=== PATIENT | female | born 1960 | race Caucasian/White ===

== ENCOUNTER 2020-11-01 11:28 | Outpatient (REF) | payer MEDICARE, SELFPAY | END 2020-11-01 11:29 | disposition home or self-care (01) | LOC: HO.LAB 11:28 | PROVIDERS: Visit Provider Internal Medicine | DX: Z20.828 Contact with and (suspected) exposure to other viral communicable diseases (principal) | CPT/HCPCS: C9803; U0003 ==

== ENCOUNTER 2021-01-25 11:06 | Outpatient (REF) | payer MEDICARE, SELFPAY ==
--- NOTE | ~2021-01-25 | MM_ITS ---
EXAMINATION: MM SCREENING DIGITAL BREAST TOMOSYNTHESIS, BILATERAL CLINICAL INFORMATION: Screening. Asymptomatic. The lifetime risk of breast cancer based on the Tyrer-Cuzick Model is 3%. COMPARISON: Mammography: 12/22/2019, 05/09/2018, 05/08/2017 TECHNIQUE: Digital breast tomosynthesis is performed in both the craniocaudal and mediolateral oblique views along with computer-aided detection (CAD). Synthesized 2D images are generated from the tomosynthesis. FINDINGS: The breasts are almost entirely fatty (ACR BI-RADS breast composition Category a). There are no significant masses, abnormal calcifications, or other abnormalities. The axilla and skin contours are unremarkable. MM/MM tomosynthesis screening BI IMPRESSION: No mammographic evidence of malignancy. ASSESSMENT: BI-RADS 1: Negative RECOMMENDATION: Routine annual mammography screening. This patient's information was entered into a reminder system with a target due date for their next mammogram.
== END 2021-01-25 11:07 | disposition home or self-care (01) ==
LOC: HO.MAMMO 11:06
PROVIDERS: Visit Provider Family Medicine
DX: Z12.31 Encounter for screening mammogram for malignant neoplasm of breast (principal)
CPT/HCPCS: 77063; 77067

== ENCOUNTER 2022-11-06 11:02 | Outpatient (REF) | payer MEDICARE, SELFPAY ==
--- NOTE | ~2022-11-06 | MM_ITS ---
EXAMINATION: MM SCREENING DIGITAL BREAST TOMOSYNTHESIS, BILATERAL CLINICAL INFORMATION: Screening. Asymptomatic. The lifetime risk of breast cancer based on the Tyrer-Cuzick Model is 3%. COMPARISON: Mammography: 01/25/2021, 12/22/2019, 05/09/2018 TECHNIQUE: Digital breast tomosynthesis is performed in both the craniocaudal and mediolateral oblique views along with computer-aided detection (CAD). Synthesized 2D images are generated from the tomosynthesis. FINDINGS: The breasts are almost entirely fatty (ACR BI-RADS breast composition Category a). Background stromal markings are stable. There is no developing density or interval mass or architectural abnormality. No abnormal calcifications. The axilla and skin contours are unremarkable. MM/MM tomosynthesis screening BI IMPRESSION: No mammographic evidence of malignancy. ASSESSMENT: BI-RADS 1: Negative RECOMMENDATION: Routine annual mammography screening. This patient's information was entered into a reminder system with a target due date for their next mammogram.
== END 2022-11-06 11:03 | disposition home or self-care (01) ==
LOC: HO.MAMMO 11:02
PROVIDERS: PCP Family Medicine; Visit Provider Family Medicine
DX: Z12.31 Encounter for screening mammogram for malignant neoplasm of breast (principal)
CPT/HCPCS: 77063; 77067

== ENCOUNTER 2023-10-10 10:02 | Outpatient (REF) | payer MEDICARE, SELFPAY ==
--- NOTE | ~2023-10-10 | US_ITS ---
EXAMINATION: US ABDOMEN COMPLETE CLINICAL INFORMATION: Fatty liver. COMPARISON: CT chest 08/16/2020. Ultrasound abdomen complete 05/09/2018 and 08/07/2017. TECHNIQUE: Real-time imaging of the abdominal viscera. FINDINGS: PANCREAS: The pancreas appears unremarkable, without masses or ductal dilatation, with the exception of the tail which is obscured by bowel gas. ABDOMINAL AORTA: The proximal, mid, and distal segments are normal in caliber. INFERIOR VENA CAVA: Visualized portions are normal. LIVER: The liver is enlarged at 19.5 cm in cephalocaudad dimension and demonstrates significantly increased echogenicity consistent with hepatic steatosis. The liver contour is normal. No focal hepatic lesion. There is no intrahepatic biliary duct dilatation seen. GALLBLADDER: The gallbladder is physiologically distended without evidence of stones, sludge, polyps, wall thickening or pericholecystic fluid. COMMON BILE DUCT: Normal in caliber measuring 0.5 cm in diameter. RIGHT KIDNEY: No hydronephrosis. No renal calculi or focal parenchymal lesions. The kidney measures 11.7 cm in maximum dimension. LEFT KIDNEY: There is some minimal fullness in the renal pelvis but no hydronephrosis. No renal calculi or focal parenchymal lesions. The kidney measures 13.8 cm in maximum dimension. SPLEEN: Normal. The spleen measures 9.7 cm in maximum dimension. FREE FLUID: None. US/US abdomen complete IMPRESSION: Enlarged fatty liver.
--- NOTE | ~2023-10-10 | US_ITS ---
EXAMINATION: US EXTRACRANIAL CAROTID DUPLEX, BILATERAL CLINICAL INFORMATION: Dizziness. COMPARISON: None available. TECHNIQUE: Real-time ultrasound and Doppler techniques (integrating B-mode 2-D vascular images, Doppler spectral analysis and color-flow Doppler imaging) were utilized to interrogate the extracranial carotid arteries, the vertebral arteries and proximal subclavian arteries bilaterally. The degree of stenosis is determined by criteria similar to NASCET. FINDINGS: Right Side: 1. There is mild atherosclerotic plaque seen in the bifurcation/proximal ICA region. 2. The common carotid artery PSV proximally is 80 cm/s and distally 88 cm/s. 3. The proximal internal carotid artery velocities are 66 cm/s systolic and 24 cm/s diastolic. 4. The proximal external carotid artery PSV is 83 cm/s. 5. The vertebral artery shows antegrade flow. 6. The subclavian artery waveforms are normal. Left Side: 1. There is no atherosclerotic plaque seen in the bifurcation/proximal ICA region. 2. The common carotid artery PSV proximally is 81 cm/s and distally 86 cm/s. 3. The proximal internal carotid artery velocities are 50 cm/s systolic and 21 cm/s diastolic. 4. The proximal external carotid artery PSV is 70 cm/s. 5. The vertebral artery shows antegrade flow. 6. The subclavian artery waveforms are normal. US/US carotid duplex BI IMPRESSION: RIGHT: Minimal, non-hemodynamically significant stenosis of the proximal right internal carotid artery corresponding to a 0-49% stenosis by velocity criteria. LEFT: Normal left internal carotid artery without atherosclerotic plaque or hemodynamically significant stenosis.
== END 2023-10-10 10:03 | disposition home or self-care (01) ==
LOC: HO.US 10:02
PROVIDERS: PCP Family Medicine; Visit Provider Family Medicine
DX: K76.0 Fatty (change of) liver, not elsewhere classified (principal); R42 Dizziness and giddiness
CPT/HCPCS: 76700; 93880

== ENCOUNTER 2023-12-12 11:41 | Outpatient (REF) | payer OTHER, SELFPAY | END 2023-12-12 11:42 | disposition home or self-care (01) | LOC: HO.MAMMO 11:41 | PROVIDERS: Visit Provider Family Medicine | DX: Z12.31 Encounter for screening mammogram for malignant neoplasm of breast (principal) | CPT/HCPCS: 77063; 77067 ==

== ENCOUNTER → 2023-12-12 12:00 | Outpatient (BNV) | payer OTHER, SELFPAY | PROVIDERS: Visit Provider Radiology Diagnostic Radiology | DX: Z12.31 Encounter for screening mammogram for malignant neoplasm of breast (principal) | CPT/HCPCS: 77063; 77067 ==

== ENCOUNTER 2024-02-26 13:40 | Outpatient (AMB) | payer OTHER, SELFPAY ==
--- NOTE | 2024-02-26 13:45 | MHC.OFFVIS ---
Intake Vital Signs 02/26/24 13:48 Height 5 ft 1 in Weight 167 lb 8.821 oz BMI 31.7 BP 184/83 H Blood Pressure Location Lt brachial Position Sitting Pulse 77 Intake Visit Reasons: dysphagia Intake Note: Wendy presents in the office as a new patient for Dysphagia. CC: She has issues with her bowels. She gets pains in the back right side. Between hips and ribs. She states that she is not having issues swallowing but she gets stuff stuck in her chest. She states that she has to drink liquids to have them go down. 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 Allergies apple [APPLE] Allergy (Mild, Unverified 02/26/24 13:49) ITCHY THROAT kiwi [KIWI] Allergy (Mild, Unverified 02/26/24 13:49) ITCHY THROAT peach [PEACH] Allergy (Mild, Unverified 02/26/24 13:49) ITCHY THROAT strawberry [STRAWBERRY] Allergy (Mild, Unverified 02/26/24 13:49) ITCHY THROAT pineapple [PINEAPPLE] Allergy (Unknown, Unverified 02/26/24 13:49) ITCHY THROAT apples,strawberries, pineapple Allergy (Unknown, Uncoded 02/26/24 13:49) itching shellfish Allergy (Uncoded 02/26/24 13:49) Itching HPI dysphagia HPI Details 63-year-old female with past medical history of thrombocytopenia, neck surgery, dysphagia, insomnia, hypertension, neuropathy, hypercholesteremia is here today for initial consultation. Patient was sent to us by her PCP for evaluation of her dysphagia. Patient also is suffering from constipation. Patient had surgery in 2018 to her C-spine and since then patient reports that she has been having trouble swallowing. Patient denies food ever getting stuck in her esophagus. Last year patient went to [facility] for barium swallow that showed mild esophageal dysmotility without laryngeal penetration or subglottic aspiration. Last month patient was seen at [facility] in the ER for severe abdominal pain. Patient reports that her pain is on the right side radiating to her back. Patient was told that she was full of stool. Confirmed by CT scan. Patient is taking Colace 2 capsules daily and reports no results at all. Patient never had upper endoscopy done. Patient had colonoscopy in August of 2022, hyperplastic polyp found in sigmoid colon. Patient denies any melena, hematochezia, unintentional weight loss or ribbon like stools. Patient reports occasional dyspepsia and acid reflux. Currently patient is on omeprazole 20 mg daily. [facility] Medical History Headache Fatty liver Pulmonary nodule Asthma FH: total knee replacement Scoliosis Arthritis Hyperlipemia Depression Anxiety Hypertension Diabetes Surgical History History of esophagogastroduodenoscopy (EGD) Hx of colonoscopy S/P cervical disc replacement (Unknown) History of tubal ligation H/O: hysterectomy Family History Maternal Grandmother Uterine cancer Social History Household Members: None Housing: Apartment Alcohol intake: former Patient Tobacco Use Status: Former Tobacco user Quit Date: 2017 Tobacco use type: Cigarette service: No Current occupational status: retired Review of Systems Const Denies weight gain and Denies weight loss ENT Reports no additional complaints, Reports dysphagia and Denies odynophagia Card Reports no additional complaints Resp Reports no additional complaints GI Denies abdominal pain, Denies belching, Denies melena, Denies bloating, Denies change in bowel habits, Reports constipation, Reports dysphagia, Denies excessive flatus, Denies dyspepsia, Denies heartburn, Denies diarrhea, Denies loose stools, Denies nausea, Denies odynophagia and Denies vomiting Reports no additional complaints Musc Reports no additional complaints Neuro Reports no additional complaints Psych Reports no additional complaints Endo Reports no additional complaints Physical Exam Vital Signs: Last Vital Signs Pulse 77 02/26/24 13:48 BP 184/83 H 02/26/24 13:48 BMI result Body Mass Index 31.7 Const General: healthy appearing and no acute distress Nutritional Appearance: obese Orientation/consciousness: patient oriented x3 Resp Effort & Inspection: normal respiratory effort, able to speak in complete sentences, no tracheal deviation and symmetric chest movement Auscultation: clear to auscultation bilaterally Cardio Rate: regular rate GI Inspection: Yes normal to inspection, No distended and Yes obesity Palpation (GI): Soft to palpation, not firm, nontender and No hepatosplenomegaly present Auscultation: normal bowel sounds General: Yes no CVA tenderness Back/Spine/Pelvis Back: no CVA tenderness Skin General skin exam: elasticity normal, turgor normal and dry skin Neuro General: patient oriented x3 Psych Appearance: grossly normal Mental Status: mental status grossly normal Assessment & Plan Assessment & Plan (1) Dysphagia: Code(s): R13.10 - Dysphagia, unspecified Qualifiers: Dysphagia type: esophageal phase Qualified Code(s): R13.19 - Other dysphagia (2) Abdominal pain, LUQ (left upper quadrant): Code(s): R10.12 - Left upper quadrant pain (3) Postprandial abdominal bloating: Code(s): R14.0 - Abdominal distension (gaseous) (4) Constipation: Code(s): K59.00 - Constipation, unspecified Qualifiers: Constipation type: slow transit constipation Qualified Code(s): K59.01 - Slow transit constipation (5) GERD (gastroesophageal reflux disease): Code(s): K21.9 - Gastro-esophageal reflux disease without esophagitis Qualifiers: Esophagitis presence: esophagitis presence not specified Qualified Code(s): K21.9 - Gastro-esophageal reflux disease without esophagitis Plan Patient will be sent for upper endoscopy to rule out Burgos, Schatzki ring, achalasia for possible dilation. Will change PPI to pantoprazole daily. Patient was encouraged to avoid dietary triggers and late night snacking. Staying upright for minimal 3 hours after meals discussed patient. Patient will eat small bites and chewing slowly. Making sure that she drinks fluids with solid food. Patient will start taking Dulcolax every evening. Increase fluid intake and activity to promote better bowel motility. Patient will return to the office in 5-6 weeks, sooner on as needed basis. Patient is agreeable to this plan and verbalizes understanding of instructions. She was given the opportunity to ask questions and all questions answered. Thank you for allowing me to participate in her care Medications: New bisacodyl (Dulcolax (bisacodyl)) 10 mg (2 x 5 mg) PO BEDTIME 180 tabs 4RF pantoprazole take one tablet half an hour before breakfast 40 mg PO DAILY 30 tabs 2RF K21.9 - Gastro-esophageal reflux disease without esophagitis Coding Level of Care Code New Pt Level 4 (38118) Diagnoses Esophageal dysphagia R13.19 Dysphagia type: esophageal phase Abdominal pain, LUQ (left upper quadrant) R10.12 Postprandial abdominal bloating R14.0 Slow transit constipation K59.01 Constipation type: slow transit constipation Gastroesophageal reflux disease, unspecified whether esophagitis present K21.9 Esophagitis presence: esophagitis presence not specified Time Spent (min) 45 Comment 30 minutes spent with patient and additional 15 minutes spent reviewing her records
[2024-02-26 13:48] VITALS: BP 184/83; PULSE 77; BMI 31.7
== END 2024-02-26 14:21 | disposition home or self-care (01) ==
PROVIDERS: PCP Family Medicine; Referring Provider Family Medicine; Visit Provider Nurse Practitioner Family
DX: R13.19 Other dysphagia (principal); R10.12 Left upper quadrant pain; R14.0 Abdominal distension (gaseous); K59.01 Slow transit constipation; K21.9 Gastro-esophageal reflux disease without esophagitis
CPT/HCPCS: 99204

== ENCOUNTER → 2024-02-26 13:40 | Outpatient (BNVA) | payer OTHER, SELFPAY | PROVIDERS: PCP Family Medicine; Referring Provider Family Medicine; Visit Provider Nurse Practitioner Family | DX: R13.19 Other dysphagia (principal); R10.12 Left upper quadrant pain; R14.0 Abdominal distension (gaseous); K59.01 Slow transit constipation; K21.9 Gastro-esophageal reflux disease without esophagitis | CPT/HCPCS: 99202 ==

== ENCOUNTER 2024-04-01 11:26 | Outpatient (AMB) | payer OTHER, SELFPAY ==
--- NOTE | 2024-04-01 11:32 | A.OFFVIS_ITS ---
Vital Signs 04/01/24 11:35 Height 5 ft 1 in Weight 170 lb BMI 32.1 BP 109/65 Blood Pressure Location Lt brachial Position Sitting Pulse 78 Intake Visit Reasons: med discussion per bradley Intake Note: Patient follow up for discussion Patient cc: Nauseas, LLQ pain, and swallowing problems on and off. 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[facility] [place] Accompanied by: Self / Same As Patient Allergies apple [APPLE] Allergy (Mild, Unverified 02/26/24 13:49) ITCHY THROAT kiwi [KIWI] Allergy (Mild, Unverified 02/26/24 13:49) ITCHY THROAT peach [PEACH] Allergy (Mild, Unverified 02/26/24 13:49) ITCHY THROAT strawberry [STRAWBERRY] Allergy (Mild, Unverified 02/26/24 13:49) ITCHY THROAT pineapple [PINEAPPLE] Allergy (Unknown, Unverified 02/26/24 13:49) ITCHY THROAT apples,strawberries, pineapple Allergy (Unknown, Uncoded 02/26/24 13:49) itching shellfish Allergy (Uncoded 02/26/24 13:49) Itching HPI HPI med discussion per bradley: Details: LAST VISIT Dysphagia Abdominal pain, LUQ (left upper quadrant) Postprandial abdominal bloating Constipation GERD (gastroesophageal reflux disease) Plan Patient will be sent for upper endoscopy to rule out Burgos, Schatzki ring, achalasia for possible dilation. Will change PPI to pantoprazole daily. Patient was encouraged to avoid dietary triggers and late night snacking. Staying upright for minimal 3 hours after meals discussed patient. Patient will eat small bites and chewing slowly. Making sure that she drinks fluids with solid food. Patient will start taking Dulcolax every evening. Increase fluid intake and activity to promote better bowel motility. Patient will return to the office in 5-6 weeks, sooner on as needed basis. Patient is agreeable to this plan and verbalizes understanding of instructions. She was given the opportunity to ask questions and all questions answered. ? Thank you for allowing me to participate in her care Medications New bisacodyl (Dulcolax (bisacodyl)) 10 mg (2 x 5 mg) PO BEDTIME 180 tabs 4RF pantoprazole take one tablet half an hour before breakfast 40 mg PO DAILY 30 tabs 2RF K21.9 TODAY'S VISIT Patient is here today for follow-up. Patient reports that she started taking Dulcolax and she is able to moving her bowels well. However patient states that pantoprazole was causing her epigastric pain after taking it. Patient states that she stopped. Occasional postprandial epigastric discomfort and dyspepsia. Occasional dysphagia depending on what she eats. Patient denies melena, hematochezia, unintentional weight loss or ribbon like stools. Has upper endoscopy and post endoscopy appointment scheduled. Patient denies any issues with anesthesia. Denies any history of sleep apnea. Patient is on low-dose aspirin. Patient denies any other GI concerning symptoms. [facility] Medical History Headache Fatty liver Pulmonary nodule Asthma FH: total knee replacement Scoliosis Arthritis Hyperlipemia Depression Anxiety Hypertension Diabetes Surgical History History of esophagogastroduodenoscopy (EGD) Hx of colonoscopy S/P cervical disc replacement (Unknown) History of tubal ligation H/O: hysterectomy Family History Maternal Grandmother Uterine cancer Social History Household Members: None Housing: Apartment Alcohol intake: former Patient Tobacco Use Status: Former Tobacco user Quit Date: 2017 Tobacco use type: Cigarette service: No Current occupational status: retired Review of Systems Const Denies weight gain and Denies weight loss ENT Reports no additional complaints, Reports dysphagia (improved) and Denies odynophagia Card Reports no additional complaints Resp Reports no additional complaints GI Reports abdominal pain (LUQ), Denies belching, Denies melena, Reports bloating, Denies change in bowel habits, Reports constipation (better), Reports dysphagia (improved), Denies excessive flatus, Denies dyspepsia, Denies heartburn, Denies diarrhea, Denies loose stools, Denies nausea, Denies odynophagia and Denies vomiting Reports no additional complaints Musc Reports no additional complaints Neuro Reports no additional complaints Psych Reports no additional complaints Endo Reports no additional complaints Physical Exam Vital Signs: Last Vital Signs Pulse 78 04/01/24 11:35 BP 109/65 04/01/24 11:35 BMI result Body Mass Index 32.1 Const Other: Patient ambulating using cane General: healthy appearing and no acute distress Nutritional Appearance: obese Orientation/consciousness: patient oriented x3 Resp Effort & Inspection: normal respiratory effort, able to speak in complete sentences, no tracheal deviation and symmetric chest movement Auscultation: clear to auscultation bilaterally Cardio Rate: regular rate GI Inspection: Yes normal to inspection, No distended and Yes obesity Palpation (GI): Soft to palpation, not firm, nontender and No hepatosplenomegaly present Auscultation: normal bowel sounds General: Yes no CVA tenderness Back/Spine/Pelvis Back: no CVA tenderness Skin General skin exam: elasticity normal, turgor normal and dry skin Neuro General: patient oriented x3 Psych Appearance: grossly normal Mental Status: mental status grossly normal Results Reviewed Results Reviewed: ABDOMINAL ULTRASOUND 2022 FINDINGS: PANCREAS: The pancreas appears unremarkable, without masses or ductal dilatation, with the exception of the tail which is obscured by bowel gas. ABDOMINAL AORTA: The proximal, mid, and distal segments are normal in caliber. INFERIOR VENA CAVA: Visualized portions are normal. LIVER: The liver is enlarged at 19.5 cm in cephalocaudad dimension and demonstrates significantly increased echogenicity consistent with hepatic steatosis. The liver contour is normal. No focal hepatic lesion. There is no intrahepatic biliary duct dilatation seen. GALLBLADDER: The gallbladder is physiologically distended without evidence of stones, sludge, polyps, wall thickening or pericholecystic fluid. COMMON BILE DUCT: Normal in caliber measuring 0.5 cm in diameter. RIGHT KIDNEY: No hydronephrosis. No renal calculi or focal parenchymal lesions. The kidney measures 11.7 cm in maximum dimension. LEFT KIDNEY: There is some minimal fullness in the renal pelvis but no hydronephrosis. No renal calculi or focal parenchymal lesions. The kidney measures 13.8 cm in maximum dimension. SPLEEN: Normal. The spleen measures 9.7 cm in maximum dimension. FREE FLUID: None. US/US abdomen complete IMPRESSION: Enlarged fatty liver. Assessment & Plan Assessment & Plan (1) Dysphagia: Code(s): R13.10 - Dysphagia, unspecified Qualifiers: Dysphagia type: esophageal phase Qualified Code(s): R13.19 - Other dysphagia (2) Abdominal pain, LUQ (left upper quadrant): Code(s): R10.12 - Left upper quadrant pain (3) Postprandial abdominal bloating: Code(s): R14.0 - Abdominal distension (gaseous) (4) Constipation: Code(s): K59.00 - Constipation, unspecified Qualifiers: Constipation type: slow transit constipation Qualified Code(s): K59.01 - Slow transit constipation (5) GERD (gastroesophageal reflux disease): Code(s): K21.9 - Gastro-esophageal reflux disease without esophagitis Qualifiers: Esophagitis presence: esophagitis presence not specified Qualified Code(s): K21.9 - Gastro-esophageal reflux disease without esophagitis (6) Hepatic steatosis: Code(s): K76.0 - Fatty (change of) liver, not elsewhere classified Plan Patient can start taking famotidine in the morning. Avoid dietary triggers and late night snacking. Continue taking Dulcolax. Simethicone on as-needed basis. Upper endoscopy scheduled. Patient was encouraged to eat small amount and slowly. She is agreeable to this plan and verbalizes understanding of instructions. She was given the opportunity to ask questions and all questions answered. I will see her after the procedure, sooner on as needed basis. Patient is agreeable to this plan and verbalizes understanding of instructions. She was given the opportunity to ask questions and all questions answered. Thank you for allowing me to participate in her care Medications: New famotidine (Pepcid) 20 mg PO DAILY 30 tabs 3RF K29.70 - Gastritis, unspecified, without bleeding simethicone 125 mg PO BID-QID PRN 120 caps 3RF abdominal distention K21.9 - Gastro-esophageal reflux disease without esophagitis Discontinued pantoprazole take one tablet half an hour before breakfast Discontinued Reason: Duplicate 40 mg PO DAILY 30 tabs 2RF K21.9 - Gastro- esophageal reflux disease without esophagitis Coding Level of Care Code Est Pt Level 3 (15836) Diagnoses Esophageal dysphagia R13.19 Dysphagia type: esophageal phase Abdominal pain, LUQ (left upper quadrant) R10.12 Postprandial abdominal bloating R14.0 Slow transit constipation K59.01 Constipation type: slow transit constipation Gastroesophageal reflux disease, unspecified whether esophagitis present K21.9 Esophagitis presence: esophagitis presence not specified Hepatic steatosis K76.0 Time Spent (min) 25 Comment 15 minutes spent with patient and additional 10 minutes spent reviewing her records
[2024-04-01 11:35] VITALS: BP 109/65; PULSE 78; BMI 32.1
== END 2024-04-01 12:32 | disposition home or self-care (01) ==
PROVIDERS: PCP Family Medicine; Visit Provider Nurse Practitioner Family
DX: R13.19 Other dysphagia (principal); R10.12 Left upper quadrant pain; R14.0 Abdominal distension (gaseous); K59.01 Slow transit constipation; K21.9 Gastro-esophageal reflux disease without esophagitis; K76.0 Fatty (change of) liver, not elsewhere classified
CPT/HCPCS: 99213

== ENCOUNTER → 2024-04-01 11:26 | Outpatient (BNVA) | payer OTHER, SELFPAY | PROVIDERS: PCP Family Medicine; Visit Provider Nurse Practitioner Family | DX: R13.19 Other dysphagia (principal); R10.12 Left upper quadrant pain; R14.0 Abdominal distension (gaseous); K59.01 Slow transit constipation; K21.9 Gastro-esophageal reflux disease without esophagitis; K76.0 Fatty (change of) liver, not elsewhere classified | CPT/HCPCS: 99212 ==

== ENCOUNTER 2024-05-09 14:22 | Outpatient (REF) | payer OTHER, SELFPAY ==
--- NOTE | ~2024-05-09 | CT_ITS ---
EXAMINATION: CT CHEST WITHOUT CONTRAST CLINICAL INFORMATION: Follow-up asymmetric aortic dilatation and pulmonary nodules. COMPARISON: 08/16/2020 CT chest. TECHNIQUE: Multidetector volumetric CT imaging of the chest was done. Axial MIP volume rendering provided. Sagittal and coronal reformatted images were obtained. This CT examination was performed using dose optimization techniques as appropriate, variously including the following: *Automated exposure control *Adjustment of mA and/or kV according to patient size (this includes techniques or standardized protocols for targeted exams where dose is matched to indication/reason for exam; i.e. extremities or head) *Use of iterative reconstruction technique DLP: 143 mGy-cm FINDINGS: PET ADOPTION COUNSELOR: No findings of significance. Cervical fusion hardware. Mild dextroconvex thoracic scoliosis and exaggerated kyphosis. LUNGS: -Lungs demonstrate no evidence of consolidation or abnormal groundglass opacities. -Trachea and major bronchi appear normal. There is no bronchiectasis or bronchial wall thickening. -There is no significant emphysema or interstitial lung disease identified. -Previously mentioned posterior right upper lobe 4 mm nodule has the appearance of a focus of pleural scarring rather than an actual nodule. It is unchanged. -2 mm calcified granuloma superior segment right lower lobe is stable (series 5, image 182). -3 mm pulmonary nodule lateral superior segment right lower lobe is unchanged (series 5, image 236). -There are no significant left-sided pulmonary nodules. -There are no new pulmonary nodules. MEDIASTINUM: -The 8 ascending aorta measures up to 3.9 cm, ectatic without meeting strict criteria for aneurysmal dilatation. This is unchanged in caliber allowing for a non-gated study. There is trace aortic calcification and mild tortuosity. No additional aortic abnormality. Great vessels branch normally with a two-vessel branching pattern. -Pulmonary artery is normal in size. -No esophageal abnormalities. -Heart is normal in size. No pericardial effusion. Small amount of mitral annular calcification. -No abnormal lymphadenopathy. -The thyroid gland images normally. CORONARY ARTERY CALCIFICATION: Trace LAD calcification proximally. PLEURA: There is no pleural effusion. No pleural mass or thickening. AXILLA/CHEST WALL: No lymphadenopathy. UPPER ABDOMEN: There is fatty infiltration of liver. There are 3 calcifications in segment 8 of the liver, most likely granulomatous changes. Stomach is decompressed. OSSEOUS STRUCTURES: Partially imaged lower cervical anterior fusion with hardware. Subtle dextroconvex thoracic scoliosis with mild to moderate degenerative spondylosis. No suspicious lytic or blastic bone lesions. Mildly exaggerated thoracic kyphosis. CT/CT chest wo IV con IMPRESSION: 1. No active lung disease. The lungs are clear. 2. There are stable lung nodules, benign, with no new nodules present. 3. Stable ectasia of the ascending aorta 3.9 cm. No change. 4. Remainder of ancillary findings as described above. Fleischner guidelines were followed.
== END 2024-05-09 14:23 | disposition home or self-care (01) ==
LOC: HO.CT 14:22
PROVIDERS: Visit Provider Family Medicine
DX: I77.810 Thoracic aortic ectasia (principal); R91.8 Other nonspecific abnormal finding of lung field
CPT/HCPCS: 71250

== ENCOUNTER → 2024-05-09 14:25 | Outpatient (BNV) | payer OTHER, SELFPAY | PROVIDERS: Visit Provider Radiology Diagnostic Radiology | DX: I77.810 Thoracic aortic ectasia (principal); R91.8 Other nonspecific abnormal finding of lung field | CPT/HCPCS: 71250 ==

== ENCOUNTER 2024-05-16 13:29 | Outpatient (REF) | payer OTHER, SELFPAY ==
--- NOTE | ~2024-05-16 | XR_ITS ---
EXAMINATION: XR RIBS, BILATERAL CLINICAL INFORMATION: Right-sided rib pain. COMPARISON: CT chest 10/05/2022 and 05/09/2024. TECHNIQUE: 3 views of the bilateral ribs were obtained. FINDINGS: Normal appearance of the cardiomediastinal silhouette. No focal airspace opacities, pleural effusion or pneumothorax. No displaced rib fractures. No acute osseous findings. Partially seen cervical spinal fusion hardware. Visualized upper abdomen is within normal limits. XR/XR ribs BI min 4V w CXR1V IMPRESSION: 1. No acute cardiopulmonary findings. 2. No displaced rib fractures.
== END 2024-05-16 13:30 | disposition home or self-care (01) ==
LOC: HO.HHCX 13:29
PROVIDERS: Visit Provider Family Medicine
DX: R07.81 Pleurodynia (principal)
CPT/HCPCS: 71111; 83013

== ENCOUNTER 2024-05-28 18:02 | Outpatient (REF) | payer OTHER, SELFPAY ==
[2024-05-29 12:06] LABS: H Pylori Breath Test Negative (Negative)
== END 2024-05-28 18:03 | disposition home or self-care (01) ==
LOC: HO.LNP 18:02
PROVIDERS: Visit Provider Family Medicine
DX: K21.9 Gastro-esophageal reflux disease without esophagitis (principal)
CPT/HCPCS: 83013

== ENCOUNTER 2024-06-24 06:07 | Day surgery (SDC) | payer OTHER, SELFPAY ==
[2024-06-24 07:12] VITALS: BP 145/78; PULSE 67; RESP 16; TEMP 36.7; O2SAT 99; BMI 29.9
[2024-06-24] MEDS: Lactated Ringers 1,000 ML 100 ML IVCONT (07:28)
[2024-06-24 07:33] LABS: Glucose, Whole Blood 96 mg/dL (60-115)
--- NOTE | 2024-06-24 07:55 | P.CONAN_ITS ---
Documented by User: Kaitlin Adamson NP 06/23/24 09:09 HPI - Anesthesia Eval Consult details Narrative: 63yo F for Upper Endoscopy PMFSH Active Problems Active Problems: All Active Problems Thrombocytopenia (Chronic) Past Medical History Medical History Headache Fatty liver Pulmonary nodule Asthma FH: total knee replacement Scoliosis Arthritis Hyperlipemia Depression Anxiety Hypertension Diabetes Family History Family History Maternal Grandmother Uterine cancer Surgical History Surgical History History of esophagogastroduodenoscopy (EGD) Hx of colonoscopy S/P cervical disc replacement (Unknown) History of tubal ligation H/O: hysterectomy Social History Social History Household Members: None Housing: Apartment Alcohol intake: former Patient Tobacco Use Status: Former Tobacco user Tobacco use type: Cigarette Use of substances other than those prescribed or required for medical reasons: No Are you DNR?: No Advance Directives: No Advance Directives Information Provided: Yes service: No Current occupational status: retired Meds Allergies Allergy/AdvReac Type Severity Reaction Status Date / Time apple [APPLE] Allergy Mild ITCHY Unverified 02/26/24 13:49 THROAT kiwi [KIWI] Allergy Mild ITCHY Unverified 02/26/24 13:49 THROAT peach [PEACH] Allergy Mild ITCHY Unverified 02/26/24 13:49 THROAT strawberry [STRAWBERRY] Allergy Mild ITCHY Unverified 02/26/24 13:49 THROAT pineapple [PINEAPPLE] Allergy Unknown ITCHY Unverified 02/26/24 13:49 THROAT apples,strawberries, Allergy Unknown itching Uncoded 02/26/24 13:49 pineapple shellfish Allergy Itching Uncoded 02/26/24 13:49 Home Medications ?Medication ?Instructions ?Recorded ?Confirmed ?Last Taken ?Type albuterol sulfate 2.5 mg/3 mL 1 amp inhalation Q4H PRN wheezing 11/01/2008/17 Unknown History (0.083 %) solution for nebulization albuterol sulfate 90 mcg/actuation 2 puff inhalation Q4H PRN wheezing 11/01/20 11/03/22 Unknown History aerosol inhaler aspirin 81 mg tablet,delayed 1 tab PO QAM 11/01/20 11/03/22 Unknown History release atorvastatin 40 mg tablet 1 tab PO DAILY 11/01/20 11/03/22 Unknown History cholecalciferol (vitamin D3) 50 1 tab PO BEDTIME 11/01/20 11/03/22 Unknown History mcg (2,000 unit) tablet clonazepam 0.5 mg tablet 1 tab PO BEDTIME 11/01/20 11/03/22 Unknown History cyanocobalamin (vitamin B-12) 1 tab PO DAILY 11/01/20 11/03/22 Unknown History 1,000 mcg tablet docusate sodium 100 mg capsule 1 cap PO DAILY 11/01/20 11/03/22 Unknown History fenofibrate 54 mg tablet 1 tab PO DAILY 11/01/20 11/03/22 Unknown History fluticasone propionate 50 2 spray intranasal DAILY 11/01/20 11/03/22 Unknown History mcg/actuation nasal spray,suspension gabapentin 300 mg capsule 1 cap PO TID 11/01/20 11/03/22 Unknown History hydrochlorothiazide 12.5 mg tablet 1 tab PO QAM 11/01/20 11/03/22 Unknown History lisinopril 40 mg tablet 1 tab PO DAILY 11/01/20 11/03/22 Unknown History lorazepam 1 mg tablet 1 tab PO BEDTIME PRN Anxiety 11/01/20 11/03/22 Unknown History metformin 500 mg tablet 1 tab PO BID 11/01/20 11/03/22 Unknown History oxcarbazepine 300 mg tablet 1 tab PO BID 11/01/20 11/03/22 Unknown History oxybutynin chloride 10 mg 1 tab PO QAM 11/01/20 11/03/22 Unknown History tablet,extended release 24 hr quetiapine 50 mg tablet 1 - 2 tab PO BEDTIME PRN Insomnia 11/01/20 11/03/22 Unknown History blood sugar diagnostic (FreeStyle #10 ea 02/26/24 Unknown History Lite Strips) cetirizine 10 mg capsule (Zyrtec) 10 mg PO DAILY PRN 02/26/24 Unknown History meclizine 25 mg tablet 25 mg PO DAILY PRN 02/26/24 Unknown History meloxicam 15 mg tablet 15 mg PO DAILY 02/26/24 Unknown History oxycodone-acetaminophen 5 mg-325 1 tab PO BID PRN 02/26/24 Unknown History mg tablet Assessment and Plan Assessment Anesthesia Assessment: Chart Reviewed Documented by User: Fartun Kevin DO 06/24/24 07:59 [facility] Past Medical History Medical History Headache Fatty liver Pulmonary nodule Asthma FH: total knee replacement Scoliosis Arthritis Hyperlipemia Depression Anxiety Hypertension Diabetes Family History Family History Maternal Grandmother Uterine cancer Family history of problems with anesthesia: No Surgical History Surgical History History of esophagogastroduodenoscopy (EGD) Hx of colonoscopy S/P cervical disc replacement (Unknown) History of tubal ligation H/O: hysterectomy History of Problems with Anesthesia: No Social History Social History Household Members: None Housing: Apartment Alcohol intake: former Patient Tobacco Use Status: Former Tobacco user Tobacco use type: Cigarette Use of substances other than those prescribed or required for medical reasons: No Are you DNR?: No Advance Directives: No Advance Directives Information Provided: Yes service: No Current occupational status: retired Meds Allergies Allergy/AdvReac Type Severity Reaction Status Date / Time apple [APPLE] Allergy Mild ITCHY Unverified 02/26/24 13:49 THROAT kiwi [KIWI] Allergy Mild ITCHY Unverified 02/26/24 13:49 THROAT peach [PEACH] Allergy Mild ITCHY Unverified 02/26/24 13:49 THROAT strawberry [STRAWBERRY] Allergy Mild ITCHY Unverified 02/26/24 13:49 THROAT pineapple [PINEAPPLE] Allergy Unknown ITCHY Unverified 02/26/24 13:49 THROAT apples,strawberries, Allergy Unknown itching Uncoded 02/26/24 13:49 pineapple shellfish Allergy Itching Uncoded 02/26/24 13:49 Home Medications ?Medication ?Instructions ?Recorded ?Confirmed ?Last Taken ?Type albuterol sulfate 2.5 mg/3 mL 1 amp inhalation Q4H PRN wheezing 11/01/20 11/03/22 Unknown History (0.083 %) solution for nebulization albuterol sulfate 90 mcg/actuation 2 puff inhalation Q4H PRN wheezing 11/01/20 11/03/22 Unknown History aerosol inhaler aspirin 81 mg tablet,delayed 1 tab PO QAM 11/01/20 11/03/22 Unknown History release atorvastatin 40 mg tablet 1 tab PO DAILY 11/01/20 11/03/22 Unknown History cholecalciferol (vitamin D3) 50 1 tab PO BEDTIME 11/01/20 11/03/22 Unknown History mcg (2,000 unit) tablet clonazepam 0.5 mg tablet 1 tab PO BEDTIME 11/01/20 11/03/22 Unknown History cyanocobalamin (vitamin B-12) 1 tab PO DAILY 11/01/20 11/03/22 Unknown History 1,000 mcg tablet docusate sodium 100 mg capsule 1 cap PO DAILY 11/01/20 11/03/22 Unknown History fenofibrate 54 mg tablet 1 tab PO DAILY 11/01/20 11/03/22 Unknown History fluticasone propionate 50 2 spray intranasal DAILY 11/01/20 11/03/22 Unknown History mcg/actuation nasal spray,suspension gabapentin 300 mg capsule 1 cap PO TID 11/01/20 11/03/22 Unknown History hydrochlorothiazide 12.5 mg tablet 1 tab PO QAM 11/01/20 11/03/22 Unknown History lisinopril 40 mg tablet 1 tab PO DAILY 11/01/20 11/03/22 Unknown History lorazepam 1 mg tablet 1 tab PO BEDTIME PRN Anxiety 11/01/20 11/03/22 Unknown History metformin 500 mg tablet 1 tab PO BID 11/01/20 11/03/22 Unknown History oxcarbazepine 300 mg tablet 1 tab PO BID 11/01/20 11/03/22 Unknown History oxybutynin chloride 10 mg 1 tab PO QAM 11/01/20 11/03/22 Unknown History tablet,extended release 24 hr quetiapine 50 mg tablet 1 - 2 tab PO BEDTIME PRN Insomnia 11/01/20 11/03/22 Unknown History blood sugar diagnostic (FreeStyle #10 ea 02/26/24 Unknown History Lite Strips) cetirizine 10 mg capsule (Zyrtec) 10 mg PO DAILY PRN 02/26/24 Unknown History meclizine 25 mg tablet 25 mg PO DAILY PRN 02/26/24 Unknown History meloxicam 15 mg tablet 15 mg PO DAILY 02/26/24 Unknown History oxycodone-acetaminophen 5 mg-325 1 tab PO BID PRN 02/26/24 Unknown History mg tablet Exam Exam Date and Time: June 24, 2024 0756 Height,Weight and Vital Signs: Height 5 ft 1 in Weight 71.668 kg Vital Signs Temperature 98.0 F 06/24/24 07:12 Pulse Rate 67 06/24/24 07:12 Respiratory Rate 16 06/24/24 07:12 Blood Pressure 145/78 H 06/24/24 07:12 Pulse Oximetry 99 06/24/24 07:12 Oxygen Delivery Method Room Air 06/24/24 07:12 Temperature 98.0 F 06/24/24 07:12 Pulse Rate 67 06/24/24 07:12 Respiratory Rate 16 06/24/24 07:12 Blood Pressure 145/78 H 06/24/24 07:12 Pulse Oximetry 99 06/24/24 07:12 Oxygen Delivery Method Room Air 06/24/24 07:12 Airway Mallampati Class: II TM Dist: >3cm Neck ROM: Limited Loose/Missing/Broken Teeth: Yes (missing molar left bottom jaw) Heart: S1S2 Lungs: CTAB Assessment and Plan Assessment Anesthesia Assessment: Anesthesia Plan Discussed and Chart Reviewed Final Anesthetic Review Family History of Problems with Anesthesia: No History of Problems with Anesthesia: No NPO: Yes ASA Class: II Final Preanesthetic Review: No Changes in Pt Med Stat, Meds/Allgs Chart Reviewed, Consent Obtained/Reviewed and Anes Risks/Benef Reviewed Patient Risk: Low Procedure Risk: Low Anesthetic Plan Anesthetic Plan: MAC: and Agree w/ Assess. and Plan Disposition: Standard PACU
--- NOTE | 2024-06-24 08:06 | MHC.SHP ---
Pre-Procedural Eval Section A - 24 Hr Update-Section A only Date of Service: 06/24/24 Section B - Complete if H&P > 30 days Chief Complaint: gerd, Relevant Family History (Specify if Yes): No Relevant Social History: None Present Medications: see Short Stay Collaborative assessment Medical History: Significant History (Headache Fatty liver Pulmonary nodule Asthma FH: total knee replacement Scoliosis Arthritis Hyperlipemia Depression Anxiety Hypertension Diabetes) History of Previous Operations: Relevant previous surgery/procedure and date(s) (History of esophagogastroduodenoscopy (EGD) Hx of colonoscopy S/P cervical disc replacement (Unknown) History of tubal ligation H/O: hysterectomy) Allergies: Allergies Allergy/AdvReac Type Severity Reaction Status Date / Time apple [APPLE] Allergy Mild ITCHY Unverified 02/26/24 13:49 THROAT kiwi [KIWI] Allergy Mild ITCHY Unverified 02/26/24 13:49 THROAT peach [PEACH] Allergy Mild ITCHY Unverified 02/26/24 13:49 THROAT strawberry [STRAWBERRY] Allergy Mild ITCHY Unverified 02/26/24 13:49 THROAT pineapple [PINEAPPLE] Allergy Unknown ITCHY Unverified 02/26/24 13:49 THROAT apples,strawberries, Allergy Unknown itching Uncoded 02/26/24 13:49 pineapple shellfish Allergy Itching Uncoded 02/26/24 13:49 Review of Systems Sugical H&P ROS: Negative: Constitution, Cardiovascular, Respiratory, Neurological, Psychiatric, Hem-Onc, Allergic/Immunologic, Gastrointestinal, Genitourinary, Musculoskeletal, Integumentary, Endocrine and Eyes/Ears/Nose/Throat Exam Surgical H&P Exam: Normal: HEENT, Normal: Heart, Normal: Lungs, Normal: Extremities, Normal: Abdomen, Normal: Skin and Normal: Neurological Plan Diagnosis/Plan: Unchanged I have reviewed the history and physical and performed a pertinent physical examination on my patient. No changes have occurred unless specified. Time Spent With Patient Time: Total time managing care of this patient today ____ minutes.
--- NOTE | 2024-06-24 08:07 | W.PM.OPN ---
Operative Note Operative Note Date of Service: 06/24/24 Narrative: Procedure Description: EGD Indication: dysphagia, GERD Anesthesia: MAC FLEXIBLE TRANSORAL UPPER GASTROINTESTINAL ENDOSCOPY UPPER ENDOSCOPY Consent: Indications for the procedure and potential complications of bleeding, perforation, reaction to medications and missed diagnosis were discussed with the patient and informed consent was obtained. Instrument: Olympus GIF H 190 J mid size upper endoscope Monitoring: Vital signs and clinical assessment, continuous EKG monitoring, Pulse oximetry, Carbon Dioxide monitoring and blood pressure monitoring were done throughout the procedure. Procedure: The patient was placed in the left lateral decubitis position and pre-procedure medications were administered and a bite block was placed. The endoscope was inserted into the mouth and advanced under direct vision to the third part of duodenum. A careful inspection was made as the upper endoscope was withdrawn including a retroflexed examination of the proximal stomach; Findings and interventions are described below. Findings: Larynx:normal Esophagus: GE junction at 32 cm, diaphragm hiatus at 32 cm, mild esophagitis and bogginess at GEJ, balloon dilation doen to 20 mm at LES and UES, no tears seen, bx taken from GEJ, distal and proximal esophagus-schatzki ring noted Stomach: normal, few fundic gland polyps seen . Biopsies were obtained. Grade 3 flap valve on retroflexed examination of the cardia. Duodenum: Normal bulb and descending duodenum, Intervention: Biopsies as noted above, balloon dilation Impression/Findings: lax LES schatzki ring esophagitis fundic gland polyps PLAN: can consider changing to PPi if ongoing sx GERD precautions
[2024-06-24 08:46] VITALS: BP 149/77; PULSE 85; RESP 16; TEMP 36.2; O2SAT 97
[2024-06-24 09:01] VITALS: BP 144/77; PULSE 74; RESP 15; O2SAT 98
[2024-06-24 09:14] VITALS: BP 137/77; PULSE 66; RESP 17; TEMP 36.4; O2SAT 98
== END 2024-06-24 09:42 | disposition home or self-care (01) ==
PROVIDERS: PCP Family Medicine; Visit Provider Internal Medicine Gastroenterology
PROC: 0DJ08ZZ Inspection of Upper Intestinal Tract, Via Natural or Artificial Opening Endoscopic (ICD-10-PCS; CPT 43235; principal; 2024-06-24 08:20)
DX: K21.9 Gastro-esophageal reflux disease without esophagitis (principal); K22.4 Dyskinesia of esophagus; K22.2 Esophageal obstruction; K20.80 Other esophagitis without bleeding; K44.9 Diaphragmatic hernia without obstruction or gangrene; K31.7 Polyp of stomach and duodenum; K76.0 Fatty (change of) liver, not elsewhere classified; E78.5 Hyperlipidemia, unspecified; R51.9 Headache, unspecified; J45.909 Unspecified asthma, uncomplicated; I10 Essential (primary) hypertension; E11.9 Type 2 diabetes mellitus without complications; K59.01 Slow transit constipation; Z79.82 Long term (current) use of aspirin; Z79.899 Other long term (current) drug therapy; Z87.891 Personal history of nicotine dependence
CPT/HCPCS: 43249; 43239; 82947; 88305; 88313; C1726; J1596; J2704

== ENCOUNTER → 2024-06-24 06:07 | Outpatient (BNV) | payer OTHER, SELFPAY | PROVIDERS: PCP Family Medicine; Visit Provider Internal Medicine Gastroenterology | DX: K21.00 Gastro-esophageal reflux disease with esophagitis, without bleeding (principal); K22.2 Esophageal obstruction; K31.7 Polyp of stomach and duodenum | CPT/HCPCS: 43239; 43249 ==

== ENCOUNTER 2024-07-08 10:40 | Outpatient (AMB) | payer OTHER, SELFPAY ==
--- NOTE | 2024-07-08 11:05 | MHC.OFFVIS ---
Vital Signs 07/08/24 11:08 Height 5 ft 1 in Weight 159 lb 2.78 oz BMI 30.1 BP 142/74 H Blood Pressure Location Lt brachial Position Sitting Pulse 68 Pulse Source Pulse Oximeter Pulse Oximetry (%) 98 Oxygen Delivery Method Room Air Intake Visit Reasons: s/p egd Intake Note: Wendy presents in office today for a scheduled post op FUV. CC; Pt reports that they are doing OK, however; they are still managing their chronic sx. Pt states that their sx have decreased since their last visit, but have not dissipated. Pt is looking to discuss the results of their egd as well as to discuss their care plan going forward. Mechanical Facilities Technician Required: No Accompanied by: Spouse Allergies apple [APPLE] Allergy (Mild, Verified 07/08/24 11:06) ITCHY THROAT kiwi [KIWI] Allergy (Mild, Verified 07/08/24 11:06) ITCHY THROAT peach [PEACH] Allergy (Mild, Verified 07/08/24 11:06) ITCHY THROAT strawberry [STRAWBERRY] Allergy (Mild, Verified 07/08/24 11:06) ITCHY THROAT pineapple [PINEAPPLE] Allergy (Unknown, Verified 07/08/24 11:06) ITCHY THROAT apples,strawberries, pineapple Allergy (Unknown, Uncoded 02/26/24 13:49) itching shellfish Allergy (Uncoded 02/26/24 13:49) Itching HPI HPI s/p egd: Details: LAST VISIT Dysphagia Abdominal pain, LUQ (left upper quadrant) Postprandial abdominal bloating Constipation GERD (gastroesophageal reflux disease) Hepatic steatosis Plan Patient can start taking famotidine in the morning. Avoid dietary triggers and late night snacking. Continue taking Dulcolax. Simethicone on as-needed basis. Upper endoscopy scheduled. Patient was encouraged to eat small amount and slowly. She is agreeable to this plan and verbalizes understanding of instructions. She was given the opportunity to ask questions and all questions answered. I will see her after the procedure, sooner on as needed basis. Patient is agreeable to this plan and verbalizes understanding of instructions. She was given the opportunity to ask questions and all questions answered. ? Thank you for allowing me to participate in her care Medications New famotidine (Pepcid) 20 mg PO DAILY 30 tabs 3RF K29.70 simethicone 125 mg PO BID-QID PRN 120 caps 3RF abdominal distention K21.9 Discontinued pantoprazole take one tablet half an hour before breakfast Discontinued Reason: Duplicate 40 mg PO DAILY 30 tabs 2RF K21.9 UPPER ENDOSCOPY Findings: Larynx:normal Esophagus: GE junction at 32 cm, diaphragm hiatus at 32 cm, mild esophagitis and bogginess at GEJ, balloon dilation doen to 20 mm at LES and UES, no tears seen, bx taken from GEJ, distal and proximal esophagus-schatzki ring noted Stomach: normal, few fundic gland polyps seen . Biopsies were obtained. Grade 3 flap valve on retroflexed examination of the cardia. Duodenum: Normal bulb and descending duodenum, Intervention: Biopsies as noted above, balloon dilation Impression/Findings: lax LES schatzki ring esophagitis fundic gland polyps PLAN: can consider changing to PPi if ongoing sx GERD precautions PATHOLOGY Diagnosis A. GE junction, biopsy: - Cardiofundic-type mucosa with moderate chronic inactive inflammation; no fully-developed intestinal metaplasia seen. - Squamous mucosa within normal limits. B. Esophagus, distal, biopsy: Squamous epithelium within normal limits; no inflammation seen. C. Esophagus, proximal, biopsy: Squamous mucosa within normal limits; no inflammation seen TODAY'S VISIT Patient is here today for follow-up and to discuss upper endoscopy results. Patient reports that her symptoms are better. She no longer has dyspepsia or dysphagia, however she reports that occasionally she will still have acid reflux. Patient states that feels like burning sensation in her epigastric region. Currently patient is taking omeprazole and famotidine. Patient denies any nausea or vomiting. Denies any issues with anesthesia or procedure itself. Patient reports however that she is moving her bowels better now. Patient also changed some of her diet. Patient denies melena, hematochezia, unintentional weight loss or ribbon like stools. [facility] Medical History (Updated 07/08/24 @ 20:08 by Alanna Rolon, [facility]) Schatzki's ring Headache Fatty liver Pulmonary nodule Asthma FH: total knee replacement Scoliosis Arthritis Hyperlipemia Depression Anxiety Hypertension Diabetes Surgical History History of esophagogastroduodenoscopy (EGD) Hx of colonoscopy S/P cervical disc replacement (Unknown) History of tubal ligation H/O: hysterectomy Family History Maternal Grandmother Uterine cancer Social History Household Members: None Housing: Apartment Alcohol intake: former Patient Tobacco Use Status: Former Tobacco user Tobacco use type: Cigarette service: No Current occupational status: retired Review of Systems Const Denies weight gain and Denies weight loss ENT Reports no additional complaints, Denies dysphagia and Denies odynophagia Card Reports no additional complaints Resp Reports no additional complaints GI Denies abdominal pain, Denies belching, Denies melena, Denies bloating, Denies change in bowel habits, Denies dysphagia, Denies excessive flatus, Denies dyspepsia, Reports heartburn (Occasional), Denies diarrhea, Denies loose stools, Denies nausea, Denies odynophagia and Denies vomiting Musc Reports no additional complaints Neuro Reports no additional complaints Psych Reports no additional complaints Endo Reports no additional complaints Physical Exam Vital Signs: Last Vital Signs Pulse 68 07/08/24 11:08 BP 142/74 H 07/08/24 11:08 Pulse Ox 98 07/08/24 11:08 Oxygen Delivery Method Room Air 07/08/24 11:08 BMI result Body Mass Index 30.1 Const Other: Patient ambulating using cane General: healthy appearing and no acute distress Nutritional Appearance: obese Orientation/consciousness: patient oriented x3 Resp Effort & Inspection: normal respiratory effort, able to speak in complete sentences, no tracheal deviation and symmetric chest movement Auscultation: clear to auscultation bilaterally Cardio Rate: regular rate GI Inspection: Yes normal to inspection, No distended and Yes obesity Palpation (GI): Soft to palpation, not firm, nontender and No hepatosplenomegaly present Auscultation: normal bowel sounds General: Yes no CVA tenderness Back/Spine/Pelvis Back: no CVA tenderness Skin General skin exam: elasticity normal, turgor normal and dry skin Neuro General: patient oriented x3 Psych Appearance: grossly normal Mental Status: mental status grossly normal Assessment & Plan Assessment & Plan (1) Schatzki's ring: Code(s): K22.2 - Esophageal obstruction Category: Medical (2) Dysphagia: Code(s): R13.10 - Dysphagia, unspecified Qualifiers: Dysphagia type: esophageal phase Qualified Code(s): R13.19 - Other dysphagia (3) Abdominal pain, LUQ (left upper quadrant): Code(s): R10.12 - Left upper quadrant pain (4) Postprandial abdominal bloating: Code(s): R14.0 - Abdominal distension (gaseous) (5) Constipation: Code(s): K59.00 - Constipation, unspecified Qualifiers: Constipation type: slow transit constipation Qualified Code(s): K59.01 - Slow transit constipation (6) GERD (gastroesophageal reflux disease): Code(s): K21.9 - Gastro-esophageal reflux disease without esophagitis Qualifiers: Esophagitis presence: with esophagitis Esophagitis bleeding: without hemorrhage Qualified Code(s): K21.00 - Gastro-esophageal reflux disease with esophagitis, without bleeding (7) Hepatic steatosis: Code(s): K76.0 - Fatty (change of) liver, not elsewhere classified Plan Patient will stop taking omeprazole and will start taking Nexium. Patient will also take sucralfate at bedtime and stopped taking famotidine. Patient will continue avoiding dietary triggers and late night snacking. Staying upright for minimum 3 hours after meals discussed patient. Increase fluid intake and activity to promote better bowel motility. May use fiber supplement or MiraLax to help her move her bowels better. Patient will return in the office in 3 months, sooner on as needed basis. She is agreeable to this plan and verbalizes understanding of instructions. She was given the opportunity to ask questions and all questions answered. Thank you for allowing me to participate in her care Medications: New esomeprazole magnesium (Nexium) 40 mg PO DAILY 30 caps 2RF K21.9 - Gastro-esophageal reflux disease without esophagitis sucralfate 1 g PO BEDTIME 30 tabs 4RF R19.7 - Diarrhea, unspecified Discontinued famotidine (Pepcid) Discontinued Reason: Doctor's Order 20 mg PO DAILY 30 tabs 3RF K29.70 - Gastritis, unspecified, without bleeding Patient Instructions: Stop famotidine 20 mg and stop omeprazole 20 mg.? Continue taking Dulcolax 5 mg at night time to help you move your bowels.? You will start a new medication: Nexium (esomeprazole) 40 mg, take this in the morning half an hour before breakfast.? At bedtime you will be taking sucralfate 1 g.? This is a large pill.? You can place it in the medicine cup add small amount of water to dissolve it. Coding Level of Care Code Est Pt Level 4 (45571) Diagnoses Schatzki's ring K22.2 Esophageal dysphagia R13.19 Dysphagia type: esophageal phase Abdominal pain, LUQ (left upper quadrant) R10.12 Postprandial abdominal bloating R14.0 Slow transit constipation K59.01 Constipation type: slow transit constipation Gastroesophageal reflux disease with esophagitis without hemorrhage K21.00 Esophagitis presence: with esophagitis Esophagitis bleeding: without hemorrhage Hepatic steatosis K76.0 Time Spent (min) 35 Comment 20 minutes spent with patient and additional 15 minutes spent reviewing her records
[2024-07-08 11:08] VITALS: BP 142/74; PULSE 68; O2SAT 98; BMI 30.1
== END 2024-07-08 12:33 | disposition home or self-care (01) ==
PROVIDERS: PCP Family Medicine; Visit Provider Nurse Practitioner Family
DX: K22.2 Esophageal obstruction (principal); R13.19 Other dysphagia; R10.12 Left upper quadrant pain; R14.0 Abdominal distension (gaseous); K59.01 Slow transit constipation; K21.00 Gastro-esophageal reflux disease with esophagitis, without bleeding; K76.0 Fatty (change of) liver, not elsewhere classified
CPT/HCPCS: 99214

== ENCOUNTER → 2024-07-08 10:40 | Outpatient (BNVA) | payer OTHER, SELFPAY | PROVIDERS: PCP Family Medicine; Visit Provider Nurse Practitioner Family | DX: K21.00 Gastro-esophageal reflux disease with esophagitis, without bleeding (principal); K22.2 Esophageal obstruction; K59.01 Slow transit constipation; K76.0 Fatty (change of) liver, not elsewhere classified; R10.12 Left upper quadrant pain; R14.0 Abdominal distension (gaseous) | CPT/HCPCS: 99212 ==

== ENCOUNTER 2024-08-15 12:26 | Outpatient (REF) | payer OTHER, SELFPAY ==
[2024-08-15 16:38] LABS: Mean Corpuscular Hemoglobin 28.1 pg (27.0-33.0); SCAN SMEAR FLAG 1
[2024-08-15 16:40] LABS: Basophils Percent Auto 0.6 % (0-2); Eosinophils Absolute Auto 0.2 X10*3/uL (0.0-0.4); Eosinophils Percent Auto 3.1 % (0-4); Hematocrit 36.6 % (37.0-47.0); Hemoglobin 11.7 g/dl (12.0-16.0); Imm Gran Abs Auto 0.02 X10*3/uL (0.00-0.03); Imm Gran Pct Auto 0.4 % (0.0-0.4); Lymphocytes Absolute Auto 1.6 X10*3/uL (1.2-4.9); Lymphocytes Percent Auto 30.3 % (20-40); MANUAL DIFF FLAG SCAN; Mean Platelet Volume 14.2 fL (9.4-12.3); Monocytes Absolute Auto 0.5 X10*3/uL (0.1-1.2); Neutrophils Percent Auto 56.6 % (45-73); PLT CLUMP 1; Red Blood Count 4.16 X10*6/uL (4.20-5.50); Red Cell Distribution Width 14.2 % (11.0-16.0)
[2024-08-15 16:51] LABS: Estimated Average Glucose 126 mg/dL
[2024-08-15 16:58] LABS: PLT ABN DIST 1
[2024-08-15 16:59] LABS: Platelet Count 171 X10*3/uL (160-400); White Blood Count 5.2 X10*3/uL (4.8-10.8)
[2024-08-15 17:07] LABS: SLIDE REVIEW VERIFIED
[2024-08-15 17:09] LABS: Creatinine Urine 115.59 mg/dL
[2024-08-15 17:11] LABS: Rheumatoid Factor < 13.0 IU/mL (<15.0)
[2024-08-15 17:15] LABS: Erythrocyte Sedimentation Rate 13 MM/HR (0-20)
[2024-08-15 17:19] LABS: Alanine Aminotransferase 27 U/L (0-31); Albumin Level 4.2 g/dL (3.5-5.0); Alkaline Phosphatase 65 U/L (39-117); Anion Gap 12 (12-20); Aspartate Amino Transferase 36 U/L (5-31); Bilirubin Direct 0.1 mg/dL (0.0-0.5); Bilirubin Total 0.3 mg/dL (0.0-1.0); Blood Urea Nitrogen 11 mg/dL (9-16); C Reactive Protein 0.33 mg/dL (< or = 0.50); Calcium 10.6 mg/dL (8.4-10.2); Carbon Dioxide 34 mmol/L (22-29); Chloride 101 mmol/L (96-108); Cholesterol 136 mg/dL (<200); Estimated Glomerular Filt Rate > 60; Glucose Random 68 mg/dL (60-115); HDL Cholesterol 42 mg/dL (>40); LDL Cholesterol Calculated 66 mg/dL (<100); Potassium 3.4 mmol/L (3.3-5.1); Sodium 144 mmol/L (135-145); Total Protein 7.5 g/dL (6.5-8.0); Triglycerides 142 mg/dL (<150)
[2024-08-15 17:37] LABS: Free T4 (Free Thyroxine) 0.94 ng/dL (0.71-1.85); Thyroid Stimulating Hormone 1.31 uIU/mL (0.32-4.0); Vitamin D 25-OH Total 56.9 ng/mL (>30)
[2024-08-15 18:13] LABS: HBS Num1 183.98 mIU/mL (0-7.99); HIV AB/AG Nonreactive (Nonreactive); HIV Num 1 0.05 S/CO (0.00-0.99); Hepatitis B Surface Antigen Negative (Negative); ~Hepatitis B Surface Antibody REACTIVE (Nonreactive)
[2024-08-16 03:03] LABS: CT PCR NOT DETECTED (Not Detect.); NG PCR NOT DETECTED (Not Detect.)
[2024-08-16 12:58] LABS: HCV RNA PCR Qn <1.18 NOT DETECTED Log IU/mL (NOT DETECTED); HCV RNA PCR Qn <15 NOT DETECTED IU/mL (NOT DETECTED)
[2024-08-18 11:48] LABS: RPR Rapid Plasma Reagin NON-REACTIVE (NON-REACTIVE)
[2024-08-18 13:08] LABS: Alpha Fetoprotein 1.2 ng/mL
[2024-08-18 19:23] LABS: Lyme Abs Screen <0.90 index
[2024-08-20 07:29] LABS: Anti Nuclear Antibody Pattern Nuclear, Homogeneous; Anti Nuclear Antibody Screen POSITIVE (NEGATIVE)
== END 2024-08-15 12:27 | disposition home or self-care (01) ==
LOC: HO.HHCL 12:26
PROVIDERS: Visit Provider Family Medicine
DX: K76.0 Fatty (change of) liver, not elsewhere classified (principal); E11.9 Type 2 diabetes mellitus without complications; M25.50 Pain in unspecified joint
CPT/HCPCS: 80048; 80061; 80076; 82043; 82105; 82306; 82570; 83036; 84439; 84443; 85025; 85652; 86038; 86039; 86140; 86431; 86592; 86617; 86618; 86706; 87340; 87389; 87491; 87522; 87591

== ENCOUNTER 2024-08-21 14:01 | Outpatient (AMB) | payer OTHER, SELFPAY ==
--- NOTE | 2024-08-21 14:10 | A.OFFVIS_ITS ---
Vital Signs 08/21/24 14:20 Height 5 ft 1 in Weight 158 lb 11.725 oz BMI 30.0 BP 136/69 Blood Pressure Location Lt brachial Position Sitting Pulse 68 Pulse Source Pulse Oximeter Pulse Oximetry (%) 98 Oxygen Delivery Method Room Air Intake Visit Reasons: Arthralgia Intake Note: New patient externally referred by [facility], PCP. Presents today for Arthralgia. Accompanied by: Significant Other Allergies apple [APPLE] Allergy (Mild, Verified 08/21/24 14:11) ITCHY THROAT kiwi [KIWI] Allergy (Mild, Verified 08/21/24 14:11) ITCHY THROAT peach [PEACH] Allergy (Mild, Verified 08/21/24 14:11) ITCHY THROAT strawberry [STRAWBERRY] Allergy (Mild, Verified 08/21/24 14:11) ITCHY THROAT pineapple [PINEAPPLE] Allergy (Unknown, Verified 08/21/24 14:11) ITCHY THROAT apples,strawberries, pineapple Allergy (Unknown, Uncoded 08/21/24 14:11) itching shellfish Allergy (Uncoded 08/21/24 14:11) Itching Medication List - Last Reconciled 08/21/24 by Mamie Parekh MD albuterol sulfate 1 amp inhalation Q4H PRN albuterol sulfate 90 mcg/actuation 2 puffs inhalation Q4H PRN aspirin 1 tab PO QAM atorvastatin 1 tab PO DAILY baclofen 10 mg PO TID bisacodyl (Dulcolax (bisacodyl)) 10 mg (2 x 5 mg) PO BEDTIME blood sugar diagnostic (FreeStyle Lite Strips) As directed calcium polycarbophil (Fiber-Lax) mg PO cetirizine (Zyrtec) 10 mg PO DAILY PRN cholecalciferol (vitamin D3) 1 tab PO BEDTIME clonazepam 1 tab PO BEDTIME cyanocobalamin (vitamin B-12) 1 tab PO DAILY docusate sodium 1 cap PO DAILY duloxetine 20 mg PO BID esomeprazole magnesium (Nexium) 40 mg PO DAILY fenofibrate 1 tab PO DAILY fluticasone propionate 50 mcg/actuation 2 sprays intranasal DAILY gabapentin 1 cap PO TID hydrochlorothiazide 1 tab PO QAM lancets (TRUEplus Lancets) As directed lisinopril 1 tab PO DAILY lorazepam 1 tab PO BEDTIME PRN meclizine 25 mg PO DAILY PRN meloxicam 15 mg PO DAILY metformin 1 tab PO BID oxcarbazepine 1 tab PO BID oxybutynin chloride ER 1 tab PO QAM oxycodone-acetaminophen 5-325 mg 1 tab PO BID PRN quetiapine 1 - 2 tabs PO BEDTIME PRN simethicone 125 mg PO BID-QID PRN sucralfate 1 g PO BEDTIME HPI Comments Details: Patient is a 63-year-old female with schizophrenia, anxiety, panic disorder, severe recurrent major depressive disorder with psychotic features and other chronic medical illnesses including diabetes and hypertension who presents for evaluation of polyarthralgia in the setting of a positive SYDNI 1:80 Patient reports a longstanding history of pain to multiple joints including her bilateral knees her bilateral shoulders and her hands. She does note that she had a right knee replacement in 2011 but now the left knee has been painful for the past several months. She also notes pain in her hands and wrists especially at end of the day also notes pain in her bilateral shoulders. She is currently on disability (she is disabled because of her pain and her schizophrenia diagnosis). With respect to her positive SYDNI she denies photosensitivity, rash, oral/nasal ulcers, recurrent 2nd trimester loss (she has 4 children, that were brought to term) No family history of lupus or rheumatoid arthritis [facility] Medical History (Updated 08/21/24 @ 15:24 by Mamie Parekh MD) Osteoarthritis Schatzki's ring Headache Fatty liver Pulmonary nodule Asthma FH: total knee replacement Scoliosis Arthritis Hyperlipemia Depression Anxiety Hypertension Diabetes Surgical History History of esophagogastroduodenoscopy (EGD) Hx of colonoscopy S/P cervical disc replacement (Unknown) History of tubal ligation H/O: hysterectomy Family History Maternal Grandmother Uterine cancer Social History Household Members: None Housing: Apartment Alcohol intake: former Patient Tobacco Use Status: Former Tobacco user Tobacco use type: Cigarette service: No Current occupational status: retired Review of Systems Const All systems reviewed & are unremarkable except as noted in HPI and below Reports difficulty sleeping, Reports fatigue, Denies fever(s), Reports headache(s) and Reports lethargy ENT Reports headache(s) Card Denies chest pain and Denies dyspnea Resp Denies no additional complaints and Denies dyspnea Musc Reports arthralgias Neuro Reports headache(s) Endo Reports fatigue Physical Exam Vital Signs: Last Vital Signs Pulse 68 08/21/24 14:20 BP 136/69 08/21/24 14:20 Pulse Ox 98 08/21/24 14:20 Oxygen Delivery Method Room Air 08/21/24 14:20 BMI result Body Mass Index 30.0 Const Other: Middle-aged female in no acute distress Unable to get up from a seated position without assistance. This is secondary to pain in her bilateral knees General: cooperative and no acute distress Resp Other: Air entry equal bilaterally. No Creps no rhonchi Effort & Inspection: normal respiratory effort Cardio Rate: regular rate Rhythm: regular rhythm Heart sounds: S1 normal heart sound present and S2 normal heart sound present Extrem Other: Right hand: No evidence of soft tissue swelling on inspection, able to make a fist. No evidence of active synovitis or deformities Left hand: No evidence of soft tissue swelling on inspection, able to make a fist. No evidence of active synovitis or deformities Right wrist: [Full range of motion]. [No evidence of swelling or tenderness to palpation] Left wrist: [Full range of motion]. [No evidence of swelling or tenderness to palpation] Right elbow: [Full range of motion]. [No evidence of swelling or tenderness to palpation] Left elbow: [Full range of motion]. [No evidence of swelling or tenderness to palpation] Right shoulder: [Full range of motion]. [No evidence of impingement]. [No tenderness to palpation of the glenohumeral joints or AC joints] Left shoulder : [Full range of motion]. [No evidence of impingement]. [No tenderness to palpation of the glenohumeral joints or AC joints] Right hip: [Full range of motion] Left hip: [Full range of motion] Right knee: Decreased range of motion with mild effusion. Longitudinal scar indicative of previous total knee replacement Left knee: [Full range of motion]. [No evidence of warmth, tenderness to palpation, swelling] Left ankle : [Full range of motion]. [No evidence of warmth, tenderness to palpation, swelling] Right ankle: [Full range of motion]. [No evidence of warmth, tenderness to palpation, swelling] Right foot: [Negative squeeze test] Left foot: [Negative squeeze test] Results Reviewed Results Reviewed: Results and imaging reviewed by me Laboratory Tests 08/15/24 12:40 WBC 5.2 RBC 4.16 L Hgb 11.7 L Hct 36.6 L Plt Count 171 Sodium 144 Potassium 3.4 Chloride 101 Carbon Dioxide 34 H BUN 11 Creatinine 0.82 Calcium 10.6 H D Total Bilirubin 0.3 Direct Bilirubin 0.1 AST 36 H ALT 27 Alkaline Phosphatase 65 C-Reactive Protein 0.33 Total Protein 7.5 Albumin 4.2 Rheumatoid Factor < 13.0 SYDNI Screen POSITIVE A SYDNI Titer 1:80 H SYDNI Pattern Nuclear, Homogeneous A Assessment & Plan Assessment & Plan (1) Osteoarthritis: Code(s): M19.90 - Unspecified osteoarthritis, unspecified site Category: Medical Plan: Patient is a 63-year-old female who presents for evaluation of polyarthralgias. At this time my low suspicion for an autoimmune condition such as rheumatoid arthritis or lupus. Her pain is likely secondary to osteoarthritis. There was no positive fibromyalgia tender points on exam however given her risk factors and multiple comorbidities fibromyalgia could not be excluded. Recommended getting imaging as well as topical diclofenac which she can use up to 4 times a day. (2) SYDNI positive: Code(s): R76.8 - Other specified abnormal immunological findings in serum Plan: Patient with a low titer positive SYDNI. Up to 20% of the normal population can have a positive SYDNI. And having a positive SYDNI does not indicate an autoimmune condition. On clinical exam and history patient does not have any signs or symptoms consistent with an autoimmune disease such as lupus, scleroderma, myositis or any other autoimmune conditions. No further workup at this time Plan I spent 40 minutes reviewing the record and labs, seeing the patient and documented in the medical record Orders: Orders XR knee LT 2V Today M19.90 - Unspecified osteoarthritis, unspecified site XR hand wrist LT Today M19.90 - Unspecified osteoarthritis, unspecified site XR shoulder RT min 2V Today M19.90 - Unspecified osteoarthritis, unspecified site XR shoulder LT min 2V Today M19.90 - Unspecified osteoarthritis, unspecified site XR knee RT 2V Today M19.90 - Unspecified osteoarthritis, unspecified site XR hand wrist RT Today M19.90 - Unspecified osteoarthritis, unspecified site PT Evaluation and Treatment Today M19.90 - Unspecified osteoarthritis, uns pecified site Medications: New diclofenac sodium 1% apply to knees and hands up to 4 times a day 4 grams topical QID 100 grams 4RF knee pain and hand pain M19.90 - Unspecified osteoarthritis, unspecified site Coding Level of Care Code New Pt Level 3 (03201) Diagnoses Osteoarthritis M19.90 SYDNI positive R76.8
[2024-08-21 14:20] VITALS: BP 136/69; PULSE 68; O2SAT 98
== END 2024-08-21 15:36 | disposition home or self-care (01) ==
PROVIDERS: PCP Family Medicine; Visit Provider Student in an Organized Health Care Education/Training Program
DX: M19.90 Unspecified osteoarthritis, unspecified site (principal); R76.8 Other specified abnormal immunological findings in serum
CPT/HCPCS: 99204

== ENCOUNTER → 2024-08-21 14:01 | Outpatient (BNVA) | payer OTHER, SELFPAY | PROVIDERS: PCP Family Medicine; Visit Provider Student in an Organized Health Care Education/Training Program | DX: M19.90 Unspecified osteoarthritis, unspecified site (principal); R76.8 Other specified abnormal immunological findings in serum | CPT/HCPCS: 99202 ==

== ENCOUNTER 2024-09-30 12:29 | Outpatient (REF) | payer OTHER, SELFPAY | END 2024-09-30 12:30 | disposition home or self-care (01) | LOC: HO.XRAY 12:29 | PROVIDERS: PCP Family Medicine; Visit Provider Student in an Organized Health Care Education/Training Program | DX: M19.90 Unspecified osteoarthritis, unspecified site (principal); M15.0 Primary generalized (osteo)arthritis; R76.0 Raised antibody titer | CPT/HCPCS: 73030; 73110; 73130; 73560; 99212 ==

== ENCOUNTER 2024-09-30 12:29 | Outpatient (AMB) | payer OTHER, SELFPAY ==
--- NOTE | 2024-09-30 12:33 | MHC.OFFVIS ---
Vital Signs 09/30/24 12:36 Height 5 ft 1 in Weight 163 lb BMI 30.8 BP 130/72 Blood Pressure Location Lt brachial Position Sitting Pulse 74 Pulse Source Pulse Oximeter Pulse Oximetry (%) 98 Oxygen Delivery Method Room Air Intake Visit Reasons: review XRs and eval for steroid injection/cm Intake Note: Patient is here for x-ray review, but patient did not get them done, she forgot to get them done, and evaluation for steroid injection. Clutch Inspector Name: [id number] Allergies apple [APPLE] Allergy (Mild, Verified 09/30/24 12:40) ITCHY THROAT kiwi [KIWI] Allergy (Mild, Verified 09/30/24 12:40) ITCHY THROAT peach [PEACH] Allergy (Mild, Verified 09/30/24 12:40) ITCHY THROAT strawberry [STRAWBERRY] Allergy (Mild, Verified 09/30/24 12:40) ITCHY THROAT pineapple [PINEAPPLE] Allergy (Unknown, Verified 09/30/24 12:40) ITCHY THROAT apples,strawberries, pineapple Allergy (Unknown, Uncoded 09/30/24 12:40) itching shellfish Allergy (Uncoded 09/30/24 12:40) Itching HPI Comments Details: Patient is a 63-year-old female with schizophrenia, anxiety, panic disorder, severe recurrent major depressive disorder with psychotic features and other chronic medical illnesses including diabetes and hypertension. She is here today for follow-up for polyarticular osteoarthritis Interval History: Patient last seen 08/21/2024 with me. At that time she was being evaluated for positive SYDNI and arthralgias. Exam and history was consistent with polyarticular osteoarthritis. She was given x-rays to be done and sent to physical therapy. Today she returns for evaluation. She had not done the x-rays. She says she forgot. Otherwise continues to complain of joint pain. Went to physical therapy Rheumatologic History: Patient presented 07/2024 for evaluation of polyarthralgias in the setting of a positive SYDNI 1:80. Evaluation including examination, history and review of labs indicated that her diagnosis was osteoarthritis involving multiple joints including her hands, knees and spine. Current Rheumatology Medication(s): [facility] Medical History (Updated 09/30/24 @ 13:30 by Mamie Parekh MD) Osteoarthritis Schatzki's ring Headache Fatty liver Pulmonary nodule Asthma FH: total knee replacement Scoliosis Arthritis Hyperlipemia Depression Anxiety Hypertension Diabetes Surgical History History of esophagogastroduodenoscopy (EGD) Hx of colonoscopy S/P cervical disc replacement (Unknown) History of tubal ligation H/O: hysterectomy Family History Maternal Grandmother Uterine cancer Social History Household Members: None Housing: Apartment Alcohol intake: former Patient Tobacco Use Status: Former Tobacco user Tobacco use type: Cigarette service: No Current occupational status: retired Physical Exam Vital Signs: Last Vital Signs Pulse 74 09/30/24 12:36 BP 130/72 09/30/24 12:36 Pulse Ox 98 09/30/24 12:36 Oxygen Delivery Method Room Air 09/30/24 12:36 BMI result Body Mass Index 30.8 Physical Examination CONSTITUITIONAL Patient alert and cooperative. Well appearing and in no apparent painful distress HEENT Conjunctiva and sclera clear. ?Pupils equal round and reactive to light. ?No lymphadenopathy. ?Normal dentition. No oral or nasal ulcers noted. No evidence of discoid rash to the harvinder of ears CHEST/RESPIRATORY SYSTEM Normal respiratory effort and able to speak in complete sentences. ?Clear to auscultation bilaterally. ?No crackles, rales, rhonchi, wheezes heard. CARDIAC SYSTEM Regular rate and rhythm. ?S1 and S2 heard no murmurs. ?Radial pulses intact bilaterally MSK Hands: ?Good insulation board calender operator strength bilaterally - 5/5. ?Heberden's nodes noted. ?No synovitis noted to the MCPs, PIPs or DIPs. ? Wrists: ?Full range of motion at the wrists without pain. ?No tenderness to palpation or synovitis noted to the wrists. Elbows: Full range of motion without pain. No tenderness, weakness, swelling, increased warmth or erythema. Shoulders: Full range of motion without pain. No tenderness, weakness, swelling, increased warmth or erythema. Knees: ?Right knee surgical scar indicating previous total knee replacement. Left knee tenderness to palpation of the medial aspect of the knee muscle. The joint proper without pain to palpation full range of motion. Ankles: Full range of motion. ?No tenderness, swelling, increased warmth or erythema.? Feet: ?Negative squeeze test. ?No tenderness to palpation or swelling of the MTPs. Tender points:??No tenderness to palpation of the neck, shoulders, chest, elbows, hips, buttocks or knees. SKIN Skin intact without rashes. Results Reviewed Results Reviewed: X-rays not done Assessment & Plan Assessment & Plan (1) Osteoarthritis: Code(s): M19.90 - Unspecified osteoarthritis, unspecified site Category: Medical Qualifiers: Osteoarthritis location: multiple joints Osteoarthritis type: primary Qualified Code(s): M15.0 - Primary generalized (osteo)arthritis Plan: #OA Patient with polyarticular OA involving her hands, knees and likely shoulders. Continue physical therapy. Recommended capsaicin patches. Patient to get x-rays prior to next visit Plan I spent 20 minutes reviewing the record and labs, seeing the patient, discussing the treatment plan and documenting in the medical record ? Coding Level of Care Code Est Pt Level 3 (41945) Diagnoses Primary osteoarthritis involving multiple joints M15.0 Osteoarthritis location: multiple joints Osteoarthritis type: primary
[2024-09-30 12:36] VITALS: BP 130/72; PULSE 74; O2SAT 98; BMI 30.8
== END 2024-09-30 12:59 | disposition home or self-care (01) ==
LOC: HO.RHE 12:30
PROVIDERS: PCP Family Medicine; Visit Provider Student in an Organized Health Care Education/Training Program
DX: M15.0 Primary generalized (osteo)arthritis (principal)
CPT/HCPCS: 99213

== ENCOUNTER → 2024-09-30 13:22 | Outpatient (BNV) | payer OTHER, SELFPAY | PROVIDERS: PCP Family Medicine; Visit Provider Radiology Diagnostic Radiology | DX: M19.042 Primary osteoarthritis, left hand (principal) | CPT/HCPCS: 73130 ==

== ENCOUNTER 2024-10-20 16:42 | Outpatient (REF) | payer OTHER, SELFPAY | END 2024-10-20 16:43 | disposition home or self-care (01) | LOC: HO.CT 16:42 | PROVIDERS: PCP Family Medicine; Visit Provider Family Medicine | DX: H53.9 Unspecified visual disturbance (principal) | CPT/HCPCS: 70450 ==

== ENCOUNTER → 2024-10-20 16:42 | Outpatient (BNV) | payer OTHER, SELFPAY | PROVIDERS: PCP Family Medicine; Visit Provider Radiology Diagnostic Radiology | DX: H53.9 Unspecified visual disturbance (principal); R42 Dizziness and giddiness | CPT/HCPCS: 70450 ==

== ENCOUNTER 2024-10-27 10:30 | Outpatient (RCR) | payer OTHER, SELFPAY | END 2024-10-27 13:08 | disposition home or self-care (01) | LOC: HO.PT 10:30 | PROVIDERS: PCP Family Medicine; Visit Provider Nurse Practitioner Family | DX: M19.90 Unspecified osteoarthritis, unspecified site (principal); M25.561 Pain in right knee; M25.562 Pain in left knee | CPT/HCPCS: 97110; 97116; 97162; 97530 ==

== ENCOUNTER 2024-12-17 11:27 | Outpatient (REF) | payer OTHER, SELFPAY | END 2024-12-17 11:28 | disposition home or self-care (01) | LOC: HO.MAMMO 11:27 | PROVIDERS: PCP Family Medicine; Visit Provider Family Medicine | DX: Z12.31 Encounter for screening mammogram for malignant neoplasm of breast (principal) | CPT/HCPCS: 77063; 77067 ==

== ENCOUNTER → 2024-12-17 12:00 | Outpatient (BNV) | payer OTHER, SELFPAY | PROVIDERS: PCP Family Medicine; Visit Provider Internal Medicine | DX: Z12.31 Encounter for screening mammogram for malignant neoplasm of breast (principal) | CPT/HCPCS: 77063; 77067 ==

== ENCOUNTER 2025-01-13 10:07 | Outpatient (AMB) | payer OTHER, SELFPAY ==
--- NOTE | 2025-01-13 10:19 | A.OFFVIS_ITS ---
Vital Signs 01/13/25 10:33 Height 5 ft 1 in Weight 164 lb 7.437 oz BMI 31.1 BP 115/62 Blood Pressure Location Lt brachial Position Sitting Respiration 16 Pulse 76 Pulse Source Pulse Oximeter Pulse Oximetry (%) 98 Oxygen Delivery Method Room Air Intake Visit Reasons: knee injection Intake Note: Patient presents for knee injection. I am feeling a lot of RT knee pain Development Architect Required: Yes Development Architect Language: Double End Tenoner Operator Services: Development Architect Present Development Architect Name: [id number] Information Interpreted: non-clinical & clinical Allergies apple [APPLE] Allergy (Mild, Verified 01/13/25 10:31) ITCHY THROAT kiwi [KIWI] Allergy (Mild, Verified 01/13/25 10:31) ITCHY THROAT peach [PEACH] Allergy (Mild, Verified 01/13/25 10:31) ITCHY THROAT strawberry [STRAWBERRY] Allergy (Mild, Verified 01/13/25 10:31) ITCHY THROAT pineapple [PINEAPPLE] Allergy (Unknown, Verified 01/13/25 10:31) ITCHY THROAT apples,strawberries, pineapple Allergy (Unknown, Uncoded 09/30/24 12:40) itching shellfish Allergy (Uncoded 09/30/24 12:40) Itching Medication List - Last Reconciled 01/13/25 by Mamie Parekh MD albuterol sulfate 1 amp inhalation Q4H PRN albuterol sulfate 90 mcg/actuation 2 puffs inhalation Q4H PRN aspirin 1 tab PO QAM atorvastatin 1 tab PO DAILY baclofen 10 mg PO TID bisacodyl (Dulcolax (bisacodyl)) 10 mg (2 x 5 mg) PO BEDTIME blood sugar diagnostic (FreeStyle Lite Strips) As directed calcium polycarbophil (Fiber-Lax) mg PO cetirizine (Zyrtec) 10 mg PO DAILY PRN cholecalciferol (vitamin D3) 1 tab PO BEDTIME clonazepam 1 tab PO BEDTIME cyanocobalamin (vitamin B-12) 1 tab PO DAILY diclofenac sodium 1% 4 grams topical QID docusate sodium 1 cap PO DAILY duloxetine 20 mg PO BID esomeprazole magnesium 40 mg PO QAM fenofibrate 1 tab PO DAILY fluticasone propionate 50 mcg/actuation 2 sprays intranasal DAILY gabapentin 1 cap PO TID hydrochlorothiazide 1 tab PO QAM lancets (TRUEplus Lancets) As directed lisinopril 1 tab PO DAILY lorazepam 1 tab PO BEDTIME PRN meclizine 25 mg PO DAILY PRN meloxicam 15 mg PO DAILY metformin 1 tab PO BID oxcarbazepine 1 tab PO BID oxybutynin chloride ER 1 tab PO QAM oxycodone-acetaminophen 5-325 mg 1 tab PO BID PRN quetiapine 1 - 2 tabs PO BEDTIME PRN simethicone 125 mg PO BID-QID PRN sucralfate 1 g PO BEDTIME HPI Comments Details: Patient is a 63-year-old female with schizophrenia, anxiety, panic disorder, severe recurrent major depressive disorder with psychotic features and other chronic medical illnesses including diabetes and hypertension. She is here today for follow-up for polyarticular osteoarthritis Interval History: Patient last seen 09/30/24 with me. At that time she was being evaluated for positive SYDNI and arthralgias. Exam and history was consistent with polyarticular osteoarthritis. She was given x-rays to be done and sent to physical therapy. Today she is complaining of right knee pain, previous history of total right knee replacement Rheumatologic History: Patient presented 07/2024 for evaluation of polyarthralgias in the setting of a positive SYDNI 1:80. Evaluation including examination, history and review of labs indicated that her diagnosis was osteoarthritis involving multiple joints including her hands, knees and spine. Current Rheumatology Medication(s): [facility] Medical History (Updated 09/30/24 @ 13:30 by Mamie Parekh MD) Osteoarthritis Schatzki's ring Headache Fatty liver Pulmonary nodule Asthma FH: total knee replacement Scoliosis Arthritis Hyperlipemia Depression Anxiety Hypertension Diabetes Surgical History History of esophagogastroduodenoscopy (EGD) Hx of colonoscopy S/P cervical disc replacement (Unknown) History of tubal ligation H/O: hysterectomy Family History Maternal Grandmother Uterine cancer Social History Household Members: None Housing: Apartment Alcohol intake: former Patient Tobacco Use Status: Former Tobacco user Tobacco use type: Cigarette service: No Current occupational status: retired Review of Systems Const Details: Review of Systems Constitutional: Denies fever, chills, weight loss ENT: Denies vision changes, eye pain or eye redness, dental caries, dry mouth GI: Denies nausea, vomiting, diarrhea, abdominal pain, change in BM Pulm: Denies SOB, ORTIZ, hemoptysis, wheezing Cards: Denies chest pain, palpitations Skin: Denies Raynaud's, rash, nail changes, photosensitivity, [employer] OFF[employer] [place] J[employer]: Denies headaches, weakness, paresthesias, recurrent falls MSK: as per HPI All other systems reviewed and are unremarkable except noted above Physical Exam Vital Signs: Last Vital Signs Pulse 76 01/13/25 10:33 Resp 16 01/13/25 10:33 BP 115/62 01/13/25 10:33 Pulse Ox 98 01/13/25 10:33 Oxygen Delivery Method Room Air 01/13/25 10:33 BMI result Body Mass Index 31.1 Vital signs reviewed Physical Examination CONSTITUITIONAL Patient alert and cooperative. Well appearing HEENT Conjunctiva and sclera clear. ?Pupils equal round and reactive to light. ?No lymphadenopathy. ? CHEST/RESPIRATORY SYSTEM Normal respiratory effort and able to speak in complete sentences. ?Clear to auscultation bilaterally. ?No crackles, rales, rhonchi, wheezes heard. CARDIAC SYSTEM Regular rate and rhythm. ?S1 and S2 heard no murmurs. ?Radial pulses intact bilaterally MSK Hands: ?Good newspaper vendor strength bilaterally. No deformities noted. ?No synovitis noted to the MCPs, PIPs or DIPs. ?No tenderness to palpation of these joints. Herbedens nodes noted Wrists: ?Full range of motion at the wrists without pain. ?No tenderness to palpation or synovitis noted to the wrists. Elbows: Full range of motion without pain. No tenderness, weakness, swelling, increased warmth or erythema. Knees: ?Right knee with surgical scar anteriorly. There is mlqu-by-hwaozxch effusion with tenderness to palpation of the joint line. Pes anserine bursa is not tender to palpation. Mild warmth noted. Left knee without any abnormalities Ankles: Full range of motion. ?No tenderness, swelling, increased warmth or erythema.? Feet: ?Negative squeeze test. ?No tenderness to palpation or swelling of the MTPs. SKIN Skin intact without rashes. Results Reviewed Results Reviewed: Results and imaging reviewed by me Laboratory Tests 08/15/24 12:40 WBC 5.2 RBC 4.16 L Hgb 11.7 L Hct 36.6 L Plt Count 171 Sodium 144 Potassium 3.4 Chloride 101 Carbon Dioxide 34 H BUN 11 Creatinine 0.82 Calcium 10.6 H D Total Bilirubin 0.3 Direct Bilirubin 0.1 AST 36 H ALT 27 Alkaline Phosphatase 65 C-Reactive Protein 0.33 Total Protein 7.5 Albumin 4.2 Rheumatoid Factor < 13.0 SYDNI Screen POSITIVE A SYDNI Titer 1:80 H SYDNI Pattern Nuclear, Homogeneous A XR Bilateral Knees, Shoulders, Hands/Wrists 09/2024 FINDINGS: RIGHT KNEE: Redemonstration of right total knee arthroplasty. Hardware appears intact. Trace joint effusion. Focal lucency/demineralization distal to the tip of the tibial component. LEFT KNEE: Diffuse demineralization. Trace joint effusion. Moderate tricompartmental degenerative changes with tricompartmental osteophytes. Moderate narrowing of the medial and patellofemoral compartments. Faint chondrocalcinosis in the lateral compartment. RIGHT HAND: Moderately severe degenerative changes in the first carpometacarpal joint with joint space narrowing and hypertrophic change. Moderate degenerative changes in the interphalangeal joint of the right hand, most notable in the third digit distal interphalangeal joint. LEFT HAND: Moderately severe degenerative changes in the first carpometacarpal joint with joint space narrowing and hypertrophic change. Moderate degenerative changes in the interphalangeal joint of the left hand, most notable in the fourth digit distal interphalangeal joint. RIGHT SHOULDER: Moderate degenerative changes in the acromioclavicular joint with joint space narrowing and hypertrophic change. Tiny soft tissue calcification along the superolateral aspect of the humeral head. Mild degenerative changes in the glenohumeral joint with inferior hypertrophic change/amorphous calcification. Fixation hardware partially imaged in the lower cervical spine. LEFT SHOULDER: Moderate degenerative changes in the acromioclavicular joint with joint space narrowing and hypertrophic change. Mild degenerative changes in the glenohumeral joint. Small amorphous soft tissue calcifications adjacent to the shoulder joint with examples along the superolateral aspect of the humeral head, and inferior aspect of the glenoid. Assessment & Plan Assessment & Plan (1) Osteoarthritis: Code(s): M19.90 - Unspecified osteoarthritis, unspecified site Category: Medical Qualifiers: Osteoarthritis location: multiple joints Osteoarthritis type: primary Qualified Code(s): M15.0 - Primary generalized (osteo)arthritis Plan: #OA Patient with polyarticular OA involving her hands, knees and shoulders. Continue physical therapy. Plan - PT - RTC 6 months or sooner (2) Pain due to total right knee replacement: Code(s): T84.84XA - Pain due to internal orthopedic prosthetic devices, implants and grafts, initial encounter; Z96.651 - Presence of right artificial knee joint Qualifiers: Encounter type: initial encounter Qualified Code(s): T84.84XA - Pain due to internal orthopedic prosthetic devices, implants and grafts, initial encounter; Z96.651 - Presence of right artificial knee joint Plan: #Pain in right knee with hx of TKR We will discuss with patient that she needs to follow up with her orthopedic surgeon with respect to her pain and swelling of the right knee given that it is post replacement. Unfortunately I am unable to administer a steroid injection as this could compromise the hardware. Plan I spent 20 minutes reviewing the record and labs, seeing the patient, discussing the treatment plan and documenting in the medical record ? Orders: Referrals 2 Orthopedics Referral T84.84XA - Pain due to internal orthopedic prosthetic devices, implants and grafts, initial encounter, Z96.651 - Presence of right artificial knee joint Coding Level of Care Code Est Pt Level 3 (74350) Diagnoses Primary osteoarthritis involving multiple joints M15.0 Osteoarthritis location: multiple joints Osteoarthritis type: primary Pain due to total right knee replacement, initial encounter T84.84XA; Z96.651 Encounter type: initial encounter
[2025-01-13 10:33] VITALS: BP 115/62; PULSE 76; RESP 16; O2SAT 98; BMI 31.1
--- OUTSIDE RECORDS SUMMARY | 2025-01-13 11:05 | XMS_ITS | Encounter Summary ---
Author Organization [employer] Address [address] [facility] [address] [place] [address] Care Team Providers Care Auctioneer Tobacco Name Role Phone Analy Agee DO Primary Care Provider [phone] Encounter Details Date Type Department Care Team (Late st Contact Info) Description 12/22/2022 Orders Only [facility] [address] [place] [address] Analy Van LPN Social History Tobacco Use Types Packs/Day Years Used Date Smoking Tobacco: Never Assessed Comments Unknown Sex and Gender Information Value Date Recorded Sex Assigned at Female 09/25/2022 10:15 AM EDT Legal Sex Female 10:15 AM EDT Gender Identity Female 09/25/2022 10:15 AM EDT Sexual Orientation Straight 09/25/2022 10 :15 AM EDT documented as of this encounter Plan of Treatment Upcoming Encounters Date Type Department Care Team (Late st Contact Info) Description 02/03/2025 11:15 AM EDT Office Visit [facility] MED[facility] [address] [place] [address] Analy Agee DO [address] [place] [address] documented as of this encounter Visit Diagnoses Not on filedocumented in this encounter Care Teams Auctioneer Tobacco Relationship Specialty Start Date End Date Analy Agee DO [address] [place] [address] PCP - General Family Medicine 11/08/11 documented as of this encounter
--- OUTSIDE RECORDS SUMMARY | 2025-01-13 11:05 | XMS_ITS | Clinical Summary ---
Author Organization [employer] [facility] Address [address] [place] [address] Care Team Providers Care Certified Alcohol Drug Counselor Name Role Phone Wesleycelia Analy Lynn CUMMINGS Primary Care Provider [phone] Surgical History Surgery Date Site/Laterality Comments OTHER SURGICAL HISTORY 11/03/2019 PROCEDURE: RI ARTHRD ANT INTERBODY MIN DSC CRV BELOW C2; COMMENT: C5-6, C6-7 anterior cervical discectomy and fusion with plating, Dr. Torres HYSTERECTOMY PROCEDURE: HISTORICAL HYSTERECTOMY TOTAL KNEE ARTHROPLASTY Right PROCEDURE: RI ARTHRP KNE CONDYLE&PLATU MEDIAL&LAT COMPARTMENTS Medical History Medical History Date Comments Type 2 diabetes mellitus wit hout complications (CMS/HCC) DX:Type 2 diabetes mellitus without complications (HCC) Essential (primary) hypertension DX:Essential (primary) hypertension Cervical myelopathy (CMS/HCC) DX :Cervical myelopathy (HCC) Social History Tobacco Use Types Packs/Day Years Used Date Smoking Tobacco: Never Smokeless Tobacco: Never Comments Unknown Sex and Gender Information Value Date Recorded Sex Assigned at Not on file Legal Sex Female 4:49 AM EST Gender Identity Not on file Sexual Orientation Not on file Obstetrics History Plan of Treatment Health Maintenance Due Date Last Done Comments Breast Cancer Screening 1962 Diabetes: Annual GFR (Glomerular Filtration Rate) 1962 Diabetes: Annual Foot Exam 1972 Diabetes: Annual Retina Eye Exam 1972 Cervical Cancer Screening: Pap Smear 1983 Pneumococcal Vaccine: 50+ Years (2 of 2 - PCV) 2012 08/11/2010 Zoster Vaccines (1 of 2) 2012 Cholesterol Screening (Lipid Panel) 11/05/2022 Colorectal Cancer Screening: Colonoscopy 11/05/2022 Depression Screening 11/05/2022 Diabetes: Annual Urine Albumin-Creatinine Ratio (uACR) 11/05/2022 Diabetes: Blood Sugar Control Test (HGBA1C) 11/05/2022 HIV Screening 11/05/2022 Hepatitis C Screening 11/05/2022 Hypertension/CHF/CAD Annual BMP Blood Test 11/05/2022 Social Influencers of Health Screening 11/05/2022 DTaP,Tdap,and Td Vaccines (3 - Td or Tdap) 12/06/2022 12/06/2012, 11/01/2009 COVID-19 Vaccine (4 - 2023- season) 2024 10/13/2021, 03/26/2021, 02/26/2021 Influenza Vaccine (#1) 2024 , 08/15/2019, 08/22/2018, Additional history exists RSV Immunization Patients 60+ Years Old (1 - 1-dose 75+ series) 2037 Pneumococcal Vaccine: Pediatrics (0 to 5 Years) and At-Risk Patients (6 to 64 Years) Aged Out 08/11/2010 No longer eligible based on patient's age to complete this topic Hepatitis A Vaccines Aged Out 04/08/2015, 10/01/20 14 No longer eligible based on patient's age to complete this topic Hepatitis B Vaccines Completed 02/16/2016, 11/02/2014, 10/01/2014 HIB Vaccines Aged Out No longer eligi ble based on patient's age to complete this topic HPV Vaccines Aged Out No longer eligi ble based on patient's age to complete this topic IPV Vaccines Aged Out No longer eligi ble based on patient's age to complete this topic MMR Vaccines Aged Out No longer eligi ble based on patient's age to complete this topic Meningococcal ACWY Vaccine Aged Out N o longer eligible based on patient's age to complete this topic Meningococcal B Vacine Aged Out No lo nger eligible based on patient's age to complete this topic RSV Immunization Patients Under 20 months Aged Out No longer eligible based on patient's age to complete this topic Varicella Vaccines Aged Out No longer eligible based on patient's age to complete this topic Advance Directives Documents on File Type Date Recorded Patient Spreading Machine Operator Expl anation Health Care Decision (hx) 11/03/2019 AD SIMON DIRECTIVE Health Care Decision (hx) 11/03/2019 AD SIMON DIRECTIVE Health Care Decision (hx) 11/03/2019 AD SIMON DIRECTIVE Health Care Decision (hx) 11/03/2019 AD SIMON DIRECTIVE Health Care Decision (hx) 11/03/2019 AD SIMON DIRECTIVE Health Care Decision (hx) 11/03/2019 AD SIMON DIRECTIVE Health Care Decision (hx) 11/03/2019 AD SIMON DIRECTIVE Health Care Decision (hx) 11/03/2019 AD SIMON DIRECTIVE Health Care Decision (hx) 11/03/2019 AD SIMON DIRECTIVE Care Teams Certified Alcohol Drug Counselor Relationship Specialty Start Date End Date Analy Agee DO [address] [place] [address] PCP - General Internal Medicine 01/15/14
--- OUTSIDE RECORDS SUMMARY | 2025-01-13 11:05 | XMS_ITS | Encounter Summary ---
Author Organization [employer] Address [address] [facility] [address] [place] [address] Care Team Providers Care Do All Operator Name Role Phone Analy Agee DO Primary Care Provider + [phone] Reason for Visit * Reason Comments Med Refill Encounter Details Date Type Department Care Team (Late Contact Info) Description 03/12/2023 Refill [facility] MED[facility] [address] [place] [phone] Ana Maria Ervin MD [address] [place] [address] Social History Tobacco Use Types Packs/Day Years Used Date Smoking Tobacco: Former Cigarettes Passive Smoke Exposure: Past Smokeless Tobacco: Never Alcohol Use Standard Drinks/Week Comments Never 0 (1 standard drink = 0.6 oz pur e alcohol) Depression Answer Date Recorded Patient Health Questionnaire-9 Score 16 03/06/2023 Depression Answer Date Recorded Patient Health Questionnaire-2 Score 5 03/06/2023 Comments Unknown Sex and Gender Information Value Date Recorded Sex Assigned at Female 09/25/2022 10:15 AM EDT Legal Sex Female 10:15 AM EDT Gender Identity Female 09/25/2022 10:15 AM EDT Sexual Orientation Straight 09/25/2022 10 :15 AM EDT COVID-19 Exposure Response Date Recorded In the last 10 days, have yo u been in contact with someone who was confirmed or suspected to have Coronavirus/COVID-19? No / Unsure 03/15/2023 1:24 PM EDT documented as of this encounter Plan of Treatment Upcoming Encounters Date Type Department Care Team (Late Contact Info) Description 02/03/2025 11:15 AM EDT Office Visit [facility] [address] [place] [address] Analy Agee DO [address] [place] [address] documented as of this encounter Visit Diagnoses Not on filedocumented in this encounter Additional Health Concerns Assessment Noted Time PHQ-9 Depression Total Score: 16 023 11:33 AM EDT documented as of this encounter Care Teams Do All Operator Relationship Specialty Start Date End Date Analy Agee DO [address] [place] [address] PCP - General Family Medicine 11/08/11 documented as of this encounter
--- OUTSIDE RECORDS SUMMARY | 2025-01-13 11:05 | XMS_ITS | Encounter Summary ---
Author Organization [employer] Address [address] [facility] [address] [place] [address] Care Team Providers Care Hospital Corpsman Name Role Phone Analy Agee DO Primary Care Provider + [phone] Reason for Visit * Reason Comments Med Refill Encounter Details Date Type Department Care Team ([facility] st Contact Info) Description 01/06/2025 Refill [facility] [address] [place], [place] [phone] Analy Agee DO [address] [place], [place] [phone] Type 2 diabetes mellitus with other specified complication, unspecified whether longterm insulin use ([facility]) Social History Tobacco Use Types Packs/Day Years Used Date Smoking Tobacco: Former Cigarettes Passive Smoke Exposure: Past Smokeless Tobacco: Never Alcohol Use Standard Drinks/Week Comments Never 0 (1 standard drink = 0.6 oz pur e alcohol) Depression Answer Date Recorded Patient Health Questionnaire-9 Score 21 02/22/2024 Patient Health Questionnaire-9 Score 21 02/22/2024 Last PHQ-9: Questionnaire Data Not on file 0 02/22/2024 Housing Stability Answer Date Recorded What is your housing situation today? I have branden rivera 10/03/[address] you li ve. Do you have problems with any of the following? None of the above 10/03/2024 Food Insecurity Answer Date Recorded Within the past 12 months, y ou worried that your food would run out before you got money to buy more: Sometimes True 2023 Within the past 12 months,th e food you bought just didn't last and you didn't have enough money to get more: Sometimes True 10/03/2024 Transportation Answer Date Recorded In the past 12 months, has l ack of transportation kept you from medical appts, meetings, work or from getting things needed for daily living? No 10/03/2024 Utilities Answer Date Recorded In the past 12 months, has t he electric, gas, oil or water company threatened to shut off services in your home? No 10/03/2024 Depression Answer Date Recorded Patient Health Questionnaire-2 Score 5 02/22/2024 Internet Access Answer Date Recorded Internet Access Q1 Yes 10/03/2024 Internet Access Q2 Not on file 10/03/2024 Comments Unknown Sex and Gender Information Value [...] Description 02/03/2025 11:15 AM EDT Office Visit [facility] [address] [place] [address] Analy Agee DO [address] [place] [address] documented as of this encounter Visit Diagnoses Diagnosis Type 2 diabetes mellitus with other specified complication, unspecified whether terminal makeup operator insulin use ([facility]) documented in this encounter Additional Health Concerns Assessment Noted Time PHQ-9 Depression Total Score: 21 024 1:37 PM EDT documented as of this encounter Care Teams Hospital Corpsman Relationship Specialty Start Date End Date Analy Agee DO [address] [place] [address] PCP - General Family Medicine 11/08/11 documented as of this encounter
--- OUTSIDE RECORDS SUMMARY | 2025-01-13 11:05 | XMS_ITS | Encounter Summary ---
Author Organization [employer] Address [address] [facility] [address] [place] [address] Care Team Providers Care Assembler Utility Buildings Name Role Phone WesleyAnaly yang Primary Care Provider + [phone] Encounter Details Date Type Department Care Team (Late st Contact Info) Description 03/06/2024 Orders Only [facility] MED[facility] [address] [place] [address] Provider, MD Gloria Social History Tobacco Use Types Packs/Day Years [...] housing situation today? I have branden rivera 09/12/[address] you li ve. Do you have problems with any of the following? None of the above 09/12/2023 Food Insecurity Answer Date Recorded Within the past 12 months, y ou worried that your food would run out before you got money to buy more: Never True 09/12/2023 Within the past 12 months,th e food you bought just didn't last and you didn't have enough money to get more: Never True Transportation Answer Date Recorded In the past 12 months, has l ack of transportation kept you from medical appts, meetings, work or from getting things needed for daily living? No 09/12/2023 Utilities Answer Date Recorded In the past 12 months, has t he electric, gas, oil or water company threatened to shut off services in your home? No 09/12/2023 Depression Answer Date Recorded Patient Health Questionnaire-2 Score 5 02/22/2024 Comments Unknown Sex and Gender Information Value [...] Description 02/03/2025 11:15 AM EDT Office Visit [facility] [address] [place] [address] Analy Agee DO [address] [place] [address] documented as of this encounter Procedures Procedure Name Priority Date/Time Associated Diagnosis Comments HM COLONOSCOPY Routine 09/22/2022 9:26 AM EDT documented in this encounter Results * Hm Colonoscopy (09/22/2022 9:26 AM EDT) us Historical Provider HEALTH MAINTENANCE Final Result documented in this encounter Visit Diagnoses Not on filedocumented in this encounter Additional Health Concerns Assessment Noted Time PHQ-9 Depression Total Score: 21 024 1:37 PM EDT documented as of this encounter Care Teams Assembler Utility Buildings Relationship Specialty Start Date End Date Analy Agee DO [address] [place] [address] PCP - General Family Medicine 11/08/11 documented as of this encounter
--- OUTSIDE RECORDS SUMMARY | 2025-01-13 11:05 | XMS_ITS | Encounter Summary ---
Author Organization [employer] Address [address] [facility] [address] [place] [address] Care Team Providers Care Chief Business Development Officer Name Role Phone Analy Agee Primary Care Provider + [phone] Reason for Visit * Reason Onset Date Comments Appointment Request 12/18/2024 Encounter Details Date Type Department Care Team (Late st Contact Info) Description 12/18/2024 Telephone [facility] [address] [place] [address] Kassie Trujillo [place] Appointment Request Social History Tobacco Use Types Packs/Day Years [...] AM EDT documented as of this encounter Miscellaneous Notes * Telephone Encounter - Kassie Trujillo MA - 12/18/2024 3:46 PM EST 12/18/24-Spoke with patient schedule follow up 02/03/25 at 11:15am. Mailed appt. Letter. documented in this encounter Plan of Treatment Upcoming Encounters Date Type Department Care Team (Late st Contact Info) Description 02/03/2025 11:15 AM EDT Office Visit [facility] [address] [place] [address] Analy Agee DO [address] [place] [address] documented as of this encounter Visit Diagnoses Not on filedocumented in this encounter Additional Health Concerns Assessment Noted Time PHQ-9 Depression Total Score: 21 024 1:37 PM EDT documented as of this encounter Care Teams Chief Business Development Officer Relationship Specialty Start Date End Date Analy Agee DO [address] [place] [address] PCP - General Family Medicine 11/08/11 documented as of this encounter
--- OUTSIDE RECORDS SUMMARY | 2025-01-13 11:05 | XMS_ITS | Encounter Summary ---
Author Organization [employer] Address [address] [facility] 7[address] [place] [address] Care Team Providers Care Wrister Name Role Phone Analy gAee DO Primary Care Provider [phone] Encounter Details Date Type Department Care Team ([facility] st Contact Info) Description 12/17/[address] [facility] [address] [place], [place] [phone] Analy Agee DO [address] [place], [place] [id number] Social History Tobacco Use Types Packs/Day Years [...] Description 02/03/2025 11:15 AM EDT Office Visit [facility] [address] [place] [address] Analy Agee, [address] [place] [address] documented as of this encounter Procedures Procedure Name Priority Date/Time Associated Diagnosis Comments BI MAMMOGRAM SCREENING TOMOSYNTHESIS BILATERAL Routine 12/17/2024 12:00 PM EST documented in this encounter Results * BI Mammogram Screening Tomosynthesis Bilateral (12/17/2024 12:00 PM EST) Anatomical Region Laterality Modality Breast Bilateral Mammography 12/17/2024 12:0 0 PM EST Narrative 12/26/2024 10:23 AM EST ? [facility] ? [address] ?[place] [address] ? Mammography Report ? Signed ? Patient: Wendy Garibay ?MR#: [id number] ? : 1960 ?Acct:[id number] ? Age/Sex: 64 / F ?ADM Date: 01/22/25 ? Loc: HO.MAMMO ? Attending Dr: Analy Agee DO ? Ordering Physician: Analy Agee DO ?Results: 1N ?? egative ? Date of Service: 12/17/24 ?Follow Up: 1 Year From Orig ?? inal Mammogram ? Procedure(s): MM tomosynthesis screening BI ?? Accession Number(s): [id number] ? cc: Analy Agee DO ? EXAMINATION: ?? MM SCREENING DIGITAL BREAST TOMOSYNTHESIS, BILATERAL ? CLINICAL INFORMATION: ? Screening. Asymptomatic. ? COMPARISON: ?? Mammography: Comparison is made with available priors ? TECHNIQUE: ?? Digital breast mammography with tomosynthesis is performed in both the ?? craniocaudal and mediolateral oblique views along with computer-aided ?? detection (CAD). ? FINDINGS: ?? There are scattered areas of fibroglandular density (ACR BI-RADS breast ?? composition Category b). ? There are no significant masses, abnormal calcifications, or other ?? abnormalities. ? MM/MM tomosynthesis screening BI ?? IMPRESSION: ?? No mammographic evidence of malignancy. ? ASSESSMENT: ? BI-RADS BI-RADS 1 - Negative ? RECOMMENDATION: ?? Routine annual mammography screening. ? 1 year F/U ? This examination should not preclude the clinical evaluation of a ?? suspicious palpable abnormality. ? This patient's information was entered into a reminder system with a ?? target due date for their next mammogram. ? Electronically signed by: ??Sienna Watson DO ??12/26/2024 10:18 AM EST ?? RP ? Dictated By: ?Sienna Watson DO ? Signed By: ?<Electronically signed by Sienna Watson, DO in OV> ? 12/26/24 1018 ? DD/ 1200 ? TD/TT: 12/17/24 1217 ? Tank Furnace Operator: ? Procedure Note Donotuseinterpreter, Image - 12/26/2024 [facility] [address] [place], [place] [address] Mammography Report Signed Patient: Wendy Garibay MR#: [id number] : 1960Acct:[id number] Age/Sex: 64 / FADM Date: 12/17/24 Loc: HO.MAMMO Attending Dr: Analy Agee DO Ordering Physician: Analy Ageeults: 1N egative Date of Service: 12/17/24Follow Up: 1 Year From Orig inal Mammogram Procedure(s): MM tomosynthesis screening BI Accession Number(s): [id number] cc: Analy Agee DO EXAMINATION: MM SCREENING DIGITAL BREAST TOMOSYNTHESIS, BILATERAL CLINICAL INFORMATION: Screening. Asymptomatic. COMPARISON: Mammography: Comparison is made with available priors TECHNIQUE: Digital breast mammography with tomosynthesis is performed in both the craniocaudal and mediolateral oblique views along with computer-aided detection (CAD). FINDINGS: There are scattered areas of fibroglandular density (ACR BI-RADS breast composition Category b). There are no significant masses, abnormal calcifications, or other abnormalities. MM/MM tomosynthesis screening BI IMPRESSION: No mammographic evidence of malignancy. ASSESSMENT: BI-RADS BI-RADS 1 - Negative RECOMMENDATION: Routine annual mammography screening. 1 year F/U This examination should not preclude the clinical evaluation of a suspicious palpable abnormality. This patient's information was entered into a reminder system with a target due date for their next mammogram. Electronically signed by: Sienna Watson DO 12/26/2024 10:18 AM [facility] Dictated By: Sienna Watson DO Signed By: <Electronically signed by Sienna Watson DO in OV> 12/26/24 1018 DD/ 1200 TD/TT: 12/17/24 1217 Tank Furnace Operator: Analy Agee DO IMG BI PROCEDURES Final Resu lt documented in this encounter Visit Diagnoses Not on filedocumented in this encounter Additional Health Concerns Assessment Noted Time PHQ-9 Depression Total Score: 21 024 1:37 PM EDT documented as of this encounter Care Teams Wrister Relationship Specialty Start Date End Date Analy Agee DO [address] [place] [address] PCP - General Family Medicine 11/08/11 documented as of this encounter
--- OUTSIDE RECORDS SUMMARY | 2025-01-13 11:05 | XMS_ITS | Encounter Summary ---
Author Organization [employer] Address [address] [facility] [address] [place] [address] Care Team Providers Care Victorian Literature Professor Name Role Phone Analy Agee DO Primary Care Provider + [phone] Encounter Details Date Type Department Care Team (Latest Contact Info) Description 12/18/2024 Travel Social History Tobacco Use Types Packs/Day Years [...] Description 02/03/2025 11:15 AM EDT Office Visit [facility] [address] [place] [address] Analy Agee DO [address] [place] [address] documented as of this encounter Visit Diagnoses Not on filedocumented in this encounter Additional Health Concerns Assessment Noted Time PHQ-9 Depression Total Score: 21 024 1:37 PM EDT documented as of this encounter Care Teams Victorian Literature Professor Relationship Specialty Start Date End Date Analy Agee DO [address] [place] [address] PCP - General Family Medicine 11/08/11 documented as of this encounter
--- OUTSIDE RECORDS SUMMARY | 2025-01-13 11:05 | XMS_ITS | Encounter Summary ---
Author Organization [employer] Address [address] [facility] [address] [place] [address] Care Team Providers Care Ruffler Name Role Phone Analy Agee Primary Care Provider + [phone] Encounter Details Date Type Department Care Team (Late st Contact Info) Description 01/15/2024 Orders Only [facility] [address] [place] [address] Provider, MD Gloria Social History Tobacco Use Types Packs/Day Years Used Date Smoking Tobacco: Former Cigarettes Passive Smoke Exposure: Past Smokeless Tobacco: Never Alcohol Use Standard Drinks/Week Comments Never 0 (1 standard drink = 0.6 oz pur e alcohol) Depression Answer Date Recorded Patient Health Questionnaire-9 Score 16 03/06/2023 Housing Stability Answer Date Recorded What is [...] 02/03/2025 11:15 AM EDT Office Visit [facility] [address] [place] [address] Analy Agee DO [address] [place] [address] documented as of this encounter Procedures Procedure Name Priority Date/Time Associated Diagnosis Comments SURGICAL PATHOLOGY Routine 05/04/2023 11:39 AM EDT SURGICAL PATHOLOGY Routine 09/22/2022 11:40 AM EDT documented in this encounter Results * Surgical Pathology (05/04/2023 11:39 AM EDT) Historical Provider MD LAB PATHOLOGY ORDERABLES Final Result * Surgical Pathology (09/22/2022 11:40 AM EDT) us Historical Provider MD LAB PATHOLOGY ORDERABLES Final Result documented in this encounter Visit Diagnoses Not on filedocumented in this encounter Additional Health Concerns Assessment Noted Time PHQ-9 Depression Total Score: 16 023 11:33 AM EDT documented as of this encounter Care Teams Ruffler Relationship Specialty Start Date End Date Analy Agee DO [address] [place] [address] PCP - General Family Medicine 11/08/11 documented as of this encounter
--- OUTSIDE RECORDS SUMMARY | 2025-01-13 11:05 | XMS_ITS | Clinical Summary ---
Author Organization [employer] Address [address] [place] [address] Care Team Providers Care Paving Supervisor Name Role Phone Analy Agee DO Primary Care Provider [phone] Allergies Active Allergy Reactions Criticality Noted Date Comments [place] Oil 03/06/2023 Other reaction(s): itching throat ears Apple Juice 02/10/2014 Other reaction(s): itching throat ears Ascorbate 03/06/2023 Other reaction(s): itching throat ears Black [place] Flavoring Agent (Non-Screening) 01/22/2018 Black [place] Pollen Allergy Skin Test 01/22/2018 Corylus 01/22/2018 [place] Pollens Itching 03/06/2023 Other reaction(s): itching throat ears body sneezing Grass Pollen(K-O-R-T-Swt Howie) 01/22/2018 Kiwi Extract 01/22/2018 Other reaction(s): itching throat ears Pear 01/22/2018 Pineapple Itching 03/06/2023 Other reaction(s): itching throat ears Pineapple Extract 11/04/2015 [place] Extract 02/10/2014 Medications Elastic Bandages & Supports (Wrist Splint/Left Medium) misc 1 (one) time. 07/29/20 20 Active OXcarbazepine (Trileptal) 300 MG tablet Take 1 tablet by mouth in the morning and at bedtime. Active LORazepam (Ativan) 1 MG tablet Take 1 mg by mouth at bedtime. 04/13/20 23 Active QUEtiapine (SEROquel) 50 MG tablet Take 50 mg by mouth at bedtime. 04/25/20 23 Active naloxone (Narcan) 4 mg/0.1 mL nasal sprayIndications :Chronic low back pain, unspecified back pain laterality, unspecified whether sciatica present Administer 1 spray (4 mg) into affected nostril(s) if needed for opioid reversal. 2 each 2 11/06/20 23 Active metFORMIN (Glucophage) 500 MG tabletIndication s:Type 2 diabetes mellitus without complication, with long-term current use of insulin (CMS/HCC) TAKE 1 TABLET BY MOUTH TWICE DAILY IN THE MORNING AND IN THE EVENING WITH MEALS 180 tablet 3 02/20/20 24 Active lisinopril 40 MG tabletIndication s:Essential hypertension TAKE 1 TABLET BY MOUTH EVERY MORNING 90 tablet 3 02/20/20 24 Active Bisacodyl EC 5 MG EC tablet TAKE 2 TABLETS BY MOUTH EVERY DAY AT BEDTIME 02/26/20 24 Active DULoxetine (Cymbalta) [address] capsule 03/06/20 24 Active atorvastatin (Lipitor) 40 MG tablet TAKE 1 TABLET BY MOUTH AT BEDTIME 90 tablet 3 03/18/20 24 Active hydroCHLOROthiaz merritt (HYDRODiuril) 12.5 MG tablet TAKE 1 TABLET BY MOUTH EVERY MORNING 90 tablet 3 03/18/20 24 Active fenofibrate (Tricor) 54 MG tablet TAKE 1 TABLET BY MOUTH EVERY EVENING 90 tablet 3 03/18/20 24 Active cetirizine (ZyrTEC) 10 MG tabletIndication s:Seasonal allergic rhinitis, unspecified trigger TAKE 1 TABLET BY MOUTH EVERY MORNING 90 tablet 3 05/13/20 24 Active GAS RELIEF 125 MG capsule 05/15/20 24 Active baclofen (Lioresal) 10 MG tablet Take 1 tablet (10 mg) by mouth if needed in the morning, at noon, and at bedtime for muscle spasms. 60 tablet 3 05/16/20 24 025 Active polycarbophil (FiberCon) 625 MG tablet Take 1 tablet (625 mg) by mouth 2 times daily. 60 tablet 11 05/16/20 24 025 Active docusate sodium (Colace) 100 MG capsule TAKE 1 CAPSULE BY MOUTH TWICE DAILY IN THE MORNING AND AT BEDTIME 60 capsule 5 08/13/20 24 Active cyanocobalamin (Vitamin B-12) 1000 MCG tablet TAKE 1 TABLET BY MOUTH EVERY MORNING 30 tablet 5 09/09/20 24 Active gabapentin (Neurontin) 300 MG capsuleIndicatio ns:Chronic bilateral low back pain, unspecified whether sciatica present TAKE 1 CAPSULE BY MOUTH THREE TIMES DAILY IN THE MORNING, EVENING, AND BEDTIME 90 capsule 3 09/09/20 24 Active TRUEplus Lancets 33G miscIndications: Type 2 diabetes mellitus with other specified complication, unspecified whether penitentiary insulin use ([facility]) TEST BLOOD SUGAR TWICE DAILY 100 each 11 09/24/20 24 Active fluticasone (Flonase) 50 MCG/ACT nasal spray USE 2 SPRAYS IN EACH NOSTRIL IN THE MORNING 16 g 11 09/24/20 24 Active sucralfate (Carafate) 1 g tablet Take 1 g by mouth at bedtime. Active esomeprazole (NexIUM) [address] capsule Take 40 mg by mouth before breakfast. Do not open capsule. Active Diclofenac Sodium 1 % gel Apply 2 g topically 4 times daily. Active oxybutynin XL (Ditropan-XL) 10 MG 24 hr tablet TAKE 1 TABLET BY MOUTH EVERY MORNING 90 tablet 3 10/08/20 24 Active cholecalciferol VITAMIN D (Vitamin D-3) 50 MCG (1999 UT) tabletIndication s:Vitamin D deficiency TAKE 1 TABLET BY MOUTH AT BEDTIME 90 tablet 1 11/07/20 24 Active FREESTYLE LITE test stripIndications :Type 2 diabetes mellitus without complication, unspecified whether superintendent container terminal insulin use ([facility]) TEST BLOOD SUGAR THREE TIMES DAILY 100 strip 11 12/25/19 25 Active Alcohol Swabs (Alcohol Prep) 70 % padsIndications: Type 2 diabetes mellitus with other specified complication, unspecified whether superintendent container terminal insulin use ([facility]) USE TO TEST BLOOD SUGAR TWICE DAILY 100 each 5 01/07/20 25 Active Aspirin Low Dose 81 MG EC tabletIndication s:Type 2 diabetes mellitus with other specified complication, without long-term current use of insulin ([facility]) TAKE 1 TABLET BY MOUTH EVERY MORNING 90 tablet 3 01/08/20 25 Active FREESTYLE LITE test stripIndications :Type 2 diabetes mellitus without complication, unspecified whether penitentiary insulin use ([facility]) TEST BLOOD SUGAR 3 TIMES A DAY 100 strip 11 11/28/19 24 025 Discontinued Aspirin Low Dose 81 MG EC tabletIndication s:Type 2 diabetes mellitus with other specified complication, without long-term current use of insulin ([facility]) TAKE 1 TABLET BY MOUTH EVERY MORNING 90 tablet 3 01/22/20 24 025 Discontinued Alcohol Swabs (Alcohol Prep) 70 % padsIndications: Type 2 diabetes mellitus with other specified complication, unspecified whether superintendent container terminal insulin use ([facility]) USE TWICE DAILY DIRECTED 100 each 5 01/22/20 24 025 Discontinued oxyCODONE-acetam inophen (Percocet) 5-325 MG tabletIndication s:Chronic pain of both knees Take 1 tablet by mouth every 12 (twelve) hours if needed for severe pain for up to 28 days. 56 tablet 11/24/20 24 025 Active Problems Problem Noted Date Diagnosed Date Long-term current use of opiate analgesic 2023 Overview (10/07/2024): Medication: Percocet 5-325mg Q12H Indication: chronic neck pain s/p fusion cervical spine, chronic knee pain Last [employer] Agreement: 11/06/23 Additional considerations/risk factors: BZO prescription (outside provider) Assessment & Plan (10/07/2024 4:43 PM EST): -Good engagement and participation with Group Medical Visit model -Encouraged multifactorial approach to pain control including pharm and non- pharm modalities -UTOX and Pill count as expected Timeline: 10/07/24: Group visit WNL Assessment & Plan (09/02/2024 5:35 PM EDT): -Good engagement and participation with Group Medical Visit model -Encouraged multifactorial approach to pain control including pharm and non- pharm modalities -UTOX and Pill count as expected Chronic gastroesophageal reflux disease 03/26/20 History of fusion of cervical spine 03/26/2024 Chronic neck pain 09/06/2023 Assessment & Plan (10/07/2024 4:42 PM EST): -Chronic neck pain s/p ACDF C5-6 and C6-7 Assessment & Plan (09/02/2024 5:33 PM EDT): -Chronic neck pain s/p ACDF C5-6 and C6-7 Assessment & Plan (02/05/2024 1:43 PM EDT): Pill count and Utox as expected - followup with group at next visit - topic: telling our story Chronic pain of both knees 09/06/2023 Chronic constipation 03/06/2023 Ascending aorta dilatation 03/06/2023 History of COVID-19 10/10/2022 Obstructive sleep apnea 10/10/2022 Anxiety 08/27/2015 Chronic low back pain 08/27/2015 Essential hypertension 08/27/2015 History of total knee arthroplasty 08/27/2015 Hyperlipidemia 08/27/2015 Pulmonary nodules 08/27/2015 Osteoarthritis 08/27/2015 Panic disorder 08/27/2015 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 08/27/2015 Fatty liver 08/27/2015 Type 2 diabetes mellitus 08/27/2015 Resolved Problems Problem Noted Date Diagnosed Date Resolved Date Ulcer of finger, limited to breakdown of skin 12/17/19 24 02/22/2024 Assessment & Plan (12/17/2023 3:08 PM EST): Keep area clean and dry, dressing with topical ab ointment bid or use an abs covered Band-Aid Take Duricef x 10d Avoid using right hand as much as she can Tdap is up to date Left sided numbness 03/06/2023 03/06/20 23 Bug bite 10/10/2022 03/06/2023 Itching 10/10/2022 03/06/2023 Epigastric pain 04/25/2018 03/06/2023 Encounters Date Type Department Care Team Description 01/08/2025 Refill [facility] [address] [place] [address] Analy Agee, Type 2 diabetes mellitus with other specified complication, without long-term current use of insulin ([facility]) 01/06/2025 Refill [facility] [address] [place], [place] [phone] Analy Agee, Type 2 diabetes mellitus with other specified complication, unspecified whether superintendent container terminal insulin use (CMS/[facility]) 12/24/2024 Refill [facility] [address] [place], [place] [phone] Analy Agee, Type 2 diabetes mellitus without complication, unspecified whether penitentiary insulin use (CMS/HCC) 12/18/2024 Telephone [facility] [address] [place] [address] Kassie Trujillo [place] Appointment Request 12/18/2024 Travel 12/17/2024 Orders Only [facility] [address] [place] [address] Analy Agee DO 12/03/2024 Telephone [facility] [address] [place] [address] Analy Agee DO Appointment Request 11/24/2024 Refill [facility] [address] [place], [place] [phone] Analy Agee DO Chronic pain of both knees (Primary Dx) 11/06/2024 Refill [facility] [address] [place], [place] [phone] Analy Agee DO Vitamin D deficiency 10/13/2024 9:15 AM EST Office Visit [facility] [address] [place] [phone] Analy Agee DO Type 2 diabetes mellitus without complication, without long-term current use of insulin (CMS/HCC) (Primary Dx); Essential hypertension; Other hyperlipidemia; Fatty liver; 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); Chronic gastroesophageal reflux disease; Chronic constipation; Ascending aorta dilatation (CMS/HCC); Pulmonary nodules; Chronic neck pain; Chronic pain of both knees; Memory loss; Healthcare maintenance 10/13/2024 Travel from Last 3 Months Immunizations Name Administration Dates Next Due Hep A, Adult 04/08/2015,10/01/2014 Hep B, adult 02/16/2016,11/02/2014,10/01/2014 Influenza injectable quadriv alent IIV4 with preservative 08/22/2018,09/15/2016 Influenza injectable quadriv alent preservative free 09/06/2023,09/20/2022,10/13/2021,08/17,08/15/2019,08/27/2017,08/27/2015 Influenza, IIV3, injectable 08/15/2024,1 ,11/08/2011,08/11,11/01/2009 Influenza, Split (incl. joaquim fied surface antigen) 09/12/2013,12/06/2012 Moderna Covid-19 Vaccine 12+ 03/26/2021,02/27/20 21 Pfizer Covid-19 Vaccine 12+ 08/15/2024,,10/13/2021 Pfizer Covid-19 Vaccine 12+ Bivalent 02/05/2023 Pneumococcal Conjugate PCV 20 03/06/2023 Pneumococcal Polysaccharide PPSV23 08/11/2010 RSV Bivalent 10/13/2024 TD (adult), 2 Lf tetanus tox oid, preservative free, adsorbed 11/01/2009 Td (adult), 5 Lf tetanus tox oid, preservative free, adsorbed 03/06/2023 Tdap 12/06/2012 Zoster, Recombinant 06/19/2022,04/10/2022 Social History Tobacco Use Types Packs/Day Years Used Date Smoking Tobacco: Former Cigarettes Passive Smoke Exposure: Past Smokeless Tobacco: Never Tobacco Cessation:Counseling Given: Not Answered Alcohol Use Standard Drinks/Week Comments Never 0 [...] Orientation Straight 09/25/2022 10 :15 AM EDT Last Filed Vital Signs Vital Sign Reading Time Taken Comments Blood Pressure 126/72 10/13/2024 10:34 AM EST Pulse 72 10/13/2024 9:17 AM EST Temperature 36.3 ??C (97.3 ??F) 10/13/2024 9:17 AM ES T Respiratory Rate 17 10/13/2024 9:17 AM EST Oxygen Saturation 100% 09/13/2024 9:01 AM EDT Inhaled Oxygen Concentration - - Weight 75.3 kg (166 lb) 10/13/2024 9:17 AM EST Height 154.9 cm (5' 1 ) 10/13/2024 9:17 AM EST Body Mass Index 31.37 10/13/2024 9:17 AM EST Plan of Treatment Upcoming Encounters Date Type Department Care Team (Late st Contact Info) Description 02/03/2025 11:15 AM EDT Office Visit [facility] [address] [place] [address] Analy Agee DO [address] [place] [address] Health Maintenance Due Date Last Done Comments CT Colonography 1962 FIT DNA/Cologuard 1962 FIT 1962 FOBT 1962 Sigmoidoscopy 1962 Diabetes: Foot Exam 1972 Eye Exam 1972 Alcohol/Substance Use Screening 1974 Pap Smear 09/15/2019 09/15/2016 Cervical Cancer Screening 09/15/2021 HPV/Cotest 09/15/2021 09/15/2016 Depression Monitoring (PHQ-9) 08/24/2024 02/22/2024, 02/22/2024 COVID-19 Vaccine ( season) 2024 08/15/2024, 09/06/2023, 02/05/2023, Additional history exists Diabetes: Hemoglobin A1C 11/14/2024 024, 08/15/2024, 05/16/2024, Additional history exists Depression Screening 02/21/2025 02/22/2024, 02/22/20 24 Diabetes: Urine Protein Screening 08/15/2025 08/15/2024, 09/08/2022, 10/13/2021, Additional history exists Lipid Panel 08/15/2025 08/15/2024, 09/26, 07/23/2020 SDOH Screening 10/03/2025 10/03/2024 Tobacco Screening 10/13/2025 10/13/2024 Mammogram 12/17/2025 12/17/2024, 11/26, 11/07/2022, Additional history exists Colonoscopy 09/22/2032 09/22/2022 Colorectal Cancer Screening 09/22/2032 DTaP/Tdap/Td Vaccines (3 - Td or Tdap) 03/06/2033 03/06/2023, 12/06/2012, 11/01/2009 Hepatitis A Vaccines Completed 04/08/2015, 10/01/20 14 Hepatitis B Vaccines Completed 02/16/2016, 11/02/2014, 10/01/2014 Hepatitis C Screening Completed 10/13/2021, 020 Zoster Vaccines Completed 06/19/2022, 04/10/2022 Pneumococcal Vaccine: 50+ Years Completed 03/06/2023, 08/11/2010 HIV Screening Completed 08/15/2024, 09/26, 07/23/2020 Influenza Vaccine Completed 08/15/2024, , 09/20/2022, Additional history exists RSV Patients and Patients Aged 60 years or older Completed 10/13/2024 HIB Vaccines Aged Out No longer eligi ble based on patient's age to complete this topic HPV Vaccines Aged Out No longer eligi ble based on patient's age to complete this topic IPV Vaccines Aged Out No longer eligi ble based on patient's age to complete this topic Meningococcal Vaccine Aged Out No lauren jennifer eligible based on patient's age to complete this topic RSV under 20 months Aged Out No longe r eligible based on patient's age to complete this topic Rotavirus Vaccines Aged Out No longer eligible based on patient's age to complete this topic Procedures Procedure Name Priority Date/Time Associated Diagnosis Comments BI MAMMOGRAM SCREENING TOMOSYNTHESIS BILATERAL Routine 12/17/2024 12:[address] HEAD WO CONTRAST Routine 10/20/2024 4 :51 PM EST Changes in vision ALBUMIN, RANDOM URINE W/CREATININE Routine 08/15/2024 12:47 PM EDT HIV 1/2 ANTIGEN/ANTIBODY, FOURTH GENERATION W/RFL Routine 08/15/2024 12:40 PM EDT LIPID PANEL, STANDARD Routine 08/15/2024 12:40 PM EDT POCT GLYCATED HEMOGLOBIN, TOTAL Routine 08/15/2024 12:19 PM EDT Type 2 diabetes mellitus without complication, without long-term current use of insulin (CMS/HCC) HM COLONOSCOPY Routine 09/22/2022 9:26 AM EDT ZZZ HISTORICAL HEPATITIS C AB W/REFL TO HCV RNA, QN, PCR Routine 10/13/2021 2:59 PM EST ZZZ HISTORICAL HPV E6/E7 RFLX BERNARDO 16 18/45 Routine 09/15/2016 11:45 AM EDT PAP SMEAR Routine 09/15/2016 12:00 AM EDT from Last 3 Months or Most Recently Relevant to Health Maintenance Results * BI Mammogram Screening Tomosynthesis Bilateral (12/17/2024 12:00 PM EST) Anatomical Region Laterality Modality Breast Bilateral Mammography 12/17/2024 12:0 0 PM EST Narrative 12/26/2024 10:23 AM EST ? [facility] ? [address] ?[place] [address] ? Mammography Report ? Signed ? Patient: Wendy Garibay ?MR#: [id number] ? : 1960 ?Acct:[id number] ? Age/Sex: 64 / F ?ADM Date: 12/17/24 ? Loc: HO.MAMMO ? Attending Dr: Analy Agee DO ? Ordering Physician: Analy Agee DO ?Results: 1N ?? egative ? Date of Service: 12/17/24 ?Follow Up: 1 Year From Orig ?? inal Mammogram ? Procedure(s): MM tomosynthesis screening BI ?? Accession Number(s): [id number] ? cc: Analy Agee DO ? EXAMINATION: [...] DD/ 1200 ? TD/TT: 12/17/24 1217 ? Web Ui Developer: ? Procedure Note Donchristelleter, Image - 12/26/2024 [facility] [address] [place] [address] Mammography Report Signed Patient: Wendy Garibay MR#: [id number] : 1960Acct:[id number] Age/Sex: 64 / FADM Date: 12/17/24 Loc: HO.MAMMO Attending Dr: Analy Agee DO Ordering Physician: Analy Ageeults: 1N egative Date of Service: 12/17/24Follow Up: 1 Year From Orig inal Mammogram Procedure(s): MM tomosynthesis screening BI Accession Number(s): [id number] cc: Analy Agee DO EXAMINATION: MM SCREENING [...] by: Sienna Watson DO 12/26/2024 10:18 AM EST RP Dictated By: Sienna Watson DO Signed By: <Electronically signed by Sienna Watosn DO in OV> 12/26/24 1018 DD/ 1200 TD/TT: 12/17/24 1217 Web Ui Developer: us Analy Agee DO IMG BI PROCEDURES Final Resu lt * CT Head w/o Contrast (10/20/2024 4:51 PM EST) Anatomical Region Laterality Modality Head, Neck Computed Tomogra phy 10/20/2024 4:51 PM EST Narrative 11/16/2024 3:05 PM EST ? [facility] ?[address] ?[place] [address] ? CT Scan Report ? Signed ? Patient: Wendy Garibay ?MR#: [id number] ? : 1960 ?Acct:[id number] ? Age/Sex: 63 / F ?ADM Date: 10/20/24 ? Loc: HO.CT ? Attending Dr: Analy Agee DO ? Ordering Physician: Analy Agee DO ?? Date of Service: 10/20/24 ?? Procedure(s): CT head/brain wo IV con ?? Accession Number(s): [id number] ? cc: Analy Agee DO ? EXAMINATION: ?? CT HEAD WITHOUT CONTRAST ? CLINICAL INFORMATION: ?? Right eye blurring and dizziness. ? COMPARISON: ?? CT brain 07/10/2010 ? TECHNIQUE: ?? Contiguous axial imaging was performed from the skull base to vertex ?? without intravenous administration of contrast. ? This CT examination was performed using dose optimization techniques as ?? appropriate, variously including the following: ?? *Automated exposure control ?? *Adjustment of mA and/or kV according to patient size (this includes ?? techniques or standardized protocols for targeted exams where dose is ?? matched to indication/reason for exam; i.e. extremities or head) ?? *Use of iterative reconstruction technique ? DLP: ?? 628 mGy-cm ? FINDINGS: ?? There is no acute intra-axial, extra-axial bleed, masses or midline ?? shift. There is no acute infarction evolution. There is no edema. The ?? tovar to white matter differentiation is maintained normal. The lateral ?? ventricles are symmetrical in size and configuration without bone ?? windows reveal no calvarial abnormality. Bilateral paranasal sinuses ?? and mastoid air cells are well-aerated. There is no scalp soft tissue ?? abnormality seen. ? CT/CT head/brain wo IV con ?? IMPRESSION: ? No acute intracranial process seen. ? Electronically signed by: ??Francisco Guerrero MD ??11/16/2024 03:02 PM EST RP ? Dictated By: ?Francisco Guerrero MD ? Signed By: ?<Electronically signed by Francisco Guerrero MD in OV> ?11/16/24 1502 ? DD/ 1651 ? TD/TT: 10/20/24 1656 ? Web Ui Developer: MSM ? Procedure Note Princess, Image - 11/16/[address] [place] [address] [address] Scan Report Signed Patient: Wendy Garibay MR#: [id number] : 1960Acct:[id number] Age/Sex: 63 / FADM Date: 10/20/24 Loc: HO.CT Attending Dr: Analy Agee DO Ordering Physician: Analy Agee DO Date of Service: 10/20/24 Procedure(s): CT head/brain wo IV con Accession Number(s): [id number] cc: Analy Agee DO EXAMINATION: CT HEAD WITHOUT CONTRAST CLINICAL INFORMATION: Right eye blurring and dizziness. COMPARISON: CT brain 07/10/2010 TECHNIQUE: Contiguous axial imaging was performed from the skull base to vertex without intravenous administration of contrast. This CT examination was performed using dose optimization techniques as appropriate, variously including the following: *Automated exposure control *Adjustment of mA and/or kV according to patient size (this includes techniques or standardized protocols for targeted exams where dose is matched to indication/reason for exam; i.e. extremities or head) *Use of iterative reconstruction technique DLP: 628 mGy-cm FINDINGS: There is no acute intra-axial, extra-axial bleed, masses or midline shift. There is no acute infarction evolution. There is no edema. The tovar to white matter differentiation is maintained normal. The lateral ventricles are symmetrical in size and configuration without bone windows reveal no calvarial abnormality. Bilateral paranasal sinuses and mastoid air cells are well-aerated. There is no scalp soft tissue abnormality seen. CT/CT head/brain wo IV con IMPRESSION: No acute intracranial process seen. Electronically signed by: Francisco Guerrero MD 11/16/2024 03:02 PM [facility] [place]ict[place] By: Francisco Guerrero MD Signed By: <Electronically signed by Francisco Guerrero MD in OV> 11/16/24 1502 DD/ 1651 TD/TT: 10/20/24 1656 Web Ui Developer: CHARISMA Analy Agee DO IMG CT PROCEDURES Edited Res ult - Final * Albumin, Random Urine W/Creatinine (08/15/2024 12:47 PM EDT) Creatinine, Urine 115.59 mg/dL [facility] Microalbumin Urine 7.0 mg/L [facility] Microalbum Creatinine Ratio Ur 6.0 <30 ug/mg cr [facility] Comment:Albumin/Creatinine R atio Reference Ranges: Normal: < 30 ug/mg creatinine Microalbuminuria: 30 - 300 ug/mg creatinineClinical Albuminuria: > 300 ug/mg creatinine 08/15/2024 12:4 7 PM EDT 08/15/2024 4:05 PM EDT us Analy Jurcsak DO LAB URINE ORDERABLES Final R esult Performing Organization Address City/[facility] Co de Phone Number [facility] [address] [place] [address] [phone] * HIV-1/2 Antigen and Antibodies, Fourth Generation, with Reflexes (08/15/2024 12:40 PM EDT) HIV AB/AG Nonreactive Nonreactive [facility] Comment:HIV-1 p24 Ag and/or HIV-1/HIV-2 Ab not detected.A test result that is nonreactive does not exclude thepossibility of exposure to or infection with HIV-1 and/orHIV-2. Nonreactive results in this assay for individualswith prior exposure to HIV-1 and/or HIV-2 may be due toantigen and antibody levels that are below the limit ofdetection of this assay.The [employer] HIV Ag/Ab Combo assay result andsupplemental assay results should be interpreted inconjunction with the patient's clinical presentation,history and other laboratory results. If the results areinconsistent with clinical evidence, additional testing issuggested to confirm the result. 08/15/2024 12:4 0 PM EDT 08/15/2024 4:17 PM EDT Analy Agee DO LAB BLOOD ORDERABLES Final R esult Performing Organization Address [facility] Co de Phone Number [facility] [address] [place] [address] [phone] * Lipid Panel, Standard (08/15/2024 12:40 PM EDT) Triglycerides 142 <150 mg/dL [facility] Comment:Desirable Triglyceri de: less than 150 mg/dLBorderline High Triglyceride 150-199 mg/dLHigh Triglyceride: 200-499 mg/dLVery High Triglyceride: greater than or equal to 5OO mg/dL Cholesterol 136 <200 mg/dL [facility] Comment:Desirable Cholestero l: less than 200 mg/dLBorderline High Cholesterol: 200-239 mg/dLHigh Cholesterol: greater than 239 mg/dL LDL Cholesterol Calculated 66 <100 mg/dL [facility] Comment:Desirable LDL: less than 100 mg/dLNear Optimal/Above Optimal LDL: 110- 129 mg/dLBorderline High LDL: 130-159 mg/dLHigh LDL: 160-189 mg/dLVery High LDL: greater than or equal to 190 mg/dL HDL Cholesterol 42 >40 mg/dL [facility] Comment:Desirable HDL: great er than 40 mg/dL Note: This HDL assay may give artificially low results in patients with liver disease. 08/15/2024 12:4 0 PM EDT 08/15/2024 4:17 PM EDT Analy Agee DO LAB BLOOD ORDERABLES Final R esult [facility] LABS [address] [place] [phone] * (ABNORMAL) POCT HGB A1C (08/15/2024 12:19 PM EDT) Hemoglobin A1C 6.3(A) 4.0 - 6.0 % QC Media Lot # [id number] Lot# Expiration Date Swab 08/15/2024 12:1 9 PM EDT Analy Agee DO POINT OF CARE TEST ENTER/ERIN T ORDERABLES Final Result * Colonoscopy (09/22/2022 9:26 AM EDT) Historical Provider HEALTH MAINTENANCE Final Result * HEPATITIS C AB W/REFL TO HCV RNA, QN, PCR (10/13/2021 2:59 PM EST) HEPATITIS C ANTIBODY NON-REACT DESI NON-REACT DESI [facility] INDEX 0.01 <1.00 [facility] Comment: ?? HCV antibody was non-reactive. There is no laboratory ?? evidence of HCV infection. ?? In most cases, no further action is required. However, if recent HCV exposure is suspected, a test for HCV RNA (test code 21423) is suggested. ?? For additional information please refer to http://Zero Locus.RECCY/faq/DJE37v3 (This link is being provided for informational/ educational purposes only.) ?? 10/13/2021 2:59 PM EST Analy Cyndie DO HISTORICAL/NON ORDERABLE LAB S Final Result Performing Organization Address [facility] de Phone Number [facility] [address] * HPV E6/E7 RFLX BERNARDO 16 18/45 (09/15/2016 11:45 AM EDT) ADDITIONAL TESTING Not indicated () [facility] Comment: Test Performed by [employer] [facility], [address] [place] [address] Rojas Meneses M.D., Ph.D., Director of Laboratories , [facility] [id number] HPV 16 RNA Test not performed [facility] HPV 18/45 RNA Test not performed [facility] HPV mRNA E6/E7 Not Detected NOT DETECTED [facility] Comment: This assay detects E6/E7 viral messenger RNA (mRNA) from 14 high-risk HPV types (16,18,31,33,35,39,45,51, 52,56,58,59,66,68). This test was performed using the APTIMA(R) TMA HPV Assay ([employer] For additional information, please refer to http://Zero Locus.RECCY/faq/BJZ551s9 Please note: ??Effective 08/07/2016, HPV testing will be performed using [employer]'s APTIMA test which targets mRNA. Detecting mRNA instead of DNA, as in older methods, offers significant improvements in specificity. 09/15/2016 11:4 5 AM EDT Analy Agee DO HISTORICAL/NON ORDERABLE LAB S Final Result Performing Organization Address [facility] Co de Phone Number [facility] [address] [place] [address], * Pap Smear (09/15/2016 12:00 AM EDT) Swab Analy Agee DO LAB CYTOLOGY ORDERABLES [place] [facility] Result [facility] [address] [place] [address] from Last 3 Months or Most Recently Relevant to Health Maintenance Insurance [facility] Care Teams Paving Supervisor Relationship Specialty Start Date End Date Analy Agee DO [address] [place] [phone] PCP - General Family Medicine 11/08/11
--- OUTSIDE RECORDS SUMMARY | 2025-01-13 11:05 | XMS_ITS | Encounter Summary ---
Author Organization [employer] Address [address] [facility] 7t [place] [address] Care Team Providers Care Manager Managing Name Role Phone Analy Agee DO Primary Care Provider + [phone] Reason for Visit * Reason Comments Med Refill Encounter Details Date Type Department Care Team ([facility] st Contact Info) Description 12/24/2024 Refill [facility] MED & PEDS [address] [place], [place] [phone] Analy Agee DO [address] [place], [place] [phone] Type 2 diabetes mellitus without complication, unspecified whether terminal make up operator insulin use ([facility]) Social History Tobacco Use Types Packs/Day Years [...] Description 02/03/2025 11:15 AM EDT Office Visit [facility] MEDICINE [address] [place] [address] Analy Agee DO [address] [place] [address] documented as of this encounter Visit Diagnoses Diagnosis Type 2 diabetes mellitus without complication, unspecified whether mcc insulin use ([facility]) documented in this encounter Additional Health Concerns Assessment Noted Time PHQ-9 Depression Total Score: 21 024 1:37 PM EDT documented as of this encounter Care Teams Manager Managing Relationship Specialty Start Date End Date Analy Agee DO [address] [place] [address] PCP - General Family Medicine 11/08/11 documented as of this encounter
--- OUTSIDE RECORDS SUMMARY | 2025-01-13 11:05 | XMS_ITS | Encounter Summary ---
Author Organization [employer] [facility] Address [address] [place] [address] [address] [place] [address] Care Team Providers Care Secretary Administrative Assistant Name Role Phone Analy Agee DO Primary Care Provider [phone]- [phone] Encounter Details Date Type Department Care Team (Late st Contact Info) Description 10/18/2022 Abstract [facility] MEDICINE [address] [place] [phone] Provider, MD Gloria Social History Tobacco Use [...] Description 02/03/2025 11:15 AM EDT Office Visit [facility] [address] [place] [phone] Analy Agee DO [address] [place] [address] documented as of this encounter Visit Diagnoses Not on filedocumented in this encounter Care Teams Secretary Administrative Assistant Relationship Specialty Start Date End Date Analy Agee DO [address] [place] [phone] PCP - General Family Medicine 11/08/11 documented as of this encounter
--- OUTSIDE RECORDS SUMMARY | 2025-01-13 11:05 | XMS_ITS | Encounter Summary ---
Author Organization [employer] Address [address] [facility] 7t [place] [address] Care Team Providers Care Process Worker Name Role Phone Analy Agee DO Primary Care Provider + [phone] Reason for Visit * Reason Comments Med Refill Encounter Details Date Type Department Care Team ([facility] st Contact Info) Description 01/16/2024 Refill [facility] CHC MED & PEDS [address] [place], [place] [phone] Analy Agee DO [address] [place], [place] [phone] Chronic bilateral low back pain, unspecified whether sciatica present Social History Tobacco Use Types Packs/Day Years [...] 11:15 AM EDT Office Visit [facility] MEDICINE [address] [place] [address] Analy Agee DO [address] [place] [address] documented as of this encounter Visit Diagnoses Diagnosis Chronic bilateral low back pain, unspecified whether sciatica present documented in this encounter Additional Health Concerns Assessment Noted Time PHQ-9 Depression Total Score: 16 023 11:33 AM EDT documented as of this encounter Care Teams Process Worker Relationship Specialty Start Date End Date Analy Agee DO [address] [place] [address] PCP - General Family Medicine 11/08/11 documented as of this encounter
--- OUTSIDE RECORDS SUMMARY | 2025-01-13 11:05 | XMS_ITS | Encounter Summary ---
Author Organization [employer] [facility] Address [address] [facility] [address] [place] [address] Care Team Providers Care Aircraft Hydraulic Equipment Mechanic Name Role Phone Analy Agee DO Primary Care Provider [phone]- [phone] Encounter Details Date Type Department Care Team (Late st Contact Info) Description 10/18/[address] [address] Provider, Historical, Social History Tobacco Use Types Packs/Day Years [...] Description 02/03/2025 11:15 AM EDT Office Visit [address] [address] Analy Agee DO [address] [place] [address] documented as of this encounter Procedures Procedure Name Priority Date/Time Associated Diagnosis Comments MAMMOGRAPHY Routine 01/25/2021 documented in this encounter Results * Mammography (01/25/2021) Mammogram Performed Anatomical Region Laterality Modality Other us Historical Provider HEALTH MAINTENANCE Final Result documented in this encounter Visit Diagnoses Not on filedocumented in this encounter Care Teams Aircraft Hydraulic Equipment Mechanic Relationship Specialty Start Date End Date Analy Agee DO [address] [place] [address] PCP - General Family Medicine 11/08/11 documented as of this encounter
--- OUTSIDE RECORDS SUMMARY | 2025-01-13 11:05 | XMS_ITS | Encounter Summary ---
Author Organization [employer] Address 75 [facility] 7t [place] [address] Care Team Providers Care Environmental Studies Faculty Member Name Role Phone Analy Agee DO Primary Care Provider [phone] Reason for Visit * Reason Onset Date Comments Appointment Request 12/03/2024 Encounter Details Date Type Department Care Team (Late st Contact Info) Description 12/03/2024 Telephone [facility] MEDICINE [address] [place], [place] [phone] Analy Agee DO [address] [place], [place] [phone] Appointment Request Social History Tobacco Use Types [...] Encounter - Kassie Trujillo MA - 12/18/2024 3:48 PM EST Spoke with patient schedule follow up appt. 12/18/24 at 11:15am with PCP. Mailed appt. Letter. * Telephone Encounter - Tiffany Owen - 12/03/2024 9:31 AM EST Tc from pt stating wouldn't be able to make it to appointment today as she requests a new appointment. [phone] documented in this encounter Plan of Treatment Upcoming Encounters Date Type Department Care Team (Late st Contact Info) Description 02/03/2025 11:15 AM EDT Office Visit [facility] MEDICINE [address] [place] [address] Analy Agee DO [address] [place] [address] documented as of this encounter Visit Diagnoses Not on filedocumented in this encounter Additional Health Concerns Assessment Noted Time PHQ-9 Depression Total Score: 21 024 1:37 PM EDT documented as of this encounter Care Teams Environmental Studies Faculty Member Relationship Specialty Start Date End Date Analy Agee DO [address] [place] [address] PCP - General Family Medicine 11/08/11 documented as of this encounter
--- OUTSIDE RECORDS SUMMARY | 2025-01-13 11:05 | XMS_ITS | Encounter Summary ---
Author Organization [employer] Address 75 [facility] 7t [place] [address] Care Team Providers Care Shower Doors And Panels Fabricator Name Role Phone Analy Agee DO Primary Care Provider [phone] Reason for Visit * Reason Comments Med Refill Encounter Details Date Type Department Care Team ([facility] st Contact Info) Description 01/08/2025 Refill [facility] MEDICINE [address] [place], [place] [phone] Analy Agee DO [address] [place], [place] [phone] Type 2 diabetes mellitus with other specified complication, without long-term current use of insulin ([facility]) Social History Tobacco Use Types [...] Description 02/03/2025 11:15 AM EDT Office Visit [facility] MEDICINE [address] [place] [address] Analy Agee DO [address] [place] [address] documented as of this encounter Visit Diagnoses Diagnosis Type 2 diabetes mellitus with other specified complication, without long-term current use of insulin ([facility]) documented in this encounter Additional Health Concerns Assessment Noted Time PHQ-9 Depression Total Score: 21 024 1:37 PM EDT documented as of this encounter Care Teams Shower Doors And Panels Fabricator Relationship Specialty Start Date End Date Analy Agee DO [address] [place] [address] PCP - General Family Medicine 11/08/11 documented as of this encounter
== END 2025-01-13 11:07 | disposition home or self-care (01) ==
PROVIDERS: PCP Family Medicine; Visit Provider Student in an Organized Health Care Education/Training Program
DX: M15.0 Primary generalized (osteo)arthritis (principal); T84.84XA Pain due to internal orthopedic prosthetic devices, implants and grafts, initial encounter; Z96.651 Presence of right artificial knee joint
CPT/HCPCS: 99213

== ENCOUNTER → 2025-01-13 10:07 | Outpatient (BNVA) | payer OTHER, SELFPAY | PROVIDERS: PCP Family Medicine; Visit Provider Student in an Organized Health Care Education/Training Program | DX: M15.0 Primary generalized (osteo)arthritis (principal); T84.84XA Pain due to internal orthopedic prosthetic devices, implants and grafts, initial encounter; X58.XXXA Exposure to other specified factors, initial encounter; Y93.9 Activity, unspecified; Y92.9 Unspecified place or not applicable; Y99.9 Unspecified external cause status; Z96.651 Presence of right artificial knee joint | CPT/HCPCS: 99212 ==

== ENCOUNTER 2025-02-03 12:46 | Outpatient (REF) | payer OTHER, SELFPAY ==
[2025-02-03 13:45] LABS: Hematocrit 35.1 % (37.0-47.0); Hemoglobin 11.1 g/dl (12.0-16.0); Mean Corpuscular HGB Conc 31.6 g/dl (31.0-35.0); Mean Corpuscular Hemoglobin 26.6 pg (27.0-33.0); Mean Platelet Volume 13.8 fL (9.4-12.3); Platelet Count 171 X10*3/uL (160-400); Red Blood Count 4.18 X10*6/uL (4.20-5.50); Red Cell Distribution Width 14.2 % (11.0-16.0); White Blood Count 5.4 X10*3/uL (4.8-10.8)
[2025-02-03 14:29] LABS: Iron 42 mcg/dL (30-160); Percent Iron Saturation 13 % (15-50); Total Iron Binding Capacity 332 mcg/dL (228-428); Unsaturated Iron Binding 290 ug/dL
[2025-02-03 14:44] LABS: Ferritin 13 ng/mL (10-250)
[2025-02-03 14:56] LABS: Folate 6.2 ng/mL (> or = 4.0); Vitamin B12 1299 pg/mL (200-900)
--- OUTSIDE RECORDS SUMMARY | 2025-02-03 15:18 | XMS_ITS | Encounter Summary ---
Author Organization [employer] Address 75 [facility] 7t [place] [address] Care Team Providers Care Library Services Dean Name Role Phone WesleyAnaly yang Primary Care Provider + [phone] Encounter Details Date Type Department Care Team (Late st Contact Info) Description 03/06/2024 Orders Only [facility] MEDICINE [address] [place] [address] Provider, MD Gloria Social History Tobacco Use [...] as of this encounter Plan of Treatment Not on file documented as of this encounter Procedures Procedure Name Priority Date/Time Associated Diagnosis Comments HM COLONOSCOPY Routine 09/22/2022 9:26 AM EDT documented in this encounter Results * Hm Colonoscopy (09/22/2022 9:26 AM EDT) Historical Provider HEALTH MAINTENANCE Final Result documented in this encounter Visit Diagnoses Not on filedocumented in this encounter Additional Health Concerns Assessment Noted Time PHQ-9 Depression Total Score: 21 024 1:37 PM EDT documented as of this encounter Care Teams Library Services Dean Relationship Specialty Start Date End Date Analy Agee DO [address] [place] [address] PCP - General Family Medicine 11/08/11 documented as of this encounter
--- OUTSIDE RECORDS SUMMARY | 2025-02-03 15:18 | XMS_ITS | Encounter Summary ---
Author Organization [employer] Address 75 [facility] 7t [place] [address] Care Team Providers Care Job Change Crew Member Name Role Phone Analy Agee DO Primary Care Provider + [phone] Reason for Visit * Reason Comments Med Refill Encounter Details Date Type Department Care Team ([facility] st Contact Info) Description 01/16/2024 Refill [facility] CHC MED & PEDS [address] [place], [place] [phone] Analy Agee DO [address] [place], [place] [phone] Chronic bilateral low back pain, unspecified whether [...] on file documented as of this encounter Visit Diagnoses Diagnosis Chronic bilateral low back pain, unspecified whether sciatica present documented in this encounter Additional Health Concerns Assessment Noted Time PHQ-9 Depression Total Score: 16 023 11:33 AM EDT documented as of this encounter Care Teams Job Change Crew Member Relationship Specialty Start Date End Date Analy Agee DO [address] [place] [address] PCP - General Family Medicine 11/08/11 documented as of this encounter
--- OUTSIDE RECORDS SUMMARY | 2025-02-03 15:19 | XMS_ITS | Encounter Summary ---
Author Organization [employer] Address [address] [facility] 7t [place] [address] Care Team Providers Care Franchise Field Consultant Name Role Phone Analy Agee DO Primary Care Provider +[phone] Encounter Details Date Type Department Care Team ([facility] st Contact Info) Description 02/03/2025 11:15 AM EDT Office Visit [facility] MEDICINE [address] [place], [place] [phone] Analy Agee DO [address] [place], [place] [phone] Anemia, unspecified type (Primary Dx); Type 2 diabetes mellitus without complication, without long-term current use of insulin ([facility]) Social History Tobacco Use Types Packs/Day [...] AM EDT documented as of this encounter Last Filed Vital Signs Vital Sign Reading Time Taken Comments Blood Pressure 119/77 02/03/2025 12:09 PM EDT Pulse 70 02/03/2025 12:09 PM EDT Temperature 36.1 ??C (96.9 ??F) 02/03/2025 12:09 PM E DT Respiratory Rate 21 02/03/2025 12:09 PM EDT Oxygen Saturation 99% 02/03/2025 12:09 PM EDT Inhaled Oxygen Concentration - - Weight 75.4 kg (166 lb 2 oz) 02/03/2025 12:09 PM EDT Height 152.4 cm (5') 02/03/2025 12:09 PM EDT Body Mass Index 32.44 02/03/2025 12:09 PM EDT documented in this encounter Plan of Treatment Not on file documented as of this encounter Procedures Procedure Name Priority Date/Time Associated Diagnosis Comments VITAMIN B12/FOLATE, SERUM PANEL Routine 02/03/2025 12:48 PM EDT Anemia, unspecified type IRON AND TOTAL IRON BINDING CAPACITY Routine 02/03/2025 12:48 PM EDT Anemia, unspecified type CBC Routine 02/03/2025 12:48 PM EDT Anemia, unspecified type FERRITIN Routine 02/03/2025 12:48 PM EDT Anemia, unspecified type POCT GLYCATED HEMOGLOBIN, TOTAL Routine 02/03/2025 12:12 PM EDT Type 2 diabetes mellitus without complication, without long-term current use of insulin ([facility]) POCT GLUCOSE Routine 02/03/2025 12:11 PM EDT Type 2 diabetes mellitus without complication, without long-term current use of insulin ([facility]) documented in this encounter Results * (ABNORMAL) CBC (02/03/2025 12:48 PM EDT) White Blood Count 5.4 4.8 - 10.8 X10*3/uL [facility] Red Blood Count 4.18(L) 4.20 - 5.50 X10*6/uL [facility] Hemoglobin 11.1(L) 12.0 - 16.0 g/dl [facility] Hematocrit 35.1(L) 37.0 - 47.0 % [facility] Mean Corpuscular Volume 84.0 80.0 - 98.0 fL [facility] Mean Corpuscular Hemoglobin 26.6(L) 27.0 - 33.0 pg [facility] Mean Corpuscular HGB Conc 31.6 31.0 - 35.0 g/dl [facility] Red Cell Distribution Width 14.2 11.0 - 16.0 % [facility] Platelet Count 171 160 - 400 X10*3/uL [facility] Mean Platelet Volume 13.8(H) 9.4 - 12.3 fL [facility] NRBC Pct Auto 0.0 0.0 - 0.2 /100WBC [facility] NRBC Abs Auto 0.000 0.0 - 0.012 X10*3/uL [facility] Blood Venous blood specimen / Unknown 02/03/2025 12:48 PM EDT 02/03/2025 1:09 PM EDT us Analy Olsoncsak DO LAB BLOOD ORDERABLES Final R esult Performing Organization Address [facility]/ZIP Co de Phone Number [facility] [address] [place] [phone] * (ABNORMAL) Iron And Total Iron Binding Capacity (02/03/2025 12:48 PM EDT) Pathologist [facility] Iron 42 30 - 160 mcg/dL [facility] Total Iron Binding Capacity 332 228 - 428 mcg/dL [facility] Percent Iron Saturation 13(L) 15 - 50 % [facility] Unsaturated Iron Binding 290 ug/dL [facility] Blood Venous blood specimen / Unknown 02/03/2025 12:48 PM EDT 02/03/2025 1:09 PM EDT us Analy Cyndie DO LAB BLOOD ORDERABLES Final R esult Performing Organization Address [facility]/ZIP Co de Phone Number [facility] [address] [place] [phone] * Ferritin (02/03/2025 12:48 PM EDT) [facility] Ferritin 13 10 - 250 ng/mL [facility] Blood Venous blood specimen / Unknown 02/03/2025 12:48 PM EDT 02/03/2025 1:09 PM EDT Analy Cyndie DO LAB BLOOD ORDERABLES Final R esult Performing Organization Address [facility]/ZIP Co de Phone Number [facility] [address] [place] [phone] * (ABNORMAL) Vitamin B12 (Cobalamin) and Folate Panel, Serum (02/03/2025 12:48 PM EDT) Pathologist [facility] Vitamin B12 1,299(H) 200 - 900 pg/mL [facility] Comment:NORMAL 200-900 PG/ML INDETERMINATE 160-199 PG/ML DEFICIENT < 160 PG/ML Folate 6.2 > or = 4.0 ng/mL [facility] Comment:Reference Values:> o r = 4.0 ng/mL< 4.0 ng/mL suggests folate deficiency Methotrexate, aminopterin and folinic acid(leucovorin) are chemotherapeutic agents whose molecularstructures are similar to folate; therefore, the Architectfolate assay cannot be used for patients using these drugs. Blood 02/03/2025 12:4 8 PM EDT 02/03/2025 1:09 PM EDT Analy Agee DO LAB BLOOD ORDERABLES Final R esult [facility] [address] [place] [phone] * (ABNORMAL) POCT HGB A1C (02/03/2025 12:12 PM EDT) Hemoglobin A1C 6.5(A) 4.0 - 6.0 % QC Media Lot # [id number] Lot# Expiration Date ,402 Blood 02/03/2025 12:1 2 PM EDT Analy Agee DO POINT OF CARE TEST ENTER/ERIN T ORDERABLES Final Result * POCT Glucose (02/03/2025 12:11 PM EDT) Glucose Blood, POC 174 60 - 200 mg/dL QC Media Lot # [id number] Lot# Expiration Date [id number] Blood Capillary blood specimen / Unknown 02/03/2025 12:11 PM EDT Analy Agee DO POINT OF CARE TEST ENTER/ERIN T ORDERABLES Final Result documented in this encounter Visit Diagnoses Diagnosis Anemia, unspecified type- Primary Type 2 diabetes mellitus without complication, without long-term current use of insulin ([facility]) documented in this encounter Additional Health Concerns Assessment Noted Time PHQ-9 Depression Total Score: 21 024 1:37 PM EDT documented as of this encounter Care Teams Franchise Field Consultant Relationship Specialty Start Date End Date Analy Agee DO [address] [place] [address] PCP - General Family Medicine 11/08/11 documented as of this encounter
--- OUTSIDE RECORDS SUMMARY | 2025-02-03 15:19 | XMS_ITS | Encounter Summary ---
Author Organization [employer] Address 75 [facility] 7t [place] [address] Care Team Providers Care Blood Donor Recruiter Name Role Phone Analy Agee DO Primary Care Provider +[phone] Reason for Visit * Reason Comments Med Refill Encounter Details Date Type Department Care Team ([facility] st Contact Info) Description 01/08/2025 Refill [facility] MEDICINE [address] [place], [place] [phone] Analy Agee DO [address] [place], [place] [phone] Type 2 diabetes mellitus with other specified complication, without long-term current use of insulin ([facility]) Social History Tobacco Use Types Packs/Day Years [...] complication, without long-term current use of insulin ([facility]) documented in this encounter Additional Health Concerns Assessment Noted Time PHQ-9 Depression Total Score: 21 024 1:37 PM EDT documented as of this encounter Care Teams Blood Donor Recruiter Relationship Specialty Start Date End Date Analy Agee DO [address] [place] [address] PCP - General Family Medicine 11/08/11 documented as of this encounter
--- OUTSIDE RECORDS SUMMARY | 2025-02-03 15:19 | XMS_ITS | Encounter Summary ---
Author Organization [employer] Address [address] [facility] 7t [place] [address] Care Team Providers Care Router Tender Name Role Phone Analy Agee DO Primary Care Provider + [phone] Reason for Visit * Reason Comments Med Refill Encounter Details Date Type Department Care Team ([facility] st Contact Info) Description 01/16/2025 Refill [facility] MEDICINE [address] [place], [place] [phone] Analy Agee DO 230 [place], [place] [phone] Chronic bilateral low back pain, unspecified whether [...] documented as of this encounter Care Teams Router Tender Relationship Specialty Start Date End Date Analy Agee DO [address] [place] [address] PCP - General Family Medicine 11/08/11 documented as of this encounter
--- OUTSIDE RECORDS SUMMARY | 2025-02-03 15:19 | XMS_ITS | Clinical Summary ---
Author Organization [employer] Address [address] [facility] 7[address] [place] [address] Care Team Providers Care Brick Offbearer Name Role Phone Analy Agee DO Primary Care Provider Allergies Active Allergy Reactions Criticality Noted Date Comments [place] Oil 03/06/2023 Other reaction(s): itching throat ears Apple Juice 02/10/2014 Other reaction(s): itching throat ears Ascorbate 03/06/2023 Other reaction(s): itching throat ears Black Pratt Flavoring Agent (Non-Screening) 01/22/2018 Black Pratt Pollen Allergy Skin Test 01/22/2018 Corylus 01/22/2018 Gramineae Pollens Itching 03/06/2023 Other reaction(s): itching throat ears body sneezing Grass Pollen(K-O-R-T-Swt Howie) 01/22/2018 Kiwi Extract 01/22/2018 Other reaction(s): itching throat ears Pear 01/22/2018 Pineapple Itching 03/06/2023 Other reaction(s): itching throat ears Pineapple Extract 11/04/2015 Hawkins Extract 02/10/2014 Medications Elastic Bandages & Supports [...] MORNING 30 tablet 5 09/09/20 24 Active TRUEplus Lancets 33G miscIndications: Type 2 diabetes mellitus with other specified complication, unspecified whether fci insulin use ([facility]) TEST BLOOD SUGAR TWICE DAILY 100 each [...] cholecalciferol VITAMIN D (Vitamin D-3) 50 MCG (1999) tabletIndication s:Vitamin D deficiency TAKE 1 TABLET BY MOUTH AT BEDTIME 90 tablet 1 11/07/20 24 Active FREESTYLE LITE test stripIndications :Type 2 diabetes mellitus without complication, unspecified whether fci insulin use ([facility]) TEST BLOOD SUGAR THREE TIMES DAILY 100 strip 11 12/25/19 25 Active Alcohol Swabs (Alcohol Prep) 70 % padsIndications: Type 2 diabetes mellitus with other specified complication, unspecified whether watcher automat long goods insulin use ([facility]) USE TO TEST BLOOD SUGAR TWICE DAILY 100 each 5 01/07/20 25 Active Aspirin Low Dose 81 MG EC tabletIndication s:Type 2 diabetes mellitus with other specified complication, without long-term current use of insulin ([facility]) TAKE 1 TABLET BY MOUTH EVERY MORNING 90 tablet 3 01/08/20 25 Active oxyCODONE-acetam inophen (Percocet) 5-325 MG tabletIndication s:Chronic pain of both knees TAKE 1 TABLET BY MOUTH EVERY TWELVE HOURS NEEDED FOR SEVERE PAIN 56 tablet 01/23/20 25 Active gabapentin (Neurontin) 300 MG capsuleIndicatio ns:Chronic bilateral low back pain, unspecified whether sciatica present TAKE 1 CAPSULE BY MOUTH THREE TIMES DAILY IN THE MORNING, EVENING, AND BEDTIME 90 capsule 3 01/28/20 25 Active Aspirin Low Dose 81 MG EC tabletIndication s:Type 2 diabetes mellitus with other specified complication, without long-term current use of insulin ([facility]) TAKE 1 TABLET BY MOUTH EVERY MORNING 90 tablet 3 01/22/20 24 025 Discontinued Alcohol Swabs (Alcohol Prep) 70 % padsIndications: Type 2 diabetes mellitus with other specified complication, unspecified whether fci insulin use ([facility]) USE TWICE DAILY DIRECTED 100 each 5 01/22/20 24 025 Discontinued gabapentin (Neurontin) 300 MG capsuleIndicatio ns:Chronic bilateral low back pain, unspecified whether sciatica present TAKE 1 CAPSULE BY MOUTH THREE TIMES DAILY IN THE MORNING, EVENING, AND BEDTIME 90 capsule 3 09/09/20 24 025 Discontinued oxyCODONE-acetam inophen (Percocet) 5-325 MG tabletIndication s:Chronic pain of both knees Take 1 tablet by mouth every 12 (twelve) hours if needed for severe pain for up to 28 days. 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) 02/03/2025 Travel 01/27/2025 Refill [facility] MEDICINE [address] [place] [address] Analy Agee DO Chronic bilateral low back pain, unspecified whether sciatica present 01/23/2025 Refill [facility] CHC MED & PEDS [address] [place] [address] Crystal Roberson MD Chronic pain of both knees 01/16/2025 Refill [facility] MEDICINE [address] [place] [address] Analy Agee DO Chronic bilateral low back pain, unspecified whether sciatica present 01/08/2025 Refill [facility] MEDICINE [address] [place] [address] Analy Agee DO Type 2 diabetes mellitus with other specified complication, without long-term current use of insulin ([facility]) 01/06/2025 Refill [facility] MEDICINE [address] [place] [address] Analy Agee DO Type 2 diabetes mellitus with other specified complication, unspecified whether fci insulin use ([facility]) 12/24/2024 Refill [facility] MED & PEDS [address] [place] [address] Analy Agee DO Type 2 diabetes mellitus without complication, unspecified whether fci insulin use ([facility]) 12/18/2024 Telephone [facility] MEDICINE [address] [place] [phone] Kassie Trujillo [place] Appointment Request 12/18/2024 Travel 12/17/2024 Orders Only [facility] MEDICINE [address] [place] [phone] Analy Agee, 12/03/2024 Telephone [facility] MEDICINE [address] [place] [phone] Analy Agee DO Appointment Request 11/24/2024 Refill [facility] CH[facility] MED & PEDS [address] [place] [address] Analy Agee DO Chronic pain of both knees (Primary Dx) 11/06/2024 Refill [facility] CH[facility] MED & PEDS [address] [place] [address] Analy Agee DO Vitamin D deficiency from Last 3 Months Immunizations Name Administration [...] Mass Index 32.44 02/03/2025 12:09 PM EDT Plan of Treatment Health Maintenance Due Date Last Done Comments CT Colonography 1960 FIT DNA/Cologuard 1960 FIT 1960 FOBT 1960 Sigmoidoscopy 1960 Diabetes: Foot Exam 1972 Eye Exam 1972 Pap Smear 09/15/2019 09/15/2016 Cervical Cancer Screening 09/15/2021 HPV/Cotest 09/15/2021 09/15/2016 Depression Monitoring (PHQ-9) 08/24/2024 02/22/2024, 02/22/2024 COVID-19 Vaccine ( season) 2024 08/15/2024, 09/06/2023, 02/05/2023, Additional history exists Depression Screening 02/21/2025 02/22/2024, 02/22/20 Diabetes: Hemoglobin A1C 08/06/2025 025, 08/15/2024, 08/15/2024, Additional history exists Diabetes: Urine Protein Screening 08/15/2025 08/15/2024, 09/08/2022, 10/13/2021, Additional history exists Lipid Panel 08/15/2025 08/15/2024, 09/26, 07/23/2020 SDOH Screening 10/03/2025 10/03/2024 Mammogram 12/17/2025 12/17/2024, 11/26, 11/07/2022, Additional history exists Alcohol/Substance Use Screening 02/03/2026 02/03/2025 Tobacco Screening 02/03/2026 02/03/2025 Colonoscopy 09/22/2032 09/22/2022 Colorectal Cancer Screening 09/22/2032 [...] Procedure Name Priority Date/Time Associated Diagnosis Comments CBC Routine 02/03/2025 12:48 PM EDT Anemia, unspecified type IRON AND TOTAL IRON BINDING CAPACITY Routine 02/03/2025 12:48 PM EDT Anemia, unspecified type FERRITIN Routine 02/03/2025 12:48 PM EDT Anemia, unspecified type VITAMIN B12/FOLATE, SERUM PANEL Routine 02/03/2025 12:48 PM EDT Anemia, unspecified type POCT GLYCATED HEMOGLOBIN, TOTAL Routine 02/03/2025 12:12 PM EDT Type 2 diabetes mellitus without complication, without long-term current use of insulin ([facility]) POCT GLUCOSE Routine 02/03/2025 12:11 PM EDT Type 2 diabetes mellitus without complication, without long-term current use of insulin ([facility]) BI MAMMOGRAM SCREENING TOMOSYNTHESIS BILATERAL Routine 12/17/2024 12:00 PM EST ALBUMIN, RANDOM URINE W/CREATININE Routine 08/15/2024 12:47 PM EDT HIV 1/2 ANTIGEN/ANTIBODY, FOURTH GENERATION W/RFL Routine 08/15/2024 12:40 PM EDT LIPID PANEL, STANDARD Routine 08/15/2024 12:40 PM EDT HM COLONOSCOPY Routine 09/22/2022 9:26 AM EDT ZZZ HISTORICAL HEPATITIS C AB W/REFL TO HCV RNA, QN, PCR Routine 10/13/2021 2:59 PM EST ZZZ HISTORICAL HPV E6/E7 RFLX BERNARDO 16 18/45 Routine 09/15/2016 11:45 AM EDT PAP SMEAR Routine 09/15/2016 12:00 AM EDT from Last 3 Months or Most Recently Relevant to Health Maintenance Results * (ABNORMAL) Vitamin B12 (Cobalamin) and Folate Panel, Serum (02/03/2025 12:48 PM EDT) Vitamin B12 1,299(H) 200 - 900 pg/mL [facility] Comment:NORMAL 200-900 PG/ML INDETERMINATE 160-199 PG/ML DEFICIENT < 160 PG/ML Folate 6.2 > or = 4.0 ng/mL [facility] Comment:Reference Values:> o r = 4.0 ng/mL< 4.0 ng/mL suggests folate deficiency Methotrexate, aminopterin and folinic acid(leucovorin) are chemotherapeutic agents whose molecularstructures are similar to folate; therefore, the Architectfolate assay cannot be used for patients using these drugs. Blood 02/03/2025 12:4 8 PM EDT 02/03/2025 1:09 PM EDT us Analy Agee DO LAB BLOOD ORDERABLES Final R esult [facility] [address] [place] [phone] [phone] * (ABNORMAL) Iron And Total Iron Binding Capacity (02/03/2025 12:48 PM EDT) Iron 42 30 - 160 mcg/dL [facility] Total Iron Binding Capacity 332 228 - 428 mcg/dL [facility] Percent Iron Saturation 13(L) 15 - 50 % [facility] Unsaturated Iron Binding 290 ug/dL [facility] Blood Venous blood specimen / Unknown 02/03/2025 12:48 PM EDT 02/03/2025 1:09 PM EDT us Analy Agee DO LAB BLOOD ORDERABLES Final R esult [facility] [address] [place] [phone] * (ABNORMAL) CBC (02/03/2025 12:48 PM EDT) White Blood Count 5.4 4.8 - 10.8 X10*3/uL [facility] Red Blood Count 4.18(L) 4.20 - 5.50 X10*6/uL [facility] Hemoglobin 11.1(L) 12.0 - 16.0 g/dl [facility] Hematocrit 35.1(L) 37.0 - 47.0 % [facility] Mean Corpuscular Volume 84.0 80.0 - 98.0 fL [facility] Mean Corpuscular Hemoglobin 26.6(L) 27.0 - 33.0 pg [facility] Mean Corpuscular HGB Conc 31.6 31.0 - 35.0 g/dl [facility] Red Cell Distribution Width 14.2 11.0 - 16.0 % [facility] Platelet Count 171 160 - 400 X10*3/uL [facility] Mean Platelet Volume 13.8(H) 9.4 - 12.3 fL [facility] NRBC Pct Auto 0.0 0.0 - 0.2 /100WBC [facility] NRBC Abs Auto 0.000 0.0 - 0.012 X10*3/uL [facility] Blood Venous blood specimen / Unknown 02/03/2025 12:48 PM EDT 02/03/2025 1:09 PM EDT us Analy Agee LAB BLOOD ORDERABLES Final R esult [facility] [address] [place] [phone] * Ferritin (02/03/2025 12:48 PM EDT) Pathologist [facility] Ferritin 13 10 - 250 ng/mL [facility] Blood Venous blood specimen / Unknown 02/03/2025 12:48 PM EDT 02/03/2025 1:09 PM EDT Analy Agee DO LAB BLOOD ORDERABLES Final R esult Performing Organization Address City/[facility]/ZIP Co de Phone Number [facility] [address] [place] [phone] * (ABNORMAL) POCT HGB A1C (02/03/2025 12:12 PM EDT) [facility] Hemoglobin A1C 6.5(A) 4.0 - 6.0 % QC Media Lot # [id number] Lot# Expiration Date ,253 Blood 02/03/2025 12:1 2 PM EDT Analy Agee POINT OF CARE TEST ENTER/ERIN T ORDERABLES Final Result * POCT Glucose (02/03/2025 12:11 PM EDT) [facility] Glucose Blood, POC 174 60 - 200 mg/dL QC Media Lot # [id number] Lot# Expiration Date [id number] Blood Capillary blood specimen / Unknown 02/03/2025 12:11 PM EDT Analy Agee DO POINT OF CARE TEST ENTER/ERIN T ORDERABLES Final Result * BI Mammogram Screening Tomosynthesis Bilateral (12/17/2024 12:00 PM EST) Anatomical Region Laterality Modality Breast Bilateral Mammography 12/17/2024 12:0 0 PM EST Narrative 12/26/2024 10:23 AM EST ? [facility] ? [address] ?[place] [address] ? Mammography Report ? Signed ? Patient: Wendy Garibay ?MR#: [id number] ? : 1960 ?Acct:[id number] ? Age/Sex: 64 / F ?ADM Date: 12/17/24 ? Loc: HO.MAMMO ? Attending Dr: Analy Agee DO ? Ordering Physician: Analy Agee DO ?Results: 1N ?? egative ? Date of Service: 12/17/24 ?Follow Up: 1 Year From Orig ?? inal Mammogram ? Procedure(s): MM tomosynthesis screening BI ?? Accession Number(s): [id number] ? cc: Analy Agee DO ? EXAMINATION: [...] ??Sienna Watson DO ??12/26/2024 10:18 AM EST ? Dictated By: ?Sienna Watson DO ? Signed By: ?<Electronically signed by Sienna Watson, DO in OV> ? 12/26/24 1018 ? DD/ 1200 ? TD/TT: 12/17/24 1217 ? Dietetics Director: ? Procedure Note Princess, Image - 12/26/2024 [facility] [address] [place] [address] Mammography Report Signed Patient: Wendy Garibay MR#: [id number] : 1960Acct:[id number] Age/Sex: 64 / FADM Date: 12/17/24 Loc: HO.MAMMO Attending Dr: Analy Agee DO Ordering Physician: Analy Ageeults: 1N egative Date of Service: 12/17/24Follow Up: 1 Year From Orig inal Mammogram Procedure(s): MM tomosynthesis screening BI Accession Number(s): [id number] cc: Analy Agee DO EXAMINATION: MM SCREENING [...] Sienna Watson DO 12/26/2024 10:18 AM EST Dictated By: Sienna Watson DO Signed By: <Electronically signed by Sienna Watson DO in OV> 12/26/24 1018 DD/ 1200 TD/TT: 12/17/24 1217 Dietetics Director: Analy Agee DO IMG BI PROCEDURES Final Resu lt * Albumin, Random Urine W/Creatinine (08/15/2024 12:47 PM EDT) Creatinine, Urine 115.59 mg/dL [facility] Microalbumin Urine 7.0 mg/L [facility] Microalbum Creatinine Ratio Ur 6.0 <30 ug/mg cr [facility] Comment:Albumin/Creatinine R atio Reference Ranges: Normal: < 30 ug/mg creatinine Microalbuminuria: 30 - 300 ug/mg creatinineClinical Albuminuria: > 300 ug/mg creatinine 08/15/2024 12:4 7 PM EDT 08/15/2024 4:05 PM EDT us Analy Agee DO LAB URINE ORDERABLES Final R esult [facility] [address] [place] [phone] * HIV-1/2 Antigen and Antibodies, Fourth Generation, with Reflexes (08/15/2024 12:40 PM EDT) HIV AB/AG Nonreactive Nonreactive [facility] Comment:HIV-1 p24 Ag and/or HIV-1/HIV-2 Ab not detected.A test result that is nonreactive does not exclude thepossibility of exposure to or infection with HIV-1 and/orHIV-2. Nonreactive results in this assay for individualswith prior exposure to HIV-1 and/or HIV-2 may be due toantigen and antibody levels that are below the limit ofdetection of this assay.The [employer] HIV Ag/Ab Combo assay result andsupplemental assay results should be interpreted inconjunction with the patient's clinical presentation,history and other laboratory results. If the results areinconsistent with clinical evidence, additional testing issuggested to confirm the result. 08/15/2024 12:4 0 PM EDT 08/15/2024 4:17 PM EDT us Analy Agee DO LAB BLOOD ORDERABLES Final R esult [facility] [address] [place] [phone] * Lipid Panel, Standard (08/15/2024 12:40 PM EDT) Triglycerides 142 <150 mg/dL [facility] Comment:Desirable Triglyceri de: less than 150 mg/dLBorderline High Triglyceride 150-199 mg/dLHigh Triglyceride: 200-499 mg/dLVery High Triglyceride: greater than or equal to 5OO mg/dL Cholesterol 136 <200 mg/dL [facility] Comment:Desirable Cholestero l: less than 200 mg/dLBorderline High Cholesterol: 200-239 mg/dLHigh Cholesterol: greater than 239 mg/dL LDL Cholesterol Calculated 66 <100 mg/dL [facility] Comment:Desirable LDL: less than 100 mg/dLNear Optimal/Above Optimal LDL: 110- 129 mg/dLBorderline High LDL: 130-159 mg/dLHigh LDL: 160-189 mg/dLVery High LDL: greater than or equal to 190 mg/dL HDL Cholesterol 42 >40 mg/dL [facility] Comment:Desirable HDL: great er than 40 mg/dL Note: This HDL assay may give artificially low results in patients with liver disease. 08/15/2024 12:4 0 PM EDT 08/15/2024 4:17 PM EDT Analy Agee DO LAB BLOOD ORDERABLES Final R esult Performing Organization Address City/[facility]/ZIP Co de Phone Number [facility] [address] [place] [phone] * Hm Colonoscopy (09/22/2022 9:26 AM EDT) Historical Provider HEALTH MAINTENANCE Final Result * HEPATITIS C AB W/REFL TO HCV RNA, QN, PCR (10/13/2021 2:59 PM EST) HEPATITIS C ANTIBODY NON-REACT DESI NON-REACT [facility]I [facility] INDEX 0.01 <1.00 [facility] Comment: ?? HCV antibody was non-reactive. There is no laboratory ?? evidence of HCV infection. ?? In most cases, no further action is required. However, if recent HCV exposure is suspected, a test for HCV RNA (test code 66241) is suggested. ?? For additional information please refer to http://education.[employer]/faq/BDD04c0 (This link is being provided for informational/ educational purposes only.) ?? 10/13/2021 2:59 PM EST Analy Agee DO HISTORICAL/NON ORDERABLE LAB S Final Result [facility] [address] * HPV E6/E7 RFLX BERNARDO 16 18/45 (09/15/2016 11:45 AM EDT) ADDITIONAL TESTING Not indicated () [facility] Comment: Test Performed by [facility], [employer] [facility], [address] [place] [address] Rojas Meneses M.D., Ph.D., Director of Laboratories , [facility] [id number] HPV 16 RNA Test not performed [facility] HPV 18/45 RNA Test not performed [facility] HPV mRNA E6/E7 Not Detected NOT DETECTED [facility] Comment: This assay detects E6/E7 viral messenger RNA (mRNA) from 14 high-risk HPV types (16,18,31,33,35,39,45,51, 52,56,58,59,66,68). This test was performed using the APTIMA(R) TMA HPV Assay ([employer] For additional information, please refer to http://[address].[employer]/faq/ACF833x8 Please note: ??Effective 08/07/2016, HPV testing will be performed using [employer] APTIMA test which targets mRNA. Detecting mRNA instead of DNA, as in older methods, offers significant improvements in specificity. 09/15/2016 11:4 5 AM EDT us Analy Agee DO HISTORICAL/NON ORDERABLE LAB S Final Result [facility] [address] * Pap Smear (09/15/2016 12:00 AM EDT) Swab Analy Agee DO LAB CYTOLOGY ORDERABLES Paradise l Result [facility] [address] [place] [address] from Last 3 Months or Most Recently Relevant to Health Maintenance Insurance [place] [address] - [employer] Care Teams Brick Offbearer Relationship Specialty Start Date End Date Analy Agee DO [address] [place] [phone] PCP - General Family Medicine 11/08/11
--- OUTSIDE RECORDS SUMMARY | 2025-02-03 15:19 | XMS_ITS | Encounter Summary ---
Author Organization [employer] Address [address] [facility] 7t [place] [address] Care Team Providers Care Incident Response Analyst Name Role Phone Analy Agee DO Primary Care Provider + [phone] Reason for Visit * Reason Comments Med Refill Encounter Details Date Type Department Care Team (Late st Contact Info) Description 01/23/2025 Refill [facility] MED & PEDS [address] [place], [place] [phone] Crystal Roberson MD [address] [place] [address] Chronic pain of both knees Social History Tobacco Use Types Packs/Day Years [...] of this encounter Visit Diagnoses Diagnosis Chronic pain of both knees documented in this encounter Additional Health Concerns Assessment Noted Time PHQ-9 Depression Total Score: 21 024 1:37 PM EDT documented as of this encounter Care Teams Incident Response Analyst Relationship Specialty Start Date End Date Analy Agee DO [address] [place] [address] PCP - General Family Medicine 11/08/11 documented as of this encounter
--- OUTSIDE RECORDS SUMMARY | 2025-02-03 15:19 | XMS_ITS | Encounter Summary ---
Author Organization [employer] [facility] Address [address] [facility] [address] [place] [address] Care Team Providers Care Tare Worker Name Role Phone Analy Agee DO Primary Care Provider [phone] Encounter Details Date Type Department Care Team (Late st Contact Info) Description 10/18/2022 Abstract [facility] MEDICINE [address] [place] [address] Provider, Gloria, Social History Tobacco Use Types Packs/Day Years [...] on filedocumented in this encounter Care Teams Tare Worker Relationship Specialty Start Date End Date Analy Agee DO [address] [place] [address] PCP - General Family Medicine 11/08/11 documented as of this encounter
--- OUTSIDE RECORDS SUMMARY | 2025-02-03 15:19 | XMS_ITS | Encounter Summary ---
Author Organization [employer] Address [address] [facility] 7t [place] [address] Care Team Providers Care Cell Attendant Helper Name Role Phone Analy Agee DO Primary Care Provider + [phone] Reason for Visit * Reason Comments Med Refill Encounter Details Date Type Department Care Team ([facility] st Contact Info) Description 03/12/[address] [facility] [address] [place], [place] [phone] Ana Maria Ervin MD [address] [place] [address] Social History Tobacco Use Types Packs/Day Years [...] documented as of this encounter Care Teams Cell Attendant Helper Relationship Specialty Start Date End Date Analy Agee DO [address] [place] [address] PCP - General Family Medicine 11/08/11 documented as of this encounter
--- OUTSIDE RECORDS SUMMARY | 2025-02-03 15:19 | XMS_ITS | Clinical Summary ---
Author Organization [facility] Address [address] [place] [address] Care Team Providers Care Inspector Scales Name Role Phone Wesleycelia Analy Lynn CUMMINGS Primary Care Provider [phone] Surgical History Surgery Date Site/Laterality Comments OTHER SURGICAL HISTORY 11/03/2019 PROCEDURE: [place] ARTHRD ANT INTERBODY MIN DSC CRV BELOW C2; COMMENT: C5-6, C6-7 anterior cervical discectomy and fusion with plating, Dr. Torres HYSTERECTOMY PROCEDURE: HISTORICAL HYSTERECTOMY TOTAL KNEE ARTHROPLASTY Right PROCEDURE: [place] ARTHRP KNE CONDYLE&PLATU MEDIAL&LAT COMPARTMENTS Medical History [...] Documents on File Type Date Recorded Patient Wire Weaver Expl anation Health Care Decision (hx) 11/03/2019 [...] (hx) 11/03/2019 AD SIMON DIRECTIVE Care Teams Inspector Scales Relationship Specialty Start Date End Date Analy Agee DO [address] [place] [address] PCP - General Internal Medicine 01/15/14
--- OUTSIDE RECORDS SUMMARY | 2025-02-03 15:19 | XMS_ITS | Encounter Summary ---
Author Organization [employer] Address 75 [facility] 7t [place] [address] Care Team Providers Care Wool Fleece Sorter Name Role Phone Analy Agee DO Primary Care Provider +1- [phone] Encounter Details Date Type Department Care Team (Late st Contact Info) Description 12/22/2022 Orders Only [facility] [address] [place], [place] [phone] Analy Van LPN Social History Tobacco Use [...] on filedocumented in this encounter Care Teams Wool Fleece Sorter Relationship Specialty Start Date End Date Analy Agee DO [address] [place] [address] PCP - General Family Medicine 11/08/11 documented as of this encounter
--- OUTSIDE RECORDS SUMMARY | 2025-02-03 15:19 | XMS_ITS | Encounter Summary ---
Author Organization [employer] Address 75 [facility] 7t [place] [address] Care Team Providers Care General Administrator Name Role Phone Analy Agee DO Primary Care Provider + [phone] Reason for Visit * Reason Comments Med Refill Encounter Details Date Type Department Care Team ([facility] st Contact Info) Description 01/27/2025 Refill [facility] MEDICINE 230 [place], [place] [phone] Analy Agee DO 230 [place], [place] [phone] Chronic bilateral low back pain, unspecified whether [...] documented as of this encounter Care Teams General Administrator Relationship Specialty Start Date End Date Analy Agee DO 230 [place] [address] PCP - General Family Medicine 11/08/11 documented as of this encounter
--- OUTSIDE RECORDS SUMMARY | 2025-02-03 15:19 | XMS_ITS | Encounter Summary ---
Author Organization [employer] Address 75 [facility] 7t [place] [address] Care Team Providers Care Sausage Linker Name Role Phone Analy Agee DO Primary Care Provider +1- [phone] Encounter Details Date Type Department Care Team (Late st Contact Info) Description 10/18/2022 Abstract [facility] MED[facility]INE 230 [place] [address] Provider, MD Gloria Social History Tobacco Use [...] on filedocumented in this encounter Care Teams Sausage Linker Relationship Specialty Start Date End Date Analy Agee DO 230 [place] [address] PCP - General Family Medicine 11/08/11 documented as of this encounter
--- OUTSIDE RECORDS SUMMARY | 2025-02-03 15:19 | XMS_ITS | Encounter Summary ---
Author Organization [employer] Address 75 [facility] 7t [place] [address] Care Team Providers Care Sole Conditioner Name Role Phone Analy Agee Primary Care Provider + [phone] Encounter Details Date Type Department Care Team (Late st Contact Info) Description 01/15/2024 Orders Only [facility] 230 [place] [address] Provider, MD Gloria Social History Tobacco Use [...] documented as of this encounter Care Teams Sole Conditioner Relationship Specialty Start Date End Date Analy Agee DO [address] [place] [address] PCP - General Family Medicine 11/08/11 documented as of this encounter
--- OUTSIDE RECORDS SUMMARY | 2025-02-03 15:19 | XMS_ITS | Encounter Summary ---
Author Organization [employer] Address 75 [facility] 7t [place] [address] Care Team Providers Care Engineering Technical Writer Name Role Phone Analy Agee DO Primary Care Provider + [phone] Reason for Visit * Reason Comments Med Refill Encounter Details Date Type Department Care Team ([facility] st Contact Info) Description 01/06/2025 Refill [facility] MEDICINE 230 [place], [place] [phone] Analy Agee DO 230 [place], [place] [phone] Type 2 diabetes mellitus with other specified complication, unspecified whether intermediate designer insulin use ([facility]) Social History Tobacco Use Types Packs/Day [...] mellitus with other specified complication, unspecified whether alf insulin use ([facility]) documented in this encounter Additional Health Concerns Assessment Noted Time PHQ-9 Depression Total Score: 21 024 1:37 PM EDT documented as of this encounter Care Teams Engineering Technical Writer Relationship Specialty Start Date End Date Analy Agee DO 230 [place] [address] PCP - General Family Medicine 11/08/11 documented as of this encounter
--- OUTSIDE RECORDS SUMMARY | 2025-02-03 15:19 | XMS_ITS | Encounter Summary ---
Author Organization [employer] Address 75 [facility] 7t [place] [address] Care Team Providers Care Entertainment Manager Name Role Phone Analy Agee DO Primary Care Provider + [phone] Encounter Details Date Type Department Care Team (Latest Contact Info) Description 02/03/2025 Travel Social History Tobacco Use Types Packs/Day [...] documented as of this encounter Care Teams Entertainment Manager Relationship Specialty Start Date End Date Analy Agee DO [address] [place] [address] PCP - General Family Medicine 11/08/11 documented as of this encounter
== END 2025-02-03 12:47 | disposition home or self-care (01) ==
LOC: HO.HHCL 12:46
PROVIDERS: Visit Provider Family Medicine
DX: D64.9 Anemia, unspecified (principal)
CPT/HCPCS: 36415; 82607; 82728; 82746; 83540; 85027

== ENCOUNTER 2025-04-01 12:04 | Outpatient (REF) | payer OTHER, SELFPAY ==
--- NOTE | ~2025-04-01 | XR_ITS ---
EXAMINATION: XR HAND, RIGHT CLINICAL INFORMATION: M15.0 - Primary generalized (osteo)arthritis COMPARISON: 09/30/2024. TECHNIQUE: PA, lateral, and oblique views of the right hand. FINDINGS: No fracture, dislocation, or suspicious bone lesion. There is normal alignment. Moderate to severe changes of osteoarthritis at the first CMC joint with marginal productive osteophytes. Mild osteoarthritic changes present in the first through third MCP joints, and minimally involving the DIP joints, and interphalangeal joint of the thumb. There is sparing of the DIP joints of the digits. The carpal bones are intact and normally aligned. There is a subchondral cyst in the proximal scaphoid. Normal-appearing soft tissues. XR/XR hand RT min 3V IMPRESSION: 1. No acute bony abnormalities. 2. Moderate to severe osteoarthrosis first CMC joint. 3. Mild osteoarthrosis first through third MCP joints, and involving the DIP joints of the digits. 4. Overall no significant interval change. Electronically signed by: Jean Guy MD 04/01/2025 01:10 PM EDT
--- NOTE | ~2025-04-01 | XR_ITS ---
EXAMINATION: XR WRIST, RIGHT CLINICAL INFORMATION: M15.0 - Primary generalized (osteo)arthritis COMPARISON: 09/30/2024. TECHNIQUE: PA, lateral, and oblique views of the right wrist. FINDINGS: No fracture, dislocation, or suspicious bone lesion. There is normal carpal alignment. There is normal bone mineralization. There is redemonstration of a subchondral cyst in the proximal scaphoid. Moderate to severe changes of osteoarthrosis are present in the first CMC joint, with moderate changes in the STT joints. These findings appear stable. Mild osteoarthritis present in the first MCP joint. XR/XR wrist RT min 3V IMPRESSION: Stable examination. No acute bony abnormalities. Moderate to severe osteoarthrosis at the first CMC joint. Moderate changes at the STT joints. Electronically signed by: Jean Guy MD 04/01/2025 01:05 PM EDT
--- OUTSIDE RECORDS SUMMARY | 2025-04-01 13:22 | XMS_ITS | Encounter Summary ---
Author Organization [employer] Address 75 [facility] 7t [place] [address] Care Team Providers Care Technical Director Name Role Phone Analy Agee DO Primary Care Provider + [phone] Encounter Details Date Type Department Care Team (Late st Contact Info) Description 01/15/2024 Orders Only [facility] 230 [place] [address] Provider, MD Gloria Social History Tobacco Use [...] documented as of this encounter Care Teams Technical Director Relationship Specialty Start Date End Date Analy Agee DO [address] [place] [address] PCP - General Family Medicine 11/08/11 documented as of this encounter
--- OUTSIDE RECORDS SUMMARY | 2025-04-01 13:22 | XMS_ITS | Encounter Summary ---
Author Organization [employer] Address 75 [facility] 7t [place] [address] Care Team Providers Care Shade Classifier Name Role Phone Analy Agee DO Primary Care Provider + [phone] Reason for Visit * Reason Comments Med Refill Encounter Details Date Type Department Care Team ([facility] st Contact Info) Description 01/16/2025 Refill [facility] MEDICINE 230 [place], [place] [phone] Analy Agee DO 230 [place] [address] Chronic bilateral low back pain, unspecified whether [...] documented as of this encounter Care Teams Shade Classifier Relationship Specialty Start Date End Date Analy Agee DO [address] [place] [address] PCP - General Family Medicine 11/08/11 documented as of this encounter
--- OUTSIDE RECORDS SUMMARY | 2025-04-01 13:22 | XMS_ITS | Encounter Summary ---
Author Organization [employer] Address 75 [facility] 7t [place] [address] Care Team Providers Care Blade Balancer Name Role Phone Analy Agee DO Primary Care Provider + [phone] Reason for Visit * Reason Comments Med Refill Encounter Details Date Type Department Care Team ([facility] st Contact Info) Description 01/16/2024 Refill [facility] [address] [place], [place] [phone] Analy Agee DO [address] [facility] [place] [address] Chronic bilateral low back pain, unspecified whether [...] documented as of this encounter Care Teams Blade Balancer Relationship Specialty Start Date End Date Analy Agee DO [address] [place] [address] PCP - General Family Medicine 11/08/11 documented as of this encounter
--- OUTSIDE RECORDS SUMMARY | 2025-04-01 13:22 | XMS_ITS | Encounter Summary ---
Author Organization [email or web address] Address 75 [facility] 7t [place] [address] Care Team Providers Care Cut Out Marker Name Role Phone Analy Agee DO Primary Care Provider [phone] Encounter Details Date Type Department Care Team (Late st Contact Info) Description 10/18/2022 Abstract [facility] MEDICINE 230 [place] [address] Provider, MD Gloria Social History Tobacco Use [...] on filedocumented in this encounter Care Teams Cut Out Marker Relationship Specialty Start Date End Date Analy Agee DO 230 [place] [address] PCP - General Family Medicine 11/08/11 documented as of this encounter
--- OUTSIDE RECORDS SUMMARY | 2025-04-01 13:22 | XMS_ITS | Encounter Summary ---
Author Organization [employer] Address 75 [facility] 7t [place] [address] Care Team Providers Care Manager Green Name Role Phone Analy Agee DO Primary Care Provider + [phone] Encounter Details Date Type Department Care Team (Late st Contact Info) Description 03/06/2024 Orders Only [facility] MEDICINE 230 [place] [address] Provider, MD Gloria Social History Tobacco Use [...] as of this encounter Care Teams Manager Green Relationship Specialty Start Date End Date Analy Agee DO 230 [place] [address] PCP - General Family Medicine 11/08/11 documented as of this encounter
--- OUTSIDE RECORDS SUMMARY | 2025-04-01 13:23 | XMS_ITS | Encounter Summary ---
Author Organization [email or web address] [facility] Address 75 [facility] 7t [place] [address] Care Team Providers Care Chemical Preparer Name Role Phone Analy Agee DO Primary Care Provider [phone] Encounter Details Date Type Department Care Team (Late st Contact Info) Description 10/18/2022 Abstract [facility] MEDICINE 230 [place] [address] Provider, Historical, Social History Tobacco Use Types [...] on filedocumented in this encounter Care Teams Chemical Preparer Relationship Specialty Start Date End Date Analy Agee DO 230 [place] [address] PCP - General Family Medicine 11/08/11 documented as of this encounter
--- OUTSIDE RECORDS SUMMARY | 2025-04-01 13:23 | XMS_ITS | Encounter Summary ---
Author Organization [employer] Address 75 [facility] 7t [place] [address] Care Team Providers Care Room Clerk Name Role Phone Analy Agee DO Primary Care Provider + [phone] Encounter Details Date Type Department Care Team (Late st Contact Info) Description 04/01/2025 Orders Only [facility] External Provider, [facility] Social History Tobacco Use Types Packs/Day Years [...] Procedure Name Priority Date/Time Associated Diagnosis Comments XR WRIST 3+ VIEWS RIGHT Routine 04/01/2025 12:18 PM EDT XR HAND 3+ VIEWS RIGHT Routine 04/01/2025 12:08 PM EDT documented in this encounter Results * XR Wrist 3+ Views Right (04/01/2025 12:18 PM EDT) Anatomical Region Laterality Modality Upper Extremities, Wrist Right Radiogr aphic Imaging 04/01/2025 12:1 8 PM EDT Narrative 04/01/2025 1:08 PM EDT ? [facility] ?[address] ?[place] [address] ?XRay Report ? Signed ? Patient: Wendy Garibay ?MR#: [id number] ? : 1960 ?Acct:[id number] ? Age/Sex: 64 / F ?ADM Date: 04/01/25 ? Loc: HO.XRAY ? Attending Tramaine Agee DO ? Ordering Physician: Mamie Parekh MD ?? Date of Service: 04/01/25 ?? Procedure(s): XR wrist RT min 3V ?? Accession Number(s): [id number] ? cc: Mamie Parekh MD; Analy Agee DO ? EXAMINATION: ?? XR WRIST, RIGHT ? CLINICAL INFORMATION: ?? M15.0 - Primary generalized (osteo)arthritis ? COMPARISON: ?? 09/30/2024. ? TECHNIQUE: ?? PA, lateral, and oblique views of the right wrist. ? FINDINGS: ?? No fracture, dislocation, or suspicious bone lesion. There is normal ?? carpal alignment. There is normal bone mineralization. There is ?? redemonstration of a subchondral cyst in the proximal scaphoid. ?? Moderate to severe changes of osteoarthrosis are present in the first ?? CMC joint, with moderate changes in the STT joints. These findings ?? appear stable. ?? Mild osteoarthritis present in the first MCP joint. ? XR/XR wrist RT min 3V ?? IMPRESSION: ?? Stable examination. No acute bony abnormalities. ?? Moderate to severe osteoarthrosis at the first CMC joint. Moderate ?? changes at the STT joints. ? Electronically signed by: ??Jean Guy MD ??04/01/2025 01:05 PM EDT RP ? Dictated By: ?Jean Guy MD ? Signed By: ?<Electronically signed by Jean Guy MD in OV> ?04/01/25 1305 ? DD/ 1218 ? TD/TT: 04/01/25 1223 ? Electro Optical Engineer: ? Procedure Note Timkumarisaacsherter, Image - 04/01/2025 [place] [address] XRay Report Signed Patient: Wendy Garibay MR#: [id number] : 1960Acct:[id number] Age/Sex: 64 / FADM Date: 04/01/25 Loc: [facility] Attending Dr: Analy Agee DO Ordering Physician: Mamie Parekh MD Date of Service: 04/01/25 Procedure(s): XR wrist RT min 3V Accession Number(s): [id number] cc: Mamie Parekh MD; Analy Agee DO EXAMINATION: XR WRIST, RIGHT CLINICAL INFORMATION: M15.0 - Primary generalized (osteo)arthritis COMPARISON: 09/30/2024. TECHNIQUE: PA, lateral, and oblique views of the right wrist. FINDINGS: No fracture, dislocation, or suspicious bone lesion. There is normal carpal alignment. There is normal bone mineralization. There is redemonstration of a subchondral cyst in the proximal scaphoid. Moderate to severe changes of osteoarthrosis are present in the first CMC joint, with moderate changes in the STT joints. These findings appear stable. Mild osteoarthritis present in the first MCP joint. XR/XR wrist RT min 3V IMPRESSION: Stable examination. No acute bony abnormalities. Moderate to severe osteoarthrosis at the first CMC joint. Moderate changes at the STT joints. Electronically signed by: Jean Guy MD 04/01/2025 01:05 PM EDT RP Dictated By: Jean Guy MD Signed By: <Electronically signed by Jean Guy MD in OV> 04/01/25 1305 DD/ 1218 TD/TT: 04/01/25 1223 Electro Optical Engineer: [facility] External Provider IMG XR PROCEDURES Final Result * XR Hand 3+ Views Right (04/01/2025 12:08 PM EDT) Anatomical Region Laterality Modality Upper Extremities, Hand Right Radiogra phic Imaging 04/01/2025 12:0 8 PM EDT Narrative 04/01/2025 1:13 PM EDT ? [facility] ?[address] ?[place] [address] ?XRay Report ? Signed ? Patient: Wendy Garibay ?MR#: [id number] ? : 1960 ?Acct:[id number] ? Age/Sex: 64 / F ?ADM Date: 04/01/25 ? Loc: HO.XRAY ? Attending Dr: Analy Agee DO ? Ordering Physician: Mamie Parekh MD ?? Date of Service: 04/01/25 ?? Procedure(s): XR hand RT min 3V ?? Accession Number(s): [id number] ? cc: Mamie Parekh MD; Analy Agee DO ? EXAMINATION: ?? XR HAND, RIGHT ? CLINICAL INFORMATION: ?? M15.0 - Primary generalized (osteo)arthritis ? COMPARISON: ?? 09/30/2024. ? TECHNIQUE: ?? PA, lateral, and oblique views of the right hand. ? FINDINGS: ?? No fracture, dislocation, or suspicious bone lesion. There is normal ?? alignment. ?? Moderate to severe changes of osteoarthritis at the first CMC joint ?? with marginal productive osteophytes. ?? Mild osteoarthritic changes present in the first through third MCP ?? joints, and minimally involving the DIP joints, and interphalangeal ?? joint of the thumb. ?? There is sparing of the DIP joints of the digits. ? The carpal bones are intact and normally aligned. There is a ?? subchondral cyst in the proximal scaphoid. ? Normal-appearing soft tissues. ? XR/XR hand RT min 3V ?? IMPRESSION: ?? 1. No acute bony abnormalities. ?? 2. Moderate to severe osteoarthrosis first CMC joint. ?? 3. Mild osteoarthrosis first through third MCP joints, and involving ?? the DIP joints of the digits. ?? 4. Overall no significant interval change. ? Electronically signed by: ??Jean Guy MD ??04/01/2025 01:10 PM EDT RP ? Dictated By: ?Jean Guy MD ? Signed By: ?<Electronically signed by Jean Guy MD in OV> ?05/07/25 1310 ? DD/ 1208 ? TD/TT: 04/01/25 1223 ? Electro Optical Engineer: ? Procedure Note Princess, Image - 04/01/2025 [place] [address] XRay Report Signed Patient: Wendy Garibay MR#: [id number] : 1960Acct:[id number] Age/Sex: 64 / FADM Date: 04/01/25 Loc: [facility]DA Attending Dr: Analy Agee DO Ordering Physician: Mamie Parekh MD Date of Service: 04/01/25 Procedure(s): XR hand RT min 3V Accession Number(s): [id number] cc: Mamie Parekh MD; Analy Agee DO EXAMINATION: XR HAND, RIGHT CLINICAL INFORMATION: M15.0 - Primary generalized (osteo)arthritis COMPARISON: 09/30/2024. TECHNIQUE: PA, lateral, and oblique views of the right hand. FINDINGS: No fracture, dislocation, or suspicious bone lesion. There is normal alignment. Moderate to severe changes of osteoarthritis at the first CMC joint with marginal productive osteophytes. Mild osteoarthritic changes present in the first through third MCP joints, and minimally involving the DIP joints, and interphalangeal joint of the thumb. There is sparing of the DIP joints of the digits. The carpal bones are intact and normally aligned. There is a subchondral cyst in the proximal scaphoid. Normal-appearing soft tissues. XR/XR hand RT min 3V IMPRESSION: 1. No acute bony abnormalities. 2. Moderate to severe osteoarthrosis first CMC joint. 3. Mild osteoarthrosis first through third MCP joints, and involving the DIP joints of the digits. 4. Overall no significant interval change. Electronically signed by: Jean Guy MD 04/01/2025 01:10 PM EDT Dictated By: Jean Guy MD Signed By: <Electronically signed by Jean Guy MD in OV> 04/01/25 1310 DD/ 1208 TD/TT: 04/01/25 1223 Electro Optical Engineer: [facility] External Provider IMG XR PROCEDURES Final Result documented in this encounter Visit Diagnoses Not on filedocumented in this encounter Additional Health Concerns Assessment Noted Time PHQ-9 Depression Total Score: 21 02/21/ 024 1:37 PM EDT documented as of this encounter Care Teams Room Clerk Relationship Specialty Start Date End Date Analy Agee DO [address] [place] [address] PCP - General Family Medicine 11/08/11 documented as of this encounter
--- OUTSIDE RECORDS SUMMARY | 2025-04-01 13:23 | XMS_ITS | Clinical Summary ---
Author Organization [employer] [facility] Address [address] [place] [address] Care Team Providers Care Resistance Machine Welder Setter Name Role Phone WesleyAnaly yang Lynn CUMMINGS Primary Care Provider +[phone]- [phone] Surgical History Surgery Date Site/Laterality Comments OTHER SURGICAL HISTORY 11/03/2019 PROCEDURE: MO ARTHRD ANT INTERBODY MIN DSC CRV BELOW C2; COMMENT: C5-6, C6-7 anterior cervical discectomy and fusion with plating, Dr. Torres HYSTERECTOMY PROCEDURE: HISTORICAL HYSTERECTOMY TOTAL KNEE ARTHROPLASTY Right PROCEDURE: MO ARTHRP KNE CONDYLE&PLATU MEDIAL&LAT COMPARTMENTS Medical History Medical History Date Comments Type 2 diabetes mellitus wit hout complications (CMS/HCC V24, CMS/[facility] V28) DX:Type 2 evgeny betes mellitus without complications (HCC) Essential (primary) hypertension DX:Essential (primary) hypertension Cervical myelopathy (CMS/HCC V24, CMS/HCC V28) DX:Cervical myelopathy (HCC) Social History Tobacco Use Types [...] or Tdap) 12/06/2022 12/06/2012, 11/01/2009 COVID-19 Vaccine ( - season) 2024 10/13/2021, 03/26/2021, 02/26/2021 Influenza Vaccine (Season Ended) 2025 10/13/2021, 08/15/2019, 08/22/2018, Additional history exists RSV Immunization Adult Patients (1 - 1-dose 75+ series) 2037 Pneumococcal [...] age to complete this topic Meningococcal B Vaccine Aged Out No l onger eligible based on patient's age to complete this topic RSV Immunization Patients Under 20 months Aged Out No longer eligible based on patient's age to complete this topic Varicella Vaccines Aged Out No longer eligible based on patient's age to complete this topic Advance Directives Documents on File Type Date Recorded Patient Natural Resources Instructor Expl anation Health Care Decision (hx) 11/03/2019 [...] (hx) 11/03/2019 AD SIMON DIRECTIVE Care Teams Resistance Machine Welder Setter Relationship Specialty Start Date End Date Analy Agee DO [address] [place] [address] PCP - General Internal Medicine 01/15/14
--- OUTSIDE RECORDS SUMMARY | 2025-04-01 13:23 | XMS_ITS | Encounter Summary ---
Author Organization [employer] Address 75 [facility] 7t [place] [address] Care Team Providers Care Border Machine Operator Name Role Phone Analy Agee DO Primary Care Provider + [phone] Reason for Visit * Reason Comments Med Refill Encounter Details Date Type Department Care Team ([facility] st Contact Info) Description 03/12/2023 Refill [facility] MEDICINE [address] [place], [place] [phone] Ana Maria Ervin MD 230 [place] [address] Social History Tobacco Use Types Packs/Day Years [...] documented as of this encounter Care Teams Border Machine Operator Relationship Specialty Start Date End Date Analy Agee DO [address] [place] [address] PCP - General Family Medicine 11/08/11 documented as of this encounter
--- OUTSIDE RECORDS SUMMARY | 2025-04-01 13:23 | XMS_ITS | Encounter Summary ---
Author Organization [employer] Address 75 [facility] 7t [place] [address] Care Team Providers Care Buttonhole Maker Hand Name Role Phone Analy Agee DO Primary Care Provider +1- [phone] Encounter Details Date Type Department Care Team (Late st Contact Info) Description 12/22/2022 Orders Only [facility] [address] [place] [address] Analy Van LPN Social History Tobacco Use [...] on filedocumented in this encounter Care Teams Buttonhole Maker Hand Relationship Specialty Start Date End Date Analy Agee DO [address] [place] [address] PCP - General Family Medicine 11/08/11 documented as of this encounter
--- OUTSIDE RECORDS SUMMARY | 2025-04-01 13:23 | XMS_ITS | Clinical Summary ---
Author Organization [employer] Address [address] [facility] [address] [place] [address] Care Team Providers Care Medication Manager Name Role Phone Analy Agee DO Primary Care Provider Allergies Active Allergy Reactions Criticality Noted Date Comments [place] Oil 03/06/2023 Other reaction(s): itching throat ears Apple Juice 02/10/2014 Other reaction(s): itching throat ears Ascorbate 03/06/2023 Other reaction(s): itching throat ears Black [place] Flavoring Agent (Non-Screening) 01/22/2018 Black [place] Pollen Allergy Skin Test 01/22/2018 Corylus 01/22/2018 Gramineae Pollens Itching 03/06/2023 Other reaction(s): itching throat ears body sneezing Grass Pollen(K-O-R-T-Swt Howie) 01/22/2018 Kiwi Extract 01/22/2018 Other reaction(s): itching throat ears Pear 01/22/2018 Pineapple Itching 03/06/2023 Other reaction(s): itching throat ears Pineapple Extract 11/04/2015 Ullin Extract 02/10/2014 Medications Elastic Bandages & Supports [...] reversal. 2 each 2 11/06/20 23 Active Bisacodyl EC 5 MG EC tablet TAKE 2 TABLETS BY MOUTH EVERY DAY AT BEDTIME 02/26/20 24 Active DULoxetine (Cymbalta) [address] capsule 03/06/20 24 Active cetirizine (ZyrTEC) 10 MG tabletIndication [...] 60 tablet 11 05/16/20 24 025 Active TRUEplus Lancets 33G miscIndications: Type 2 diabetes mellitus with other specified complication, unspecified whether terminal make up operator insulin use ([facility]) TEST BLOOD SUGAR TWICE DAILY 100 [...] whether terminal make up operator insulin use ([facility]) TEST BLOOD SUGAR THREE TIMES DAILY 100 strip 11 12/25/19 25 Active Alcohol Swabs (Alcohol Prep) 70 % padsIndications: Type 2 diabetes mellitus with other specified complication, unspecified whether terminal make up operator insulin use ([facility]) USE TO TEST BLOOD SUGAR TWICE DAILY 100 each 5 01/07/20 25 Active Aspirin Low Dose 81 MG EC tabletIndication s:Type 2 diabetes mellitus with other specified complication, without long-term current use of insulin ([facility]) TAKE 1 TABLET BY MOUTH EVERY MORNING 90 tablet 01/08/20 25 Active gabapentin (Neurontin) 300 MG capsuleIndicatio ns:Chronic bilateral low back pain, unspecified whether sciatica present TAKE 1 CAPSULE BY MOUTH THREE TIMES DAILY IN THE MORNING, EVENING, AND BEDTIME 90 capsule 3 01/28/20 25 Active cyanocobalamin (Vitamin B-12) 1000 MCG tablet Take 1 tablet (1,000 mcg) by mouth every other day. 30 tablet 5 02/05/20 25 Active lisinopril 40 MG tabletIndication s:Essential hypertension TAKE 1 TABLET BY MOUTH EVERY MORNING 90 tablet 3 02/17/20 25 Active metFORMIN (Glucophage) 500 MG tabletIndication s:Type 2 diabetes mellitus without complication, with long-term current use of insulin ([facility]) TAKE 1 TABLET BY MOUTH TWICE DAILY IN THE MORNING AND IN THE EVENING WITH MEALS 180 tablet 02/17/20 25 Active docusate sodium (Colace) 100 MG capsule TAKE 1 CAPSULE BY MOUTH TWICE DAILY IN THE MORNING AND AT BEDTIME 60 capsule 5 02/21/20 25 Active atorvastatin (Lipitor) 40 MG tablet TAKE 1 TABLET BY MOUTH AT BEDTIME 90 tablet 3 03/19/20 25 Active fenofibrate (Tricor) 54 MG tablet TAKE 1 TABLET BY MOUTH EVERY EVENING 90 tablet 03/19/20 25 Active hydroCHLOROthiaz merritt 12.5 MG tablet TAKE 1 TABLET BY MOUTH EVERY MORNING 90 tablet 3 03/19/20 25 Active oxyCODONE-acetam inophen (Percocet) 5-325 MG tabletIndication s:Chronic pain of both knees TAKE 1 TABLET BY MOUTH EVERY TWELVE HOURS NEEDED FOR SEVERE PAIN 56 tablet 03/19/20 25 Active atorvastatin (Lipitor) 40 MG tablet TAKE 1 TABLET BY MOUTH AT BEDTIME 90 tablet 3 03/18/20 24 025 Discontinued hydroCHLOROthiaz merritt (HYDRODiuril) 12.5 MG tablet TAKE 1 TABLET BY MOUTH EVERY MORNING 90 tablet 3 03/18/20 24 025 Discontinued fenofibrate (Tricor) 54 MG tablet TAKE 1 TABLET BY MOUTH EVERY EVENING 90 tablet 3 03/18/20 24 025 Discontinued oxyCODONE-acetam inophen (Percocet) 5-325 MG tabletIndication s:Chronic pain of both knees TAKE 1 TABLET BY MOUTH EVERY TWELVE HOURS NEEDED FOR SEVERE PAIN 56 tablet 01/23/20 25 025 Discontinued Active Problems Problem Noted Date Diagnosed Date Long-term current use of opiate analgesic 2023 Overview (10/07/2024): Medication: Percocet 5-325mg Q12H Indication: chronic neck pain s/p fusion cervical spine, chronic knee pain 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 Agreement: 11/06/23 Additional considerations/risk factors: BZO prescription [...] to date Left sided numbness 03/06/2023 03/06/20 Bug bite 10/10/2022 03/06/2023 Itching 10/10/2022 03/06/2023 Epigastric pain 04/25/2018 03/06/2023 Encounters Date Type Department Care Team Description 04/01/2025 Orders Only [facility] External Provider, [facility] 03/17/2025 Refill [facility] [address] [place] [address] Analy Agee DO Chronic pain of both knees 02/19/2025 Refill [facility] [address] [place] [address] Analy Agee DO 02/15/2025 Refill [facility] [address] [place] [address] Analy Agee DO Essential hypertension; Type 2 diabetes mellitus without complication, with long-term current use of insulin ([facility]) 02/04/2025 Refill [facility] [address] [place] [address] Claudette Batres RN 02/03/2025 11:15 AM EDT Office Visit [facility] [address] [place] [address] Analy Agee DO Anemia, unspecified type (Primary Dx); Type 2 diabetes mellitus without complication, without long-term current use of insulin ([facility]) 02/03/2025 Travel 01/27/2025 Refill [facility] [address] [place] [address] Analy Agee DO Chronic bilateral low back pain, unspecified whether sciatica present 01/23/2025 Refill [facility] [address] [place], [place] [phone] Crystal Roberson MD Chronic pain of both knees 01/16/2025 Refill [facility] [address] [place] [address] Analy Agee DO Chronic bilateral low back pain, unspecified whether sciatica present 01/08/2025 Refill [facility] [address] [place] [address] Analy Agee DO Type 2 diabetes mellitus with other specified complication, without long-term current use of insulin ([facility]) 01/06/2025 Refill [facility] [address] [place] [address] Analy Agee DO Type 2 diabetes mellitus with other specified complication, unspecified whether usp insulin use ([facility]) from Last 3 Months Immunizations Name Administration Dates Next Due Hep A, Adult 04/08/2015,10/01/2014 Hep B, adult 02/16/2016,11/02/2014,10/01/2014 Influenza injectable quadriv alent IIV4 with preservative 08/22/2018,09/15/2016 Influenza injectable quadriv alent preservative free 09/06/2023,09/20/2022,10/13/2021,08/17,08/15/2019,08/27/2017,08/27/2015 Influenza, IIV3, injectable 08/15/2024,1 ,11/08/2011,08/11,11/01/2009 Influenza, Split (incl. joaquim fied surface antigen) 09/12/2013,12/06/2012 Moderna Covid-19 Vaccine 12+ 03/26/2021,02/27/20 21 Pfizer Covid-19 Vaccine 12+ 08/15/2024, 3,10/13/2021 Pfizer Covid-19 Vaccine 12+ Bivalent 02/05/2023 Pneumococcal [...] the past 12 months, has t he [employer], [employer], oil or water [employer] threatened to shut off services in your [...] Cervical Cancer Screening 09/15/2021 HPV/Cotest 09/15/2021 09/15/2016 COVID-19 Vaccine ( season) 2024 08/15/2024, 09/06/2023, 02/05/2023, Additional history exists Depression Screening 02/21/2025 02/22/2024, 02/22/20 24 Diabetes: Hemoglobin A1C 08/06/2025 025, 08/15/2024, 08/15/2024, [...] EDT XR HAND 3+ VIEWS RIGHT Routine 12:08 PM EDT CBC Routine 02/03/2025 12:48 PM EDT Anemia, [...] without long-term current use of insulin (CMS/HCC) POCT GLUCOSE Routine 02/03/2025 12:11 PM EDT Type 2 diabetes mellitus without complication, without long-term current use of insulin (CMS/HCC) BI MAMMOGRAM SCREENING TOMOSYNTHESIS BILATERAL Routine 12/17/2024 [...] Recently Relevant to Health Maintenance Results * XR Wrist 3+ Views Right (04/01/2025 12:18 PM EDT) Anatomical Region Laterality Modality Upper Extremities, Wrist Right Radiogr aphic Imaging 04/01/2025 12:1 8 PM EDT Narrative 04/01/2025 1:08 PM EDT ? [facility] ?[address] ?[place] [address] ?XRay Report ? Signed ? Patient: Wendy Garibay ?MR#: [id number] ? : 1960 ?Acct:[id number] ? Age/Sex: 64 / F ?ADM Date: 04/01/25 ? Loc: HO.XRAY ? Attending Dr: Analy Agee DO ? Ordering Physician: Mamie Parekh MD ?? Date of Service: 04/01/25 ?? Procedure(s): XR wrist RT min 3V ?? Accession Number(s): [id number] ? cc: Mamie Parekh MD; Analy Agee [...] DD/ 1218 ? TD/TT: 04/01/25 1223 ? Dye Line Operator: ? Procedure Note Donotisaacinterpreter, Image - 04/01/[address] [address] XRay Report Signed Patient: Wendy Garibay MR#: [id number] : 1960Acct:[id number] Age/Sex: 64 / FADM Date: 04/01/25 Loc: [facility] Attending Dr: Analy Agee DO Ordering Physician: Mamie Parekh MD Date of Service: 04/01/25 Procedure(s): XR wrist RT min 3V Accession Number(s): [id number] cc: Mamie Parekh MD; Analy Agee DO [...] Jean Guy MD 04/01/2025 01:05 PM EDT Dictated By: Jean Guy MD Signed By: <Electronically signed by Jean Guy MD in OV> 04/01/25 1305 DD/ 1218 TD/TT: 04/01/25 1223 Dye Line Operator: us [facility] External Provider IMG XR PROCEDURES Final Result * XR Hand 3+ Views Right (04/01/2025 12:08 PM EDT) Anatomical Region Laterality Modality Upper Extremities, Hand Right Radiogra phic Imaging 04/01/2025 12:0 8 PM EDT Narrative 04/01/2025 1:13 PM EDT ? [facility] ?[address] ?[place], [place] [address] ?XRay Report ? Signed ? Patient: Wendy Garibay ?MR#: [id number] ? : 1960 ?Acct:[id number] ? Age/Sex: 64 / F ?ADM Date: 04/01/25 ? Loc: HO.XRAY ? Attending Dr: Analy Agee DO ? Ordering Physician: Mamie Parekh MD ?? Date of Service: 04/01/25 ?? Procedure(s): XR hand RT min 3V ?? Accession Number(s): [id number] ? cc: Mamie Parekh MD; Analy Agee [...] signed by Jean Guy MD in OV> ?04/01/250 ? DD/ 1208 ? TD/TT: 04/01/25 1223 ? Dye Line Operator: ? Procedure Note Donkumarisaacsherter, Image - 04/01/[address] [address] XRay Report Signed Patient: Wendy Garibay MR#: [id number] : 1960Acct:[id number] Age/Sex: 64 / FADM Date: 04/01/25 Loc: [facility]DA Attending Dr: Analy Agee DO Ordering Physician: Mamie Parekh MD Date of Service: 04/01/25 Procedure(s): XR hand RT min 3V Accession Number(s): [id number] cc: Mamie Parekh MD; Analy Agee DO [...] Jean Guy MD 04/01/2025 01:10 PM EDT RP Dictated By: Jean Guy MD Signed By: <Electronically signed by Jean Guy MD in OV> 04/01/25 1310 DD/ 1208 TD/TT: 04/01/25 1223 Dye Line Operator: [facility] External Provider IMG XR PROCEDURES Final Result * (ABNORMAL) Vitamin B12 (Cobalamin) and Folate Panel, Serum (02/03/2025 12:48 PM EDT) Vitamin B12 1,299(H) 200 - 900 pg/mL [facility] Comment:NORMAL 200-900 PG/ML INDETERMINATE 160-199 PG/ML DEFICIENT < 160 PG/ML Folate 6.2 > or = 4.0 ng/mL [facility] Comment:Reference Values:> o r = 4.0 ng/mL< 4.0 ng/mL suggests folate deficiency Methotrexate, aminopterin and folinic acid(leucovorin) are chemotherapeutic agents whose molecularstructures are similar to folate; therefore, the Architectfolate assay cannot be used for patients using these drugs. Blood 02/03/2025 12:4 8 PM EDT 02/03/2025 1:09 PM EDT Analy Agee DO LAB BLOOD ORDERABLES Final R esult [facility] [address] [place] [phone] * (ABNORMAL) Iron And Total Iron Binding Capacity (02/03/2025 12:48 PM EDT) Iron 42 30 - 160 mcg/dL [facility] Total Iron Binding Capacity 332 228 - 428 mcg/dL [facility] Percent Iron Saturation 13(L) 15 - 50 % [facility] Unsaturated Iron Binding 290 ug/dL [facility] Blood Venous blood specimen / Unknown 02/03/2025 12:48 PM EDT 02/03/2025 1:09 PM EDT Analy Agee DO LAB BLOOD ORDERABLES Final R esult Performing Organization Address City/[facility] Co de Phone Number [facility] [address] [place] [address] [phone] * (ABNORMAL) CBC (02/03/2025 12:48 PM EDT) White Blood Count 5.4 4.8 - 10.8 X10*3/uL [facility] Red Blood Count 4.18(L) 4.20 - 5.50 X10*6/uL [facility] Hemoglobin 11.1(L) 12.0 - 16.0 g/dl [facility] Hematocrit 35.1(L) 37.0 - 47.0 % [facility] Mean Corpuscular Volume 84.0 80.0 - 98.0 fL [facility] Mean Corpuscular Hemoglobin 26.6(L) 27.0 - 33.0 pg [facility] Mean Corpuscular HGB Conc 31.6 31.0 - 35.0 g/dl [facility] Red Cell Distribution Width 14.2 11.0 - 16.0 % [facility] Platelet Count 171 160 - 400 X10*3/uL [facility] Mean Platelet Volume 13.8(H) 9.4 - 12.3 fL [facility] NRBC Pct Auto 0.0 0.0 - 0.2 /100WBC [facility] NRBC Abs Auto 0.000 0.0 - 0.012 X10*3/uL [facility] Blood Venous blood specimen / Unknown 02/03/2025 12:48 PM EDT 02/03/2025 1:09 PM EDT Analy Agee DO LAB BLOOD ORDERABLES Final R esult [facility] [address] [place] [phone] * Ferritin (02/03/2025 12:48 PM EDT) Ferritin 13 10 - 250 ng/mL [facility] Blood Venous blood specimen / Unknown 02/03/2025 12:48 PM EDT 02/03/2025 1:09 PM EDT Analy Agee DO LAB BLOOD ORDERABLES Final R esult [facility] [address] [place] [phone] * (ABNORMAL) POCT HGB A1C (02/03/2025 12:12 PM EDT) Hemoglobin A1C 6.5(A) 4.0 - 6.0 % QC Media Lot # [id number] Lot# Expiration Date Blood 02/03/2025 12:1 2 PM EDT Analy Agee DO POINT OF CARE TEST ENTER/ERIN T ORDERABLES Final Result * POCT Glucose (02/03/2025 12:11 PM EDT) Glucose Blood, POC 174 60 - 200 mg/dL QC Media Lot # [id number] Lot# Expiration Date ,458,778 Blood Capillary blood specimen / Unknown 02/03/2025 12:11 PM EDT Analy Agee DO POINT OF CARE TEST ENTER/ERIN T ORDERABLES Final Result * BI Mammogram Screening Tomosynthesis Bilateral (12/17/2024 12:00 PM EST) Anatomical Region Laterality Modality Breast Bilateral Mammography 12/17/2024 12:0 0 PM EST Narrative 12/26/2024 10:23 AM EST ? [facility] [facility] ? [address] ?[place] [address] ? Mammography Report ? Signed ? Patient: Wendy Garibay ?MR#: [id number] ? : 1960 ?Acct:[id number] ? Age/Sex: 64 / F ?ADM Date: 12/17/24 ? Loc: HO.MAMMO ? Attending Dr: Analy Agee DO ? Ordering Physician: Analy Agee DO ?Results: 1N ?? egative ? Date of Service: 12/17/24 ?Follow Up: 1 Year From Orig ?? inal Mammogram ? Procedure(s): MM tomosynthesis screening BI ?? Accession Number(s): [id number] ? cc: Analy Agee DO ? EXAMINATION: [...] DD/ 1200 ? TD/TT: 12/17/24 1217 ? Dye Line Operator: ? Procedure Note Princess, Image - 12/26/2024 [facility] [address] [place] [address] Mammography Report Signed Patient: Wendy Garibay MR#: [id number] : 1960Acct:[id number] Age/Sex: 64 / FADM Date: 12/17/24 Loc: HO.MAMMO Attending Dr: Analy Agee DO Ordering Physician: Analy Ageeults: 1N egative Date of Service: 12/17/24Follow Up: 1 Year From Orig inal Mammogram Procedure(s): MM tomosynthesis screening BI Accession Number(s): [id number] cc: Analy Agee DO EXAMINATION: MM SCREENING [...] DO 12/26/2024 10:18 AM [facility] Dictated By: Sienna Watson DO Signed By: <Electronically signed by Sienna Watson DO in OV> 12/26/24 1018 DD/ 1200 TD/TT: 12/17/24 1217 Dye Line Operator: us Analy Agee DO IMG BI PROCEDURES Final Resu lt * Albumin, Random Urine W/Creatinine (08/15/2024 12:47 PM EDT) Creatinine, Urine 115.59 mg/dL [facility] Microalbumin Urine 7.0 mg/L [facility] Microalbum Creatinine Ratio Ur 6.0 <30 ug/mg cr [facility] Comment:Albumin/Creatinine R atio Reference Ranges: Normal: < 30 ug/mg creatinine Microalbuminuria: 30 - 300 ug/mg creatinineClinical Albuminuria: > 300 ug/mg creatinine 08/15/2024 12:4 7 PM EDT 08/15/2024 4:05 PM EDT us Analy Agee DO LAB URINE ORDERABLES Final R esult [facility] [address] [place] [phone] * HIV-1/2 Antigen and Antibodies, Fourth Generation, with Reflexes (08/15/2024 12:40 PM EDT) HIV AB/AG Nonreactive Nonreactive [facility] Comment:HIV-1 p24 Ag and/or HIV-1/HIV-2 Ab not detected.A test result that is nonreactive does not exclude thepossibility of exposure to or infection with HIV-1 and/orHIV-2. Nonreactive results in this assay for individualswith prior exposure to HIV-1 and/or HIV-2 may be due toantigen and antibody levels that are below the limit ofdetection of this assay.The Voluntis HIV Ag/Ab Combo assay result andsupplemental assay results should be interpreted inconjunction with the patient's clinical presentation,history and other laboratory results. If the results areinconsistent with clinical evidence, additional testing issuggested to confirm the result. 08/15/2024 12:4 0 PM EDT 08/15/2024 4:17 PM EDT us Analy Agee DO LAB BLOOD ORDERABLES Final R esult [facility] [address] [place] [phone] * Lipid Panel, Standard (08/15/2024 12:40 PM EDT) Triglycerides 142 <150 mg/dL [facility] Comment:Desirable Triglyceri de: less than 150 mg/dLBorderline High Triglyceride 150-199 mg/dLHigh Triglyceride: 200-499 mg/dLVery High Triglyceride: greater than or equal to 5OO mg/dL Cholesterol 136 <200 mg/dL [facility] Comment:Desirable Cholestero l: less than 200 mg/dLBorderline High Cholesterol: 200-239 mg/dLHigh Cholesterol: greater than 239 mg/dL LDL Cholesterol Calculated 66 <100 mg/dL [facility] Comment:Desirable LDL: less than 100 mg/dLNear Optimal/Above Optimal LDL: 110- 129 mg/dLBorderline High LDL: 130-159 mg/dLHigh LDL: 160-189 mg/dLVery High LDL: greater than or equal to 190 mg/dL HDL Cholesterol 42 >40 mg/dL [facility] Comment:Desirable HDL: great er than 40 mg/dL Note: This HDL assay may give artificially low results in patients with liver disease. 08/15/2024 12:4 0 PM EDT 08/15/2024 4:17 PM EDT Analy Agee DO LAB BLOOD ORDERABLES Final R esult Performing Organization Address [facility]/ZIP Co de Phone Number [facility] [address] [place] [phone] [phone] * Hm Colonoscopy (09/22/2022 9:26 AM EDT) Historical Provider MD HEALTH MAINTENANCE Final Result * HEPATITIS C AB W/REFL TO HCV RNA, QN, PCR (10/13/2021 2:59 PM EST) Pathologist [facility] HEPATITIS C ANTIBODY NON-REACT DESI NON-REACT DESI [facility] INDEX 0.01 <1.00 [facility] Comment: ?? HCV antibody was non-reactive. There is no laboratory ?? evidence of HCV infection. ?? In most cases, no further action is required. However, if recent HCV exposure is suspected, a test for HCV RNA (test code 31810) is suggested. ?? For additional information please refer to http://education.Wallflower/faq/TYT25d2 (This link is being provided for informational/ educational purposes only.) ?? 10/13/2021 2:59 PM EST Analy Agee DO HISTORICAL/NON ORDERABLE LAB S Final Result Performing Organization Address [facility] Co de Phone Number [facility] [address] * HPV E6/E7 RFLX BERNARDO 16 18/45 (09/15/2016 11:45 AM EDT) ADDITIONAL TESTING Not indicated () [facility] Comment: Test Performed by [employer], [facility], [address] [place] [address] Rojas Meneses M.D., Ph.D., Director of Laboratories , DAPHNEY [id number] HPV 16 RNA Test not performed [facility] HPV 18/45 RNA Test not performed [facility] HPV mRNA E6/E7 Not Detected NOT DETECTED [facility] Comment: This assay detects E6/E7 viral messenger RNA (mRNA) from 14 high-risk HPV types (16,18,31,33,35,39,45,51, 52,56,58,59,66,68). This test was performed using the APTIMA(R) TMA HPV Assay ([employer].). For additional information, please refer to http://education.[employer]flower/faq/YZH808s9 Please note: ??Effective 08/07/2016, HPV testing will be performed using [employer]'s APTIMA test which targets mRNA. Detecting mRNA instead of DNA, as in older methods, offers significant improvements in specificity. 09/15/2016 11:4 5 AM EDT us Analy Agee DO HISTORICAL/NON ORDERABLE LAB S Final Result [facility] [address] * Pap Smear (09/15/2016 12:00 AM EDT) Swab us Analy Agee DO LAB CYTOLOGY ORDERABLES Paradise l Result [facility] [address] [place], [place] [phone] from Last 3 Months or Most Recently Relevant to Health Maintenance Insurance [id number] ONE CARE < [address] [place] [id number] Care Teams Medication Manager Relationship Specialty Start Date End Date Analy Agee DO [address] [place] [phone] PCP - General Family Medicine 11/08/11
== END 2025-04-01 12:05 | disposition home or self-care (01) ==
LOC: HO.XRAY 12:04
PROVIDERS: PCP Family Medicine; Visit Provider Family Medicine
DX: M15.0 Primary generalized (osteo)arthritis (principal)
CPT/HCPCS: 73110; 73130

== ENCOUNTER → 2025-04-01 12:08 | Outpatient (BNV) | payer OTHER, SELFPAY | PROVIDERS: PCP Family Medicine; Visit Provider Radiology Diagnostic Radiology | DX: M18.11 Unilateral primary osteoarthritis of first carpometacarpal joint, right hand (principal); M19.031 Primary osteoarthritis, right wrist | CPT/HCPCS: 73110; 73130 ==

== ENCOUNTER 2025-04-03 12:00 | Outpatient (AMB) | payer OTHER, SELFPAY ==
--- OUTSIDE RECORDS SUMMARY | 2025-04-03 12:22 | XMS_ITS | Encounter Summary ---
Author Organization [employer] Address [address] [facility] 7t [place] [address] Care Team Providers Care Concrete Worker Name Role Phone Analy Agee DO Primary Care Provider + [phone] Reason for Visit * Reason Comments Med Refill Encounter Details Date Type Department Care Team ([facility] st Contact Info) Description 01/16/2024 Refill [facility] [address] [place], [place] [phone] Analy Agee DO [address] [facility] [place] [address] Chronic bilateral low back pain, unspecified whether [...] documented as of this encounter Care Teams Concrete Worker Relationship Specialty Start Date End Date Analy Agee DO [address] [place] [address] PCP - General Family Medicine 11/08/11 documented as of this encounter
--- OUTSIDE RECORDS SUMMARY | 2025-04-03 12:22 | XMS_ITS | Encounter Summary ---
Author Organization [employer] Address [address] [facility] 7t [place] [address] Care Team Providers Care Internet Cafe Manager Name Role Phone Analy Agee DO Primary Care Provider + [phone] Encounter Details Date Type Department Care Team (Late st Contact Info) Description 01/15/2024 Orders Only [facility] [address] [place] [address] Provider, MD Gloria Social History Tobacco Use [...] documented as of this encounter Care Teams Internet Cafe Manager Relationship Specialty Start Date End Date Analy Agee DO [address] [place] [id number] PCP - General Family Medicine 11/08/11 documented as of this encounter
--- OUTSIDE RECORDS SUMMARY | 2025-04-03 12:22 | XMS_ITS | Encounter Summary ---
Author Organization [employer] Address [address] [facility] 7t [place] [address] Care Team Providers Care Restorer Lace And Textiles Name Role Phone Analy Agee DO Primary Care Provider + [phone] Reason for Visit * Reason Comments Med Refill Encounter Details Date Type Department Care Team ([facility] st Contact Info) Description 01/16/2025 Refill [facility] MEDICINE [address] [place], [place] [phone] Analy Agee DO 230 [place] [address] Chronic bilateral low back pain, unspecified whether [...] documented as of this encounter Care Teams Restorer Lace And Textiles Relationship Specialty Start Date End Date Analy Agee DO [address] [place] [address] PCP - General Family Medicine 11/08/11 documented as of this encounter
--- OUTSIDE RECORDS SUMMARY | 2025-04-03 12:22 | XMS_ITS | Encounter Summary ---
Author Organization [employer] Address [address] [facility] 7t [place] [address] Care Team Providers Care Cashier Receptionist Name Role Phone Analy Agee DO Primary Care Provider + [phone] Encounter Details Date Type Department Care Team (Late st Contact Info) Description 03/06/2024 Orders Only [facility] MEDICINE [address] [place] [address] Provider, MD Gloria Social History Tobacco Use [...] documented as of this encounter Care Teams Cashier Receptionist Relationship Specialty Start Date End Date Analy Agee DO 230 [place] [address] PCP - General Family Medicine 11/08/11 documented as of this encounter
--- OUTSIDE RECORDS SUMMARY | 2025-04-03 12:23 | XMS_ITS | Encounter Summary ---
Author Organization [employer] Address [address] [facility] 7t [place] [address] Care Team Providers Care Guidance Adviser Name Role Phone Analy Agee DO Primary Care Provider [phone] Encounter Details Date Type Department Care Team (Late st Contact Info) Description 10/18/2022 Abstract [facility] MEDICINE [address] [place] [address] Provider, MD Gloria Social History Tobacco Use [...] on filedocumented in this encounter Care Teams Guidance Adviser Relationship Specialty Start Date End Date Analy Agee DO 230 [place] [address] PCP - General Family Medicine 11/08/11 documented as of this encounter
--- OUTSIDE RECORDS SUMMARY | 2025-04-03 12:23 | XMS_ITS | Encounter Summary ---
Author Organization [employer] Address [address] [facility] 7t [place] [address] Care Team Providers Care Box Tender Name Role Phone Analy Agee DO Primary Care Provider + [phone] Encounter Details Date Type Department Care Team (Late st Contact Info) Description 04/01/2025 Orders Only [facility] External Provider, [facility] Social History Tobacco Use Types Packs/Day [...] EDT Narrative 04/01/2025 1:08 PM EDT ? [facility] ?[address] ?[place] [address] ?XRay Report ? Signed ? Patient: Wendy Garibay ?MR#: [id number] ? : 1960 ?Acct:[id number] ? Age/Sex: 64 / F ?ADM Date: 04/01/25 ? Loc: HO.XRAY ? Attending Tramaine Agee DO ? Ordering Physician: Mamie Parekh MD ?? Date of Service: 04/01/25 ?? Procedure(s): XR wrist RT min 3V ?? Accession Number(s): [id number] ? cc: Mamie Parekh MD; Analy Agee [...] DD/ 1218 ? TD/TT: 04/01/25 1223 ? Tactical Debriefer: ? Procedure Note Timkumarisaacsherter, Image - 04/01/2025 [place] [address] XRay Report Signed Patient: Wendy Garibay MR#: [id number] : 1960Acct:[id number] Age/Sex: 64 / FADM Date: 04/01/25 Loc: [facility] Attending Dr: Analy Agee DO Ordering Physician: Mamie Parekh MD Date of Service: 04/01/25 Procedure(s): XR wrist RT min 3V Accession Number(s): [id number] cc: Mamie Parekh MD; Analy Agee DO [...] 04/01/25 1305 DD/ 1218 TD/TT: 04/01/25 1223 Tactical Debriefer: [facility] External Provider IMG XR PROCEDURES Final Result * XR Hand 3+ Views Right (04/01/2025 12:08 PM EDT) Anatomical Region Laterality Modality Upper Extremities, Hand Right Radiogra phic Imaging 04/01/2025 12:0 8 PM EDT Narrative 04/01/2025 1:13 PM EDT ? [facility] ?[address] ?[place] [address] ?XRay Report ? Signed ? Patient: Wendy Garibay ?MR#: [id number] ? : 1960 ?Acct:[id number] ? Age/Sex: 64 / F ?ADM Date: 04/01/25 ? Loc: HO.XRAY ? Attending Dr: Analy Agee DO ? Ordering Physician: Mamie Parekh MD ?? Date of Service: 04/01/25 ?? Procedure(s): XR hand RT min 3V ?? Accession Number(s): [id number] ? cc: Mamie Parekh MD; Analy Agee [...] DD/ 1208 ? TD/TT: 04/01/25 1223 ? Tactical Debriefer: ? Procedure Note Princess, Image - 04/01/2025 [place] [address] XRay Report Signed Patient: Wendy Garibay MR#: [id number] : 1960Acct:[id number] Age/Sex: 64 / FADM Date: 04/01/25 Loc: [facility] Attending Dr: Analy Agee DO Ordering Physician: Mamie Parekh MD Date of Service: 04/01/25 Procedure(s): XR hand RT min 3V Accession Number(s): [id number] cc: Mamie Parekh MD; Analy Agee DO [...] 04/01/25 1310 DD/ 1208 TD/TT: 04/01/25 1223 Tactical Debriefer: [facility] External Provider IMG XR PROCEDURES Final Result documented in this encounter Visit Diagnoses Not on filedocumented in this encounter Additional Health Concerns Assessment Noted Time PHQ-9 Depression Total Score: 21 02/21/ 024 1:37 PM EDT documented as of this encounter Care Teams Box Tender Relationship Specialty Start Date End Date Analy Agee DO [address] [place] [address] PCP - General Family Medicine 11/08/11 documented as of this encounter
--- OUTSIDE RECORDS SUMMARY | 2025-04-03 12:23 | XMS_ITS | Encounter Summary ---
Author Organization [facility] Address [address] [facility] 7t [place] [address] Care Team Providers Care Local Company Truck Driver Name Role Phone Analy Agee DO Primary Care Provider [phone] Encounter Details Date Type Department Care Team (Late st Contact Info) Description 10/18/2022 Abstract [facility] MEDICINE [address] [place] [address] Provider, Historical, Social History Tobacco Use Types [...] on filedocumented in this encounter Care Teams Local Company Truck Driver Relationship Specialty Start Date End Date Analy Agee DO [address] [place] [address] PCP - General Family Medicine 11/08/11 documented as of this encounter
--- OUTSIDE RECORDS SUMMARY | 2025-04-03 12:23 | XMS_ITS | Clinical Summary ---
Author Organization [employer] Address [address] [facility] 7[address] [place] [address] Care Team Providers Care Cost Accountant Name Role Phone Analy Agee DO Primary Care Provider Allergies Active Allergy Reactions Criticality Noted Date Comments Magna Oil 03/06/2023 Other reaction(s): itching throat ears Apple Juice 02/10/2014 Other reaction(s): itching throat ears Ascorbate 03/06/2023 Other reaction(s): itching throat ears Black [place] Flavoring Agent (Non-Screening) 01/22/2018 Black [place] Pollen Allergy Skin Test 01/22/2018 Corylus 01/22/2018 Gramineae Pollens Itching 03/06/2023 Other reaction(s): itching throat ears body sneezing Grass Pollen(K-O-R-T-Swt Howie) 01/22/2018 Kiwi Extract 01/22/2018 Other reaction(s): itching throat ears Pear 01/22/2018 Pineapple Itching 03/06/2023 Other reaction(s): itching throat ears Pineapple Extract 11/04/2015 Reading Extract 02/10/2014 Medications Elastic Bandages & Supports [...] mellitus with other specified complication, unspecified whether mender knit goods insulin use ([facility]) TEST BLOOD SUGAR TWICE DAILY 100 each [...] 2 diabetes mellitus without complication, unspecified whether mender knit goods insulin use ([facility]) TEST BLOOD SUGAR THREE TIMES DAILY 100 strip 11 12/25/19 25 Active Alcohol Swabs (Alcohol Prep) 70 % padsIndications: Type 2 diabetes mellitus with other specified complication, unspecified whether mender knit goods insulin use ([facility]) USE TO TEST BLOOD SUGAR TWICE DAILY 100 each 5 01/07/20 25 Active Aspirin Low Dose 81 MG EC tabletIndication s:Type 2 diabetes mellitus with other specified complication, without long-term current use of insulin ([facility]) TAKE 1 TABLET BY MOUTH EVERY MORNING [...] complication, with long-term current use of insulin ([facility]) TAKE 1 TABLET BY MOUTH TWICE DAILY [...] fusion cervical spine, chronic knee pain Last [facility] Agreement: 11/06/23 Additional considerations/risk factors: BZO prescription [...] Department Care Team Description 04/01/2025 Orders Only [facility] External Provider, [facility] 03/17/2025 Refill [facility] [address] [place] [address] Analy Agee DO Chronic pain of both knees 02/19/2025 Refill [facility] [address] [place] [address] Analy Agee DO 02/15/2025 Refill [facility] [address] [place] [address] Analy Agee DO Essential hypertension; Type 2 diabetes mellitus without complication, with long-term current use of insulin ([facility]) 02/04/2025 Refill [facility] [address] [place] [address] Claudette Batres RN 02/03/2025 11:15 AM EDT Office Visit [facility] [address] [place] [address] Analy Agee DO Anemia, unspecified type (Primary Dx); Type 2 diabetes mellitus without complication, without long-term current use of insulin ([facility]) 02/03/2025 Travel 01/27/2025 Refill [facility] [address] [place] [address] Analy Agee DO Chronic bilateral low back pain, unspecified whether sciatica present 01/23/2025 Refill [facility] [address] [place], [place] [phone] Crystal Roberson MD Chronic pain of both knees 01/16/2025 Refill [facility] [address] [place] [address] Analy Agee DO Chronic bilateral low back pain, unspecified whether sciatica present 01/08/2025 Refill [facility] [address] [place] [address] Analy Agee DO Type 2 diabetes mellitus with other specified complication, without long-term current use of insulin ([facility]) 01/06/2025 Refill [facility] [address] [place] [address] Analy Agee DO Type 2 diabetes mellitus with other specified complication, unspecified whether group home insulin use ([facility]) from Last 3 Months Immunizations Name Administration [...] the past 12 months, has t he [employer], [employer], oil or water 591wed threatened to shut off services in your [...] EDT Narrative 04/01/2025 1:08 PM EDT ? [facility] ?[address] ?[place] [address] ?XRay Report ? Signed ? Patient: Wendy Garibay ?MR#: [id number] ? : 1960 ?Acct:[id number] ? Age/Sex: 64 / F ?ADM Date: 04/01/25 ? Loc: HO.XRAY ? Attending Dr: Analy Agee DO ? Ordering Physician: Mamie Parekh MD ?? Date of Service: 04/01/25 ?? Procedure(s): XR wrist RT min 3V ?? Accession Number(s): [id number] ? cc: Mamie Parekh MD; Analy Agee [...] DD/ 1218 ? TD/TT: 04/01/25 1223 ? Grinder: ? Procedure Note Donotisaacinterpreter, Image - 04/01/[address] [address] XRay Report Signed Patient: Wendy Garibay MR#: [id number] : 1960Acct:[id number] Age/Sex: 64 / FADM Date: 04/01/25 Loc: [facility] Attending Dr: Analy Agee DO Ordering Physician: Mamie Parekh MD Date of Service: 04/01/25 Procedure(s): XR wrist RT min 3V Accession Number(s): [id number] cc: Mamie Parekh MD; Analy Agee DO [...] 04/01/25 1305 DD/ 1218 TD/TT: 04/01/25 1223 Grinder: us [facility] External Provider IMG XR PROCEDURES Final Result * XR Hand 3+ Views Right (04/01/2025 12:08 PM EDT) Anatomical Region Laterality Modality Upper Extremities, Hand Right Radiogra phic Imaging 04/01/2025 12:0 8 PM EDT Narrative 04/01/2025 1:13 PM EDT ? [facility] ?[address] ?[place], [place] [address] ?XRay Report ? Signed ? Patient: Wendy Garibay ?MR#: [id number] ? : 1960 ?Acct:[id number] ? Age/Sex: 64 / F ?ADM Date: 04/01/25 ? Loc: HO.XRAY ? Attending Dr: Analy Agee DO ? Ordering Physician: Mamie Parekh MD ?? Date of Service: 04/01/25 ?? Procedure(s): XR hand RT min 3V ?? Accession Number(s): [id number] ? cc: Mamie Parekh MD; Analy Agee [...] DD/ 1208 ? TD/TT: 04/01/25 1223 ? Grinder: ? Procedure Note Donkumarisaacsherter, Image - 04/01/[address] [address] XRay Report Signed Patient: Wendy Garibay MR#: [id number] : 1960Acct:[id number] Age/Sex: 64 / FADM Date: 04/01/25 Loc: [facility] Attending Dr: Analy Agee DO Ordering Physician: Mamie Parekh MD Date of Service: 04/01/25 Procedure(s): XR hand RT min 3V Accession Number(s): [id number] cc: Mamie Parekh MD; Analy Agee DO [...] 04/01/25 1310 DD/ 1208 TD/TT: 04/01/25 1223 Grinder: [facility] External Provider IMG XR PROCEDURES Final Result * (ABNORMAL) Vitamin B12 (Cobalamin) and Folate Panel, Serum (02/03/2025 12:48 PM EDT) Vitamin B12 1,299(H) 200 - 900 pg/mL [facility] Comment:NORMAL 200-900 PG/ML INDETERMINATE 160-199 PG/ML DEFICIENT < 160 PG/ML Folate 6.2 > or = 4.0 ng/mL [facility] Comment:Reference Values:> o r = 4.0 ng/mL< 4.0 ng/mL suggests folate deficiency Methotrexate, aminopterin and folinic acid(leucovorin) are chemotherapeutic agents whose molecularstructures are similar to folate; therefore, the Architectfolate assay cannot be used for patients using these drugs. Blood 02/03/2025 12:4 8 PM EDT 02/03/2025 1:09 PM EDT Analy Agee DO LAB BLOOD ORDERABLES Final R esult [facility] [address] [place] [phone] * (ABNORMAL) Iron And Total Iron Binding Capacity (02/03/2025 12:48 PM EDT) Iron 42 30 - 160 mcg/dL [facility] Total Iron Binding Capacity 332 228 - 428 mcg/dL [facility] Percent Iron Saturation 13(L) 15 - 50 % [facility] Unsaturated Iron Binding 290 ug/dL [facility] Blood Venous blood specimen / Unknown 02/03/2025 12:48 PM EDT 02/03/2025 1:09 PM EDT Analy Agee DO LAB BLOOD ORDERABLES Final R esult Performing Organization Address City/[facility] Co de Phone Number [facility] [address] [place] [address] [phone] * (ABNORMAL) CBC (02/03/2025 12:48 PM EDT) White Blood Count 5.4 4.8 - 10.8 X10*3/uL [facility] Red Blood Count 4.18(L) 4.20 - 5.50 X10*6/uL [facility] Hemoglobin 11.1(L) 12.0 - 16.0 g/dl [facility] Hematocrit 35.1(L) 37.0 - 47.0 % [facility] Mean Corpuscular Volume 84.0 80.0 - 98.0 fL [facility] Mean Corpuscular Hemoglobin 26.6(L) 27.0 - 33.0 pg [facility] Mean Corpuscular HGB Conc 31.6 31.0 - 35.0 g/dl [facility] Red Cell Distribution Width 14.2 11.0 - 16.0 % [facility] Platelet Count 171 160 - 400 X10*3/uL [facility] Mean Platelet Volume 13.8(H) 9.4 - 12.3 fL [facility] NRBC Pct Auto 0.0 0.0 - 0.2 /100WBC [facility] NRBC Abs Auto 0.000 0.0 - 0.012 X10*3/uL [facility] Blood Venous blood specimen / Unknown 02/03/2025 12:48 PM EDT 02/03/2025 1:09 PM EDT Analy Agee DO LAB BLOOD ORDERABLES Final R esult [facility] [address] [place] [phone] * Ferritin (02/03/2025 12:48 PM EDT) Ferritin 13 10 - 250 ng/mL [facility] Blood Venous blood specimen / Unknown 02/03/2025 12:48 PM EDT 02/03/2025 1:09 PM EDT Analy Agee DO LAB BLOOD ORDERABLES Final R esult [facility] [address] [place] [address] [phone] * (ABNORMAL) POCT HGB A1C (02/03/2025 [...] Media Lot # [id number] Lot# Expiration Date ,073,239 Blood Capillary blood specimen / Unknown 02/03/2025 12:11 PM EDT Analy Agee DO POINT OF CARE TEST ENTER/ERIN T ORDERABLES Final Result * BI Mammogram Screening Tomosynthesis Bilateral (12/17/2024 12:00 PM EST) Anatomical Region Laterality Modality Breast Bilateral Mammography 12/17/2024 12:0 0 PM EST Narrative 12/26/2024 10:23 AM EST ? [facility] [facility] ? [address] ?[place] [address] ? Mammography Report ? Signed ? Patient: Wendy Garibay ?MR#: [id number] ? : 1960 ?Acct:[id number] ? Age/Sex: 64 / F ?ADM Date: 12/17/24 ? Loc: HO.MAMMO ? Attending Dr: Analy Agee DO ? Ordering Physician: Analy Agee DO ?Results: 1N ?? egative ? Date of Service: 12/17/24 ?Follow Up: 1 Year From Orig ?? inal Mammogram ? Procedure(s): MM tomosynthesis screening BI ?? Accession Number(s): [id number] ? cc: Analy Agee DO ? EXAMINATION: [...] DD/ 1200 ? TD/TT: 12/17/24 1217 ? Grinder: ? Procedure Note Princess, Image - 12/26/2024 [facility] [address] [place] [address] Mammography Report Signed Patient: Wendy Garibay MR#: [id number] : 1960Acct:[id number] Age/Sex: 64 / FADM Date: 12/17/24 Loc: HO.MAMMO Attending Dr: Analy Agee DO Ordering Physician: Analy Ageeults: 1N egative Date of Service: 12/17/24Follow Up: 1 Year From Orig inal Mammogram Procedure(s): MM tomosynthesis screening BI Accession Number(s): [id number] cc: Analy Agee DO EXAMINATION: MM SCREENING [...] 12/26/24 1018 DD/ 1200 TD/TT: 12/17/24 1217 Grinder: us Analy Agee DO IMG BI PROCEDURES Final Resu lt * Albumin, Random Urine W/Creatinine (08/15/2024 12:47 PM EDT) Creatinine, Urine 115.59 mg/dL [facility] Microalbumin Urine 7.0 mg/L [facility] Microalbum Creatinine Ratio Ur 6.0 <30 ug/mg cr [facility] Comment:Albumin/Creatinine R atio Reference Ranges: Normal: < 30 ug/mg creatinine Microalbuminuria: 30 - 300 ug/mg creatinineClinical Albuminuria: > 300 ug/mg creatinine 08/15/2024 12:4 7 PM EDT 08/15/2024 4:05 PM EDT us Analy Agee DO LAB URINE ORDERABLES Final R esult [facility] [address] [place] [phone] [phone] * HIV-1/2 Antigen and Antibodies, Fourth Generation, with Reflexes (08/15/2024 12:40 PM EDT) HIV AB/AG Nonreactive Nonreactive [facility] Comment:HIV-1 p24 Ag and/or HIV-1/HIV-2 Ab not detected.A test result that is nonreactive does not exclude thepossibility of exposure to or infection with HIV-1 and/orHIV-2. Nonreactive results in this assay for individualswith prior exposure to HIV-1 and/or HIV-2 may be due toantigen and antibody levels that are below the limit ofdetection of this assay.The Promodity HIV Ag/Ab Combo assay result andsupplemental assay results should be interpreted inconjunction with the patient's clinical presentation,history and other laboratory results. If the results areinconsistent with clinical evidence, additional testing issuggested to confirm the result. 08/15/2024 12:4 0 PM EDT 08/15/2024 4:17 PM EDT us Analy Agee DO LAB BLOOD ORDERABLES Final R esult [facility] [address] [place] [phone] * Lipid Panel, Standard (08/15/2024 12:40 PM EDT) Triglycerides 142 <150 mg/dL [facility] Comment:Desirable Triglyceri de: less than 150 mg/dLBorderline High Triglyceride 150-199 mg/dLHigh Triglyceride: 200-499 mg/dLVery High Triglyceride: greater than or equal to 5OO mg/dL Cholesterol 136 <200 mg/dL [facility] Comment:Desirable Cholestero l: less than 200 mg/dLBorderline High Cholesterol: 200-239 mg/dLHigh Cholesterol: greater than 239 mg/dL LDL Cholesterol Calculated 66 <100 mg/dL [facility] Comment:Desirable LDL: less than 100 mg/dLNear Optimal/Above Optimal LDL: 110- 129 mg/dLBorderline High LDL: 130-159 mg/dLHigh LDL: 160-189 mg/dLVery High LDL: greater than or equal to 190 mg/dL HDL Cholesterol 42 >40 mg/dL [facility] Comment:Desirable HDL: great er than 40 mg/dL Note: This HDL assay may give artificially low results in patients with liver disease. 08/15/2024 12:4 0 PM EDT 08/15/2024 4:17 PM EDT Analy Agee DO LAB BLOOD ORDERABLES Final R esult Performing Organization Address [facility]/ZIP Co de Phone Number [facility] [address] [place] [phone] [phone] * Hm Colonoscopy (09/22/2022 9:26 AM EDT) Historical Provider MD HEALTH MAINTENANCE Final Result * HEPATITIS C AB W/REFL TO HCV RNA, QN, PCR (10/13/2021 2:59 PM EST) Pathologist [facility] HEPATITIS C ANTIBODY NON-REACT DESI NON-REACT [facility]I [facility] INDEX 0.01 <1.00 [facility] Comment: ?? HCV antibody was non-reactive. There is no laboratory ?? evidence of HCV infection. ?? In most cases, no further action is required. However, if recent HCV exposure is suspected, a test for HCV RNA (test code 48515) is suggested. ?? For additional information please refer to http://education.[employer]/faq/YQZ75i3 (This link is being provided for informational/ educational purposes only.) ?? 10/13/2021 2:59 PM EST Analy Agee DO HISTORICAL/NON ORDERABLE LAB S Final Result Performing Organization Address [facility] Co de Phone Number [facility] [address] * HPV E6/E7 RFLX BERNARDO 16 18/45 (09/15/2016 11:45 AM EDT) ADDITIONAL TESTING Not indicated () [facility] Comment: Test Performed by [employer], [employer] [facility], [address] [place] [address] Rojas Meneses M.D., Ph.D., Director of Laboratories , DAPHNEY [id number] HPV 16 RNA Test not performed [facility] HPV 18/45 RNA Test not performed [facility] HPV mRNA E6/E7 Not Detected NOT DETECTED [facility] Comment: This assay detects E6/E7 viral messenger RNA (mRNA) from 14 high-risk HPV types (16,18,31,33,35,39,45,51, 52,56,58,59,66,68). This test was performed using the APTIMA(R) TMA HPV Assay ([employer].). For additional information, please refer to http://education.[employer]/faq/FZL140t0 Please note: ??Effective 08/07/2016, HPV testing will be performed using [employer]'s APTIMA test which targets mRNA. Detecting mRNA instead of DNA, as in older methods, offers significant improvements in specificity. 09/15/2016 11:4 5 AM EDT us Analy Agee DO HISTORICAL/NON ORDERABLE LAB S Final Result [facility] [address] * Pap Smear (09/15/2016 12:00 AM EDT) Swab us Analy Agee DO LAB CYTOLOGY ORDERABLES Paradise l Result [facility] [address] [place], [place] [phone] from Last 3 Months or Most Recently Relevant to Health Maintenance Insurance [id number] < [address] [place] [id number] Care Teams Cost Accountant Relationship Specialty Start Date End Date Analy Agee DO [address] [place] [phone] PCP - General Family Medicine 11/08/11
--- OUTSIDE RECORDS SUMMARY | 2025-04-03 12:23 | XMS_ITS | Clinical Summary ---
Author Organization [employer] [facility] Address [address] [place] [address] Care Team Providers Care Floor Layer Name Role Phone WesleyAnaly yang Lynn CUMMINGS Primary Care Provider [phone] Surgical History Surgery Date Site/Laterality Comments OTHER SURGICAL HISTORY 11/03/2019 PROCEDURE: [place] ARTHRD ANT INTERBODY MIN DSC CRV BELOW C2; COMMENT: C5-6, C6-7 anterior cervical discectomy and fusion with plating, Dr. 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
--- OUTSIDE RECORDS SUMMARY | 2025-04-03 12:23 | XMS_ITS | Encounter Summary ---
Author Organization [employer] Address [address] [facility] [address] [place] [address] Care Team Providers Care Center Lead Consultant Name Role Phone Analy Agee DO Primary Care Provider [phone] Encounter Details Date Type Department Care Team (Late st Contact Info) Description 12/22/[address] [facility] [address] [place] [address] Analy Van LPN Social History Tobacco Use [...] on filedocumented in this encounter Care Teams Center Lead Consultant Relationship Specialty Start Date End Date Analy Agee DO [address] [place] [phone] PCP - General Family Medicine 11/08/11 documented as of this encounter
--- OUTSIDE RECORDS SUMMARY | 2025-04-03 12:23 | XMS_ITS | Encounter Summary ---
Author Organization [employer] Address [address] [facility] [address] [place] [address] Care Team Providers Care Seed Mill Superintendent Name Role Phone Analy Agee DO Primary Care Provider + [phone] Reason for Visit * Reason Comments Med Refill Encounter Details Date Type Department Care Team ([facility] st Contact Info) Description 03/12/[address] [facility] [address] [place], [place] [phone] Ana Maria Ervin MD [address] [place] [address] Social History Tobacco Use Types Packs/Day Years [...] documented as of this encounter Care Teams Seed Mill Superintendent Relationship Specialty Start Date End Date Analy Agee DO [address] [place] [phone] PCP - General Family Medicine 11/08/11 documented as of this encounter
[2025-04-03 12:39] VITALS: BP 122/70; PULSE 70; O2SAT 99; BMI 32.9
--- NOTE | 2025-04-03 12:39 | A.OFFVIS_ITS ---
Vital Signs 04/03/25 12:39 Height 5 ft 1 in Weight 174 lb BMI 32.9 BP 122/70 Blood Pressure Location Lt brachial Position Sitting Pulse 70 Pulse Source Pulse Oximeter Pulse Oximetry (%) 99 Oxygen Delivery Method Room Air Intake Visit Reasons: follow up Intake Note: Patient presents for follow up on OA. Today, she complains or right leg and hand pain, and x-ray review. Allergies apple [APPLE] Allergy (Mild, Verified 04/03/25 12:46) ITCHY THROAT kiwi [KIWI] Allergy (Mild, Verified 04/03/25 12:46) ITCHY THROAT peach [PEACH] Allergy (Mild, Verified 04/03/25 12:46) ITCHY THROAT strawberry [STRAWBERRY] Allergy (Mild, Verified 04/03/25 12:46) ITCHY THROAT pineapple [PINEAPPLE] Allergy (Unknown, Verified 04/03/25 12:46) ITCHY THROAT apples,strawberries, pineapple Allergy (Unknown, Uncoded 04/03/25 12:46) itching shellfish Allergy (Uncoded 04/03/25 12:46) Itching HPI Comments Details: Patient is a 63-year-old female with schizophrenia, anxiety, panic disorder, severe recurrent major depressive disorder with psychotic features and other chronic medical illnesses including diabetes and hypertension. She is here today for follow-up for polyarticular osteoarthritis Interval History: Patient last seen 01/13/25 with me. At that time she was following up for her polyarticular osteoarthritis specifically right knee pain. Because she had previous right knee total replacement I recommended following up with Orthopedics. Patient followed up with ortho They think she will need surgery, currently patient does not want any surgery Left knee hurts sometimes but intermittently Fell 3 days ago Complaining of right 3rd Palmar MCP pain XRs done 04/01/25 - no fracture Rheumatologic History: Patient presented 07/2024 for evaluation of polyarthralgias in the setting of a positive SYDNI 1:80. Evaluation including examination, history and review of labs indicated that her diagnosis was osteoarthritis involving multiple joints including her hands, knees and spine. Current Rheumatology Medication(s): [facility] Medical History (Updated 09/30/24 @ 13:30 by Mamie Parekh MD) Osteoarthritis Schatzki's ring Headache Fatty liver Pulmonary nodule Asthma FH: total knee replacement Scoliosis Arthritis Hyperlipemia Depression Anxiety Hypertension Diabetes Surgical History History of esophagogastroduodenoscopy (EGD) Hx of colonoscopy S/P cervical disc replacement (Unknown) History of tubal ligation H/O: hysterectomy Family History Maternal Grandmother Uterine cancer Social History Household Members: None Housing: Apartment Alcohol intake: former Patient Tobacco Use Status: Former Tobacco user Tobacco use type: Cigarette service: No Current occupational status: retired Review of Systems Const Details: Review of Systems Constitutional: Denies fever, chills, weight loss ENT: Denies vision changes, eye pain or eye redness, dental caries, dry mouth GI: Denies nausea, vomiting, diarrhea, abdominal pain, change in BM Pulm: Denies SOB, ORTIZ, hemoptysis, wheezing Cards: Denies chest pain, palpitations Skin: Denies Raynaud's, rash, nail changes, photosensitivity, SEAM TAPER MACHINE: Denies headaches, weakness, paresthesias, recurrent falls MSK: as per HPI All other systems reviewed and are unremarkable except noted above Physical Exam Vital Signs: Last Vital Signs Pulse 70 04/03/25 12:39 BP 122/70 04/03/25 12:39 Pulse Ox 99 04/03/25 12:39 Oxygen Delivery Method Room Air 04/03/25 12:39 BMI result Body Mass Index 32.9 Vital signs reviewed Physical Examination CONSTITUITIONAL Patient alert and cooperative. Well appearing and in no apparent painful distress HEENT Conjunctiva and sclera clear. ?Pupils equal round and reactive to light. ?No lymphadenopathy. ? CHEST/RESPIRATORY SYSTEM Normal respiratory effort and able to speak in complete sentences. ?Clear to auscultation bilaterally. ?No crackles, rales, rhonchi, wheezes heard. CARDIAC SYSTEM Regular rate and rhythm. ?S1 and S2 heard no murmurs. ?Radial pulses intact bilaterally MSK Hands: ?Able to make a fist. No synovitis noted to the MCPs, PIPs or DIPs. ?No tenderness to palpation of these joints. No deformities noted. ? Wrists: ?Full range of motion at the wrists without pain. ?No tenderness to palpation or synovitis noted to the wrists. Elbows: Full range of motion without pain. No tenderness, weakness, swelling, increased warmth or erythema. Shoulders: Full range of active range of motion without pain. No tenderness, weakness, swelling, increased warmth or erythema. Hips: Full range of motion without pain. Hip bursa: No tenderness to palpation Knees: ?Full range of motion. ?No tenderness, swelling, increased warmth or erythema.?No effusion or crepitations Ankles: Full range of motion. ?No tenderness, swelling, increased warmth or erythema.? Feet: ?Negative squeeze test. ?No tenderness to palpation or swelling of the MTPs. Tender points:?No tenderness to palpation of the bilateral trapezius, supraspinatus, greater trochanters, anterior costochondral junctions, bilateral gluteal areas, bilateral suboccipital muscle insertions SKIN Skin intact without rashes. Results Reviewed Results Reviewed: Laboratory Tests 08/15/24 12:40 WBC 5.2 RBC 4.16 L Hgb 11.7 L Hct 36.6 L Plt Count 171 Sodium 144 Potassium 3.4 Chloride 101 Carbon Dioxide 34 H BUN 11 Creatinine 0.82 Calcium 10.6 H D Total Bilirubin 0.3 Direct Bilirubin 0.1 AST 36 H ALT 27 Alkaline Phosphatase 65 C-Reactive Protein 0.33 Total Protein 7.5 Albumin 4.2 Rheumatoid Factor < 13.0 SYDNI Screen POSITIVE A SYDNI Titer 1:80 H SYDNI Pattern Nuclear, Homogeneous A XR Bilateral Knees, Shoulders, Hands/Wrists 09/2024 FINDINGS: RIGHT KNEE: Redemonstration of right total knee arthroplasty. Hardware appears intact. Trace joint effusion. Focal lucency/demineralization distal to the tip of the tibial component. LEFT KNEE: Diffuse demineralization. Trace joint effusion. Moderate tricompartmental degenerative changes with tricompartmental osteophytes. Moderate narrowing of the medial and patellofemoral compartments. Faint chondrocalcinosis in the lateral compartment. RIGHT HAND: Moderately severe degenerative changes in the first carpometacarpal joint with joint space narrowing and hypertrophic change. Moderate degenerative changes in the interphalangeal joint of the right hand, most notable in the third digit distal interphalangeal joint. LEFT HAND: Moderately severe degenerative changes in the first carpometacarpal joint with joint space narrowing and hypertrophic change. Moderate degenerative changes in the interphalangeal joint of the left hand, most notable in the fourth digit distal interphalangeal joint. RIGHT SHOULDER: Moderate degenerative changes in the acromioclavicular joint with joint space narrowing and hypertrophic change. Tiny soft tissue calcification along the superolateral aspect of the humeral head. Mild degenerative changes in the glenohumeral joint with inferior hypertrophic change/amorphous calcification. Fixation hardware partially imaged in the lower cervical spine. LEFT SHOULDER: Moderate degenerative changes in the acromioclavicular joint with joint space narrowing and hypertrophic change. Mild degenerative changes in the glenohumeral joint. Small amorphous soft tissue calcifications adjacent to the shoulder joint with examples along the superolateral aspect of the humeral head, and inferior aspect of the glenoid. Assessment & Plan Assessment & Plan (1) Osteoarthritis: Code(s): M19.90 - Unspecified osteoarthritis, unspecified site Category: Medical Qualifiers: Osteoarthritis location: multiple joints Osteoarthritis type: primary Qualified Code(s): M15.0 - Primary generalized (osteo)arthritis Plan: #OA Patient with polyarticular OA involving her hands, knees and shoulders. Continue physical therapy. No fractures post fall Plan - PT - Paraffin wax bath for hands - RTC 6 months or sooner (2) Pain due to total right knee replacement: Code(s): T84.84XA - Pain due to internal orthopedic prosthetic devices, implants and grafts, initial encounter; Z96.651 - Presence of right artificial knee joint Qualifiers: Encounter type: subsequent encounter Qualified Code(s): T84.84XD - Pain due to internal orthopedic prosthetic devices, implants and grafts, subsequent encounter; Z96.651 - Presence of right artificial knee joint Plan: #Pain in right knee with hx of TKR Continue ortho follow up Plan I spent 20 minutes reviewing the record and labs, seeing the patient, discussing the treatment plan and documenting in the medical record ? Coding Level of Care Code Est Pt Level 3 (07881) Diagnoses Primary osteoarthritis involving multiple joints M15.0 Osteoarthritis location: multiple joints Osteoarthritis type: primary Pain due to total right knee replacement, subsequent encounter T84.84XD; Z96.651 Encounter type: subsequent encounter
== END 2025-04-03 13:06 | disposition home or self-care (01) ==
LOC: HO.RHE 12:00
PROVIDERS: PCP Family Medicine; Visit Provider Student in an Organized Health Care Education/Training Program
DX: M15.0 Primary generalized (osteo)arthritis (principal); T84.84XD Pain due to internal orthopedic prosthetic devices, implants and grafts, subsequent encounter; Z96.651 Presence of right artificial knee joint
CPT/HCPCS: 99213

== ENCOUNTER → 2025-04-03 12:00 | Outpatient (BNVA) | payer OTHER, SELFPAY | PROVIDERS: PCP Family Medicine; Visit Provider Student in an Organized Health Care Education/Training Program | DX: M15.0 Primary generalized (osteo)arthritis (principal); T84.84XD Pain due to internal orthopedic prosthetic devices, implants and grafts, subsequent encounter; X58.XXXD Exposure to other specified factors, subsequent encounter; Z96.651 Presence of right artificial knee joint | CPT/HCPCS: 99212 ==

== ENCOUNTER 2025-06-12 13:51 | Outpatient (AMB) | payer OTHER, SELFPAY ==
--- OUTSIDE RECORDS SUMMARY | 2025-06-12 13:54 | XMS_ITS | Clinical Summary ---
Author Organization [facility] Address [address] [place] [address] Care Team Providers Care Air Bag Curer Name Role Phone WesleyAnaly yang Lynn CUMMINGS Primary Care Provider [phone] Surgical History Surgery Date Site/Laterality Comments OTHER SURGICAL HISTORY 11/03/2019 PROCEDURE: AK ARTHRD ANT INTERBODY MIN DSC CRV BELOW C2; COMMENT: C5-6, C6-7 anterior cervical discectomy and fusion with plating, Dr. Torres HYSTERECTOMY PROCEDURE: HISTORICAL HYSTERECTOMY TOTAL KNEE ARTHROPLASTY Right PROCEDURE: AK ARTHRP KNE CONDYLE&PLATU MEDIAL&LAT COMPARTMENTS Medical History Medical History Date Comments Type 2 diabetes mellitus wit hout complications (CMS/HCC V24, CMS/[facility] V28) DX:Type 2 evgeny betes [...] 12/06/2022 12/06/2012, 11/01/2009 COVID-19 Vaccine (4 - season) 2024 10/13/2021, 03/26/2021, 02/26/2021 Influenza Vaccine (#1) 2025 , 08/15/2019, 08/22/2018, Additional history exists RSV Immunization Adult Patients (1 - 1-dose 75+ series) 2037 Hepatitis A Vaccines Aged Out 04/08/2015, 10/01/20 [...] Documents on File Type Date Recorded Patient Distribution Systems Serviceperson Expl anation Health Care Decision (hx) 11/03/2019 [...] (hx) 11/03/2019 AD SIMON DIRECTIVE Care Teams Air Bag Curer Relationship Specialty Start Date End Date Analy Agee DO [address] [place] [address] PCP - General Internal Medicine 01/15/14
--- OUTSIDE RECORDS SUMMARY | 2025-06-12 13:54 | XMS_ITS | Encounter Summary ---
Author Organization [employer] Address [address] [place] [address] Care Team Providers Care Web Application Developer Name Role Phone WesleyAnaly yang Primary Care Provider + [phone] Encounter Details Date Type Department Care Team (Late st Contact Info) Description 03/06/2024 Orders Only [facility] [address] [place] [address] ProviderGloria MD Social History Tobacco Use Types Packs/Day Years [...] Care Team (Late st Contact Info) Description 08/20/2025 1:00 PM EDT Clinical Support [facility] [address] [place] [address] Elaina Baltazar RN documented as of this encounter Procedures Procedure [...] documented as of this encounter Care Teams Web Application Developer Relationship Specialty Start Date End Date Analy Agee DO [address] [place] [address] PCP - General Family Medicine 11/08/11 documented as of this encounter
--- NOTE | 2025-06-12 14:06 | A.OFFVIS_ITS ---
Vital Signs 06/12/25 14:07 Height 5 ft 1 in Weight 163 lb BMI 30.8 BP 125/60 Blood Pressure Location Lt brachial Position Sitting Pulse 63 Pulse Oximetry (%) 97 Oxygen Delivery Method Room Air Intake Visit Reasons: Follow up GERD and CIC Intake Note: Patient follow up for Follow up GERD and CIC. Patient cc: left middle quadrant pain with bloating, a lot of gasses with not daily BM, and med for GERD is helping her. Denies any other GI issues for today visit. Special Education Instructor Required: No Accompanied by: Spouse Allergies apple (APPLE) Allergy (Mild, Verified 06/12/25 14:05) ITCHY THROAT kiwi (KIWI) Allergy (Mild, Verified 06/12/25 14:05) ITCHY THROAT peach (PEACH) Allergy (Mild, Verified 06/12/25 14:05) ITCHY THROAT strawberry (STRAWBERRY) Allergy (Mild, Verified 06/12/25 14:05) ITCHY THROAT pineapple (PINEAPPLE) Allergy (Unknown, Verified 06/12/25 14:05) ITCHY THROAT apples,strawberries, pineapple Allergy (Unknown, Uncoded 04/03/25 12:46) itching shellfish Allergy (Uncoded 04/03/25 12:46) Itching HPI HPI Follow up GERD and CIC: Details: LAST VISIT: Schatzki's ring Dysphagia Abdominal pain, LUQ (left upper quadrant) Postprandial abdominal bloating Constipation GERD (gastroesophageal reflux disease) Hepatic steatosis Plan Patient will stop taking omeprazole and will start taking Nexium. Patient will also take sucralfate at bedtime and stopped taking famotidine. Patient will cont inue avoiding dietary triggers and late night snacking. Staying upright for minimum 3 hours after meals discussed patient. Increase fluid intake and activity to promote better bowel motility. May use fiber supplement or MiraLax to help her move her bowels better. Patient will return in the office in 3 months, sooner on as needed basis. She is agreeable to this plan and verbalizes understanding of instructions. She was given the opportunity to ask questions and all questions answered. ? Thank you for allowing me to participate in her care New esomeprazole magnesium (Nexium) 40 mg PO DAILY 30 caps 2RF K21.9 sucralfate 1 g PO BEDTIME 30 tabs 4RF R19.7 Discontinued famotidine (Pepcid) Discontinued Reason: Doctor's Order 20 mg PO DAILY 30 tabs 3RF K29.70 TODAY'S VISIT Patient is here today for follow-up. Patient still reports of left upper quadrant pain and bloating. Patient reports that the pain is getting worse. Acid reflux controlled with Nexium and sucralfate. Patient reports that she is moving her bowels better, however states that Dulcolax was too strong and she was unable to take it every day. Patient reports that she only takes it when she is home all day. Takes stool softener and is able to have a bowel movement. Does not feel like she empties completely. Unable to pass gas. Feels very gassy and bloated. Patient denies dyspepsia, dysphagia or odynophagia. Patient denies melena, hematochezia, unintentional weight loss or ribbon like stools. Patient denies any nausea or vomiting [facility] Medical History (Updated 06/12/25 @ 19:56 by Alanna Rolon, [facility]) Constipation GERD (gastroesophageal reflux disease) Osteoarthritis Schatzki's ring Headache Fatty liver Pulmonary nodule Asthma FH: total knee replacement Scoliosis Arthritis Hyperlipemia Depression Anxiety Hypertension Diabetes Surgical History History of esophagogastroduodenoscopy (EGD) Hx of colonoscopy S/P cervical disc replacement (Unknown) History of tubal ligation H/O: hysterectomy Family History Maternal Grandmother Uterine cancer Social History Household Members: None Housing: Apartment Alcohol intake: former Patient Tobacco Use Status: Former Tobacco user Tobacco use type: Cigarette service: No Current occupational status: retired Review of Systems Const Denies weight gain and Denies weight loss ENT Reports no additional complaints, Denies dysphagia and Denies odynophagia Card Reports no additional complaints Resp Reports no additional complaints GI Denies abdominal pain, Denies belching, Denies melena, Denies bloating, Denies change in bowel habits, Denies dysphagia, Denies excessive flatus, Denies dyspepsia, Reports heartburn (Occasional), Denies diarrhea, Denies loose stools, Denies nausea, Denies odynophagia and Denies vomiting Musc Reports no additional complaints Neuro Reports no additional complaints Psych Reports no additional complaints Endo Reports no additional complaints Physical Exam Vital Signs: Last Vital Signs Pulse 63 06/12/25 14:07 BP 125/60 06/12/25 14:07 Pulse Ox 97 06/12/25 14:07 Oxygen Delivery Method Room Air 06/12/25 14:07 BMI result Body Mass Index 30.8 Const Other: Patient ambulating using cane General: healthy appearing and no acute distress Nutritional Appearance: obese Orientation/consciousness: patient oriented x3 Resp Effort & Inspection: normal respiratory effort, able to speak in complete sentences, no tracheal deviation and symmetric chest movement Auscultation: clear to auscultation bilaterally Cardio Rate: regular rate GI Inspection: Yes normal to inspection, No distended and Yes obesity Palpation (GI): Soft to palpation, not firm, nontender and No hepatosplenomegaly present Auscultation: normal bowel sounds General: Yes no CVA tenderness Back/Spine/Pelvis Back: no CVA tenderness Skin General skin exam: elasticity normal, turgor normal and dry skin Neuro General: patient oriented x3 Psych Appearance: grossly normal Mental Status: mental status grossly normal Assessment & Plan Assessment & Plan (1) Dysphagia: Code(s): R13.10 - Dysphagia, unspecified Qualifiers: Dysphagia type: pharyngoesophageal phase Qualified Code(s): R13.14 - Dysphagia, pharyngoesophageal phase (2) Left upper quadrant abdominal pain: Code(s): R10.12 - Left upper quadrant pain (3) Postprandial abdominal bloating: Code(s): R14.0 - Abdominal distension (gaseous) (4) Constipation: Code(s): K59.00 - Constipation, unspecified Qualifiers: Constipation type: slow transit constipation Qualified Code(s): K59.01 - Slow transit constipation Plan: Of Cardiac (5) Gastroesophageal reflux disease: Code(s): K21.9 - Gastro-esophageal reflux disease without esophagitis Qualifiers: Esophagitis presence: esophagitis presence not specified Qualified Code(s): K21.9 - Gastro-esophageal reflux disease without esophagitis (6) Steatosis of liver: Code(s): K76.0 - Fatty (change of) liver, not elsewhere classified Plan Patient will continue taking Nexium and sucralfate. Avoid dietary triggers and late night snacking. Staying upright for minimum 3 hours after meals discussed with patient. Patient will be sent for CT of abdomen and pelvis. Unable to do IV contrast as patient is allergic to see food. Looking for diverticulitis. Most likely gas trapping pain in splenic fracture related to patient's constipation. Patient will start taking senna. Increase fluid intake and activity to promote better bowel motility. Patient will start following low FODMAP diet. List of food recommended as well as list of food to avoid given to patient. Patient will follow-up in the office in 5 weeks, sooner on as needed basis. Patient is agreeable to current plan of care and verbalizes understanding of instructions. She was given the opportunity to ask questions and all questions answered. Thank you for allowing me to participate in her care Orders: Orders CT abdomen pelvis w IV con Today R10.32 - Left lower quadrant pain, R10.9 - Unspecified abdominal pain Complete Blood Count no Diff Today K21.9 - Gastro-esophageal reflux disease without esophagitis Comprehensive Met. Panel Today K21.9 - Gastro-esophageal reflux disease without esophagitis Medications: New sennosides (Natural Senna Laxative) 17.2 mg (2 x 8.6 mg) PO BEDTIME 60 tabs 3RF constipation K59.00 - Constipation, unspecified Coding Level of Care Code Est Pt Level 4 (18010) Complex EM visit Add On G2211 Diagnoses Pharyngoesophageal dysphagia R13.14 Dysphagia type: pharyngoesophageal phase Left upper quadrant abdominal pain R10.12 Postprandial abdominal bloating R14.0 Slow transit constipation K59.01 Constipation type: slow transit constipation Gastroesophageal reflux disease, unspecified whether esophagitis present K21.9 Esophagitis presence: esophagitis presence not specified Steatosis of liver K76.0 Time Spent (min) 35 Comment 25 minutes spent with patient and additional 10 minutes spent reviewing her records
[2025-06-12 14:07] VITALS: BP 125/60; PULSE 63; O2SAT 97; BMI 30.8
== END 2025-06-12 14:44 | disposition home or self-care (01) ==
LOC: HO.HGI 13:52
PROVIDERS: PCP Family Medicine; Visit Provider Nurse Practitioner Family
DX: R13.14 Dysphagia, pharyngoesophageal phase (principal); R10.12 Left upper quadrant pain; R14.0 Abdominal distension (gaseous); K59.01 Slow transit constipation; K21.9 Gastro-esophageal reflux disease without esophagitis; K76.0 Fatty (change of) liver, not elsewhere classified
CPT/HCPCS: 99214; G2211

== ENCOUNTER → 2025-06-12 13:51 | Outpatient (BNVA) | payer OTHER, SELFPAY | PROVIDERS: PCP Family Medicine; Visit Provider Nurse Practitioner Family | DX: K21.9 Gastro-esophageal reflux disease without esophagitis (principal); K59.01 Slow transit constipation; R13.14 Dysphagia, pharyngoesophageal phase; R14.0 Abdominal distension (gaseous); R10.12 Left upper quadrant pain; K76.0 Fatty (change of) liver, not elsewhere classified | CPT/HCPCS: 99212 ==

== ENCOUNTER 2025-07-15 12:16 | Outpatient (AMB) | payer OTHER, SELFPAY ==
--- NOTE | 2025-07-09 14:10 | A.OFFVIS_ITS ---
Intake Visit Reasons: f/u OA Allergies apple (APPLE) Allergy (Mild, Verified 06/12/25 14:05) ITCHY THROAT kiwi (KIWI) Allergy (Mild, Verified 06/12/25 14:05) ITCHY THROAT peach (PEACH) Allergy (Mild, Verified 06/12/25 14:05) ITCHY THROAT strawberry (STRAWBERRY) Allergy (Mild, Verified 06/12/25 14:05) ITCHY THROAT pineapple (PINEAPPLE) Allergy (Unknown, Verified 06/12/25 14:05) ITCHY THROAT apples,strawberries, pineapple Allergy (Unknown, Uncoded 04/03/25 12:46) itching shellfish Allergy (Uncoded 04/03/25 12:46) Itching PFSH Medical History (Updated 06/12/25 @ 19:56 by Alanna Rolon, [facility]) Constipation GERD (gastroesophageal reflux disease) Osteoarthritis Schatzki's ring Headache Fatty liver Pulmonary nodule Asthma FH: total knee replacement Scoliosis Arthritis Hyperlipemia Depression Anxiety Hypertension Diabetes Surgical History History of esophagogastroduodenoscopy (EGD) Hx of colonoscopy S/P cervical disc replacement (Unknown) History of tubal ligation H/O: hysterectomy Family History Maternal Grandmother Uterine cancer Social History Household Members: None Housing: Apartment Alcohol intake: former Patient Tobacco Use Status: Former Tobacco user Tobacco use type: Cigarette service: No 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
[2025-07-15 12:34] VITALS: BP 128/82; PULSE 76; O2SAT 98; BMI 30.9
--- NOTE | 2025-07-15 12:34 | A.OFFVIS_ITS ---
Vital Signs 07/15/25 12:34 Height 5 ft 1 in Weight 163 lb 12.855 oz BMI 30.9 BP 128/82 Blood Pressure Location Lt brachial Position Sitting Pulse 76 Pulse Source Pulse Oximeter Pulse Oximetry (%) 98 Oxygen Delivery Method Room Air Intake Visit Reasons: f/u OA Intake Note: Patient presents today for follow up on OA. Allergies apple (APPLE) Allergy (Mild, Verified 07/15/25 12:41) ITCHY THROAT kiwi (KIWI) Allergy (Mild, Verified 07/15/25 12:41) ITCHY THROAT peach (PEACH) Allergy (Mild, Verified 07/15/25 12:41) ITCHY THROAT strawberry (STRAWBERRY) Allergy (Mild, Verified 07/15/25 12:41) ITCHY THROAT pineapple (PINEAPPLE) Allergy (Unknown, Verified 07/15/25 12:41) ITCHY THROAT apples,strawberries, pineapple Allergy (Unknown, Uncoded 07/15/25 12:41) itching shellfish Allergy (Uncoded 07/15/25 12:41) Itching HPI Comments Details: Patient is a 64-year-old female with schizophrenia, anxiety, panic disorder, severe recurrent major depressive disorder with psychotic features and other chronic medical illnesses including diabetes and hypertension. She is here today for follow-up for polyarticular osteoarthritis s/p right knee replacement 2013 and spinal surgery Interval History: Patient last seen 04/03/25 with me - Not on any rheum medications - Followed up with ortho who is recommending surgery but patient is deferring - Hand pain after fall - Recommended PT and parrafin wax baths Today, - Not on any rheum medications - C/o of right knee pain as well as left knee pain - Also notes neck stiffness and difficulty moving the neck from side to side Rheumatologic History: Patient presented 07/2024 for evaluation of polyarthralgias in the setting of a positive SYDNI 1:80. Evaluation including examination, history and review of labs indicated that her diagnosis was osteoarthritis involving multiple joints including her hands, knees and spine. Current Rheumatology Medication(s): [facility] Medical History (Updated 06/12/25 @ 19:56 by Alanna Rolon, ORE MINER-) Constipation GERD (gastroesophageal reflux disease) Osteoarthritis Schatzki's ring Headache Fatty liver Pulmonary nodule Asthma FH: total knee replacement Scoliosis Arthritis Hyperlipemia Depression Anxiety Hypertension Diabetes Surgical History History of esophagogastroduodenoscopy (EGD) Hx of colonoscopy S/P cervical disc replacement (Unknown) History of tubal ligation H/O: hysterectomy Family History Maternal Grandmother Uterine cancer Social History Household Members: None Housing: Apartment Alcohol intake: former Patient Tobacco Use Status: Former Tobacco user Tobacco use type: Cigarette service: No Current occupational status: retired Review of Systems Const Details: Review of Systems Constitutional: Denies fever, chills, weight loss ENT: Denies vision changes, eye pain or eye redness, dental caries, dry mouth GI: Denies nausea, vomiting, diarrhea, abdominal pain, change in BM Pulm: Denies SOB, ORTIZ, hemoptysis, wheezing Cards: Denies chest pain, palpitations Skin: Denies Raynaud's, rash, nail changes, photosensitivity, WASHING MACHINE INSTALLER: Denies headaches, weakness, paresthesias, recurrent falls MSK: as per HPI All other systems reviewed and are unremarkable except noted above Physical Exam Exam Exam: Vital signs reviewed Physical Examination CONSTITUITIONAL Patient alert and cooperative. Well appearing and in no apparent painful distress MSK Hands * Right Hand: Able to make a fist. No swelling or tenderness to palpation of these joints. * Left Hand: Able to make a fist. No swelling or tenderness to palpation of these joints. * Positive 1st [facility]MC grind test bilaterally Wrists * Right Wrist: Full ROM. 70 degrees of wrist flexion, 80 degrees of wrist extension. No swelling or TTP * Left Wrist: Full ROM. 70 degrees of wrist flexion, 80 degrees of wrist extension. No swelling or TTP Elbows * Right Elbow: Full ROM. No swelling or TTP. No TTP of the medial and lateral epicondyles * Left Elbow: Full ROM. No swelling or TTP. No TTP of the medial and lateral epicondyles Shoulders * Right shoulder: Full ROM. No swelling noted. No TTP of the AC joint, subacromial bursa or posterior shoulder * Left shoulder: Full ROM. No swelling noted. No TTP of the AC joint, subacromial bursa or posterior shoulder Hip bursa: No tenderness to palpation bilaterally Knees * Right knee: Full ROM. No swelling noted. No TTP of the knee joint lie or pes anserine bursa. Surgical scar noted * Left knee: Full ROM. No swelling noted. No TTP of the knee joint lie or pes anserine bursa. No creps felt Ankles * Right ankle: Good ankle dorsiflexion and plantar flexion. No swelling. No TTP of the ankle joint * Left ankle: Good ankle dorsiflexion and plantar flexion. No swelling. No TTP of the ankle joint Feet * Right foot: Negative squeeze test * Left foot: Negative squeeze test Tender points? * No tenderness to palpation of the bilateral trapezius, supraspinatus, anterior costochondral junctions, bilateral suboccipital muscle insertions SKIN No rashes Vital Signs: Last Vital Signs Pulse 76 07/15/25 12:34 BP 128/82 07/15/25 12:34 Pulse Ox 98 07/15/25 12:34 Oxygen Delivery Method Room Air 07/15/25 12:34 BMI result Body Mass Index 30.9 Results Reviewed Results Reviewed: Laboratory Tests 08/15/24 02/03/25 12:40 12:48 WBC 5.4 RBC 4.18 L Hgb 11.1 L Hct 35.1 L Plt Count 171 ESR 13 Sodium 144 Potassium 3.4 Chloride 101 Carbon Dioxide 34 H BUN 11 Creatinine 0.82 AST 36 H ALT 27 Alkaline Phosphatase 65 C-Reactive Protein 0.33 Laboratory Tests 08/15/24 12:40 Rheumatoid Factor < 13.0 SYDNI Screen POSITIVE A SYDNI Titer 1:80 H SYDNI Pattern Nuclear, Homogeneous A XR Bilateral Knees, Shoulders, Hands/Wrists 09/2024 FINDINGS: RIGHT KNEE: Redemonstration of right total knee arthroplasty. Hardware appears intact. Trace joint effusion. Focal lucency/demineralization distal to the tip of the tibial component. LEFT KNEE: Diffuse demineralization. Trace joint effusion. Moderate tricompartmental degenerative changes with tricompartmental osteophytes. Moderate narrowing of the medial and patellofemoral compartments. Faint chondrocalcinosis in the lateral compartment. RIGHT HAND: Moderately severe degenerative changes in the first carpometacarpal joint with joint space narrowing and hypertrophic change. Moderate degenerative changes in the interphalangeal joint of the right hand, most notable in the third digit distal interphalangeal joint. LEFT HAND: Moderately severe degenerative changes in the first carpometacarpal joint with joint space narrowing and hypertrophic change. Moderate degenerative changes in the interphalangeal joint of the left hand, most notable in the fourth digit distal interphalangeal joint. RIGHT SHOULDER: Moderate degenerative changes in the acromioclavicular joint with joint space narrowing and hypertrophic change. Tiny soft tissue calcification along the superolateral aspect of the humeral head. Mild degenerative changes in the glenohumeral joint with inferior hypertrophic change/amorphous calcification. Fixation hardware partially imaged in the lower cervical spine. LEFT SHOULDER: Moderate degenerative changes in the acromioclavicular joint with joint space narrowing and hypertrophic change. Mild degenerative changes in the glenohumeral joint. Small amorphous soft tissue calcifications adjacent to the shoulder joint with examples along the superolateral aspect of the humeral head, and inferior aspect of the glenoid. Assessment & Plan Assessment & Plan (1) Osteoarthritis: Code(s): M19.90 - Unspecified osteoarthritis, unspecified site Category: Medical Qualifiers: Osteoarthritis location: multiple joints Osteoarthritis type: primary Qualified Code(s): M15.0 - Primary generalized (osteo)arthritis Plan: #OA Patient with polyarticular OA involving her hands, knees and shoulders. Topical diclofenac Can come sooner if pain in left knee is worse for steroid injection Plan - PT - Paraffin wax bath for hands - RTC 6 months or sooner Plan I spent 20 minutes reviewing the record and labs, seeing the patient, discussing the treatment plan and documenting in the medical record ? Coding Level of Care Code Est Pt Level 3 (68435) Diagnoses Primary osteoarthritis involving multiple joints M15.0 Osteoarthritis location: multiple joints Osteoarthritis type: primary
--- OUTSIDE RECORDS SUMMARY | 2025-07-15 13:16 | XMS_ITS | Clinical Summary ---
Author Organization [employer] [facility] Address [address] [place] [address] Care Team Providers Care Geological Technician Name Role Phone WesleyAnaly yang Lynn CUMMINGS Primary Care Provider [phone]- [phone] Surgical History Surgery Date Site/Laterality Comments OTHER SURGICAL HISTORY 11/03/2019 PROCEDURE: [place] ARTHRD ANT INTERBODY MIN DSC CRV BELOW C2; COMMENT: C5-6, C6-7 anterior cervical discectomy and fusion with plating, Dr. Torres HYSTERECTOMY PROCEDURE: HISTORICAL HYSTERECTOMY TOTAL KNEE ARTHROPLASTY Right PROCEDURE: [place] ARTHRP KNE CONDYLE&PLATU MEDIAL&LAT COMPARTMENTS Medical History Medical History Date Comments Type 2 diabetes mellitus wit hout complications (CMS/HCC V24, CMS/[facility] V28) DX:Type 2 evgeny betes mellitus without [...] Panel) 11/05/2022 Colorectal Cancer Screening: Colonoscopy 11/05/2022 Diabetes: Annual Urine Albumin-Creatinine Ratio (uACR) 11/05/2022 Diabetes: Blood Sugar Control Test (HGBA1C) 11/05/2022 HIV Screening 11/05/2022 Hepatitis C Screening 11/05/2022 Hypertension/CHF/CAD Annual BMP Blood Test 11/05/2022 Social Influencers of Health Screening 11/05/2022 DTaP,Tdap,and Td Vaccines (3 - Td or Tdap) 12/06/2022 12/06/2012, 11/01/2009 COVID-19 Vaccine (4 - season) 2024 10/13/2021, 03/26/2021, 02/26/2021 Depression Screening 11/26/2024 Influenza Vaccine (#1) 2025 , 08/15/2019, 08/22/2018, [...] Documents on File Type Date Recorded Patient Diagnostic Tech Expl anation Health Care Decision (hx) 11/03/2019 [...] (hx) 11/03/2019 AD SIMON DIRECTIVE Care Teams Geological Technician Relationship Specialty Start Date End Date Analy Agee DO [address] [place] [address] PCP - General Internal Medicine 01/15/14
--- OUTSIDE RECORDS SUMMARY | 2025-07-15 13:16 | XMS_ITS | Encounter Summary ---
Author Organization [employer] Address [address] [facility] [address] [place] [address] Care Team Providers Care Box Repairer Name Role Phone WesleyAnaly yang Primary Care Provider + [phone] Encounter Details Date Type Department Care Team (Late st Contact Info) Description 03/06/2024 Orders Only [facility] MEDICINE [address] [place] [address] ProviderGloria MD Social History Tobacco Use Types [...] Description 08/20/2025 1:00 PM EDT Clinical Support [facility] MEDICINE [address] [place] [address] Elaina Baltazar RN documented as of this [...] as of this encounter Care Teams Box Repairer Relationship Specialty Start Date End Date Analy Agee DO [address] [place] [address] PCP - General Family Medicine 11/08/11 documented as of this encounter
== END 2025-07-15 13:04 | disposition home or self-care (01) ==
LOC: HO.RHES 12:17
PROVIDERS: PCP Family Medicine; Visit Provider Student in an Organized Health Care Education/Training Program
DX: M15.0 Primary generalized (osteo)arthritis (principal)
CPT/HCPCS: 99213

== ENCOUNTER → 2025-07-15 12:16 | Outpatient (BNVA) | payer OTHER, SELFPAY | PROVIDERS: PCP Family Medicine; Visit Provider Student in an Organized Health Care Education/Training Program | DX: M15.0 Primary generalized (osteo)arthritis (principal); R76.8 Other specified abnormal immunological findings in serum; Z96.651 Presence of right artificial knee joint | CPT/HCPCS: 99212 ==

== ENCOUNTER 2025-07-20 09:40 | Outpatient (REF) | payer OTHER, SELFPAY ==
[2025-07-20 10:15] LABS: Hematocrit 34.1 % (37.0-47.0); Hemoglobin 10.9 g/dl (12.0-16.0); Mean Corpuscular HGB Conc 32.0 g/dl (31.0-35.0); Mean Corpuscular Hemoglobin 27.0 pg (27.0-33.0); Mean Corpuscular Volume 84.6 fL (80.0-98.0); NRBC Abs Auto 0.000 X10*3/uL (0.0-0.012); NRBC Pct Auto 0.0 /100WBC (0.0-0.2); Platelet Count 159 X10*3/uL (160-400); Red Blood Count 4.03 X10*6/uL (4.20-5.50); White Blood Count 6.4 X10*3/uL (4.8-10.8)
--- OUTSIDE RECORDS SUMMARY | 2025-07-20 10:30 | XMS_ITS | Clinical Summary ---
Author Organization [facility] Address [address] [place] [address] Care Team Providers Care Dinkey Driver Name Role Phone Analy Agee DO Primary Care Provider Social History Tobacco Use Types Packs/Day Years Used Date Smoking Tobacco: Never Assessed Sex and Gender Information Value Date Recorded Sex Assigned at Not on file Gender Identity Not on file Sexual Orientation Not on file Plan of Treatment Health Maintenance Due Date Last Done Comments Hepatitis C Screening 1962 COVID-19 Vaccine (#1) 06/06/1963 Depression Screening 1974 Preventative Health Evaluation 1980 DTap / Tdap / Td (1 - Tdap) 1981 Cervical Cancer Screening (P ap Smear) 1983 Colon Cancer Screening (Colonoscopy) 2007 Breast Cancer Screening (Mammogram) 2012 Shingrix-Zoster Vaccine (1 of 2) 2012 Influenza Vaccine (#1) 2025 RSV Adult > 60+ Yrs or Pregn ant (1 - 1-dose 75+ series) 2037 Hepatitis B Vaccines Aged Out No long er eligible based on patient's age to complete this topic Pneumococcal Vaccine Aged Out No long er eligible based on patient's age to complete this topic RSV Ped < 20 months Aged Out No longe r eligible based on patient's age to complete this topic Care Teams Dinkey Driver Relationship Specialty Start Date End Date Analy Agee DO [address] [place] [id number] PCP - General Family Medicine 08/19/19
--- OUTSIDE RECORDS SUMMARY | 2025-07-20 10:30 | XMS_ITS | Encounter Summary ---
Author Organization [facility] Address [address] [facility] [address] [place] [address] Care Team Providers Care Pit Crane Operator Name Role Phone WesleyAnaly yang Primary Care Provider + [phone] Encounter Details Date Type Department Care Team (Late st Contact Info) Description 03/06/2024 Orders Only [facility] MEDICINE [address] [place] [address] ProviderGloria MD Social History Tobacco Use Types [...] is your housing situation today? I have brandne rivera 09/12/[address] you [...] Description 08/20/2025 1:00 PM EDT Clinical Support [facility] MEDICINE [address] [place] [address] Elaina Baltazar RN documented as of this [...] documented as of this encounter Care Teams Pit Crane Operator Relationship Specialty Start Date End Date Analy Agee DO [address] [place] [address] PCP - General Family Medicine 11/08/11 documented as of this encounter
--- OUTSIDE RECORDS SUMMARY | 2025-07-20 10:30 | XMS_ITS | Clinical Summary ---
Author Organization [facility] Address [address] [place] [address] Care Team Providers Care Heading And Priming Tool Setter Name Role Phone WesleyAnaly yang Lynn CUMMINGS Primary Care Provider [phone]- [phone] Surgical History Surgery Date Site/Laterality Comments OTHER SURGICAL HISTORY 11/03/2019 PROCEDURE: [place] ARTHRD ANT INTERBODY MIN DSC CRV BELOW C2; COMMENT: C5-6, C6-7 anterior cervical discectomy and fusion with plating, Dr. Torres HYSTERECTOMY PROCEDURE: HISTORICAL HYSTERECTOMY TOTAL KNEE ARTHROPLASTY Right PROCEDURE: [place] ARTHRP KNE CONDYLE&PLATU MEDIAL&LAT COMPARTMENTS Medical History Medical History Date Comments Type 2 diabetes mellitus wit hout complications (CMS/HCC V24, CMS/[facility] V28) DX:Type 2 evgeny betes mellitus [...] Documents on File Type Date Recorded Patient Spare Fixer Expl anation Health Care Decision (hx) 11/03/2019 [...] (hx) 11/03/2019 AD SIMON DIRECTIVE Care Teams Heading And Priming Tool Setter Relationship Specialty Start Date End Date Analy Agee DO [address] [place] [address] PCP - General Internal Medicine 01/15/14
[2025-07-20 10:59] LABS: Alanine Aminotransferase 35 U/L (0-31); Albumin Level 4.1 g/dL (3.5-5.0); Alkaline Phosphatase 64 U/L (39-117); Anion Gap 14 (12-20); Aspartate Amino Transferase 39 U/L (5-31); Blood Urea Nitrogen 11 mg/dL (9-16); Calcium 9.5 mg/dL (8.4-10.2); Carbon Dioxide 28 mmol/L (22-29); Chloride 99 mmol/L (96-108); Estimated Glomerular Filt Rate > 60; Potassium 3.7 mmol/L (3.3-5.1); Sodium 137 mmol/L (135-145); Total Protein 7.0 g/dL (6.5-8.0)
== END 2025-07-20 09:41 | disposition home or self-care (01) ==
LOC: HO.LAB 09:40
PROVIDERS: PCP Family Medicine; Visit Provider Nurse Practitioner Family
DX: K21.9 Gastro-esophageal reflux disease without esophagitis (principal)
CPT/HCPCS: 36415; 80053; 85027

== ENCOUNTER 2025-07-22 09:34 | Outpatient (AMB) | payer OTHER, SELFPAY ==
--- NOTE | 2025-07-22 09:39 | MHC.OFFVIS ---
Vital Signs 07/22/25 09:41 Height 5 ft 1 in Weight 163 lb BMI 30.8 BP 122/64 Blood Pressure Location Rt brachial Position Sitting Pulse 78 Pulse Source Pulse Oximeter Pulse Oximetry (%) 98 Oxygen Delivery Method Room Air Intake Visit Reasons: 5 wks , Gerd , CIC Intake Note: ESTABLISHED PATIENT for GERD + CIC mgmt. [id number] Electrical Design Technologist assisted. Reminded of lab work prior to appt. Chief Complaint; C.O. RUQ pain persistence and occasional GERD. Pt states however that her Rx therapy is OK and that her sx are much less frequent. Electrical Design Technologist Required: No Electrical Design Technologist Services: Electrical Design Technologist Offered & Declined Accompanied by: Self / Same As Patient Allergies apple (APPLE) Allergy (Mild, Verified 07/22/25 09:40) ITCHY THROAT kiwi (KIWI) Allergy (Mild, Verified 07/22/25 09:40) ITCHY THROAT peach (PEACH) Allergy (Mild, Verified 07/22/25 09:40) ITCHY THROAT strawberry (STRAWBERRY) Allergy (Mild, Verified 07/22/25 09:40) ITCHY THROAT pineapple (PINEAPPLE) Allergy (Unknown, Verified 07/22/25 09:40) ITCHY THROAT apples,strawberries, pineapple Allergy (Unknown, Uncoded 07/22/25 09:40) itching shellfish Allergy (Uncoded 07/22/25 09:40) Itching Medication List - Last Reconciled 07/22/25 by Alanna Rolon, ELECTRIC POWER MACHINE OPERATOR-BC albuterol sulfate 1 amp inhalation Q4H PRN albuterol sulfate 90 mcg/actuation 2 puffs inhalation Q4H PRN aspirin 1 tab PO QAM atorvastatin 1 tab PO DAILY baclofen 10 mg PO TID blood sugar diagnostic (FreeStyle Lite Strips) As directed calcium polycarbophil (Fiber-Lax) mg PO cetirizine (Zyrtec) 10 mg PO DAILY PRN cholecalciferol (vitamin D3) 1 tab PO BEDTIME clonazepam 1 tab PO BEDTIME cyanocobalamin (vitamin B-12) 1 tab PO DAILY diclofenac sodium 1% 4 grams topical QID duloxetine 20 mg PO BID esomeprazole magnesium 40 mg PO QAM fenofibrate 1 tab PO DAILY fluticasone propionate 50 mcg/actuation 2 sprays intranasal DAILY gabapentin 1 cap PO TID hydrochlorothiazide 1 tab PO QAM lancets (TRUEplus Lancets) As directed lisinopril 1 tab PO DAILY lorazepam 1 tab PO BEDTIME PRN meclizine 25 mg PO DAILY PRN meloxicam 15 mg PO DAILY metformin 1 tab PO BID oxcarbazepine 1 tab PO BID oxybutynin chloride ER 1 tab PO QAM oxycodone-acetaminophen 5-325 mg 1 tab PO BID PRN quetiapine 1 - 2 tabs PO BEDTIME PRN sennosides (Natural Senna Laxative) 17.2 mg (2 x 8.6 mg) PO BEDTIME simethicone 125 mg PO BID-QID PRN sucralfate 1 g PO BEDTIME HPI HPI 5 wks , Gerd , CIC: Details: LAST VISIT: Dysphagia Left upper quadrant abdominal pain Postprandial abdominal bloating Constipation Of Cardiac Gastroesophageal reflux disease Steatosis of liver Plan Patient will continue taking Nexium and sucralfate. Avoid dietary triggers and late night snacking. Staying upright for minimum 3 hours after meals discussed with patient. Patient will be sent for CT of abdomen and pelvis. Unable to do IV contrast as patient is allergic to see food. Looking for diverticulitis. Most likely gas trapping pain in splenic fracture related to patient's constipation. Patient will start taking senna. Increase fluid intake and activity to promote better bowel motility. Patient will start following low FODMAP diet. List of food recommended as well as list of food to avoid given to patient. Patient will follow-up in the office in 5 weeks, sooner on as needed basis. Patient is agreeable to current plan of care and verbalizes understanding of instructions. She was given the opportunity to ask questions and all questions answered. ? Thank you for allowing me to participate in her care Orders CT abdomen pelvis w IV con Today R10.32, R10.9 Complete Blood Count no Diff Today K21.9 Comprehensive Met. Panel Today K21.9 New sennosides (Natural Senna Laxative) 17.2 mg (2 x 8.6 mg) PO BEDTIME 60 tabs 3RF constipation K59.00 TODAY'S VISIT Patient is here today for follow-up. Patient reports that she has been feeling better. Continues to have occasional right upper quadrant pain. Patient reports abdominal bloating postprandially. Patient reports that Nexium and sucralfate help. Patient denies epigastric pain, acid reflux, dyspepsia, dysphagia or odynophagia. Last visit I have ordered CT scan, patient had CT scan done at [facility] while in the ER. CT scan did not show any acute abnormalities except for hepatic steatosis. Patient reports that she is moving her bowels better now that she is taking senna. Patient is taking senna as needed. Denies melena, hematochezia, unintentional weight loss or ribbon like stools. [facility] Medical History Constipation GERD (gastroesophageal reflux disease) Osteoarthritis Schatzki's ring Headache Fatty liver Pulmonary nodule Asthma FH: total knee replacement Scoliosis Arthritis Hyperlipemia Depression Anxiety Hypertension Diabetes Surgical History History of esophagogastroduodenoscopy (EGD) Hx of colonoscopy S/P cervical disc replacement (Unknown) History of tubal ligation H/O: hysterectomy Family History Maternal Grandmother Uterine cancer Social History Household Members: None Housing: Apartment Alcohol intake: former Patient Tobacco Use Status: Former Tobacco user Tobacco use type: Cigarette service: No Current occupational status: retired Review of Systems Const Denies weight gain and Denies weight loss ENT Reports no additional complaints, Denies dysphagia and Denies odynophagia Card Reports no additional complaints Resp Reports no additional complaints GI Denies abdominal pain, Denies belching, Denies melena, Denies bloating, Denies change in bowel habits, Denies dysphagia, Denies excessive flatus, Denies dyspepsia, Reports heartburn (Occasional), Denies diarrhea, Denies loose stools, Denies nausea, Denies odynophagia and Denies vomiting Musc Reports no additional complaints Neuro Reports no additional complaints Psych Reports no additional complaints Endo Reports no additional complaints Physical Exam Vital Signs: Last Vital Signs Pulse 78 07/22/25 09:41 BP 122/64 07/22/25 09:41 Pulse Ox 98 07/22/25 09:41 Oxygen Delivery Method Room Air 07/22/25 09:41 BMI result Body Mass Index 30.8 Const Other: Patient ambulating using cane General: healthy appearing and no acute distress Nutritional Appearance: obese Orientation/consciousness: patient oriented x3 Resp Effort & Inspection: normal respiratory effort, able to speak in complete sentences, no tracheal deviation and symmetric chest movement Auscultation: clear to auscultation bilaterally Cardio Rate: regular rate GI Inspection: Yes normal to inspection, No distended and Yes obesity Palpation (GI): Soft to palpation, not firm, nontender and No hepatosplenomegaly present Auscultation: normal bowel sounds General: Yes no CVA tenderness Back/Spine/Pelvis Back: no CVA tenderness Skin General skin exam: elasticity normal, turgor normal and dry skin Neuro General: patient oriented x3 Psych Appearance: grossly normal Mental Status: mental status grossly normal Assessment & Plan Assessment & Plan (1) Dysphagia: Code(s): R13.10 - Dysphagia, unspecified Qualifiers: Dysphagia type: pharyngoesophageal phase Qualified Code(s): R13.14 - Dysphagia, pharyngoesophageal phase (2) Left upper quadrant abdominal pain: Code(s): R10.12 - Left upper quadrant pain (3) Postprandial abdominal bloating: Code(s): R14.0 - Abdominal distension (gaseous) (4) Constipation: Code(s): K59.00 - Constipation, unspecified Qualifiers: Constipation type: slow transit constipation Qualified Code(s): K59.01 - Slow transit constipation (5) Gastroesophageal reflux disease: Code(s): K21.9 - Gastro-esophageal reflux disease without esophagitis Qualifiers: Esophagitis presence: esophagitis presence not specified Qualified Code(s): K21.9 - Gastro-esophageal reflux disease without esophagitis (6) Steatosis of liver: Code(s): K76.0 - Fatty (change of) liver, not elsewhere classified Plan Patient will continue taking Nexium in the morning and sucralfate at bedtime. Continue taking senna daily. Patient was encouraged to take it daily or every other day so she can empty her bowels better. Increase fluid intake and activity to promote better bowel motility. Patient was encouraged to avoid dietary triggers and late night snacking. Staying upright for minimum 3 hours after meals discussed with patient. Will send patient for abdominal ultrasound with elastography to evaluate her liver. Script for Proctosol send. Patient reports occasional hemorrhoids when she is constipated. Patient was also encouraged to increase fiber in her diet. May take over the counter fiber supplements daily. Patient will follow-up in our office in 3-4 months. Patient was encouraged to call us if she will have any GI concerning symptoms. Patient is agreeable to this plan and verbalizes understanding of instructions. She was given the opportunity to ask questions and all questions answered. Thank you for allowing me to participate in her care Orders: Orders US abdomen comp w elastography 07/22/25 R79.89 - Other specified abnormal findings of blood chemistry Medications: New hydrocortisone 2.5% (Proctosol HC) 1 appl [place] BID-QID PRN 30 grams 2RF hemorrhoids K64.9 - Unspecified hemorrhoids Refilled simethicone 125 mg PO BID-QID PRN 120 caps 3RF abdominal distention K21.9 - Gastro-esophageal reflux disease without esophagitis Coding Level of Care Code Est Pt Level 4 (49589) Complex EM visit Add On G2211 Diagnoses Pharyngoesophageal dysphagia R13.14 Dysphagia type: pharyngoesophageal phase Left upper quadrant abdominal pain R10.12 Postprandial abdominal bloating R14.0 Slow transit constipation K59.01 Constipation type: slow transit constipation Gastroesophageal reflux disease, unspecified whether esophagitis present K21.9 Esophagitis presence: esophagitis presence not specified Steatosis of liver K76.0 Time Spent (min) 40 Comment 25 minutes spent with patient and additional 15 minutes spent reviewing her records
[2025-07-22 09:41] VITALS: BP 122/64; PULSE 78; O2SAT 98; BMI 30.8
--- OUTSIDE RECORDS SUMMARY | 2025-07-22 10:13 | XMS_ITS | Encounter Summary ---
Author Organization [employer] Address [address] [facility] 7t [place] [address] Care Team Providers Care Loss Prevention Associate Name Role Phone Analy Agee DO Primary Care Provider + [phone] Reason for Visit * Reason Comments Med Refill Encounter Details Date Type Department Care Team (Late Contact Info) Description 03/12/2023 Refill [facility] MEDICINE [address] [place] [address] [phone] Ana Maria Ervin MD [address] [place] [address] Social History Tobacco Use Types Packs/Day Years [...] Department Care Team (Late Contact Info) Description 08/20/2025 1:00 PM EDT Clinical Support [facility] [address] [place] [address] [place] [address] Elaina Baltazar, MAJO documented as of this encounter Visit Diagnoses Not on filedocumented in this encounter Additional Health Concerns Assessment Noted Time PHQ-9 Depression Total Score: 16 023 11:33 AM EDT documented as of this encounter Care Teams Loss Prevention Associate Relationship Specialty Start Date End Date Analy Agee DO [address] [place] [address] PCP - General Family Medicine 11/08/11 documented as of this encounter
--- OUTSIDE RECORDS SUMMARY | 2025-07-22 10:13 | XMS_ITS | Encounter Summary ---
Author Organization [employer] Address [address] [facility] 7t [place] [address] Care Team Providers Care Duty Engineer Name Role Phone Analy Agee DO Primary Care Provider [phone] Encounter Details Date Type Department Care Team (Late st Contact Info) Description 12/22/2022 Orders Only [facility] MED & PEDS [address] [place] [address] Analy Van LPN Social History Tobacco Use [...] Description 08/20/2025 1:00 PM EDT Clinical Support [facility] MEDICINE [address] [place] [address] Elaina Baltazar, MAJO documented as of this encounter Visit Diagnoses Not on filedocumented in this encounter Care Teams Duty Engineer Relationship Specialty Start Date End Date Analy Agee DO [address] [place] [address] PCP - General Family Medicine 11/08/11 documented as of this encounter
--- OUTSIDE RECORDS SUMMARY | 2025-07-22 10:13 | XMS_ITS | Encounter Summary ---
Author Organization [employer] [facility] Address [address] [place] [address] [address] [place] [address] Care Team Providers Care Plaster Machine Operator Name Role Phone Analy Agee DO Primary Care Provider [phone] Encounter Details Date Type Department Care Team (Late st Contact Info) Description 10/18/[address] [address] Provider, Gloria, Social History Tobacco Use Types [...] Description 08/20/2025 1:00 PM EDT Clinical Support [address] [address] Elaina Baltazar RN documented as of this encounter Procedures Procedure Name Priority Date/Time Associated Diagnosis Comments MAMMOGRAPHY Routine 01/25/2021 documented in this encounter Results * Mammography (01/25/2021) Mammogram Performed Anatomical Region Laterality Modality Other us Historical Provider HEALTH MAINTENANCE Final Result documented in this encounter Visit Diagnoses Not on filedocumented in this encounter Care Teams Plaster Machine Operator Relationship Specialty Start Date End Date Analy Agee DO [address] [place], [place] [phone] PCP - General Family Medicine 11/08/11 documented as of this encounter
--- OUTSIDE RECORDS SUMMARY | 2025-07-22 10:13 | XMS_ITS | Encounter Summary ---
Author Organization [employer] [facility] Address [address] [place] [address] 7t [place] [address] Care Team Providers Care Confidential Secretary Name Role Phone Analy Agee DO Primary Care Provider [phone] Encounter Details Date Type Department Care Team (Late st Contact Info) Description 10/18/2022 Abstract [facility] MEDICINE [address] [place] [phone] Provider, MD Gloria Social History Tobacco Use [...] Description 08/20/2025 1:00 PM EDT Clinical Support [address] [address] Elaina Baltazar RN documented as of this encounter Visit Diagnoses Not on filedocumented in this encounter Care Teams Confidential Secretary Relationship Specialty Start Date End Date Analy Agee DO [address] [place] [address] PCP - General Family Medicine 11/08/11 documented as of this encounter
--- OUTSIDE RECORDS SUMMARY | 2025-07-22 10:13 | XMS_ITS | Encounter Summary ---
Author Organization [employer] Address [address] [facility] 7t [place] [address] Care Team Providers Care Ground Support Equipment Assembler Name Role Phone Analy Agee DO Primary Care Provider + [phone] Encounter Details Date Type Department Care Team (Late st Contact Info) Description 07/20/2025 Orders Only GENERIC EXTERNAL DATA DEPARTMENT Provider, Generic External Data Social History Tobacco Use Types Packs/Day Years [...] Description 08/20/2025 1:00 PM EDT Clinical Support [facility] [address] [place] [address] Elaina Baltazar RN documented as of this encounter Procedures Procedure Name Priority Date/Time Associated Diagnosis Comments CBC Routine 07/20/2025 9:58 AM EDT COMPREHENSIVE METABOLIC PANEL Routine 07/20/2025 9:58 AM EDT documented in this encounter Results * (ABNORMAL) Comprehensive Metabolic Panel (07/20/2025 9:58 AM EDT) Sodium 137 135 - 145 mmol/L [facility] Potassium 3.7 3.3 - 5.1 mmol/L [facility] Chloride 99 96 - 108 mmol/L [facility] Carbon Dioxide 28 22 - 29 mmol/L [facility] Anion Gap 14 12 - 20 [facility] Urea Nitrogen (BUN) 11 9 - 16 mg/dL [facility] Creatinine, Serum 0.76 0.5 - 1.4 mg/dL [facility] Estimated Glomerular Filt Rate >60 [facility] Comment:Chronic Kidney Disea se: Estimated GFR < 60 mL/min/[id number] Kidney Disease: Estimated GFR < 15 mL/min/1.73m2 Glucose 129(H) 60 - 115 mg/dL [facility] Calcium 9.5 8.4 - 10.2 mg/dL [facility] Bilirubin, Total 0.3 0.0 - 1.0 mg/dL [facility] Aspartate Amino Transferase 39(H) 5 - 31 U/L [facility] Alanine Aminotransferase 35(H) 0 - 31 U/L [facility] Total Protein 7.0 6.5 - 8.0 g/dL [facility] Albumin Level 4.1 3.5 - 5.0 g/dL [facility] Alkaline Phosphatase 64 39 - 117 U/L [facility] 07/20/2025 9:58 AM EDT 07/20/2025 9:58 AM EDT us Generic External Data Provider LAB BLOOD ORDERAB LES Final Result [facility] [address] [place] [phone] * (ABNORMAL) CBC (07/20/2025 9:58 AM EDT) White Blood Count 6.4 4.8 - 10.8 X10*3/uL [facility] Red Blood Count 4.03(L) 4.20 - 5.50 X10*6/uL [facility] Hemoglobin 10.9(L) 12.0 - 16.0 g/dl [facility] Hematocrit 34.1(L) 37.0 - 47.0 % [facility] Mean Corpuscular Volume 84.6 80.0 - 98.0 fL [facility] Mean Corpuscular Hemoglobin 27.0 27.0 - 33.0 pg [facility] Mean Corpuscular HGB Conc 32.0 31.0 - 35.0 g/dl [facility] Red Cell Distribution Width 14.2 11.0 - 16.0 % [facility] Platelet Count 159(L) 160 - 400 X10*3/uL [facility] Mean Platelet Volume 13.0(H) 9.4 - 12.3 fL [facility] NRBC Pct Auto 0.0 0.0 - 0.2 /100WBC [facility] NRBC Abs Auto 0.000 0.0 - 0.012 X10*3/uL [facility] 07/20/2025 9:58 AM EDT 07/20/2025 9:58 AM EDT us Generic External Data Provider LAB BLOOD ORDERAB LES Final Result [facility] [address] [place] [phone] documented in this encounter Visit Diagnoses Not on filedocumented in this encounter Additional Health Concerns Assessment Noted Time PHQ-9 Depression Total Score: 21 024 1:37 PM EDT documented as of this encounter Care Teams Ground Support Equipment Assembler Relationship Specialty Start Date End Date Analy Agee DO [address] [place] [address] PCP - General Family Medicine 11/08/11 documented as of this encounter
--- OUTSIDE RECORDS SUMMARY | 2025-07-22 10:13 | XMS_ITS | Encounter Summary ---
Author Organization [employer] Address [address] [facility] 7t [place] [address] Care Team Providers Care Line Up Examiner Name Role Phone Analy Agee DO Primary Care Provider + [phone] Reason for Visit * Reason Comments Med Refill Encounter Details Date Type Department Care Team ([facility] st Contact Info) Description 01/16/2024 Refill [facility] CH[facility] MED & PEDS [address] [place], [place] [phone] Analy Agee DO [address] [place], [place] [phone] Chronic bilateral low back pain, unspecified whether [...] Description 08/20/2025 1:00 PM EDT Clinical Support [facility] MEDICINE [address] [place] [address] Elaina Baltazar RN documented as of this encounter Visit Diagnoses Diagnosis Chronic bilateral low back pain, unspecified whether sciatica present documented in this encounter Additional Health Concerns Assessment Noted Time PHQ-9 Depression Total Score: 16 023 11:33 AM EDT documented as of this encounter Care Teams Line Up Examiner Relationship Specialty Start Date End Date Analy Agee DO [address] [place] [address] PCP - General Family Medicine 11/08/11 documented as of this encounter
--- OUTSIDE RECORDS SUMMARY | 2025-07-22 10:13 | XMS_ITS | Encounter Summary ---
Author Organization [employer] Address [address] [facility] 7t [place] [address] Care Team Providers Care Nutrition Specialist Name Role Phone WesleyAnaly yang Primary Care Provider + [phone] Encounter Details Date Type Department Care Team (Late st Contact Info) Description 03/06/[address] [facility] MEDICINE [address] [place] [address] ProviderGloria MD Social History Tobacco Use Types [...] Description 08/20/2025 1:00 PM EDT Clinical Support [facility] MEDICINE [address] [place] [address] Elaina Baltazar RN documented as of this [...] documented as of this encounter Care Teams Nutrition Specialist Relationship Specialty Start Date End Date Analy Agee DO [address] [place] [address] PCP - General Family Medicine 11/08/11 documented as of this encounter
--- OUTSIDE RECORDS SUMMARY | 2025-07-22 10:13 | XMS_ITS | Encounter Summary ---
Author Organization [employer] Address [address] [facility] 7t [place] [address] Care Team Providers Care Steam And Gas Turbine Assembler Name Role Phone Analy Agee DO Primary Care Provider + [phone] Reason for Visit * Reason Comments Med Refill Encounter Details Date Type Department Care Team ([facility] st Contact Info) Description 01/16/[address] [facility] MEDICINE [address] [place], [place] [phone] Analy Agee DO [address] [place], [place] [phone] Chronic bilateral low back pain, unspecified whether [...] Description 08/20/2025 1:00 PM EDT Clinical Support [facility] MEDICINE [address] [place] [address] Elaina Baltazar RN documented as of this encounter Visit Diagnoses Diagnosis Chronic bilateral low back pain, unspecified whether sciatica present documented in this encounter Additional Health Concerns Assessment Noted Time PHQ-9 Depression Total Score: 21 024 1:37 PM EDT documented as of this encounter Care Teams Steam And Gas Turbine Assembler Relationship Specialty Start Date End Date Analy Agee DO [address] [place] [address] PCP - General Family Medicine 11/08/11 documented as of this encounter
--- OUTSIDE RECORDS SUMMARY | 2025-07-22 10:13 | XMS_ITS | Encounter Summary ---
Author Organization [employer] Address [address] [facility] 7t [place] [address] Care Team Providers Care Net Making Supervisor Name Role Phone Analy Agee Primary Care Provider + [phone] Encounter Details Date Type Department Care Team (Late st Contact Info) Description 01/15/2024 Orders Only [facility] [address] [place] [address] Provider, MD Gloria Social History Tobacco Use [...] Description 08/20/2025 1:00 PM EDT Clinical Support [facility] MEDICINE [address] [place] [address] Elaina Baltazar RN documented as of this encounter Procedures Procedure Name Priority Date/Time Associated Diagnosis Comments SURGICAL PATHOLOGY Routine 05/04/2023 11:39 AM EDT SURGICAL PATHOLOGY Routine 09/22/2022 11:40 AM EDT documented in this encounter Results * Surgical Pathology (05/04/2023 11:39 AM EDT) us Historical Provider MD LAB PATHOLOGY ORDERABLES Final Result * Surgical Pathology (09/22/2022 11:40 AM EDT) us Historical Provider MD LAB PATHOLOGY ORDERABLES Final Result documented in this encounter Visit Diagnoses Not on filedocumented in this encounter Additional Health Concerns Assessment Noted Time PHQ-9 Depression Total Score: 16 03/06/2 023 11:33 AM EDT documented as of this encounter Care Teams Net Making Supervisor Relationship Specialty Start Date End Date Analy Agee DO [address] [place] [address] PCP - General Family Medicine 11/08/11 documented as of this encounter
--- OUTSIDE RECORDS SUMMARY | 2025-07-22 10:13 | XMS_ITS | Clinical Summary ---
Author Organization [employer] Address [address] [place] [address] Care Team Providers Care Virtual Reality Specialist Name Role Phone Analy Agee DO Primary Care Provider [phone] Allergies Active Allergy Reactions Criticality Noted Date Comments [place] Oil 03/06/2023 Other reaction(s): itching throat ears Apple Juice 02/10/2014 Other reaction(s): itching throat ears Ascorbate 03/06/2023 Other reaction(s): itching throat ears Black [place] Flavoring Agent (Non-Screening) 01/22/2018 [place] Pollen Allergy Skin Test 01/22/2018 Corylus 01/22/2018 [place]ae Pollens Itching 03/06/2023 Other reaction(s): itching throat ears body sneezing Grass Pollen(K-O-R-T-Swt Howie) 01/22/2018 Kiwi Extract 01/22/2018 Other reaction(s): itching throat ears Pear 01/22/2018 Pineapple Itching 03/06/2023 Other reaction(s): itching throat ears Pineapple Extract 11/04/2015 [place] Extract 02/10/2014 Medications Elastic Bandages & Supports [...] [address] capsule 03/06/20 24 Active GAS RELIEF 125 MG capsule 05/15/20 24 Active baclofen (Lioresal) 10 MG tablet Take 1 tablet (10 mg) by mouth if needed in the morning, at noon, and at bedtime for muscle spasms. 60 tablet 3 05/16/20 24 Active TRUEplus Lancets 33G miscIndications: Type 2 diabetes mellitus with other specified complication, unspecified whether superintendent container terminal insulin use ([facility]) TEST BLOOD SUGAR TWICE DAILY 100 [...] MORNING 90 tablet 3 10/08/20 24 Active FREESTYLE LITE test stripIndications :Type 2 diabetes mellitus without complication, unspecified whether jail insulin use ([facility]) TEST BLOOD SUGAR THREE TIMES DAILY 100 strip 11 12/25/19 25 Active Alcohol Swabs (Alcohol Prep) 70 % padsIndications: Type 2 diabetes mellitus with other specified complication, unspecified whether superintendent container terminal insulin use ([facility]) USE TO TEST BLOOD SUGAR TWICE DAILY 100 each 5 01/07/20 25 Active Aspirin Low Dose 81 MG EC tabletIndication s:Type 2 diabetes mellitus with other specified complication, without long-term current use of insulin ([facility]) TAKE 1 TABLET BY MOUTH EVERY MORNING 90 tablet 3 01/08/20 25 Active cyanocobalamin (Vitamin B-12) 1000 MCG [...] THE EVENING WITH MEALS 180 tablet 3 02/17/20 25 Active docusate sodium (Colace) 100 MG capsule TAKE 1 CAPSULE BY MOUTH TWICE DAILY IN THE MORNING AND AT BEDTIME 60 capsule 5 02/21/20 25 Active atorvastatin (Lipitor) 40 MG tablet TAKE 1 TABLET BY MOUTH AT BEDTIME 90 tablet 3 03/19/20 25 Active fenofibrate (Tricor) 54 MG tablet TAKE 1 TABLET BY MOUTH EVERY EVENING 90 tablet 3 03/19/20 25 Active hydroCHLOROthiaz merritt 12.5 MG tablet TAKE 1 TABLET BY MOUTH EVERY MORNING 90 tablet 3 03/19/20 25 Active gabapentin (Neurontin) 300 MG capsuleIndicatio ns:Chronic bilateral low back pain, unspecified whether sciatica present TAKE 1 CAPSULE BY MOUTH THREE TIMES DAILY IN THE MORNING, EVENING, AND BEDTIME 90 capsule 3 05/19/20 25 Active cetirizine (ZyrTEC) 10 MG tabletIndication s:Seasonal allergic rhinitis, unspecified trigger TAKE 1 TABLET BY MOUTH EVERY MORNING 90 tablet 3 05/20/20 25 Active cholecalciferol VITAMIN D (Vitamin D-3) 50 MCG (2000 UT) tabletIndication s:Vitamin D deficiency TAKE 1 TABLET BY MOUTH AT BEDTIME 90 tablet 3 05/20/20 25 Active oxyCODONE-acetam inophen (Percocet) 5-325 MG tabletIndication s:Chronic pain of both knees TAKE 1 TABLET BY MOUTH EVERY TWELVE HOURS NEEDED FOR SEVERE PAIN 56 tablet 07/08/20 25 Active oxyCODONE-acetam inophen (Percocet) 5-325 MG tabletIndication s:Chronic pain of both knees Take 1 tablet by mouth every 12 (twelve) hours if needed for severe pain for up to 28 days. 56 tablet 05/19/20 25 025 Discontinued Active Problems Problem Noted Date Diagnosed Date Long-term current use of opiate analgesic 2023 Overview (10/07/2024): Medication: Percocet 5-325mg Q12H Indication: chronic neck pain s/p fusion cervical spine, chronic knee pain Last CONTRACT ADMINISTRATION MANAGER Agreement: 11/06/23 Additional considerations/risk factors: BZO prescription [...] Encounters Date Type Department Care Team Description 07/20/2025 Orders Only GENERIC EXTERNAL DATA DEPARTMENT Provider, Generic External Data 07/07/[address] [facility] [address] [place] [address] Analy Agee DO Chronic pain of both knees 06/17/[address] [facility] [address] [place] [address] Analy Agee DO Lab Orders 05/19/[address] [facility] [address] [place], [place] [phone] Analy Agee DO Seasonal allergic rhinitis, unspecified trigger; Vitamin D deficiency 05/18/2025 1:00 PM EDT Clinical Support [facility] [address] [place] [address] Elaina Baltazar, MAJO Long-term current use of opiate analgesic (Primary Dx) 05/18/2025 Travel 05/18/[address] [facility] [address] [place] [address] Analy Agee DO Chronic pain of both knees 05/17/[address] [facility] [address] [place] [address] Analy Agee DO Chronic bilateral low back pain, unspecified whether sciatica present 05/07/[address] [facility] [address] [address] Analy Agee, Chronic pain of both knees from Last 3 Months Immunizations Immunization Administration Dates Next Due Hep A, Adult [...] 70 02/03/2025 12:09 PM EDT Temperature 36.1 C (96.9 F) 02/03/2025 12:09 PM EDT Respiratory Rate 21 02/03/2025 12:09 PM EDT Oxygen Saturation 99% 02/03/2025 12:09 PM EDT Inhaled Oxygen Concentration - - Weight 75.4 kg (166 lb 2 oz) 02/03/2025 12:09 PM EDT Height 152.4 cm (5') 02/03/2025 12:09 PM EDT Body Mass Index 32.44 02/03/2025 12:09 PM EDT Plan of Treatment Upcoming Encounters Date Type Department Care Team (Late st Contact Info) Description 08/20/2025 1:00 PM EDT Clinical Support [facility] [address] [place] [phone] Elaina Baltazar, RN Health Maintenance Due Date Last Done Comments CT Colonography 1962 FIT DNA/Cologuard 1962 FIT 1962 FOBT 1962 Sigmoidoscopy 1960 Disability Screening 1962 Diabetes: Foot Exam 1972 Eye Exam 1972 Pap Smear 09/15/2019 09/15/2016 Cervical Cancer Screening 09/15/2021 HPV/Cotest 09/15/2021 09/15/2016 Depression Monitoring 08/24/2024 02/22/2024, 024 COVID-19 Vaccine ( season) 2024 08/15/2024, 09/06/2023, 02/05/2023, Additional history exists Influenza Vaccine (#1) 2025 , 09/06/2023, 09/20/2022, Additional history exists Diabetes: Hemoglobin A1C 08/06/2025 025, 08/15/2024, 08/15/2024, [...] 08/11/2010 HIV Screening Completed 08/15/2024, 09/26, 07/23/2020 RSV Patients and Patients Aged 60 years [...] Procedure Name Priority Date/Time Associated Diagnosis Comments COMPREHENSIVE METABOLIC PANEL Routine 07/20/2025 9:58 AM EDT CBC Routine 07/20/2025 9:58 AM EDT POCT GHISLAINE-14 URINE DRUG SCREEN Routine 05/18/2025 1:03 PM EDT Long-term current use of opiate analgesic POCT GLYCATED HEMOGLOBIN, TOTAL Routine 02/03/2025 12:12 PM EDT Type 2 diabetes mellitus without complication, without long-term current use of insulin ([facility]) BI MAMMOGRAM SCREENING TOMOSYNTHESIS BILATERAL Routine 12/17/2024 [...] Relevant to Health Maintenance Results * (ABNORMAL) CBC (07/20/2025 9:58 AM EDT) White Blood Count 6.4 4.8 - 10.8 X10*3/uL [facility] Red Blood Count 4.03(L) 4.20 - 5.50 X10*6/uL [facility] Hemoglobin 10.9(L) 12.0 - 16.0 g/dl [facility] Hematocrit 34.1(L) 37.0 - 47.0 % [facility] Mean Corpuscular Volume 84.6 80.0 - 98.0 fL [facility] Mean Corpuscular Hemoglobin 27.0 27.0 - 33.0 pg [facility] Mean Corpuscular HGB Conc 32.0 31.0 - 35.0 g/dl [facility] Red Cell Distribution Width 14.2 11.0 - 16.0 % [facility] Platelet Count 159(L) 160 - 400 X10*3/uL [facility] Mean Platelet Volume 13.0(H) 9.4 - 12.3 fL [facility] NRBC Pct Auto 0.0 0.0 - 0.2 /100WBC [facility] NRBC Abs Auto 0.000 0.0 - 0.012 X10*3/uL [facility] 07/20/2025 9:58 AM EDT 07/20/2025 9:58 AM EDT us Generic External Data Provider LAB BLOOD ORDERAB LES Final Result Performing Organization Address City/[facility]/ZIP Co de Phone Number [facility] [address] [place] [address] [phone] * (ABNORMAL) Comprehensive Metabolic Panel (07/20/2025 9:58 AM EDT) Sodium 137 135 - 145 mmol/L [facility] Potassium 3.7 3.3 - 5.1 mmol/L [facility] Chloride 99 96 - 108 mmol/L [facility] Carbon Dioxide 28 22 - 29 mmol/L [facility] Anion Gap 14 12 - 20 [facility] Urea Nitrogen (BUN) 11 9 - 16 mg/dL [facility] Creatinine, Serum 0.76 0.5 - 1.4 mg/dL [facility] Estimated Glomerular Filt Rate >60 [facility] Comment:Chronic Kidney Disea se: Estimated GFR < 60 mL/min/[id number] Kidney Disease: Estimated GFR < 15 mL/min/1.73m2 Glucose 129(H) 60 - 115 mg/dL [facility] Calcium 9.5 8.4 - 10.2 mg/dL [facility] Bilirubin, Total 0.3 0.0 - 1.0 mg/dL [facility] Aspartate Amino Transferase 39(H) 5 - 31 U/L [facility] Alanine Aminotransferase 35(H) 0 - 31 U/L [facility] Total Protein 7.0 6.5 - 8.0 g/dL [facility] Albumin Level 4.1 3.5 - 5.0 g/dL [facility] Alkaline Phosphatase 64 39 - 117 U/L [facility] 07/20/2025 9:58 AM EDT 07/20/2025 9:58 AM EDT us Generic External Data Provider LAB BLOOD ORDERAB LES Final Result Performing Organization Address City/[facility]/ZIP Co de Phone Number [facility] [address] [place] [address] [phone] * POCT GHISLAINE-14 Urine Drug Screen (05/18/2025 1:03 PM EDT) THC Negative Cocaine Screen, Urine Negative Opiate Screen, Urine Negative Methamphetamine Screen Urine Negative Amphetamine Screen, Urine Negative Benzodiazepines Screen, Urine Positive Barbiturate Screen, Urine Negative Methadone Screen, Urine Negative Buprenophine Screen, Urine Negative TCA, Urine Negative MDMA Urine Negative ng/mL Oxycodone Screen, Urine Positive Phencyclidine (PCP), Urine Negative Propoxyphene, Urine Negative Fentanyl, Urine Negative Urine Urine specimen obtained by clean catch procedure / Unknown 05/18/2025 1:03 PM EDT Narrative Elaina Baltazar RN - 05/18/2025 1:03 PM EDT UTOX cup Lot#[id number] Exp. 09/25/26 Internal Pass Control Analy Agee DO POINT OF CARE TEST ENTER/ERIN T ORDERABLES Final Result * (ABNORMAL) POCT HGB A1C (02/03/2025 12:12 [...] PM EST Narrative 12/26/2024 10:23 AM EST [facility] [address] [place] [address] Mammography Report Signed Patient: Wendy Garibay MR#: [id number] : 1960 Acct:[id number] Age/Sex: 64 / F ADM Date: 12/17/24 Loc: HO.MAMMO Attending Dr: Analy Agee DO Ordering Physician: Analy Agee DO Results: 1N egative Date of Service: 12/17/24 Follow Up: 1 Year From Orig inal Mammogram Procedure(s): MM tomosynthesis screening BI Accession Number(s): [id number] cc: Analy Agee DO EXAMINATION: MM SCREENING [...] 12/26/24 1018 DD/ 1200 TD/TT: 12/17/24 1217 Area Plant Manager: Procedure Note Donotuseinterpreter, Image - 12/26/2024 [facility] [address] [place], [place] [address] Mammography Report Signed Patient: Wendy Garibay MR#: [id number] : 1960Acct:[id number] Age/Sex: 64 / FADM Date: 12/17/24 Loc: MAMMO Attending Dr: Analy Agee DO Ordering Physician: Jurcsak,Analy A DOResults: 1N egative Date of Service: 12/17/24Follow Up: 1 Year From Orig inal Mammogram Procedure(s): MM tomosynthesis screening BI Accession Number(s): [id number] cc: Analy Agee DO EXAMINATION: MM SCREENING [...] 12/26/24 1018 DD/ 1200 TD/TT: 12/17/24 1217 Area Plant Manager: Analy Agee DO IMG BI PROCEDURES Final Resu lt * Albumin, Random Urine W/Creatinine (08/15/2024 12:47 PM EDT) Creatinine, Urine 115.59 mg/dL [facility] Microalbumin Urine 7.0 mg/L [facility] Microalbum Creatinine Ratio Ur 6.0 <30 ug/mg cr [facility] Comment:Albumin/Creatinine R atio Reference Ranges: Normal: < 30 ug/mg creatinine Microalbuminuria: 30 - 300 ug/mg creatinineClinical Albuminuria: > 300 ug/mg creatinine 08/15/2024 12:4 7 PM EDT 08/15/2024 4:05 PM EDT Analy Agee DO LAB URINE ORDERABLES Final R esult Performing Organization Address [facility] Co de Phone Number [facility] [address] [place] [address] [phone] * HIV-1/2 Antigen and Antibodies, Fourth Generation, with Reflexes (08/15/2024 12:40 PM EDT) HIV AB/AG Nonreactive Nonreactive [facility] Comment:HIV-1 p24 Ag and/or HIV-1/HIV-2 Ab not detected.A test result that is nonreactive does not exclude thepossibility of exposure to or infection with HIV-1 and/orHIV-2. Nonreactive results in this assay for individualswith prior exposure to HIV-1 and/or HIV-2 may be due toantigen and antibody levels that are below the limit ofdetection of this assay.The [employer] HIV Ag/Ab Combo assay result andsupplemental assay results should be interpreted inconjunction with the patient's clinical presentation,history and other laboratory results. If the results areinconsistent with clinical evidence, additional testing issuggested to confirm the result. 08/15/2024 12:4 0 PM EDT 08/15/2024 4:17 PM EDT Analy Agee DO LAB BLOOD ORDERABLES Final R esult Performing Organization Address [facility] Co de Phone Number [facility] [address] [place] [address] [phone] * Lipid Panel, Standard (08/15/2024 12:40 PM EDT) Triglycerides 142 <150 mg/dL [facility] Comment:Desirable Triglyceri de: less than 150 mg/dLBorderline High Triglyceride 150-199 mg/dLHigh Triglyceride: 200-499 mg/dLVery High Triglyceride: greater than or equal to 5OO mg/dL Cholesterol 136 <200 mg/dL [facility] Comment:Desirable Cholestero l: less than 200 mg/dLBorderline High Cholesterol: 200-239 mg/dLHigh Cholesterol: greater than 239 mg/dL LDL Cholesterol Calculated 66 <100 mg/dL [facility] Comment:Desirable LDL: less than 100 mg/dLNear Optimal/Above Optimal LDL: 110- 129 mg/dLBorderline High LDL: 130-159 mg/dLHigh LDL: 160-189 mg/dLVery High LDL: greater than or equal to 190 mg/dL HDL Cholesterol 42 >40 mg/dL [facility] Comment:Desirable HDL: great er than 40 mg/dL Note: This HDL assay may give artificially low results in patients with liver disease. 08/15/2024 12:4 0 PM EDT 08/15/2024 4:17 PM EDT Analy Agee DO LAB BLOOD ORDERABLES Final R esult [facility] [address] [place] [phone] * Hm Colonoscopy (09/22/2022 9:26 AM EDT) Historical Provider HEALTH MAINTENANCE Final Result * HEPATITIS C AB W/REFL TO HCV RNA, QN, PCR (10/13/2021 2:59 PM EST) HEPATITIS C ANTIBODY NON-REACT DESI NON-REACT DESI [facility] INDEX 0.01 <1.00 [facility] Comment: HCV antibody was non-reactive. There is no laboratory evidence of HCV infection. In most cases, no further action is required. However, if recent HCV exposure is suspected, a test for HCV RNA (test code 53205) is suggested. For additional information please refer to http://education.klinify/faq/SQU10s8 (This link is being provided for informational/ educational purposes only.) 10/13/2021 2:59 PM EST Analy Agee DO HISTORICAL/NON ORDERABLE LAB S Final Result [facility] [address] [place] [address], [place] * HPV E6/E7 RFLX BERNARDO 16 18/45 (09/15/2016 11:45 AM EDT) ADDITIONAL TESTING Not indicated () [facility] Comment: Test Performed by [facility], [facility], [address] [place] [address] Rojas Meneses M.D., Ph.D., Director of Laboratories , [facility] [id number] HPV 16 RNA Test not performed [facility] HPV 18/45 RNA Test not performed [facility] HPV mRNA E6/E7 Not Detected NOT DETECTED [facility] Comment: This assay detects E6/E7 viral messenger RNA (mRNA) from 14 high-risk HPV types (16,18,31,33,35,39,45,51, 52,56,58,59,66,68). This test was performed using the APTIMA(R) TMA HPV Assay ([employer] For additional information, please refer to http://education.klinify/faq/YOO922i5 Please note: Effective 08/07/2016, HPV testing will be performed using [employer]'s APTIMA test which targets mRNA. Detecting mRNA instead of DNA, as in older methods, offers significant improvements in specificity. 09/15/2016 11:4 5 AM EDT us Analy Agee DO HISTORICAL/NON ORDERABLE LAB S Final Result Performing Organization Address City/[facility]/ZIP Co de Phone Number [facility] [address] [place] [address], [place] * Pap Smear (09/15/2016 12:00 AM EDT) Swab Analy Agee DO LAB CYTOLOGY ORDERABLES Paradise l Result Performing Organization Address City/[facility]/ZIP Co de Phone Number [facility] [address] [place] [phone] from Last 3 Months or Most Recently Relevant to Health Maintenance Insurance [facility] ONE CARE < [address] [place] [id number] Care Teams Virtual Reality Specialist Relationship Specialty Start Date End Date Analy Agee DO [address] [place] [phone] PCP - General Family Medicine 11/08/11
--- OUTSIDE RECORDS SUMMARY | 2025-07-22 10:13 | XMS_ITS | Clinical Summary ---
Author Organization [employer] [facility] Address [address] [place] [address] Care Team Providers Care Fabrication Inspector Name Role Phone Analy Agee DO Primary [...] age to complete this topic Care Teams Fabrication Inspector Relationship Specialty Start Date End Date Analy Agee DO [address] [place] [phone] PCP - General Family Medicine 08/19/19
--- OUTSIDE RECORDS SUMMARY | 2025-07-22 10:13 | XMS_ITS | Clinical Summary ---
Author Organization [employer] [facility] Address [address] [place] [address] Care Team Providers Care Migration Agent Name Role Phone WesleyAnaly yang Lynn CUMMINGS Primary Care Provider [phone] Surgical History Surgery Date Site/Laterality Comments OTHER SURGICAL HISTORY 11/03/2019 PROCEDURE: KS ARTHRD ANT INTERBODY MIN DSC CRV BELOW C2; COMMENT: C5-6, C6-7 anterior cervical discectomy and fusion with plating, Dr. Torres HYSTERECTOMY PROCEDURE: HISTORICAL HYSTERECTOMY TOTAL KNEE ARTHROPLASTY Right PROCEDURE: KS ARTHRP KNE CONDYLE&PLATU MEDIAL&LAT COMPARTMENTS Medical History Medical History Date Comments Type 2 diabetes mellitus wit hout complications (CMS/HCC V24, CMS/[facility] V28) DX:Type 2 evgeny betes mellitus without [...] Documents on File Type Date Recorded Patient Resourcing Consultant Expl anation Health Care Decision (hx) 11/03/2019 [...] (hx) 11/03/2019 AD SIMON DIRECTIVE Care Teams Migration Agent Relationship Specialty Start Date End Date Analy Agee DO [address] [place] [address] PCP - General Internal Medicine 01/15/14
== END 2025-07-22 10:17 | disposition home or self-care (01) ==
LOC: HO.HGI 09:35
PROVIDERS: PCP Family Medicine; Visit Provider Nurse Practitioner Family
DX: R13.14 Dysphagia, pharyngoesophageal phase (principal); R10.12 Left upper quadrant pain; R14.0 Abdominal distension (gaseous); K59.01 Slow transit constipation; K21.9 Gastro-esophageal reflux disease without esophagitis; K76.0 Fatty (change of) liver, not elsewhere classified
CPT/HCPCS: 99214; G2211

== ENCOUNTER → 2025-07-22 09:34 | Outpatient (BNVA) | payer OTHER, SELFPAY | PROVIDERS: PCP Family Medicine; Visit Provider Nurse Practitioner Family | DX: R10.12 Left upper quadrant pain (principal); R13.14 Dysphagia, pharyngoesophageal phase; K21.9 Gastro-esophageal reflux disease without esophagitis; K59.01 Slow transit constipation; R14.0 Abdominal distension (gaseous); K76.0 Fatty (change of) liver, not elsewhere classified | CPT/HCPCS: 99212 ==

== ENCOUNTER 2025-10-21 12:39 | Outpatient (AMB) | payer OTHER, SELFPAY ==
[2025-10-21 13:25] VITALS: BP 123/68; PULSE 72; RESP 18
--- NOTE | 2025-10-21 13:25 | A.OFFVIS_ITS ---
Vital Signs 10/21/25 13:25 BP 123/68 Blood Pressure Location Lt brachial Respiration 18 Pulse 72 Intake Visit Reasons: 3 mos FUV. GERD mgmt. Allergies apple (APPLE) Allergy (Mild, Verified 10/21/25 15:18) ITCHY THROAT kiwi (KIWI) Allergy (Mild, Verified 10/21/25 15:18) ITCHY THROAT peach (PEACH) Allergy (Mild, Verified 10/21/25 15:18) ITCHY THROAT strawberry (STRAWBERRY) Allergy (Mild, Verified 10/21/25 15:18) ITCHY THROAT pineapple (PINEAPPLE) Allergy (Unknown, Verified 10/21/25 15:18) ITCHY THROAT apples,strawberries, pineapple Allergy (Unknown, Uncoded 07/22/25 09:40) itching shellfish Allergy (Uncoded 07/22/25 09:40) Itching Medication List - Last Reconciled 10/21/25 by Alanna Rolon, [employer]- albuterol sulfate 1 amp inhalation Q4H PRN albuterol sulfate 90 mcg/actuation 2 puffs inhalation Q4H PRN aspirin 1 tab PO QAM atorvastatin 1 tab PO DAILY baclofen 10 mg PO TID blood sugar diagnostic (FreeStyle Lite Strips) As directed calcium polycarbophil (Fiber-Lax) mg PO cetirizine (Zyrtec) 10 mg PO DAILY PRN cholecalciferol (vitamin D3) 1 tab PO BEDTIME clonazepam 1 tab PO BEDTIME cyanocobalamin (vitamin B-12) 1 tab PO DAILY diclofenac sodium 1% 4 grams topical QID duloxetine 20 mg PO BID esomeprazole magnesium 40 mg PO QAM fenofibrate 1 tab PO DAILY fexofenadine 180 mg PO DAILY fluticasone propionate 50 mcg/actuation 2 sprays intranasal DAILY gabapentin 1 cap PO TID hydrochlorothiazide 1 tab PO QAM hydrocortisone 2.5% (Proctosol HC) 1 appl [place] BID-QID PRN lancets (TRUEplus Lancets) As directed lisinopril 1 tab PO DAILY lorazepam 1 tab PO BEDTIME PRN meclizine 25 mg PO DAILY PRN meloxicam 15 mg PO DAILY metformin 1 tab PO BID oxcarbazepine 1 tab PO BID oxybutynin chloride ER 1 tab PO QAM oxycodone-acetaminophen 5-325 mg 1 tab PO BID PRN quetiapine 1 - 2 tabs PO BEDTIME PRN sennosides (Natural Senna Laxative) 17.2 mg (2 x 8.6 mg) PO BEDTIME simethicone 125 mg PO BID-QID PRN sucralfate 1 g PO BEDTIME HPI HPI 3 mos FUV. GERD mgmt.: Details: LAST VISIT: Dysphagia Left upper quadrant abdominal pain Postprandial abdominal bloating Constipation Gastroesophageal reflux disease Steatosis of liver Plan Patient will continue taking Nexium in the morning and sucralfate at bedtime. Continue taking senna daily. Patient was encouraged to take it daily or every other day so she can empty her bowels better. Increase fluid intake and activity to promote better bowel motility. Patient was encouraged to avoid dietary triggers and late night snacking. Staying upright for minimum 3 hours after meals discussed with patient. Will send patient for abdominal ultrasound with elastography to evaluate her liver. Script for Proctosol send. Patient reports occasional hemorrhoids when she is constipated. Patient was also encouraged to increase fiber in her diet. May take over the counter fiber supplements daily. Patient will follow-up in our office in 3-4 months. Patient was encouraged to call us if she will have any GI concerning symptoms. Patient is agreeable to this plan and verbalizes understanding of instructions. She was given the opportunity to ask questions and all questions answered. ? Thank you for allowing me to participate in her care Orders US abdomen comp w elastography 07/22/25 R79.89 New hydrocortisone 2.5% (Proctosol HC) 1 appl [place] BID-QID PRN 30 grams 2RF hemorrhoids K64.9 Refilled simethicone 125 mg PO BID-QID PRN 120 caps 3RF abdominal distention K21.9 TODAY'S VISIT: Patient is here today for follow-up. Patient reports that she has been doing better, however she continues to have abdominal bloating. Patient reports that she is moving her bowels well with senna. Bowel movements daily or every other day. Patient takes to send us every day. Drinks 1-2 8 oz glasses of water every day. Patient admits to be eating sandwiches and wheat bread. Patient also reports eating salads with onions. She is not following a low FODMAP diet. Patient lost her list. Patient denies nausea or vomiting. Denies any dyspepsia, dysphagia or odynophagia. Reports that [employer] is working for her. Denies any acid reflux. Patient is also taking sucralfate at bedtime [facility] Medical History Constipation GERD (gastroesophageal reflux disease) Osteoarthritis Schatzki's ring Headache Fatty liver Pulmonary nodule Asthma FH: total knee replacement Scoliosis Arthritis Hyperlipemia Depression Anxiety Hypertension Diabetes Surgical History History of esophagogastroduodenoscopy (EGD) Hx of colonoscopy S/P cervical disc replacement (Unknown) History of tubal ligation H/O: hysterectomy Family History Maternal Grandmother Uterine cancer Social History Household Members: None Housing: Apartment Alcohol intake: former Patient Tobacco Use Status: Former Tobacco user Tobacco use type: Cigarette service: No Current occupational status: retired Review of Systems Const Denies weight gain and Denies weight loss ENT Reports no additional complaints, Denies dysphagia and Denies odynophagia Card Reports no additional complaints Resp Reports no additional complaints GI Denies abdominal pain, Denies belching, Denies melena, Reports bloating, Denies change in bowel habits, Reports constipation (occasional), Denies dysphagia, Denies excessive flatus, Denies dyspepsia, Denies heartburn, Denies diarrhea, Denies loose stools, Denies nausea, Denies odynophagia and Denies vomiting Reports no additional complaints Musc Reports no additional complaints Neuro Reports no additional complaints Psych Reports no additional complaints Endo Reports no additional complaints Physical Exam Vital Signs: Last Vital Signs Pulse 72 10/21/25 13:25 Resp 18 10/21/25 13:25 BP 123/68 10/21/25 13:25 Const Other: Patient ambulating using cane General: healthy appearing and no acute distress Nutritional Appearance: obese Orientation/consciousness: patient oriented x3 Resp Effort & Inspection: normal respiratory effort, able to speak in complete sentences, no tracheal deviation and symmetric chest movement Auscultation: clear to auscultation bilaterally Cardio Rate: regular rate GI Inspection: Yes normal to inspection, No distended and Yes obesity Palpation (GI): Soft to palpation, not firm, nontender and No hepatosplenomegaly present Auscultation: normal bowel sounds General: Yes no CVA tenderness Back/Spine/Pelvis Back: no CVA tenderness Skin General skin exam: elasticity normal, turgor normal and dry skin Neuro General: patient oriented x3 Psych Appearance: grossly normal Mental Status: mental status grossly normal Assessment & Plan Assessment & Plan (1) Dysphagia: Code(s): R13.10 - Dysphagia, unspecified Qualifiers: Dysphagia type: oropharyngeal phase Qualified Code(s): R13.12 - Dysphagia, oropharyngeal phase (2) Left upper quadrant abdominal pain: Code(s): R10.12 - Left upper quadrant pain (3) Postprandial abdominal bloating: Code(s): R14.0 - Abdominal distension (gaseous) (4) Constipation: Code(s): K59.00 - Constipation, unspecified Qualifiers: Constipation type: slow transit constipation Qualified Code(s): K59.01 - Slow transit constipation (5) Gastroesophageal reflux disease: Code(s): K21.9 - Gastro-esophageal reflux disease without esophagitis Qualifiers: Esophagitis presence: esophagitis presence not specified Qualified Code(s): K21.9 - Gastro-esophageal reflux disease without esophagitis (6) Steatosis of liver: Code(s): K76.0 - Fatty (change of) liver, not elsewhere classified Plan Patient will continue taking Nexium every morning. Avoid dietary triggers and late night snacking. Staying upright for minimum 3 hours after meals discussed patient. Discussed with patient low FODMAP diet. List of food recommended as well as list of food to avoid given to patient. Patient will continue taking simethicone as needed. Continue taking senna daily. Increase fluid intake and activity to promote bowel motility. Patient will follow-up in our office in 4 months, sooner on as needed basis. Patient is agreeable to this plan and verbalizes understanding of instructions. She was given the opportunity to ask questions and all questions answered. Thank you for allowing me to participate in her care Medications: Refilled simethicone 125 mg PO BID-QID PRN 120 caps 3RF abdominal distention K21.9 - Gastro-esophageal reflux disease without esophagitis Coding Level of Care Code Est Pt Level 4 (83949) Complex visit Add On G2211 Diagnoses Oropharyngeal dysphagia R13.12 Dysphagia type: oropharyngeal phase Left upper quadrant abdominal pain R10.12 Postprandial abdominal bloating R14.0 Slow transit constipation K59.01 Constipation type: slow transit constipation Gastroesophageal reflux disease, unspecified whether esophagitis present K21.9 Esophagitis presence: esophagitis presence not specified Steatosis of liver K76.0 Time Spent (min) 35 Comment 25 minutes spent with patient and additional 10 minutes spent reviewing her records
--- OUTSIDE RECORDS SUMMARY | 2025-10-21 15:43 | XMS_ITS | Clinical Summary ---
Author Organization [facility] Address [address] [place] [address] Care Team Providers Care Chemist Physical Name Role Phone Analy Agee DO Primary [...] age to complete this topic Care Teams Chemist Physical Relationship Specialty Start Date End Date Analy Agee DO [address] [place] [phone] PCP - General Family Medicine 08/19/19
--- OUTSIDE RECORDS SUMMARY | 2025-10-21 15:43 | XMS_ITS | Encounter Summary ---
Author Organization [employer] Address [address] [place] [address] Care Team Providers Care Electrochemist Name Role Phone Analy Agee DO Primary Care Provider + [phone] Reason for Visit * Reason Comments Med Refill Encounter Details Date Type Department Care Team ([facility] st Contact Info) Description 09/24/2025 Refill [facility] MEDICINE [address] [place], [place] [phone] Analy Agee DO [address] [place] [address] Chronic bilateral low back pain, unspecified whether [...] Care Team (Late st Contact Info) Description 11/16/2025 1:00 PM EST Clinical Support [facility] MEDICINE [address] [place] [address] Elaina Baltazar, MAJO documented as of this encounter Visit Diagnoses Diagnosis Chronic bilateral low back pain, unspecified whether sciatica present documented in this encounter Additional Health Concerns Assessment Noted Time PHQ-9 Depression Total Score: 21 024 1:37 PM EDT documented as of this encounter Care Teams Electrochemist Relationship Specialty Start Date End Date Analy Agee DO [address] [place] [address] PCP - General Family Medicine 11/08/11 documented as of this encounter
--- OUTSIDE RECORDS SUMMARY | 2025-10-21 15:43 | XMS_ITS | Clinical Summary ---
Author Organization [employer] Address [address] [facility] [address] [place] [address] Care Team Providers Care Director Of Graduate Admissions Name Role Phone Analy Agee DO Primary Care Provider [phone] Allergies Active Allergy Reactions Criticality Noted Date Comments [place] Oil 03/06/2023 Other reaction(s): itching throat ears Apple Juice 02/10/2014 Other reaction(s): itching throat ears Ascorbate 03/06/2023 Other reaction(s): itching throat ears Ascorbic Acid 10/07/2025 Other Reaction(s): itching throat ears Black Palmer Flavoring Agent (Non-Screening) 01/22/2018 Black Palmer Pollen Allergy Skin Test 01/22/2018 Corylus 01/22/2018 Gramineae Pollens Itching 03/06/2023 Other reaction(s): itching throat ears body sneezing Grass Pollen(K-O-R-T-Swt Howie) 01/22/2018 Kiwi Extract 01/22/2018 Other reaction(s): itching throat ears Pear 01/22/2018 Pineapple Itching 03/06/2023 Other reaction(s): itching throat ears Pineapple Extract 11/04/2015 [place] Extract 02/10/2014 Medications Elastic Bandages & Supports [...] Active naloxone (Narcan) 4 mg/0.1 mL nasal sprayIndication s:Chronic low back pain, unspecified back pain laterality, [...] 3 05/16/20 24 Active TRUEplus Lancets 33G miscIndications :Type 2 diabetes mellitus with other specified complication, unspecified whether custodial insulin use (HCC) TEST BLOOD SUGAR TWICE DAILY 100 each [...] 3 10/08/20 24 Active FREESTYLE LITE test stripIndication s:Type 2 diabetes mellitus without complication, unspecified whether long wall shear operator insulin use TEST BLOOD SUGAR THREE TIMES DAILY 100 strip 11 12/25/19 25 Active Alcohol Swabs (Alcohol Prep) 70 % padsIndications :Type 2 diabetes mellitus with other specified complication, unspecified whether long wall shear operator insulin use (HCC) USE TO TEST BLOOD SUGAR TWICE DAILY 100 each 5 01/07/20 25 Active Aspirin Low Dose 81 MG EC tabletIndicatio ns:Type 2 diabetes mellitus with other specified complication, without long-term current use of insulin (HCC) TAKE 1 TABLET BY MOUTH EVERY MORNING 90 tablet 3 01/08/20 25 Active cyanocobalamin (Vitamin B-12) 1000 MCG tablet Take 1 tablet (1,000 mcg) by mouth every other day. 30 tablet 5 02/05/20 25 Active lisinopril 40 MG tabletIndicatio ns:Essential hypertension TAKE 1 TABLET BY MOUTH EVERY MORNING 90 tablet 3 02/17/20 25 Active metFORMIN (Glucophage) 500 MG tabletIndicatio ns:Type 2 diabetes mellitus without complication, with long-term current use of insulin (HCC) TAKE 1 TABLET BY MOUTH TWICE DAILY IN THE MORNING AND IN THE EVENING WITH MEALS 180 tablet 3 02/17/20 25 Active atorvastatin (Lipitor) 40 MG tablet TAKE 1 TABLET BY MOUTH AT BEDTIME 90 tablet 3 03/19/20 25 Active fenofibrate (Tricor) 54 MG tablet TAKE 1 TABLET BY MOUTH EVERY EVENING 90 tablet 3 03/19/20 25 Active hydroCHLOROthia zide 12.5 MG tablet TAKE 1 TABLET BY MOUTH EVERY MORNING 90 tablet 3 5 2:41 PM EST 03/19/20 25 Active cetirizine (ZyrTEC) 10 MG tabletIndicatio ns:Seasonal allergic rhinitis, unspecified trigger TAKE 1 TABLET BY MOUTH EVERY MORNING 90 tablet 3 05/20/20 25 Active cholecalciferol VITAMIN D (Vitamin D-3) 50 MCG (2000 UT) tabletIndicatio ns:Vitamin D deficiency TAKE 1 TABLET BY MOUTH AT BEDTIME 90 tablet 3 05/20/20 25 Active docusate sodium (Colace) 100 MG capsule TAKE 1 CAPSULE BY MOUTH TWICE DAILY IN THE MORNING AND AT BEDTIME 60 capsule 5 08/24/20 25 Active oxyCODONE-aceta minophen (Percocet) 5-325 MG tabletIndicatio ns:Chronic pain of both knees TAKE 1 TABLET BY MOUTH EVERY TWELVE HOURS NEEDED FOR SEVERE PAIN 56 tablet 09/10/20 25 Active fexofenadine (Angela) 180 MG tablet Take 1 tablet (180 mg) by mouth Once per day. 30 tablet 11 5 2:41 PM EST 10/07/20 25 026 Active clobetasol (Temovate) 0.05 % external solution APPLY TO THE AFFECTED AREA(S) ON SCALP TWICE DAILY FOR 2 WEEKS, STOP FOR 1 WEEK, THEN USE 1 TO 2 TIMES PER WEEK NEEDED 06/16/20 25 Active gabapentin (Neurontin) 300 MG capsuleIndicati ons:Chronic bilateral low back pain, unspecified whether sciatica present Take 1 capsule (300 mg) by mouth 3 times daily. 90 capsule 3 5 2:41 PM EST 10/13/20 25 Active gabapentin (Neurontin) 300 MG capsuleIndicati ons:Chronic bilateral low back pain, unspecified whether sciatica present TAKE 1 CAPSULE BY MOUTH THREE TIMES DAILY IN THE MORNING, EVENING, AND BEDTIME 90 capsule 3 05/19/20 25 025 Discontinued(R eorder (will not trigger notification to Pharmacy)) Active Problems Problem Noted Date Diagnosed Date Long-term current use of opiate analgesic 2023 Overview (10/07/2024): Medication: Percocet 5-325mg Q12H Indication: chronic neck pain s/p fusion cervical spine, chronic knee pain Last KEYBOARD TEACHER Agreement: 11/06/23 Additional considerations/risk factors: BZO [...] major depre ssive disorder with psychotic features (CMS/HCC) 08/27/2015 Fatty liver 08/27/2015 Type 2 diabetes [...] Encounters Date Type Department Care Team Description 10/21/2025 Refill [facility] [address] [place] [address] Analy Agee DO 10/13/2025 Refill [facility] [address] [place] [address] Analy Agee DO Chronic bilateral low back pain, unspecified whether sciatica present 10/07/2025 11:00 AM EST Office Visit [facility] [address] [facility] [place] [address] Analy Agee DO Type 2 diabetes mellitus without complication, without long-term current use of insulin (HCC) (Primary Dx); Essential hypertension; Other hyperlipidemia; Fatty liver; 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) (HCC); Chronic gastroesophageal reflux disease; Chronic constipation; Ascending aorta dilatation (CMS/HCC); Pulmonary nodules; Chronic neck pain; Chronic pain of both knees; Polyarthralgia; Memory loss; Chronic allergic rhinitis; Left eye pain; Healthcare maintenance; Dietary counseling; Exercise counseling; Encounter for immunization; Encounter for vaccination 10/07/2025 Travel 10/06/[address] [address] Analy Agee DO Chart Prep 10/01/2025 Patient Outreach [address] [address] Analy Agee DO Pre-visit Planning (SDOH screening negative and Tobacco screening negative) 09/24/[address] [address] Analy Agee DO Recall Appointment 09/24/2025 Travel 09/24/[address] [address] Analy Agee DO Chronic bilateral low back pain, unspecified whether sciatica present 09/09/[address] [address] Analy Agee DO Chronic pain of both knees 08/22/[address] [address] Analy Agee DO 08/20/2025 1:00 PM EDT Clinical Support [address] [address] Elaina Baltazar, RN Long-term current use of opiate analgesic (Primary Dx) 08/20/[address] [address] Analy Agee DO Chronic pain of both knees 08/20/[address] [address] Elaina Baltazar, MAJO KEYBOARD TEACHER Agreement renewed today 08/20/2025 Travel from Last 3 Months Immunizations Immunization Administration Dates Next Due Hep A, Adult 04/08/2015,10/01/2014 Hep B, adult 02/16/2016,11/02/2014,10/01/2014 Influenza injectable quadriv alent IIV4 with preservative 08/22/2018,09/15/2016 Influenza injectable quadriv alent preservative free 09/06/2023,09/20/2022,10/13/2021,08/17,08/15/2019,08/27/2017,08/27/2015 Influenza, IIV3, injectable 08/15/2024,1 ,11/08/2011,08/11,11/01/2009 Influenza, Split (incl. joaquim fied surface antigen) 09/12/2013,12/06/2012 Influenza, seasonal, injecta ble, preservative free 10/07/2025 Moderna Covid-19 Vaccine 12+ 03/26/2021,02/27/20 21 Pfizer Covid-19 Vaccine 12+ 10/07/2025,0 08/15/2024,09/06/2023,10/13 Pfizer Covid-19 Vaccine 12+ Bivalent 02/05/2023 Pneumococcal [...] Answer Date Recorded Patient Health Questionnaire-9 Score 24 10/07/2025 Patient Health Questionnaire-9 Score 24 10/07/2025 Last PHQ-9: Questionnaire Data Not on file 1 2024 Housing Stability Answer Date Recorded What is [...] got money to buy more: Never True 10/01/2025 Within the past 12 months,th e food you bought just didn't last and you didn't have enough money to get more: Never True 04/2025 Transportation Answer Date Recorded In the past [...] Answer Date Recorded Patient Health Questionnaire-2 Score 6 10/07/2025 Internet Access Answer Date Recorded Internet Access Q1 Yes 10/03/2024 Internet Access Q2 Not on file 10/03/2024 Comments No Sex and Gender Information Value Date Recorded Sex Assigned at Female 09/25/2022 10:15 AM EDT Legal Sex Female 10:15 AM EDT Gender Identity Female 09/25/2022 10:15 AM EDT Sexual Orientation Straight 09/25/2022 10 :15 AM EDT Last Filed Vital Signs Vital Sign Reading Time Taken Comments Blood Pressure 132/78 10/07/2025 11:17 AM EST Pulse 76 10/07/2025 11:17 AM EST Temperature 36.6 C (97.9 F) 10/07/2025 11:17 AM EST Respiratory Rate 20 10/07/2025 11:17 AM EST Oxygen Saturation 98% 10/07/2025 11:17 AM EST Inhaled Oxygen Concentration - - Weight 74.4 kg (164 lb) 10/07/2025 11:17 AM EST Height 154.9 cm (5' 1 ) 10/07/2025 11:17 AM EST Body Mass Index 30.99 10/07/2025 11:17 AM EST Plan of Treatment Upcoming Encounters Date Type Department Care Team (Late st Contact Info) Description 11/16/2025 1:00 PM EST Clinical Support [address] [address] Elaina Baltazar, RN Health Maintenance Due Date Last Done Comments CT Colonography 1960 FIT DNA/Cologuard 1960 FIT 1962 FOBT 1960 Sigmoidoscopy 1960 Disability Screening 1960 Diabetes: Foot Exam 1972 Eye Exam 1972 Pap Smear 09/15/2019 09/15/2016 Cervical Cancer Screening 09/15/2021 HPV/Cotest 09/15/2021 09/15/2016 Diabetes: Urine Protein Screening 08/15/2025 08/15/2024, 09/08/2022, 10/13/2021, Additional history exists Lipid Panel 08/15/2025 08/15/2024, 09/26, 07/23/2020 Mammogram 12/17/2025 12/17/2024, 11/26, 11/07/2022, Additional history exists Alcohol/Substance Use Screening 02/03/2026 02/03/2025 Depression Monitoring 04/06/2026 10/07/2025, 025 Diabetes: Hemoglobin A1C 04/06/2026 025, 02/03/2025, 08/15/2024, Additional history exists SDOH Screening 10/01/2026 10/01/2025 Tobacco Screening 10/07/2026 10/07/2025 Colonoscopy 09/22/2032 09/22/2022 Colorectal Cancer Screening 09/22/2032 [...] Aged 60 years or older Completed 10/13/2024 COVID-19 Vaccine Completed 10/07/2025, , 09/06/2023, Additional history exists Influenza Vaccine Completed 10/07/2025, , 09/06/2023, Additional history exists HIB Vaccines Aged Out No longer eligi [...] on patient's age to complete this topic Goals Goal Patient Goal Type Associated Problems Recent Progress Patient-Stated? Author Help patients manage their type 2 diabetes Care Plan Help patients manage their type 2 diabetes Analy Cai DO Weekly blood pressure task Care Plan Weekly blood pressure task No Analy Agee DO Help patients manage their type 2 diabetes Care Plan Help patients manage their type 2 diabetes No Analy Agee DO Patient has chronic kidney disease Care Plan Patient has chronic kidney disease No Analy Agee DO Weekly blood pressure task Care Plan Weekly blood pressure task No Analy Agee DO Patient has chronic kidney disease Care Plan Patient has chronic kidney disease No Analy Agee DO Weekly blood pressure task Care Plan Weekly blood pressure task No Analy Ordonez PharmD Weekly blood pressure task Care Plan Weekly blood pressure task No Analy Ordonez PharmD Patient has chronic kidney disease Care Plan Patient has chronic kidney disease No Analy Ordonez PharmD Patient has chronic kidney disease Care Plan Patient has chronic kidney disease No Analy Ordonez PharmD Procedures Procedure Name Priority Date/Time Associated Diagnosis Comments POCT GLYCATED HEMOGLOBIN, TOTAL Routine 10/07/2025 11:20 AM EST Type 2 diabetes mellitus without complication, without long-term current use of insulin (HCC) POCT GLUCOSE Routine 10/07/2025 11:19 AM EST Type 2 diabetes mellitus without complication, without long-term current use of insulin (HCC) POCT GHISLAINE-14 URINE DRUG SCREEN Routine 08/20/2025 1:22 PM EDT Long-term current use of opiate analgesic BI MAMMOGRAM SCREENING TOMOSYNTHESIS BILATERAL Routine 12/17/2024 [...] Relevant to Health Maintenance Results * (ABNORMAL) POCT Hgb A1c (10/07/2025 11:20 AM EST) Hemoglobin A1C 6.4(A) 4.0 - 5.7 % QC Media Lot # [id number] Lot# Expiration Date [id number] Blood 10/07/2025 11:2 0 AM EST Analy Agee DO POINT OF CARE TEST ENTER/ERIN T ORDERABLES Final Result * POCT Glucose (10/07/2025 11:19 AM EST) Glucose Blood, POC 171 60 - 200 mg/dL QC Media Lot # [id number] Lot# Expiration Date [id number] Blood Capillary blood specimen / Unknown 10/07/2025 11:19 AM EST Analy Agee DO POINT OF CARE TEST ENTER/ERIN T ORDERABLES Final Result * POCT GHISLAINE-14 Urine Drug Screen (08/20/2025 1:22 PM EDT) THC Negative Negative Cocaine Screen, Urine Negative Negative Opiate Screen, Urine Negative Negative Methamphetamine Screen Urine Negative Negative Amphetamine Screen, Urine Negative Negative Benzodiazepines Screen, Urine Positive Negative Barbiturate Screen, Urine Negative Negative Methadone Screen, Urine Negative Negative Buprenophine Screen, Urine Negative Negative TCA, Urine Negative Negative MDMA Urine Negative Negative ng/mL Oxycodone Screen, Urine Positive Negative Phencyclidine (PCP), Urine Negative Negative Propoxyphene, Urine Negative Negative Fentanyl, Urine Negative Negative Urine Urine specimen obtained by clean catch procedure / Unknown 08/20/2025 1:22 PM EDT Narrative Elaina Baltazar RN - 08/20/2025 1:22 PM EDT UTOX cup Lot#[id number] Exp. 09/01/26 Internal Pass Control Analy Agee DO POINT OF CARE TEST ENTER/ERIN T ORDERABLES Final Result * BI Mammogram Screening Tomosynthesis Bilateral (12/17/2024 12:00 PM EST) Anatomical Region Laterality Modality Breast Bilateral Mammography 12/17/2024 12:0 0 PM EST Narrative 12/26/2024 10:23 AM EST [facility] [address] [place] [address] Mammography Report Signed Patient: Wendy Garibay MR#: [id number] : 1960 Acct:[id number] Age/Sex: 64 / F ADM Date: 12/17/24 Loc: [facility] Attending Dr: Analy Agee DO Ordering Physician: Analy Agee DO Results: 1N egative Date of Service: 12/17/24 Follow Up: 1 Year From Orig inal Mammogram Procedure(s): MM tomosynthesis screening BI Accession Number(s): [id number] cc: Analy Agee DO EXAMINATION: MM SCREENING [...] 12/26/24 1018 DD/ 1200 TD/TT: 12/17/24 1217 Prop Maker: Procedure Note Donotuseinterpreter, Image - 12/26/2024 [facility] [address] [place], [place] [address] Mammography Report Signed Patient: Wendy Garibay MR#: [id number] : 1960Acct:[id number] Age/Sex: 64 / FADM Date: 12/17/24 Loc: SUSY Attending Dr: Analy Agee DO Ordering Physician: Analy Ageeults: 1N egative Date of Service: 12/17/24Follow Up: 1 Year From Orig inal Mammogram Procedure(s): MM tomosynthesis screening BI Accession Number(s): [id number] cc: Analy Agee DO EXAMINATION: MM SCREENING [...] 12/26/24 1018 DD/ 1200 TD/TT: 12/17/24 1217 Prop Maker: Analy Agee DO IMG BI PROCEDURES Final Resu lt * Albumin, Random Urine W/Creatinine (08/15/2024 12:47 PM EDT) Creatinine, Urine 115.59 mg/dL [facility] Microalbumin Urine 7.0 mg/L [facility] Microalbum Creatinine Ratio Ur 6.0 <30 ug/mg cr [facility] Comment:Albumin/Creatinine R atio Reference Ranges: Normal: < 30 ug/mg creatinine Microalbuminuria: 30 - 300 ug/mg creatinineClinical Albuminuria: > 300 ug/mg creatinine 08/15/2024 12:4 7 PM EDT 08/15/2024 4:05 PM EDT Analy Agee DO LAB URINE ORDERABLES Final R esult Performing Organization Address [facility] Co de Phone Number [facility] [address] [place] [address] [phone] * HIV-1/2 Antigen and Antibodies, Fourth Generation, with Reflexes (08/15/2024 12:40 PM EDT) HIV AB/AG Nonreactive Nonreactive [facility] Comment:HIV-1 p24 Ag and/or HIV-1/HIV-2 Ab not detected.A test result that is nonreactive does not exclude thepossibility of exposure to or infection with HIV-1 and/orHIV-2. Nonreactive results in this assay for individualswith prior exposure to HIV-1 and/or HIV-2 may be due toantigen and antibody levels that are below the limit ofdetection of this assay.The The [address] HIV Ag/Ab Combo assay result andsupplemental assay results should be interpreted inconjunction with the patient's clinical presentation,history and other laboratory results. If the results areinconsistent with clinical evidence, additional testing issuggested to confirm the result. 08/15/2024 12:4 0 PM EDT 08/15/2024 4:17 PM EDT Analy Agee DO LAB BLOOD ORDERABLES Final R esult Performing Organization Address [facility] Co de Phone Number [facility] [address] [place] [address] [phone] * Lipid Panel, Standard (08/15/2024 12:40 PM EDT) Triglycerides 142 <150 mg/dL [facility] Comment:Desirable Triglyceri de: less than 150 mg/dLBorderline High Triglyceride 150-199 mg/dLHigh Triglyceride: 200-499 mg/dLVery High Triglyceride: greater than or equal to 5OO mg/dL Cholesterol 136 <200 mg/dL [facility] Comment:Desirable Cholestero l: less than 200 mg/dLBorderline High Cholesterol: 200-239 mg/dLHigh Cholesterol: greater than 239 mg/dL LDL Cholesterol Calculated 66 <100 mg/dL [facility] Comment:Desirable LDL: less than 100 mg/dLNear Optimal/Above Optimal LDL: 110- 129 mg/dLBorderline High LDL: 130-159 mg/dLHigh LDL: 160-189 mg/dLVery High LDL: greater than or equal to 190 mg/dL HDL Cholesterol 42 >40 mg/dL [facility] Comment:Desirable HDL: great er than 40 mg/dL Note: This HDL assay may give artificially low results in patients with liver disease. 08/15/2024 12:4 0 PM EDT 08/15/2024 4:17 PM EDT Analy Agee DO LAB BLOOD ORDERABLES Final R esult Performing Organization Address [facility]/ZIP Co de Phone Number [facility] [address] [place] [address] [phone] * Hm Colonoscopy (09/22/2022 9:26 AM EDT) Historical Provider HEALTH MAINTENANCE Final Result * HEPATITIS C AB W/REFL TO HCV RNA, QN, PCR (10/13/2021 2:59 PM EST) HEPATITIS C ANTIBODY NON-REACT DESI NON-REACT DESI [facility] INDEX 0.01 <1.00 [facility] Comment: HCV antibody was non-reactive. There is no laboratory evidence of HCV infection. In most cases, no further action is required. However, if recent HCV exposure is suspected, a test for HCV RNA (test code 11439) is suggested. For additional information please refer to http://education.[employer]/faq/TXE84b9 (This link is being provided for informational/ educational purposes only.) 10/13/2021 2:59 PM EST Analy Agee DO HISTORICAL/NON ORDERABLE LAB S Final Result Performing Organization Address [facility]/ZIP Co de Phone Number [facility] [place] [address], [place] * HPV E6/E7 RFLX BERNARDO 16 18/45 (09/15/2016 11:45 AM EDT) ADDITIONAL TESTING Not indicated () [facility] Comment: Test Performed by [facility], [facility], [address] [place] [address] Rojas Meneses M.D., Ph.D., Director of Laboratories , [facility] [id number] HPV 16 RNA Test not performed [facility] HPV 18/45 RNA Test not performed [facility] HPV mRNA E6/E7 Not Detected NOT DETECTED [facility] Comment: This assay detects E6/E7 viral messenger RNA (mRNA) from 14 high-risk HPV types (16,18,31,33,35,39,45,51, 52,56,58,59,66,68). This test was performed using the APTIMA(R) TMA HPV Assay ([employer] For additional information, please refer to http://education.[employer]/faq/GXQ648s7 Please note: Effective 08/07/2016, HPV testing will be performed using [employer] APTIMA test which targets mRNA. Detecting mRNA instead of DNA, as in older methods, offers significant improvements in specificity. 09/15/2016 11:4 5 AM EDT us Analy Agee DO HISTORICAL/NON ORDERABLE LAB S Final Result [facility] [address] [place] [address], * Pap Smear (09/15/2016 12:00 AM EDT) Swab us Analy Agee DO LAB CYTOLOGY ORDERABLES [place] l Result [facility] [address] [place] [address] from Last 3 Months or Most Recently Relevant to Health Maintenance Additional Health Concerns Active Problems Noted Date Diagnosed Date Help patients manage their type 2 diabetes 10/07 Weekly blood pressure task 10/07/2025 Help patients manage their type 2 diabetes 10/07 Patient has chronic kidney disease 10/07/2025 Weekly blood pressure task 10/07/2025 Patient has chronic kidney disease 10/07/2025 Weekly blood pressure task 10/13/2025 Weekly blood pressure task 10/13/2025 Patient has chronic kidney disease 10/13/2025 Patient has chronic kidney disease 10/13/2025 Insurance [facility] < [address] [place] [id number] Care Teams Director Of Graduate Admissions Relationship Specialty Start Date End Date Analy Agee DO [address] [place] [phone] PCP - General Family Medicine 11/08/11
--- OUTSIDE RECORDS SUMMARY | 2025-10-21 15:43 | XMS_ITS | Encounter Summary ---
Author Organization [facility] Address [address] [place] [address] Care Team Providers Care Word Processor Name Role Phone Analy Agee DO Primary Care Provider + [phone] Encounter Details Date Type Department Care Team (Late st Contact Info) Description 10/18/[address] [address] Provider, Gloria, Social History Tobacco Use Types [...] Description 11/16/2025 1:00 PM EST Clinical Support [address] [address] Elaina Baltazar RN documented as of this encounter Procedures Procedure Name Priority Date/Time Associated Diagnosis Comments MAMMOGRAPHY Routine 01/25/2021 documented in this encounter Results * Mammography (01/25/2021) Mammogram Performed Anatomical Region Laterality Modality Other Historical Provider HEALTH MAINTENANCE Final Result documented in this encounter Visit Diagnoses Not on filedocumented in this encounter Care Teams Word Processor Relationship Specialty Start Date End Date Analy Agee DO [address] [place] [phone] PCP - General Family Medicine 11/08/11 documented as of this encounter
--- OUTSIDE RECORDS SUMMARY | 2025-10-21 15:43 | XMS_ITS | Encounter Summary ---
Author Organization [employer] Address [address] [facility] [address] [place] [address] Care Team Providers Care Supervisor Fish [employer]chery Name Role Phone Analy Agee DO Primary Care Provider + [phone] Encounter Details Date Type Department Care Team (Late st Contact Info) Description 03/06/2024 Orders Only [facility] [address] [place] [address] Provider, MD Gloria Social History Tobacco Use [...] Description 11/16/2025 1:00 PM EST Clinical Support [facility] [address] [place] [address] Elaina Baltazar RN documented as of this [...] documented as of this encounter Care Teams Supervisor [employer] Hatcher[employer] Relationship Specialty Start Date End Date Analy Agee DO [address] [place] [address] PCP - General Family Medicine 11/08/11 documented as of this encounter
--- OUTSIDE RECORDS SUMMARY | 2025-10-21 15:43 | XMS_ITS | Encounter Summary ---
Author Organization [employer] Address [address] [facility] 7t [place] [address] Care Team Providers Care Sock Turner Name Role Phone Analy Agee DO Primary Care Provider + [phone] Reason for Visit * Reason Comments Med Refill Encounter Details Date Type Department Care Team ([facility] st Contact Info) Description 01/16/2025 Refill [facility] MEDICINE [address] [place], [place] [phone] Analy Agee DO [address] [place] [address] Chronic bilateral low back pain, unspecified whether [...] Description 11/16/2025 1:00 PM EST Clinical Support [facility] MEDICINE [address] [place] [address] Elaina Baltazar, MAJO documented as of this encounter Visit Diagnoses Diagnosis Chronic bilateral low back pain, unspecified whether sciatica present documented in this encounter Additional Health Concerns Assessment Noted Time PHQ-9 Depression Total Score: 21 024 1:37 PM EDT documented as of this encounter Care Teams Sock Turner Relationship Specialty Start Date End Date Analy Agee DO [address] [place] [address] PCP - General Family Medicine 11/08/11 documented as of this encounter
--- OUTSIDE RECORDS SUMMARY | 2025-10-21 15:43 | XMS_ITS | Encounter Summary ---
Author Organization [employer] [facility] Address [address] [place] [address] [address]t [place] [address] Care Team Providers Care Class B Truck Driver Name Role Phone Analy Agee DO Primary Care Provider [phone]- [phone] Encounter Details Date Type Department Care Team (Late st Contact Info) Description 10/18/[address] [address] Provider, MD Gloria Social History Tobacco Use [...] Description 11/16/2025 1:00 PM EST Clinical Support [address] [address] Elaina Baltazar RN documented as of this encounter Visit Diagnoses Not on filedocumented in this encounter Care Teams Class B Truck Driver Relationship Specialty Start Date End Date Analy Agee DO [address] [place] [address] PCP - General Family Medicine 11/08/11 documented as of this encounter
--- OUTSIDE RECORDS SUMMARY | 2025-10-21 15:43 | XMS_ITS | Encounter Summary ---
Author Organization [employer] Address [address] [facility] 7t [place] [address] Care Team Providers Care Pt Escort Name Role Phone Analy Agee DO Primary Care Provider + [phone] Encounter Details Date Type Department Care Team (Late st Contact Info) Description 01/15/2024 Orders Only [facility] [address] [place] [address] Provider, MD Gloria Social History Tobacco Use [...] 1:00 PM EST Clinical Support [facility] MEDICINE [address] [place] [address] Elaina Baltazar RN documented as of this [...] Noted Time PHQ-9 Depression Total Score: 16 03/06/ 023 11:33 AM EDT documented as of this encounter Care Teams Pt Escort Relationship Specialty Start Date End Date Analy Agee DO [address] [place] [address] PCP - General Family Medicine 11/08/11 documented as of this encounter
--- OUTSIDE RECORDS SUMMARY | 2025-10-21 15:43 | XMS_ITS | Encounter Summary ---
Author Organization [employer] Address [address] [facility] 7t [place] [address] Care Team Providers Care Personal Lines Advisor Name Role Phone Analy Agee DO Primary Care Provider + [phone] Reason for Visit * Reason Comments Med Refill Encounter Details Date Type Department Care Team (Late Contact Info) Description 03/12/2023 Refill [facility] MEDICINE [address] [place], [place] [phone] Ana Maria Ervin MD [address] [place] [address] Social History Tobacco Use Types Packs/Day Years [...] Department Care Team (Late Contact Info) Description 11/16/2025 1:00 PM EST Clinical Support [facility] MEDICINE [address] [place] [address] Elaina Baltazar, RN documented as of this encounter Visit Diagnoses Not on filedocumented in this encounter Additional Health Concerns Assessment Noted Time PHQ-9 Depression Total Score: 16 023 11:33 AM EDT documented as of this encounter Care Teams Personal Lines Advisor Relationship Specialty Start Date End Date Analy Agee DO [address] [place] [address] PCP - General Family Medicine 11/08/11 documented as of this encounter
--- OUTSIDE RECORDS SUMMARY | 2025-10-21 15:43 | XMS_ITS | Encounter Summary ---
Author Organization [employer] Address [address] [facility] 7t [place] [address] Care Team Providers Care Cigar Machine Feeder Name Role Phone Analy Agee DO Primary Care Provider + [phone] Reason for Visit * Reason Comments Med Refill Encounter Details Date Type Department Care Team ([facility] st Contact Info) Description 10/21/2025 Refill [facility] MEDICINE [address] [place], [place] [phone] Analy Agee DO [address] [place] [address] Social History Tobacco Use Types Packs/Day Years [...] Description 11/16/2025 1:00 PM EST Clinical Support [address] [address] Elaina Baltazar RN documented as of this encounter Goals Goal Patient Goal Type Associated Problems Recent Progress Patient-Stated? Author Help patients manage their type 2 diabetes Care Plan Help patients manage their type 2 diabetes No Analy Agee DO Weekly blood pressure [...] chronic kidney disease No Analy Ordonez PharmD documented as of this encounter Visit Diagnoses Not on filedocumented in this encounter Additional Health Concerns Active Problems Noted Date [...] 10/13/2025 Patient has chronic kidney disease 10/13/2025 Assessment Noted Time PHQ-9 Depression Total Score: 24 025 1:04 PM EST documented as of this encounter Care Teams Cigar Machine Feeder Relationship Specialty Start Date End Date Analy Agee DO [address] [place] [address] PCP - General Family Medicine 11/08/11 documented as of this encounter
--- OUTSIDE RECORDS SUMMARY | 2025-10-21 15:43 | XMS_ITS | Encounter Summary ---
Author Organization [employer] Address [address] [facility] 7t [place] [address] Care Team Providers Care Wire Frame Lampshade Maker Name Role Phone Analy Agee DO Primary Care Provider [phone]- [phone] Encounter Details Date Type Department Care Team (Late st Contact Info) Description 12/22/2022 Orders Only [facility] MED [facility] PEDS [address] [place] [address] Analy Van LPN Social History Tobacco Use [...] Description 11/16/2025 1:00 PM EST Clinical Support [facility] MEDICINE [address] [place] [address] Elaina Baltazar, MAJO documented as of this encounter Visit Diagnoses Not on filedocumented in this encounter Care Teams Wire Frame Lampshade Maker Relationship Specialty Start Date End Date Analy Agee DO [address] [place] [address] PCP - General Family Medicine 11/08/11 documented as of this encounter
--- OUTSIDE RECORDS SUMMARY | 2025-10-21 15:43 | XMS_ITS | Clinical Summary ---
Author Organization [employer] [facility] Address [address] [place] [address] Care Team Providers Care Garnisher Name Role Phone WesleyAnaly yang Lynn CUMMINGS Primary Care Provider [phone]- [phone] Surgical History Surgery Date Site/Laterality Comments OTHER SURGICAL HISTORY 11/03/2019 PROCEDURE: TX ARTHRD ANT INTERBODY MIN DSC CRV BELOW C2; COMMENT: C5-6, C6-7 anterior cervical discectomy and fusion with plating, Dr. Torres HYSTERECTOMY PROCEDURE: HISTORICAL HYSTERECTOMY TOTAL KNEE ARTHROPLASTY Right PROCEDURE: TX ARTHRP KNE CONDYLE&PLATU MEDIAL&LAT COMPARTMENTS Medical History Medical History Date Comments Type 2 diabetes mellitus wit hout complications (CMS/HCC V24, CMS/[facility] V28) DX:Type 2 evgeyn betes mellitus without complications (HCC) Essential (primary) [...] Last Done Comments Breast Cancer Screening 1962 Colorectal Cancer Screening: Colonoscopy 1962 Diabetes: Annual GFR (Glomerular Filtration Rate) 1962 Diabetes: Annual Foot Exam 1972 Diabetes: Annual Retina Eye Exam 1972 Cervical Cancer Screening: Pap Smear 1983 Pneumococcal Vaccine: 50+ Years (2 of 2 - PCV) 2012 08/11/2010 Zoster Vaccines (1 of 2) 2012 Cholesterol Screening (Lipid Panel) 11/05/2022 Diabetes: Annual Urine Albumin-Creatinine Ratio (uACR) 11/05/2022 Diabetes: Blood Sugar Control Test (HGBA1C) 11/05/2022 HIV Screening 11/05/2022 Hepatitis C Screening 11/05/2022 Hypertension/CHF/CAD Annual BMP Blood Test 11/05/2022 Social Influencers of Health Screening 11/05/2022 DTaP,Tdap,and Td Vaccines (3 - Td or Tdap) 12/06/2022 12/06/2012, 11/01/2009 Depression Screening 11/26/2024 COVID-19 Vaccine ( - season) 2025 10/13/2021, 03/26/2021, 02/26/2021 Influenza Vaccine (#1) 2025 [...] Documents on File Type Date Recorded Patient Toll Transmission Worker Expl anation Health Care Decision (hx) 11/03/2019 [...] (hx) 11/03/2019 AD SIMON DIRECTIVE Care Teams Garnisher Relationship Specialty Start Date End Date Analy Agee DO [address] [place] [address] PCP - General Internal Medicine 01/15/14
--- OUTSIDE RECORDS SUMMARY | 2025-10-21 15:43 | XMS_ITS | Encounter Summary ---
Author Organization [email or web address] Address [address] [facility] [address] [place] [address] Care Team Providers Care Tile And Mottle Supervisor Name Role Phone Analy Agee DO Primary Care Provider + [phone] Reason for Visit * Reason Comments Med Refill Encounter Details Date Type Department Care Team ([facility] st Contact Info) Description 01/16/2024 Refill [facility] MED & PEDS [address] [place], [place] [phone] Analy Agee DO [address] [facility] [place] [address] Chronic bilateral low back pain, unspecified whether [...] Description 11/16/2025 1:00 PM EST Clinical Support [facility] MEDICINE [address] [place] [address] Elaina Baltazar RN documented as of this encounter Visit Diagnoses Diagnosis Chronic bilateral low back pain, unspecified whether sciatica present documented in this encounter Additional Health Concerns Assessment Noted Time PHQ-9 Depression Total Score: 16 023 11:33 AM EDT documented as of this encounter Care Teams Tile And Mottle Supervisor Relationship Specialty Start Date End Date Analy Agee DO [address] [place] [address] PCP - General Family Medicine 11/08/11 documented as of this encounter
== END 2025-10-21 13:41 | disposition home or self-care (01) ==
LOC: HO.HGI 12:39
PROVIDERS: PCP Family Medicine; Visit Provider Nurse Practitioner Family
DX: R13.12 Dysphagia, oropharyngeal phase (principal); R10.12 Left upper quadrant pain; R14.0 Abdominal distension (gaseous); K59.01 Slow transit constipation; K21.9 Gastro-esophageal reflux disease without esophagitis; K76.0 Fatty (change of) liver, not elsewhere classified
CPT/HCPCS: 99214; G2211

== ENCOUNTER → 2025-10-21 12:39 | Outpatient (BNVA) | payer OTHER, SELFPAY | PROVIDERS: PCP Family Medicine; Visit Provider Nurse Practitioner Family | DX: M15.0 Primary generalized (osteo)arthritis (principal); R13.12 Dysphagia, oropharyngeal phase; R10.12 Left upper quadrant pain; R14.0 Abdominal distension (gaseous); K59.01 Slow transit constipation; K21.9 Gastro-esophageal reflux disease without esophagitis; K76.0 Fatty (change of) liver, not elsewhere classified; Z79.899 Other long term (current) drug therapy | CPT/HCPCS: 99212 ==

== ENCOUNTER 2025-10-21 14:19 | Outpatient (AMB) | payer OTHER, SELFPAY ==
--- NOTE | 2025-10-21 15:12 | A.OFFVIS_ITS ---
Vital Signs 10/21/25 15:19 Height 5 ft 1 in Weight 163 lb 9.328 oz BMI 30.9 BP 130/74 Blood Pressure Location Lt brachial Position Sitting Pulse 69 Pulse Source Pulse Oximeter Pulse Oximetry (%) 98 Oxygen Delivery Method Room Air Intake Visit Reasons: follow up Intake Note: Patient presents for Osteoarthritis follow up. Allergies apple (APPLE) Allergy (Mild, Verified 10/21/25 15:18) ITCHY THROAT kiwi (KIWI) Allergy (Mild, Verified 10/21/25 15:18) ITCHY THROAT peach (PEACH) Allergy (Mild, Verified 10/21/25 15:18) ITCHY THROAT strawberry (STRAWBERRY) Allergy (Mild, Verified 10/21/25 15:18) ITCHY THROAT pineapple (PINEAPPLE) Allergy (Unknown, Verified 10/21/25 15:18) ITCHY THROAT apples,strawberries, pineapple Allergy (Unknown, Uncoded 07/22/25 09:40) itching shellfish Allergy (Uncoded 07/22/25 09:40) Itching Medication List - Last Reconciled 10/21/25 by Mamie Parekh MD albuterol sulfate 1 amp inhalation Q4H PRN albuterol sulfate 90 mcg/actuation 2 puffs inhalation Q4H PRN aspirin 1 tab PO QAM atorvastatin 1 tab PO DAILY baclofen 10 mg PO TID blood sugar diagnostic (FreeStyle Lite Strips) As directed calcium polycarbophil (Fiber-Lax) mg PO cetirizine (Zyrtec) 10 mg PO DAILY PRN cholecalciferol (vitamin D3) 1 tab PO BEDTIME clonazepam 1 tab PO BEDTIME cyanocobalamin (vitamin B-12) 1 tab PO DAILY diclofenac sodium 1% 4 grams topical QID duloxetine 20 mg PO BID esomeprazole magnesium 40 mg PO QAM fenofibrate 1 tab PO DAILY fexofenadine 180 mg PO DAILY fluticasone propionate 50 mcg/actuation 2 sprays intranasal DAILY gabapentin 1 cap PO TID hydrochlorothiazide 1 tab PO QAM hydrocortisone 2.5% (Proctosol HC) 1 appl [place] BID-QID PRN lancets (TRUEplus Lancets) As directed lisinopril 1 tab PO DAILY lorazepam 1 tab PO BEDTIME PRN meclizine 25 mg PO DAILY PRN meloxicam 15 mg PO DAILY metformin 1 tab PO BID oxcarbazepine 1 tab PO BID oxybutynin chloride ER 1 tab PO QAM oxycodone-acetaminophen 5-325 mg 1 tab PO BID PRN quetiapine 1 - 2 tabs PO BEDTIME PRN sennosides (Natural Senna Laxative) 17.2 mg (2 x 8.6 mg) PO BEDTIME simethicone 125 mg PO BID-QID PRN sucralfate 1 g PO BEDTIME HPI Comments Details: Patient is a 64-year-old female with schizophrenia, anxiety, panic disorder, severe recurrent major depressive disorder with psychotic features and other chronic medical illnesses including diabetes and hypertension. She is here today for follow-up for polyarticular osteoarthritis s/p right knee replacement 2013 and spinal surgery Interval History: Patient last seen 07/15/25 with me - Not on any rheum medications - C/o of right knee pain as well as left knee pain - Also notes neck stiffness and difficulty moving the neck from side to side Today - Not on any rheum medications - Here today for follow up of OA - Complaining of knee twisting inside and then feels a sharp pain (on the left) - Did not go to PT - Feels the knee is getting worse Rheumatologic History: Patient presented 07/2024 for evaluation of polyarthralgias in the setting of a positive SYDNI 1:80. Evaluation including examination, history and review of labs indicated that her diagnosis was osteoarthritis involving multiple joints including her hands, knees and spine. Current Rheumatology Medication(s): [facility] Medical History Constipation GERD (gastroesophageal reflux disease) Osteoarthritis Schatzki's ring Headache Fatty liver Pulmonary nodule Asthma FH: total knee replacement Scoliosis Arthritis Hyperlipemia Depression Anxiety Hypertension Diabetes Surgical History History of esophagogastroduodenoscopy (EGD) Hx of colonoscopy S/P cervical disc replacement (Unknown) History of tubal ligation H/O: hysterectomy Family History Maternal Grandmother Uterine cancer Social History Household Members: None Housing: Apartment Alcohol intake: former Patient Tobacco Use Status: Former Tobacco user Tobacco use type: Cigarette service: No Current occupational status: retired Review of Systems Narrative Review of Systems Constitutional: Denies fever, chills, weight loss ENT: Denies vision changes, eye pain or eye redness, dental caries, dry mouth GI: Denies nausea, vomiting, diarrhea, abdominal pain, change in BM Pulm: Denies SOB, ORTIZ, hemoptysis, wheezing Cards: Denies chest pain, palpitations Skin: Denies Raynaud's, rash, nail changes, photosensitivity, INCIDENT MANAGER: Denies headaches, weakness, paresthesias, recurrent falls MSK: as per HPI All other systems reviewed and are unremarkable except noted above Physical Exam Exam Exam: Vital signs reviewed Physical Examination CONSTITUITIONAL Patient alert and cooperative. Well appearing and in no apparent painful distress MSK Knees * Right knee: Warm to touch, swelling noted with TTP of the knee joint line. No TTP of pes anserine bursa. * Left knee: Good ROM. No swelling noted. No TTP of the knee joint line. No TTP of pes anserine bursa. Crepitations felt Vital Signs: Last Vital Signs Pulse 69 10/21/25 15:19 BP 130/74 10/21/25 15:19 Pulse Ox 98 10/21/25 15:19 Oxygen Delivery Method Room Air 10/21/25 15:19 BMI result Body Mass Index 30.9 Results Reviewed Results Reviewed: XR Knee 09/2024 FINDINGS: RIGHT KNEE: Redemonstration of right total knee arthroplasty. Hardware appears intact. Trace joint effusion. Focal lucency/demineralization distal to the tip of the tibial component. LEFT KNEE: Diffuse demineralization. Trace joint effusion. Moderate tricompartmental degenerative changes with tricompartmental osteophytes. Moderate narrowing of the medial and patellofemoral compartments. Faint chondrocalcinosis in the lateral compartment. IMPRESSION: 1. Right total knee arthroplasty. Hardware appears intact. Trace joint effusion. Focal lucency/demineralization distal to the tip of the tibial component. Direct correlation with prior images is recommended and if they are provided, an addendum will be dictated. 2. Moderate tricompartmental degenerative changes left knee. Assessment & Plan Assessment & Plan (1) Osteoarthritis: Code(s): M19.90 - Unspecified osteoarthritis, unspecified site Category: Medical Qualifiers: Osteoarthritis location: multiple joints Osteoarthritis type: primary Qualified Code(s): M15.0 - Primary generalized (osteo)arthritis Plan: #OA Patient is a 64 year old female with with polyarticular OA involving her hands, knees and shoulders. Topical diclofenac not helpful Encouraged PT and then we can pursue injections Plan - PT - RTC 6 months or sooner Plan I spent 20 minutes reviewing the record and labs, seeing the patient, discussing the treatment plan and documenting in the medical record ? Orders: Orders PT Evaluation and Treatment Today M17.12 - Unilateral primary osteoarthritis, left knee Coding Level of Care Code Est Pt Level 3 (39096) Diagnoses Primary osteoarthritis involving multiple joints M15.0 Osteoarthritis location: multiple joints Osteoarthritis type: primary
[2025-10-21 15:19] VITALS: BP 130/74; PULSE 69; O2SAT 98; BMI 30.9
== END 2025-10-21 15:50 | disposition home or self-care (01) ==
LOC: HO.RHES 14:19
PROVIDERS: PCP Family Medicine; Visit Provider Student in an Organized Health Care Education/Training Program
DX: M15.0 Primary generalized (osteo)arthritis (principal)
CPT/HCPCS: 99213